=== PATIENT | female | born 1940 | race Caucasian/White ===

== ENCOUNTER → 2016-08-24 | Outpatient (CLI) | payer MEDICARE ==
[~2016-08-24] MED LIST: /ALEN70TA; /AMLO25TA PO; /CARB4TA; /CARBXR20T OR; /CARBXR20T PO; /HYDR10TAB PO; /ROPI25TA; /WARF25TA PO; /WARF5TA PO; ACET50TAOT PO; AMLO25TA PO; ASPI81TA21 PO; ASPI81TA63; ASPI81TA83 OR; ATOR1TAB21 PO; AUGM875T27 PO; BACIDCA PO; BAYE81TA7 PO; BENI20TA11; BENI20TA11 PO; BENI40TA3 PO; BENICAR PO; CARB10TAXR; CARB200C5 PO; CARB400T4 PO; CARV12.5 PO; CIPR500T19; CORE25TA PO; D 101TAB PO; DOXY75CA3 PO; FURO20TA2 PO; GABA100C PO; HUMULIN 70/30; HUMULIN 70/30 SC; IBUPOTC PO; LASI20TA OR; LEVA500T OR; LEVA500T PO; LIDO1DIS2 TD; LIDO5DIS EXT; LIPI20TA; LIPI20TA OR; MILKSUS OR; NAME5TAB13 PO; NEUR100C OR; NORT25CA2; NORT25CA2 PO; NOVO70VL SC; NOVOINJ3 SC; PAME50CA PO; PERC5TAB8 OR; PERCOCET PO; PRED10TA PO; PRED1TAB32 PO; PRED20TAB PO; PREG50CA PO; PRIL20CA PO; PROAIR INH; SYMB80INH INH; TRIC145T19; TRIC145T19 OR; TYLE325T5 PO; VENTAER INH; VITA100066 PO; VITA1CAP7 PO; VITACAP31 PO; VITAMIN D50000 UNT; WARF05TA GT; [UNRECOGNIZED DRUG - CODE]; [UNRECOGNIZED DRUG - OTHER] PO; [UNRECOGNIZED DRUG - REMARK]; insulin SQ
--- NOTE | 2016-09-08 01:29 | ECWPNPC ---
PATIENT NAME: JAVY RUIZ : 1940 GENDER: FEMALE VISIT DATE: 08/24/2016 DISCHARGE DATE: 08/24/16 1153 VISIT LOCKED DATE TIME: PHYSICIAN: UZMA WINSTON RESOURCE: UZMA WINSTON REASON FOR APPOINTMENT 1. T EPIDURAL F/U BACK HISTORY OF PRESENT ILLNESS HISTORY OF PRESENT ILLNESS: HERE FOR POST PROCEDURE F/U.HAD LESI ON 06-23-16.REPORTS SIGNIFICANT REDUCTION IN LBP AND RIGHT LEG PAIN.RATING PAIN VAS 7/10.CHIEF AREA OF PAIN IS ACROSS LOW BACK.DISCUSSED TREATMENT OPTIONS. FALL RISK SCREENING: SCREENING :NO FALLS IN THE PAST YEAR CURRENT MEDICATIONS TAKING FUROSEMIDE 20 MG TABLET 1 TABLET ORALLY ONCE A DAY TAKING CARVEDILOL 12.5MG TABLET 1 TAB(S) P.O. BID TAKING CALCIUM + D 600-200 MG-UNIT TABLET 1 TABLET WITH FOOD ORALLY ONCE A DAY TAKING LIPITOR 20 MG TABLET 1 TABLET ORALLY ONCE A DAY TAKING BENICAR 40 MG TABLET 1 TABLET ORALLY ONCE A DAY TAKING TEGRETOL-XR 200 MG TABLET EXTENDED RELEASE 12 HOUR 1 TABLET ORALLY TWICE A DAY TAKING NORTRIPTYLINE HCL 25 MG CAPSULE 1 CAPSULE ORALLY TWICE A DAY TAKING ASPIRIN 81 MG TABLET 1 TABLET ORALLY ONCE A DAY TAKING LYRICA 100 MG CAPSULE 1 CAP(S) ORALLY BID TAKING SYMBICORT 80-4.5 MCG/ACT AEROSOL 2 PUFFS INHALATION TWICE A DAY TAKING VITAMIN D3 5000 UNIT CAPSULE ORALLY DAILY TAKING OMEPRAZOLE 20 MG CAPSULE DELAYED RELEASE 1 CAPSULE ORALLY ONCE A DAY TAKING LEVEMIR FLEXPEN 100 UNIT/ML SOLUTION 60 UNITS SUBCUTANEOUS NIGHTLY TAKING NAMENDA XR 28 MG CAPSULE EXTENDED RELEASE 24 HOUR 1 CAPSULE ORALLY ONCE A DAY TAKING HUMALOG 100 UNIT/ML SOLUTION SUBCUTANEOUS SLIDING SCALE DIRECTED NOT-TAKING NOVOLOG MIX 70/30 (70-30) 100 UNIT/ML SUSPENSION 30 UNITS SUBCUTANEOUS MEDICATION LIST REVIEWED AND RECONCILED WITH THE PATIENT PAST MEDICAL HISTORY DM, TYPE II HYPERCHOLESTEROLEMIA HTN VIT D DEFICIENCY CHRONIC RENAL INSUFFICIENCY EDEMA CHRONIC ARTHRITIS SEIZURE DISORDER OSTEOPOROSIS RLS GERD TIA 05/21/2012 DEMENTIA COPD SOCIAL HISTORY GENERAL: TOBACCO USE ARE YOU A:NONSMOKER LEARNING BARRIERS / SPECIAL NEEDS ORIENTED TO PLAN OF CARE: PATIENT, PAIN MANAGEMENT PATIENT, ORIENTED TO PLAN OF CARE: PATIENT, PAIN MANAGEMENT PATIENT. NEW PATIENT PAIN DIARY TODAY'S VISITNOTES FROM 0-10, WHAT LEVEL IS YOUR PAIN TODAY?0 PAIN CLINIC PFS, CLERGY, PUBLIC HEALTH REFERRALS PFS REFERRAL NEEDED?NO CLERGY REFERRAL NEEDED?NO PUBLIC HEALTH REFERRAL NEEDED?NO WAS THE PROVIDER NOTIFIED OF ANY PERTINENT INFO?NO PFS REFERRAL NEEDED?NO CLERGY REFERRAL NEEDED?NO PUBLIC HEALTH REFERRAL NEEDED?NO WAS THE PROVIDER NOTIFIED OF ANY PERTINENT INFO?NO REVIEW OF SYSTEMS CONSTITUTIONAL: ANY CHANGE IN YOUR MEDICAL CONDITION? NO . RECENT ILLNESS DENIES . CHILLS NO . FEVER NO . WEIGHT LOSS DENIES . INFECTION: DO YOU HAVE NEW INFECTIONS? NO . DO YOU HAVE HISTORY OF MRSA? NO . MUSCULOSKELETAL: ANY NEW PATTERNS OF PAIN OR NUMBNESS? NO . GASTROENTEROLOGY: ANY NEW CHANGE IN BOWEL CONTROL? NO . GENITOURINARY: ANY NEW CHANGE IN BLADDER CONTROL? NO . IS THERE A CHANCE YOU COULD BE ? NO . HEMATOLOGY/LYMPH: DO YOU TAKE ANY BLOOD THINNERS? (FOR EXAMPLE- COUMADIN, PLAVIX, AGGRENOX, PLATEL, PRADAXA, OR XARELTO) NO . WHEN WAS YOUR LAST DOSE? DATE: TIME: . NEUROLOGY: HAVE YOU FALLEN IN THE PAST 6 MONTHS? NO . ANY NEW EXTREMITY NUMBNESS OR WEAKNESS? NO . CARDIOLOGY: DO YOU HAVE A PACEMAKER OR DEFIBRILLATOR? NO . CHEST PAIN DENIES . SHORTNESS OF BREATH DENIES . RESPIRATORY: HAVE YOU BEEN SICK IN THE PAST WEEK? NO . FEVER NO . FLU LIKE SYMPTOMS? NO . COUGH NO, DENIES . SHORTNESS OF BREATH DENIES . INTEGUMENTARY: DO YOU HAVE ANY RASHES OR OPEN SORES? NO . ALLERGIC/IMMUNO: ARE YOU ALLERGIC TO SHELLFISH OR IV DYE? NO . ANY NEW ALLERGIES? NO . PSYCHIATRIC: DO YOU HAVE THOUGHTS OF HURTING YOURSELF OR SOMEONE ELSE? NO . ARE YOU ABUSED, NEGLECTED, OR IN AN UNSAFE ENVIRONMENT? NO . ENDOCRINOLOGY: ARE YOU DIABETIC? NO . OTHER: DO YOU NEED ANY PRESCRIPTIONS? NO . IF YES, PLEASE LIST: ____ . ANY NEW PROBLEMS WITH YOUR MEDICATIONS? NO . WHEN DID YOU LAST EAT? ____ . WHEN DID YOU LAST DRINK? ____ . WHAT DID YOU LAST DRINK? ____ . NAME OF PERSON DRIVING YOU HOME? ____ . DO YOU HAVE ANY OTHER QUESTIONS OR CONCERNS NO . REVIEWED BY: PROVIDER: UZMA NELSON . VITAL SIGNS WT 183.8 LBS, HT 62", BMI 33.61 INDEX, BP 165/67 MM HG, HR 106 /MIN, RR 18 /MIN, TEMP 97.8 F, OXYGEN SAT % 95, SAFE IN ENV? (Y/N) YES, NA INITIALS TL 1109, REVIEWED BY: KG. EXAMINATION GENERAL EXAMINATION: LUNGS:LUNG SOUNDS ARE CLEAR. HEART:HEART RATE REGULAR. MUSCULOSKELETAL:*, MUSCLE STRENGTH TESTING 5/5 BILATERAL LOWER EXTREMITIES. PALPATION: POSITIVE FOR PAIN OVER L/S SPINE. POSITIVE FOR PAIN OVER L/S PARASPINALS. DIAGNOSTIC: . ASSESSMENTS LUMBOSACRAL SPONDYLOLYSIS - M43.07 (PRIMARY) TREATMENT LUMBOSACRAL SPONDYLOLYSIS LUMBAR FACET UZMA BOYKIN 08/24/2016 11:35:21 AM > BILAT L4/5-L5/S1 THERAPEUTIC FACET BLOCK PREVENTIVE MEDICINE PAIN CLINIC TEACHING: PROCEDURE TEACHING WENT OVER PRETEACHIUNG AND ALSO HCP WITH PT / GAVE HAND OUTS WELL. PROCEDURE CODES FA211 ESTABILISHED PATIENT [facility] FACILITY CHARGE G8730 PAIN ASSESS POS TOOL F/U PLAN DOC G8427 DOC MEDS VERIFIED W/PT OR RE FOLLOW UP 2WK POST (REASON: BILAT L4/5-L5/S1 THERAPEUTIC FACET BLOCK) ELECTRONICALLY SIGNED BY OMAR DALEY ON 09/07/2016 AT 05:28 PM EST DISCLAIMER : THIS IS A VISIT SUMMARY EXTRACTED FROM THE [employer] CHART. IT IS NOT A COPY OF THE [employer] PROGRESS NOTE. DENIS
== END ==
LOC: M PAIN 11:00
PROVIDERS: ATTEND Nurse Practitioner Family
DX: Z09 Encounter for follow-up examination after completed treatment for conditions other than malignant neoplasm (principal); G89.29 Other chronic pain; M43.07 Spondylolysis, lumbosacral region; M19.90 Unspecified osteoarthritis, unspecified site; G40.919 Epilepsy, unspecified, intractable, without status epilepticus; E11.9 Type 2 diabetes mellitus without complications; E78.00 Pure hypercholesterolemia, unspecified; E55.9 Vitamin D deficiency, unspecified; I12.9 Hypertensive chronic kidney disease with stage 1 through stage 4 chronic kidney disease, or unspecified chronic kidney disease; N18.9 Chronic kidney disease, unspecified; G25.81 Restless legs syndrome; K21.9 Gastro-esophageal reflux disease without esophagitis; J44.9 Chronic obstructive pulmonary disease, unspecified; F03.90 Unspecified dementia, unspecified severity, without behavioral disturbance, psychotic disturbance, mood disturbance, and anxiety; Z79.82 Long term (current) use of aspirin; Z79.4 Long term (current) use of insulin; Z79.899 Other long term (current) drug therapy; Z86.73 Personal history of transient ischemic attack (TIA), and cerebral infarction without residual deficits

== ENCOUNTER → 2016-09-21 | Outpatient (REF) | payer MEDICARE ==
[2016-09-21 16:14] LABS: BASO % 0.8 % (0.0-1.0); EOS # 0.1 K/mm3 (0.0-0.50); EOS % 2.4 % (0.0-3.0); LARGE UNSTAINED CELL # 0.1 K/mm3 (0.0-0.4); LYMPH # 1.6 K/mm3 (1.5-4.5); LYMPH % 35.9 % (24.0-44.0); MEAN CORPUSCULAR HEMOGLOBIN 31.8 pg (27.0-33.0); MEAN CORPUSCULAR HGB CONC 33.6 g/dl (32.0-36.5); MEAN CORPUSCULAR VOLUME 94.5 fl (80.0-96.0); MONO # 0.3 K/mm3 (0.0-0.8); MONO % 6.6 % (0.0-5.0); NEUTROPHILS # 2.2 K/mm3 (1.8-7.7); NEUTROPHILS % 52.3 % (36.0-66.0); PLATELET COUNT, AUTOMATED 226 k/mm3 (150-450); RED CELL DISTRIBUTION WIDTH 12.6 % (11.5-14.5); WHITE BLOOD COUNT 4.2 K/mm3 (4.0-10.0)
[2016-09-21 16:15] LABS: CARBAMAZEPINE (TEGRETOL) LEVEL 7.6 UG/ML (4.0-10.0)
== END ==
LOC: M LABDRAW1 15:31
PROVIDERS: ATTEND Physician Assistant Medical
DX: G40.919 Epilepsy, unspecified, intractable, without status epilepticus (principal); Z51.81 Encounter for therapeutic drug level monitoring; Z79.899 Other long term (current) drug therapy; E78.4 Other hyperlipidemia

== ENCOUNTER → 2016-09-21 | Outpatient (REF) | payer MEDICARE | LOC: M LABDRAW1 15:30 | PROVIDERS: ATTEND Nurse Practitioner Family | DX: E78.4 Other hyperlipidemia (principal) ==

== ENCOUNTER → 2016-09-30 | Outpatient (CLI) | payer MEDICARE ==
[~2016-09-30] MED LIST changes: +BUPIVACAINE HCL 0.25% 30 ML VIAL As Ordered ONE; +ISOVUE-M 300 61% 15ML VIAL (Q9967) As Ordered ONE; +LIDOCAINE 1% SDV INJ 30 ML VIAL As Ordered ONE; +TRIAMCINOLONE ACETONIDE SUSP 40 MG/ML VIAL (J3301) As Ordered ONE; +diazePAM 5 MG TAB As Ordered ONE
--- NOTE | 2016-10-01 09:45 | REP ---
Partial lumbar spine series: Two views. History: Bilateral lumbar facet injection for pain. 50 seconds of fluoroscopy time is reported. Findings: A sequence of two fluoroscopically obtained last image hold spot radiographs of the lumbar spine are presented documenting needle position and contrast injection for facet injection procedure. Signed by Doyle Richter MD 10/01/2016 01:13 P
--- NOTE | 2016-10-07 01:36 | ECWPNPC ---
PATIENT NAME: JAVY RUIZ : 1940 GENDER: FEMALE VISIT DATE: 09/30/2016 DISCHARGE DATE: 09/30/16 1428 VISIT LOCKED DATE TIME: PHYSICIAN: AARON ZURITA RESOURCE: AARON ZURITA REASON FOR APPOINTMENT 1. THERAPEUTIC FACET BLOCK HISTORY OF PRESENT ILLNESS HISTORY OF PRESENT ILLNESS: PAIN THE PATIENT DESCRIBES THE PAIN... FALL RISK SCREENING: SCREENING :NO FALLS IN THE PAST YEAR CURRENT MEDICATIONS TAKING FUROSEMIDE 20 MG TABLET 1 TABLET ORALLY ONCE A DAY, NOTES: 09/29 7AM TAKING CARVEDILOL 12.5MG TABLET 1 TAB(S) P.O. BID, NOTES: 09/29 7AM TAKING CALCIUM + D 600-200 MG-UNIT TABLET 1 TABLET WITH FOOD ORALLY ONCE A DAY, NOTES: 09/29 7AM TAKING LIPITOR 20 MG TABLET 1 TABLET ORALLY ONCE A DAY, NOTES: 09/29 7AM TAKING BENICAR 40 MG TABLET 1 TABLET ORALLY ONCE A DAY, NOTES: 09/29 7AM TAKING TEGRETOL-XR 200 MG TABLET EXTENDED RELEASE 12 HOUR 1 TABLET ORALLY TWICE A DAY, NOTES: 09/29 7AM TAKING NORTRIPTYLINE HCL 25 MG CAPSULE 1 CAPSULE ORALLY TWICE A DAY, NOTES: 09/29 7AM TAKING ASPIRIN 81 MG TABLET 1 TABLET ORALLY ONCE A DAY, NOTES: 09/29 7AM TAKING LYRICA 100 MG CAPSULE 1 CAP(S) ORALLY BID, NOTES: 09/29 7AM TAKING SYMBICORT 80-4.5 MCG/ACT AEROSOL 2 PUFFS INHALATION TWICE A DAY, NOTES: 09/29 7AM TAKING VITAMIN D3 5000 UNIT CAPSULE ORALLY DAILY, NOTES: 09/29 7AM TAKING OMEPRAZOLE 20 MG CAPSULE DELAYED RELEASE 1 CAPSULE ORALLY ONCE A DAY, NOTES: 09/29 7AM TAKING LEVEMIR FLEXPEN 100 UNIT/ML SOLUTION 60 UNITS SUBCUTANEOUS NIGHTLY, NOTES: 09/29 6PM TAKING NAMENDA XR 28 MG CAPSULE EXTENDED RELEASE 24 HOUR 1 CAPSULE ORALLY ONCE A DAY, NOTES: 09/29 7AM TAKING HUMALOG 100 UNIT/ML SOLUTION SUBCUTANEOUS SLIDING SCALE DIRECTED, NOTES: 09/29 10PM NOT-TAKING NOVOLOG MIX 70/30 (70-30) 100 UNIT/ML SUSPENSION 30 UNITS SUBCUTANEOUS MEDICATION LIST REVIEWED AND RECONCILED WITH THE PATIENT PAST MEDICAL HISTORY DM, TYPE II HYPERCHOLESTEROLEMIA HTN VIT D DEFICIENCY CHRONIC RENAL INSUFFICIENCY EDEMA CHRONIC ARTHRITIS SEIZURE DISORDER OSTEOPOROSIS RLS GERD TIA 05/21/2012 DEMENTIA COPD ALLERGIES N.K.D.A. SOCIAL HISTORY GENERAL: TOBACCO USE ARE YOU A:CURRENT SMOKER LEARNING BARRIERS / SPECIAL NEEDS ORIENTED TO PLAN OF CARE: PATIENT, PAIN MANAGEMENT PATIENT, ORIENTED TO PLAN OF CARE: PATIENT, PAIN MANAGEMENT PATIENT. NEW PATIENT PAIN DIARY TODAY'S VISITNOTES FROM 0-10, WHAT LEVEL IS YOUR PAIN TODAY?0 PAIN CLINIC PFS, CLERGY, PUBLIC HEALTH REFERRALS PFS REFERRAL NEEDED?NO CLERGY REFERRAL NEEDED?NO PUBLIC HEALTH REFERRAL NEEDED?NO WAS THE PROVIDER NOTIFIED OF ANY PERTINENT INFO?NO PFS REFERRAL NEEDED?NO CLERGY REFERRAL NEEDED?NO PUBLIC HEALTH REFERRAL NEEDED?NO WAS THE PROVIDER NOTIFIED OF ANY PERTINENT INFO?NO REVIEW OF SYSTEMS CONSTITUTIONAL: ANY CHANGE IN YOUR MEDICAL CONDITION? NO . CHILLS NO . FEVER NO . INFECTION: DO YOU HAVE NEW INFECTIONS? NO . DO YOU HAVE HISTORY OF MRSA? NO . MUSCULOSKELETAL: ANY NEW PATTERNS OF PAIN OR NUMBNESS? NO . GASTROENTEROLOGY: ANY NEW CHANGE IN BOWEL CONTROL? NO . GENITOURINARY: ANY NEW CHANGE IN BLADDER CONTROL? NO . IS THERE A CHANCE YOU COULD BE ? NO . HEMATOLOGY/LYMPH: DO YOU TAKE ANY BLOOD THINNERS? (FOR EXAMPLE- COUMADIN, PLAVIX, AGGRENOX, PLATEL, PRADAXA, OR XARELTO) NO . WHEN WAS YOUR LAST DOSE? DATE: TIME: . NEUROLOGY: HAVE YOU FALLEN IN THE PAST 6 MONTHS? NO . ANY NEW EXTREMITY NUMBNESS OR WEAKNESS? NO . CARDIOLOGY: DO YOU HAVE A PACEMAKER OR DEFIBRILLATOR? NO . RESPIRATORY: HAVE YOU BEEN SICK IN THE PAST WEEK? NO . FEVER NO . FLU LIKE SYMPTOMS? NO . COUGH NO . INTEGUMENTARY: DO YOU HAVE ANY RASHES OR OPEN SORES? NO . ALLERGIC/IMMUNO: ARE YOU ALLERGIC TO SHELLFISH OR IV DYE? NO . ANY NEW ALLERGIES? NO . PSYCHIATRIC: DO YOU HAVE THOUGHTS OF HURTING YOURSELF OR SOMEONE ELSE? NO . ARE YOU ABUSED, NEGLECTED, OR IN AN UNSAFE ENVIRONMENT? NO . ENDOCRINOLOGY: ARE YOU DIABETIC? YES . OTHER: DO YOU NEED ANY PRESCRIPTIONS? NO . IF YES, PLEASE LIST: ____ . ANY NEW PROBLEMS WITH YOUR MEDICATIONS? NO . WHEN DID YOU LAST EAT? 09/29/16 1900 . WHEN DID YOU LAST DRINK? 0700 09/30/16 . WHAT DID YOU LAST DRINK? COFFEE . NAME OF PERSON DRIVING YOU HOME? AMA . DO YOU HAVE ANY OTHER QUESTIONS OR CONCERNS PT STATES THAT SHE IS A CURRENT SMOKER, REFUSES ANY SMOKING CESSATION COUSELING AT THIS TIME, PT STATES THAT SHE IS WEANING HERSELF OFF SMOKING AND SHE ONLY SMOKES 3 PER DAY. QUITTING AFTER SHE FINISHES THIS PACK. DS . REVIEWED BY: PROVIDER: . VITAL SIGNS WT 182.0 LBS, HT 62", BMI 33.28 INDEX, BP 144/64 MM HG, HR 98 /MIN, RR 16 /MIN, TEMP 96.0 F, OXYGEN SAT % 96, SAFE IN ENV? (Y/N) Y, NA INITIALS TL 1306, REVIEWED BY: DS. ASSESSMENTS SPONDYLOSIS WITHOUT MYELOPATHY OR RADICULOPATHY, LUMBAR REGION - M47.816 (PRIMARY) SPONDYLOSIS WITHOUT MYELOPATHY OR RADICULOPATHY, LUMBOSACRAL REGION - M47.817 PROCEDURES PN LUMBAR FACET BLOCK THERAPEUTIC PRE PROCEDURE DIAGNOSIS LUMBAR SPONDYLOSIS, LUMBOSACRAL SPONDYLOSIS POST PROCEDURE DIAGNOSIS LUMBAR SPONDYLOSIS, LUMBOSACRAL SPONDYLOSIS PROCEDURE BILATERAL L4-L5 AND BILATERAL L5-S1 LUMBAR FACET THERAPEUTIC BLOCK SURGEON DR. AARON ZURITA DOOR TO DOOR SELLING DISTRIBUTOR NONE ANESTHESIA LOCAL PRE PROCEDURE NOTE THE PATIENT HAS A HISTORY OF CHRONIC LOW BACK PAIN. I EVALUATE THE PATIENT AND REVIEWED THE CHART. I WENT OVER THE RISKS, ALTERNATIVES, AND BENEFITS ASSOCIATED WITH THIS PROCEDURE. THE PATIENT WOULD LIKE TO PROCEED AND GIVE CONSENT TO PERFORMED THE PROCEDURE. THE PATIENT DENIES UNEXPLAINABLE WEIGHT LOSS, FEVER, CHILLS, OR NEW CHANGES IN URINARY OR BOWEL CONTROL DESCRIPTION OF PROCEDURE THE PATIENT WAS BROUGHT TO THE PROCEDURE ROOM AND PLACED IN THE PRONE POSITION. THE LUMBOSACRAL AREA WAS CLEANED WITH CHLORAPREP SOLUTION AND DRAPED ASEPTICALLY. THE PROCEDURE WAS DONE UNDER STERILE CONDITIONS. I CHECKED LATERALITY AND THE LEVEL WHERE THE PROCEDURE WAS GOING TO BE PERFORMED WITH THE PATIENT AND THE SUPPORTING STAFF AT THE MOMENT OF THE TIME OUT IN THE PROCEDURE ROOM. UNDER FLUOROSCOPIC GUIDANCE, THE TARGET POINT WAS SELECTED AT THE RIGHT AND LEFT L4-L5 AND RIGHT AND LEFT L5-S1 FACET JOINT. TARGET POINT WAS SELECTED AFTER LATERAL ROTATION AND TILT OF THE MAGNIFIER OF THE C-ARM. LIDOCAINE 0.5% WAS USED TO NUMB THE SKIN AND THE SUBCUTANEOUS TISSUE BELOW IT. SPINAL NEEDLES, 22-GAUGE, WERE ADVANCED UNDER FLUOROSCOPIC GUIDANCE AND FOLLOWING PATIENT FEEDBACK UNTIL THE TARGETS WERE TOUCHED. THE POSITION OF THE NEEDLES WAS VERIFIED WITH AP AND LATERAL VIEWS. AFTER PROPER POSITION OF THE NEEDLES WAS ACHIEVED, ISOVUE-M DYE 30% 0.1 ML WAS INJECTED SHOWING ADEQUATE SPREAD OF THE DYE. THEN A SOLUTION OF 1.9 ML OF BUPIVACAINE 0.125% OF KENALOG 10 MG WAS INJECTED AT EACH SITE. THERE WAS NO EVIDENCE OF BLOOD, PARESTHESIA OR CEREBROSPINAL FLUID DURING THE PROCEDURE. THE PATIENT WAS SENT TO THE RECOVERY ROOM. THE PATIENT WAS MOVING THE EXTREMITIES AND DOING WELL. THERE WAS NO COMPLICATION DURING THE PROCEDURE. FLUOROSCOPY TIME WAS 50 SECONDS POST PROCEDURE NOTE THE PATIENT WILL BE SEEN IN A FOLLOW UP IN THE NEXT FEW WEEKS. INSTRUCTIONS WERE GIVEN, QUESTIONS WERE ANSWERED, AND THE PATIENT EXPRESSED UNDERSTANDING AND AGREES WITH THE PLAN. I, JHONATAN BEYER, DOCUMENTED THE ABOVE INFORMATION ACTING A SCRIBE FOR DR. ZURITA. I, DR. ZURITA, HAVE REVIEWED THE ABOVE DOCUMENT, SCRIBED BY JHONATAN BEYER, AND I VERIFY THAT IT IS ACCURATE. DIAGNOSTIC IMAGING [facility] FACET BLOCK (PAIN)[id number] PROCEDURE CODES 33816 INJ PARAVERT F JNT L/S 1 LEV 46535 INJ PARAVERT F JNT L/S 2 LEV 6045F RADXPS IN END [id number] PXD DISPOSITION & COMMUNICATION FOLLOW UP 3 WEEKS ELECTRONICALLY SIGNED BY AARON ZURITA MD ON 10/04/2016 AT 11:09 AM EDT DISCLAIMER : THIS IS A VISIT SUMMARY EXTRACTED FROM THE [employer] CHART. IT IS NOT A COPY OF THE [employer] PROGRESS NOTE. MTDD
== END ==
LOC: M PAIN 13:00
PROVIDERS: ATTEND Anesthesiology
DX: G89.29 Other chronic pain (principal); M47.816 Spondylosis without myelopathy or radiculopathy, lumbar region; M47.817 Spondylosis without myelopathy or radiculopathy, lumbosacral region; E11.9 Type 2 diabetes mellitus without complications; E78.00 Pure hypercholesterolemia, unspecified; I12.9 Hypertensive chronic kidney disease with stage 1 through stage 4 chronic kidney disease, or unspecified chronic kidney disease; N18.9 Chronic kidney disease, unspecified; E55.9 Vitamin D deficiency, unspecified; M19.90 Unspecified osteoarthritis, unspecified site; G40.909 Epilepsy, unspecified, not intractable, without status epilepticus; G25.81 Restless legs syndrome; J44.9 Chronic obstructive pulmonary disease, unspecified; F03.90 Unspecified dementia, unspecified severity, without behavioral disturbance, psychotic disturbance, mood disturbance, and anxiety; F17.200 Nicotine dependence, unspecified, uncomplicated; Z79.82 Long term (current) use of aspirin; Z79.4 Long term (current) use of insulin; Z79.899 Other long term (current) drug therapy; Z86.73 Personal history of transient ischemic attack (TIA), and cerebral infarction without residual deficits
CPT/HCPCS: 64493; 64494; J3301; Q9967

== ENCOUNTER → 2016-12-30 | Outpatient (CLI) | payer MEDICARE ==
[~2016-12-30] MED LIST changes: -BUPIVACAINE HCL 0.25% 30 ML VIAL As Ordered ONE; -ISOVUE-M 300 61% 15ML VIAL (Q9967) As Ordered ONE; -LIDOCAINE 1% SDV INJ 30 ML VIAL As Ordered ONE; -TRIAMCINOLONE ACETONIDE SUSP 40 MG/ML VIAL (J3301) As Ordered ONE; -diazePAM 5 MG TAB As Ordered ONE
--- NOTE | 2016-12-31 23:32 | ECWPNPC ---
PATIENT NAME: JAVY RUIZ : 1940 GENDER: FEMALE VISIT DATE: 12/30/2016 DISCHARGE DATE: 12/30/16 1111 VISIT LOCKED DATE TIME: PHYSICIAN: UZMA WINSTON RESOURCE: UZMA WINSTON REASON FOR APPOINTMENT 1. BACK/LEG HISTORY OF PRESENT ILLNESS HISTORY OF PRESENT ILLNESS: HERE FOR POST PROCEDURE F/U.HAD BILAT.LUMBAR FACET BLOCK ON 09-30-16.REPORTS ONLY 2-3 DAYS OF IMPROVEMENT POST PROCEDURE. RATING PAIN VAS 5/10.CHIEF AREA OF PAIN IS ACROSS LOW BACK WITH RADIATION INTO LEGS L>R.PAIN AGGREVATED WITH PROLONGED STANDING OR BENDING. REVIEWED MRI OF L/S SPINE WITH PATIENT AND FAMILY.DISCUSSED TREATMENT OPTIONS. PAIN THE PATIENT DESCRIBES THE PAIN... THE PATIENT DESCRIBES THE PAIN... FALL RISK SCREENING: SCREENING :NO FALLS IN THE PAST YEAR CURRENT MEDICATIONS TAKING FUROSEMIDE 20 MG TABLET 1 TABLET ORALLY ONCE A DAY TAKING CARVEDILOL 12.5MG TABLET 1 TAB(S) P.O. BID TAKING CALCIUM + D 600-200 MG-UNIT TABLET 1 TABLET WITH FOOD ORALLY ONCE A DAY TAKING LIPITOR 20 MG TABLET 1 TABLET ORALLY ONCE A DAY TAKING BENICAR 40 MG TABLET 1 TABLET ORALLY ONCE A DAY TAKING TEGRETOL-XR 200 MG TABLET EXTENDED RELEASE 12 HOUR 1 TABLET ORALLY TWICE A DAY TAKING NORTRIPTYLINE HCL 25 MG CAPSULE 1 CAPSULE ORALLY TWICE A DAY TAKING ASPIRIN 81 MG TABLET 1 TABLET ORALLY ONCE A DAY TAKING LYRICA 100 MG CAPSULE 1 CAP(S) ORALLY BID TAKING SYMBICORT 80-4.5 MCG/ACT AEROSOL 2 PUFFS INHALATION TWICE A DAY TAKING VITAMIN D3 5000 UNIT CAPSULE ORALLY DAILY TAKING OMEPRAZOLE 20 MG CAPSULE DELAYED RELEASE 1 CAPSULE ORALLY ONCE A DAY TAKING LEVEMIR FLEXPEN 100 UNIT/ML SOLUTION 60 UNITS SUBCUTANEOUS NIGHTLY TAKING NAMENDA XR 28 MG CAPSULE EXTENDED RELEASE 24 HOUR 1 CAPSULE ORALLY ONCE A DAY TAKING HUMALOG 100 UNIT/ML SOLUTION SUBCUTANEOUS SLIDING SCALE DIRECTED NOT-TAKING NOVOLOG MIX 70/30 (70-30) 100 UNIT/ML SUSPENSION 30 UNITS SUBCUTANEOUS MEDICATION LIST REVIEWED AND RECONCILED WITH THE PATIENT PAST MEDICAL HISTORY DM, TYPE II HYPERCHOLESTEROLEMIA HTN VIT D DEFICIENCY CHRONIC RENAL INSUFFICIENCY EDEMA CHRONIC ARTHRITIS SEIZURE DISORDER OSTEOPOROSIS RLS GERD TIA 05/21/2012 DEMENTIA COPD ALLERGIES N.K.D.A. SURGICAL HISTORY CARPAL TUNNEL RELEASE RIGHT HIP REPLACEMENT 2ND TO FX LEFT HIP FX OINS PLACED 06/26/12 RIGHT BREAST BIOPSY 03/2010 HYSTERECTOMY AROUND 12 YEARS AGO CATARACT, LEFT 06/03/15 CATARACT, RIGHT 06/09 HOSPITALIZATION/MAJOR DIAGNOSTIC PROCEDURE KIDNEY INFECTION TIA 05/21/12 VASOVAGEL SYNCOPE 08/19/13 REVIEW OF SYSTEMS CONSTITUTIONAL: ANY CHANGE IN YOUR MEDICAL CONDITION? NO . CHILLS NO . FEVER NO . INFECTION: DO YOU HAVE NEW INFECTIONS? NO . DO YOU HAVE HISTORY OF MRSA? NO . MUSCULOSKELETAL: ANY NEW PATTERNS OF PAIN OR NUMBNESS? NO . GASTROENTEROLOGY: ANY NEW CHANGE IN BOWEL CONTROL? NO . GENITOURINARY: ANY NEW CHANGE IN BLADDER CONTROL? NO . IS THERE A CHANCE YOU COULD BE ? NO . HEMATOLOGY/LYMPH: DO YOU TAKE ANY BLOOD THINNERS? (FOR EXAMPLE- COUMADIN, PLAVIX, AGGRENOX, PLATEL, PRADAXA, OR XARELTO) NO . WHEN WAS YOUR LAST DOSE? DATE: TIME: . NEUROLOGY: HAVE YOU FALLEN IN THE PAST 6 MONTHS? NO . ANY NEW EXTREMITY NUMBNESS OR WEAKNESS? NO . CARDIOLOGY: DO YOU HAVE A PACEMAKER OR DEFIBRILLATOR? NO . RESPIRATORY: HAVE YOU BEEN SICK IN THE PAST WEEK? NO . FEVER NO . FLU LIKE SYMPTOMS? NO . COUGH NO . INTEGUMENTARY: DO YOU HAVE ANY RASHES OR OPEN SORES? NO . ALLERGIC/IMMUNO: ARE YOU ALLERGIC TO SHELLFISH OR IV DYE? NO . ANY NEW ALLERGIES? NO . PSYCHIATRIC: DO YOU HAVE THOUGHTS OF HURTING YOURSELF OR SOMEONE ELSE? NO . ARE YOU ABUSED, NEGLECTED, OR IN AN UNSAFE ENVIRONMENT? NO . ENDOCRINOLOGY: ARE YOU DIABETIC? YES . OTHER: DO YOU NEED ANY PRESCRIPTIONS? NO . IF YES, PLEASE LIST: ____ . ANY NEW PROBLEMS WITH YOUR MEDICATIONS? NO . WHEN DID YOU LAST EAT? ____ . WHEN DID YOU LAST DRINK? ____ . WHAT DID YOU LAST DRINK? ____ . NAME OF PERSON DRIVING YOU HOME? ____ . DO YOU HAVE ANY OTHER QUESTIONS OR CONCERNS NO . REVIEWED BY: PROVIDER: UZMA NELSON . VITAL SIGNS WT 188.4 LBS, HT 62", BMI 34.46 INDEX, BP 138/63 MM HG, HR 100 /MIN, RR 16 /MIN, TEMP 98.6 F, OXYGEN SAT % 94%, SAFE IN ENV? (Y/N) Y, NA INITIALS SC 10:10, REVIEWED BY: SHIVA. EXAMINATION GENERAL EXAMINATION: LUNGS:LUNG SOUNDS ARE CLEAR. HEART:HEART RATE REGULAR. MUSCULOSKELETAL:*, MUSCLE STRENGTH TESTING 5/5 BILATERAL LOWER EXTREMITIES. PALPATION: POSITIVE FOR PAIN OVER L/S SPINE. POSITIVE FOR PAIN OVER L/S PARASPINALS. DIAGNOSTIC:MRI L/S [id number]-[id number]. 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 PROCEDURE CODES FA211 ESTABILISHED PATIENT [facility] FACILITY CHARGE G8730 PAIN ASSESS POS TOOL F/U PLAN DOC G8427 DOC MEDS VERIFIED W/PT OR RE DISPOSITION & COMMUNICATION FOLLOW UP 2WK POST (REASON: I AM GOING TO REQUEST A LUMBAR INTERLAMINAR EPIDURAL STEROID INJECTION L4/5) ELECTRONICALLY SIGNED BY OMAR DALEY ON 12/31/2016 AT 04:52 PM EDT DISCLAIMER : THIS IS A VISIT SUMMARY EXTRACTED FROM THE [employer] CHART. IT IS NOT A COPY OF THE [employer] PROGRESS NOTE. DENIS
== END ==
LOC: M PAIN 10:00
PROVIDERS: ATTEND Nurse Practitioner Family
DX: G89.29 Other chronic pain (principal); M43.07 Spondylolysis, lumbosacral region; M51.26 Other intervertebral disc displacement, lumbar region; M54.16 Radiculopathy, lumbar region; E11.9 Type 2 diabetes mellitus without complications; E78.00 Pure hypercholesterolemia, unspecified; I10 Essential (primary) hypertension; E55.9 Vitamin D deficiency, unspecified; R56.9 Unspecified convulsions; M85.80 Other specified disorders of bone density and structure, unspecified site; G25.81 Restless legs syndrome; K21.9 Gastro-esophageal reflux disease without esophagitis; I25.2 Old myocardial infarction; F03.90 Unspecified dementia, unspecified severity, without behavioral disturbance, psychotic disturbance, mood disturbance, and anxiety; J44.9 Chronic obstructive pulmonary disease, unspecified; Z79.82 Long term (current) use of aspirin; Z79.4 Long term (current) use of insulin; Z79.899 Other long term (current) drug therapy

== ENCOUNTER → 2017-01-08 | Outpatient (CLI) | payer MEDICARE ==
[~2017-01-08] MED LIST changes: +ISOVUE-M 300 61% 15ML VIAL (Q9967) As Ordered ONE; +LIDOCAINE 1% SDV INJ 30 ML VIAL As Ordered ONE; +diazePAM 5 MG TAB As Ordered ONE; +methylPREDNISolone SUSP 40 MG/ML (DEPO-medrol) VIAL (J1030) As Ordered ONE; +oxyCODONE 5MG TAB As Ordered ONE
--- NOTE | 2017-01-08 15:19 | REP ---
FLUOROSCOPIC GUIDANCE FOR LUMBAR SPINE EPIDURAL INJECTION: 01/08/2017. Clinical history: Low back pain. Findings: Two images from C-arm fluoroscopy provided to Dr. Dennison of the pain clinic for lumbar epidural steroid injection. Initial image shows a needle adjacent to the left side of the L5 spinous process with some epidural contrast adjacent to it. The second image shows the needle removed. Fluoroscopy time: 11 seconds. Signed by Johnson Ng MD 01/08/2017 05:10 P
--- NOTE | 2017-01-15 00:05 | ECWPNPC ---
PATIENT NAME: JAVY RUIZ : 1940 GENDER: FEMALE VISIT DATE: 01/08/2017 DISCHARGE DATE: 01/08/17 1048 VISIT LOCKED DATE TIME: PHYSICIAN: AARON ZURITA RESOURCE: AARON ZURITA REASON FOR APPOINTMENT 1. LUMBAR INTERLAMINAR EPIDURAL STEROID INJECTION L4/5 HISTORY OF PRESENT ILLNESS HISTORY OF PRESENT ILLNESS: PAIN THE PATIENT DESCRIBES THE PAIN... FALL RISK SCREENING: SCREENING :NO FALLS IN THE PAST YEAR CURRENT MEDICATIONS TAKING FUROSEMIDE 20 MG TABLET 1 TABLET ORALLY ONCE A DAY, NOTES: TAKING CARVEDILOL 12.5MG TABLET 1 TAB(S) P.O. BID, NOTES: 01-07-17899 TAKING CALCIUM + D 600-200 MG-UNIT TABLET 1 TABLET WITH FOOD ORALLY ONCE A DAY, NOTES: 01-07-17899 TAKING LIPITOR 20 MG TABLET 1 TABLET ORALLY ONCE A DAY, NOTES: 01-07-172099 TAKING BENICAR 40 MG TABLET 1 TABLET ORALLY ONCE A DAY, NOTES: 01-07-172099 TAKING TEGRETOL-XR 200 MG TABLET EXTENDED RELEASE 12 HOUR 1 TABLET ORALLY TWICE A DAY, NOTES: 01-07-17899 TAKING NORTRIPTYLINE HCL 25 MG CAPSULE 1 CAPSULE ORALLY TWICE A DAY, NOTES: 01-07-17 TAKING ASPIRIN 81 MG TABLET 1 TABLET ORALLY ONCE A DAY, NOTES: 01-07-17899 TAKING LYRICA 100 MG CAPSULE 1 CAP(S) ORALLY BID, NOTES: 01-07-17899 TAKING SYMBICORT 80-4.5 MCG/ACT AEROSOL 2 PUFFS INHALATION TWICE A DAY, NOTES: 01-07-17899 TAKING VITAMIN D3 5000 UNIT CAPSULE ORALLY DAILY, NOTES: 01-07-17899 TAKING OMEPRAZOLE 20 MG CAPSULE DELAYED RELEASE 1 CAPSULE ORALLY ONCE A DAY, NOTES: 01-07-17899 TAKING LEVEMIR FLEXPEN 100 UNIT/ML SOLUTION 60 UNITS SUBCUTANEOUS NIGHTLY, NOTES: 01-07-17899 TAKING NAMENDA XR 28 MG CAPSULE EXTENDED RELEASE 24 HOUR 1 CAPSULE ORALLY ONCE A DAY, NOTES: 01-07-17899 TAKING HUMALOG 100 UNIT/ML SOLUTION SUBCUTANEOUS SLIDING SCALE DIRECTED, NOTES: 01-07-17899 NOT-TAKING NOVOLOG MIX 70/30 (70-30) 100 UNIT/ML SUSPENSION 30 UNITS SUBCUTANEOUS MEDICATION LIST REVIEWED AND RECONCILED WITH THE PATIENT PAST MEDICAL HISTORY DM, TYPE II HYPERCHOLESTEROLEMIA HTN VIT D DEFICIENCY CHRONIC RENAL INSUFFICIENCY EDEMA CHRONIC ARTHRITIS SEIZURE DISORDER OSTEOPOROSIS RLS GERD TIA 05/21/2012 DEMENTIA COPD ALLERGIES N.K.D.A. SURGICAL HISTORY CARPAL TUNNEL RELEASE RIGHT HIP REPLACEMENT 2ND TO FX LEFT HIP FX OINS PLACED 06/26/12 RIGHT BREAST BIOPSY 03/2010 HYSTERECTOMY AROUND 12 YEARS AGO CATARACT, LEFT 06/03/15 CATARACT, RIGHT 06/09 HOSPITALIZATION/MAJOR DIAGNOSTIC PROCEDURE KIDNEY INFECTION TIA 05/21/12 VASOVAGEL SYNCOPE 08/19/13 REVIEW OF SYSTEMS REVIEWED BY: PROVIDER: . CONSTITUTIONAL: ANY CHANGE IN YOUR MEDICAL CONDITION? NO . CHILLS NO . FEVER NO . INFECTION: DO YOU HAVE NEW INFECTIONS? NO . DO YOU HAVE HISTORY OF MRSA? NO . MUSCULOSKELETAL: ANY NEW PATTERNS OF PAIN OR NUMBNESS? NO . GASTROENTEROLOGY: ANY NEW CHANGE IN BOWEL CONTROL? NO . GENITOURINARY: ANY NEW CHANGE IN BLADDER CONTROL? NO . IS THERE A CHANCE YOU COULD BE ? NO . HEMATOLOGY/LYMPH: DO YOU TAKE ANY BLOOD THINNERS? (FOR EXAMPLE- COUMADIN, PLAVIX, AGGRENOX, PLATEL, PRADAXA, OR XARELTO) NO . WHEN WAS YOUR LAST DOSE? DATE: TIME: . NEUROLOGY: HAVE YOU FALLEN IN THE PAST 6 MONTHS? NO . ANY NEW EXTREMITY NUMBNESS OR WEAKNESS? NO . CARDIOLOGY: DO YOU HAVE A PACEMAKER OR DEFIBRILLATOR? NO . RESPIRATORY: HAVE YOU BEEN SICK IN THE PAST WEEK? NO . FEVER NO . FLU LIKE SYMPTOMS? NO . COUGH NO . INTEGUMENTARY: DO YOU HAVE ANY RASHES OR OPEN SORES? NO . ALLERGIC/IMMUNO: ARE YOU ALLERGIC TO SHELLFISH OR IV DYE? NO . ANY NEW ALLERGIES? NO . PSYCHIATRIC: DO YOU HAVE THOUGHTS OF HURTING YOURSELF OR SOMEONE ELSE? NO . ARE YOU ABUSED, NEGLECTED, OR IN AN UNSAFE ENVIRONMENT? NO . ENDOCRINOLOGY: ARE YOU DIABETIC? NO . OTHER: DO YOU NEED ANY PRESCRIPTIONS? NO . IF YES, PLEASE LIST: ____ . ANY NEW PROBLEMS WITH YOUR MEDICATIONS? NO . WHEN DID YOU LAST EAT? ____7 PM LAST NIGHT . WHEN DID YOU LAST DRINK? ____LAST NIGHT 7 PM . WHAT DID YOU LAST DRINK? ____COFFEE . NAME OF PERSON DRIVING YOU HOME? ____TINA BLACK . DO YOU HAVE ANY OTHER QUESTIONS OR CONCERNS NO . VITAL SIGNS WT 172 LBS, HT 62", BMI 31.46 INDEX, BP 174/73 MM HG, HR 96 /MIN, RR 16 /MIN, TEMP 97.7 F, OXYGEN SAT % 98%, NA INITIALS AW 0944, REVIEWED BY: KG. ASSESSMENTS INTERVERTEBRAL DISC DISORDERS WITH RADICULOPATHY, LUMBAR REGION - M51.16 (PRIMARY) PROCEDURES PRE PROCEDURE DIAGNOSIS LUMBAR DISC DISORDER WITH RADICULOPATHY POST PROCEDURE DIAGNOSIS LUMBAR DISC DISORDER WITH RADICULOPATHY PROCEDURE LUMBAR EPIDURAL STEROID INJECTION UNDER FLUOROSCOPIC GUIDANCE SURGEON DR. AARON ZURITA CARDIOVASCULAR DISEASE SPECIALIST NONE ANESTHESIA LOCAL PRE PROCEDURE NOTE THE PATIENT HAS A HISTORY OF CHRONIC LOW BACK PAIN. I EVALUATE THE PATIENT AND REVIEWED THE CHART. I WENT OVER THE RISKS, ALTERNATIVES, AND BENEFITS ASSOCIATED WITH THIS PROCEDURE. THE PATIENT WOULD LIKE TO PROCEED AND GIVE CONSENT TO PERFORMED THE PROCEDURE. THE PATIENT DENIES UNEXPLAINABLE WEIGHT LOSS, FEVER, CHILLS, OR NEW CHANGES IN URINARY OR BOWEL CONTROL DESCRIPTION OF PROCEDURE THE PATIENT WAS BROUGHT TO THE PROCEDURE ROOM AND PLACED IN THE PRONE POSITION. THE LUMBOSACRAL AREA WAS CLEANED WITH BETADINE SOLUTION AND DRAPED ASEPTICALLY. THE PROCEDURE WAS DONE UNDER STERILE CONDITIONS. I CHECKED LATERALITY AND THE LEVEL WHERE THE PROCEDURE WAS GOING TO BE PERFORMED WITH THE PATIENT AND THE SUPPORTING STAFF AT THE MOMENT OF THE TIME OUT IN THE PROCEDURE ROOM. UNDER FLUOROSCOPIC GUIDANCE, THE TARGET POINT WAS SELECTED AT THE INTERLAMINAR LEVEL OF L4-L5. LIDOCAINE WAS USED TO NUMB THE SKIN AND THE SUBCUTANEOUS TISSUE BELOW IT. EPIDURAL TUOHY NEEDLE, 17-GAUGE, WAS ADVANCED UNDER FLUOROSCOPIC GUIDANCE AND FOLLOWING PATIENT FEEDBACK UNTIL THE EPIDURAL SPACE WAS REACHED, 7 CM DEEP INTO THE SKIN BY THE LOSS OF RESISTANCE TECHNIQUE. ISOVUE M DYE 30%, 0.25 ML, WAS INJECTED SHOWING ADEQUATE SPREAD OF THE DYE. THEN, A SOLUTION OF 3 ML OF NORMAL SALINE WITH DEPO-MEDROL 60 MG WAS INJECTED SLOWLY FOLLOWING PATIENT FEEDBACK. THERE WAS NO EVIDENCE OF BLOOD, PARESTHESIA OR CEREBROSPINAL FLUID DURING THE PROCEDURE. THE PATIENT WAS SENT TO THE RECOVERY ROOM. THE PATIENT WAS MOVING THE EXTREMITIES AND DOING WELL. THERE WAS NO COMPLICATION DURING THE PROCEDURE. FLUOROSCOPY TIME WAS 11 SECONDS POST PROCEDURE NOTE THE PATIENT WILL BE SEEN IN A FOLLOW UP IN THE NEXT FEW WEEKS. INSTRUCTIONS WERE GIVEN, QUESTIONS WERE ANSWERED, AND THE PATIENT EXPRESSED UNDERSTANDING AND AGREES WITH THE PLAN. I, JHONATAN BEYER, DOCUMENTED THE ABOVE INFORMATION ACTING A SCRIBE FOR DR. ZURITA. I HAVE REVIEWED THE ABOVE DOCUMENT, WRITTEN BY JHONATAN MALDONADOIBFreddie AND I VERIFY THAT IT IS ACCURATE DIAGNOSTIC IMAGING [facility] FLUORO GUIDE SPINE INJECTION (PAIN)[id number] PROCEDURE CODES 73386 LUMBAR/SACRAL W/ IMAGING 6045F RADXPS IN END [id number] PXD DISPOSITION & COMMUNICATION FOLLOW UP 3 WEEKS ELECTRONICALLY SIGNED BY AARON ZURITA MD ON 01/14/2017 AT 11:56 AM EDT DISCLAIMER : THIS IS A VISIT SUMMARY EXTRACTED FROM THE [employer] CHART. IT IS NOT A COPY OF THE [employer] PROGRESS NOTE. MTDD
== END ==
LOC: M PAIN 09:00
PROVIDERS: ATTEND Anesthesiology
DX: G89.29 Other chronic pain (principal); M51.16 Intervertebral disc disorders with radiculopathy, lumbar region; E11.9 Type 2 diabetes mellitus without complications; E78.00 Pure hypercholesterolemia, unspecified; I12.9 Hypertensive chronic kidney disease with stage 1 through stage 4 chronic kidney disease, or unspecified chronic kidney disease; N18.9 Chronic kidney disease, unspecified; E55.9 Vitamin D deficiency, unspecified; M19.90 Unspecified osteoarthritis, unspecified site; R56.9 Unspecified convulsions; G25.81 Restless legs syndrome; K21.9 Gastro-esophageal reflux disease without esophagitis; I25.2 Old myocardial infarction; J44.9 Chronic obstructive pulmonary disease, unspecified; F03.90 Unspecified dementia, unspecified severity, without behavioral disturbance, psychotic disturbance, mood disturbance, and anxiety; Z79.82 Long term (current) use of aspirin; Z79.4 Long term (current) use of insulin; Z79.899 Other long term (current) drug therapy
CPT/HCPCS: 62323; J1030; Q9967

== ENCOUNTER → 2017-01-22 | Outpatient (CLI) | payer MEDICARE ==
[~2017-01-22] MED LIST changes: +BENI40TA26 PO; -BENI40TA3 PO; -ISOVUE-M 300 61% 15ML VIAL (Q9967) As Ordered ONE; +LEVA1TAB2 PO; -LEVA500T PO; -LIDOCAINE 1% SDV INJ 30 ML VIAL As Ordered ONE; +TOUJ1.2I SC; -diazePAM 5 MG TAB As Ordered ONE; -methylPREDNISolone SUSP 40 MG/ML (DEPO-medrol) VIAL (J1030) As Ordered ONE; -oxyCODONE 5MG TAB As Ordered ONE
--- NOTE | 2017-02-06 01:04 | ECWPNPC ---
PATIENT NAME: JAVY RUIZ : 1940 GENDER: FEMALE VISIT DATE: 01/22/2017 DISCHARGE DATE: 01/22/17 1035 VISIT LOCKED DATE TIME: PHYSICIAN: UZMA WINSTON RESOURCE: UZMA WINSTON REASON FOR APPOINTMENT 1. POST LUMBAR INTERLAMINAR EPIDURAL STEROID INJECTION L4/5 HISTORY OF PRESENT ILLNESS HISTORY OF PRESENT ILLNESS: HERE FOR POST PROCEDURE F/U.HAD LESI L4/L5 ON 01-08-17. REPORTS NO IMPROVEMENT POST PROCEDURE.RATING PAIN VAS 0/10 AT REST.PAIN AGGREVATED WITH WALKING.DESCRIBES PAIN ACHING.PAIN IS IN LOW BACKR>L. PAIN THE PATIENT DESCRIBES THE PAIN... FALL RISK SCREENING: SCREENING :NO FALLS IN THE PAST YEAR CURRENT MEDICATIONS TAKING FUROSEMIDE 20 MG TABLET 1 TABLET ORALLY ONCE A DAY TAKING CARVEDILOL 12.5MG TABLET 1 TAB(S) P.O. BID TAKING CALCIUM + D 600-200 MG-UNIT TABLET 1 TABLET WITH FOOD ORALLY ONCE A DAY TAKING LIPITOR 20 MG TABLET 1 TABLET ORALLY ONCE A DAY TAKING BENICAR 40 MG TABLET 1 TABLET ORALLY ONCE A DAY TAKING TEGRETOL-XR 200 MG TABLET EXTENDED RELEASE 12 HOUR 1 TABLET ORALLY TWICE A DAY TAKING NORTRIPTYLINE HCL 25 MG CAPSULE 1 CAPSULE ORALLY TWICE A DAY TAKING ASPIRIN 81 MG TABLET 1 TABLET ORALLY ONCE A DAY TAKING LYRICA 100 MG CAPSULE 1 CAP(S) ORALLY BID TAKING SYMBICORT 80-4.5 MCG/ACT AEROSOL 2 PUFFS INHALATION TWICE A DAY TAKING VITAMIN D3 5000 UNIT CAPSULE ORALLY DAILY TAKING OMEPRAZOLE 20 MG CAPSULE DELAYED RELEASE 1 CAPSULE ORALLY ONCE A DAY TAKING LEVEMIR FLEXPEN 100 UNIT/ML SOLUTION 60 UNITS SUBCUTANEOUS NIGHTLY TAKING NAMENDA XR 28 MG CAPSULE EXTENDED RELEASE 24 HOUR 1 CAPSULE ORALLY ONCE A DAY TAKING HUMALOG 100 UNIT/ML SOLUTION SUBCUTANEOUS SLIDING SCALE DIRECTED NOT-TAKING NOVOLOG MIX 70/30 (70-30) 100 UNIT/ML SUSPENSION 30 UNITS SUBCUTANEOUS MEDICATION LIST REVIEWED AND RECONCILED WITH THE PATIENT PAST MEDICAL HISTORY DM, TYPE II HYPERCHOLESTEROLEMIA HTN VIT D DEFICIENCY CHRONIC RENAL INSUFFICIENCY EDEMA CHRONIC ARTHRITIS SEIZURE DISORDER OSTEOPOROSIS RLS GERD TIA 05/21/2012 DEMENTIA COPD ALLERGIES N.K.D.A. SURGICAL HISTORY CARPAL TUNNEL RELEASE RIGHT HIP REPLACEMENT 2ND TO FX LEFT HIP FX OINS PLACED 06/26/12 RIGHT BREAST BIOPSY 03/2010 HYSTERECTOMY AROUND 12 YEARS AGO CATARACT, LEFT 06/03/15 CATARACT, RIGHT 06/09 HOSPITALIZATION/MAJOR DIAGNOSTIC PROCEDURE KIDNEY INFECTION TIA 05/21/12 VASOVAGEL SYNCOPE 08/19/13 REVIEW OF SYSTEMS REVIEWED BY: PROVIDER: UZMA NELSON . CONSTITUTIONAL: ANY CHANGE IN YOUR MEDICAL CONDITION? NO . CHILLS NO . FEVER NO . INFECTION: DO YOU HAVE NEW INFECTIONS? YES, COUGH/COLD. PT REPORTS PRODUCTIVE COUGH OF YELLOW MUCOUS X 1-2 WEEKS . DO YOU HAVE HISTORY OF MRSA? NO . MUSCULOSKELETAL: ANY NEW PATTERNS OF PAIN OR NUMBNESS? NO . GASTROENTEROLOGY: ANY NEW CHANGE IN BOWEL CONTROL? NO . GENITOURINARY: ANY NEW CHANGE IN BLADDER CONTROL? NO . IS THERE A CHANCE YOU COULD BE ? NO . HEMATOLOGY/LYMPH: DO YOU TAKE ANY BLOOD THINNERS? (FOR EXAMPLE- COUMADIN, PLAVIX, AGGRENOX, PLATEL, PRADAXA, OR XARELTO) NO . WHEN WAS YOUR LAST DOSE? DATE: TIME: . NEUROLOGY: HAVE YOU FALLEN IN THE PAST 6 MONTHS? NO . ANY NEW EXTREMITY NUMBNESS OR WEAKNESS? NO . CARDIOLOGY: DO YOU HAVE A PACEMAKER OR DEFIBRILLATOR? NO . RESPIRATORY: HAVE YOU BEEN SICK IN THE PAST WEEK? NO . FEVER NO . FLU LIKE SYMPTOMS? NO . COUGH NO . INTEGUMENTARY: DO YOU HAVE ANY RASHES OR OPEN SORES? NO . ALLERGIC/IMMUNO: ARE YOU ALLERGIC TO SHELLFISH OR IV DYE? NO . ANY NEW ALLERGIES? NO . PSYCHIATRIC: DO YOU HAVE THOUGHTS OF HURTING YOURSELF OR SOMEONE ELSE? NO . ARE YOU ABUSED, NEGLECTED, OR IN AN UNSAFE ENVIRONMENT? NO . ENDOCRINOLOGY: ARE YOU DIABETIC? YES . OTHER: DO YOU NEED ANY PRESCRIPTIONS? NO . IF YES, PLEASE LIST: ____ . ANY NEW PROBLEMS WITH YOUR MEDICATIONS? NO . WHEN DID YOU LAST EAT? ____ . WHEN DID YOU LAST DRINK? ____ . WHAT DID YOU LAST DRINK? ____ . NAME OF PERSON DRIVING YOU HOME? ____ . DO YOU HAVE ANY OTHER QUESTIONS OR CONCERNS NO . VITAL SIGNS WT 185.4 LBS, HT 62", BMI 33.91 INDEX, BP 145/67 MM HG, HR 100 /MIN, RR 16 /MIN, TEMP 97.0 F, OXYGEN SAT % 93%, SAFE IN ENV? (Y/N) Y, NA INITIALS [id number], REVIEWED BY: EM. EXAMINATION GENERAL EXAMINATION: LUNGS:LUNG SOUNDS ARE CLEAR. HEART:HEART RATE REGULAR. MUSCULOSKELETAL:*, MUSCLE STRENGTH TESTING 5/5 BILATERAL LOWER EXTREMITIES. PALPATION: POSITIVE FOR PAIN OVER L/S SPINE. POSITIVE FOR PAIN OVER L/S PARASPINALS, TRIGGER POINTS:, ELICITED WITH PALPATION OVER RIGHT LUMBAR PARAVERTEBRAL MUSCLES.. DIAGNOSTIC:MRI L/S [id number]-[id number]. ASSESSMENTS MYALGIA - M79.1 (PRIMARY) LUMBOSACRAL SPONDYLOLYSIS - M43.07 (PRIMARY) PROTRUSION OF LUMBAR INTERVERTEBRAL DISC - M51.26 LUMBAR RADICULOPATHY - M54.16 TREATMENT MYALGIA NOTES: TPI RIGHT LOW BACK,TRIGGER POINT INJECTION: YOUR EXPERIENCE MATERIAL WAS PRINTED, REVIEWED AND GIVEN TO PT,TRIGGER POINT INJECTION MATERIAL WAS PRINTED, REVIEWED AND GIVEN TO PT. PROCEDURE CODES FA211 ESTABILISHED PATIENT [facility] FACILITY CHARGE G8730 PAIN ASSESS POS TOOL F/U PLAN DOC G8427 DOC MEDS VERIFIED W/PT OR RE DISPOSITION & COMMUNICATION FOLLOW UP 2WK POST (REASON: TPI RIGHT LOW BACK) ELECTRONICALLY SIGNED BY OMAR DALEY ON 02/05/2017 AT 01:33 PM EDT DISCLAIMER : THIS IS A VISIT SUMMARY EXTRACTED FROM THE [employer] CHART. IT IS NOT A COPY OF THE [employer] PROGRESS NOTE. DENIS
== END ==
LOC: M PAIN 09:20
PROVIDERS: ATTEND Nurse Practitioner Family
DX: G89.29 Other chronic pain (principal); M79.1 Myalgia; M43.07 Spondylolysis, lumbosacral region; M51.26 Other intervertebral disc displacement, lumbar region; M54.16 Radiculopathy, lumbar region; E11.9 Type 2 diabetes mellitus without complications; E78.00 Pure hypercholesterolemia, unspecified; I12.9 Hypertensive chronic kidney disease with stage 1 through stage 4 chronic kidney disease, or unspecified chronic kidney disease; N18.9 Chronic kidney disease, unspecified; E55.9 Vitamin D deficiency, unspecified; G40.909 Epilepsy, unspecified, not intractable, without status epilepticus; M85.80 Other specified disorders of bone density and structure, unspecified site; G25.81 Restless legs syndrome; K21.9 Gastro-esophageal reflux disease without esophagitis; F03.90 Unspecified dementia, unspecified severity, without behavioral disturbance, psychotic disturbance, mood disturbance, and anxiety; J44.9 Chronic obstructive pulmonary disease, unspecified; Z79.82 Long term (current) use of aspirin; Z79.4 Long term (current) use of insulin; Z79.899 Other long term (current) drug therapy

== ENCOUNTER → 2017-02-01 | Outpatient (CLI) | payer MEDICARE ==
--- NOTE | 2017-02-01 14:37 | REP ---
CHEST, TWO VIEWS: HISTORY: Hypertension. COMPARISON: 04/24/2016. The lungs are clear. The heart is normal in size. The pulmonary vasculature is normal in appearance. There are old right rib fractures. Degenerative changes present in the thoracic spine. IMPRESSION: No acute disease. Signed by Jarred Navarro MD 02/01/2017 02:39 P
== END ==
LOC: M WUC 13:51
PROVIDERS: ATTEND Nurse Practitioner Family
DX: I10 Essential (primary) hypertension (principal)

== ENCOUNTER → 2017-02-17 | Outpatient (REF) | payer MEDICARE | LOC: M LABNEURO 12:23 | PROVIDERS: ATTEND Physician Assistant Medical | DX: R56.9 Unspecified convulsions (principal) ==

== ENCOUNTER → 2017-02-18 | Outpatient (CLI) | payer MEDICARE ==
[~2017-02-18] MED LIST changes: +BUPIVACAINE HCL 0.25% 10 ML VIAL As Ordered ONE; +BUPIVACAINE HCL 0.25% 30 ML VIAL As Ordered ONE; +TRIAMCINOLONE ACETONIDE SUSP 40 MG/ML VIAL (J3301) As Ordered ONE; +diazePAM 5 MG TAB As Ordered ONE; +oxyCODONE 5MG TAB As Ordered ONE
--- NOTE | 2017-03-07 23:46 | ECWPNPC ---
PATIENT NAME: JAVY RUIZ : 1940 GENDER: FEMALE VISIT DATE: 02/18/2017 DISCHARGE DATE: 02/18/17 1300 VISIT LOCKED DATE TIME: PHYSICIAN: AARON ZURITA RESOURCE: AARON ZURITA REASON FOR APPOINTMENT 1. TPI BILATERAL LOWER BACK HISTORY OF PRESENT ILLNESS HISTORY OF PRESENT ILLNESS: PAIN THE PATIENT DESCRIBES THE PAIN... FALL RISK SCREENING: SCREENING :NO FALLS IN THE PAST YEAR CURRENT MEDICATIONS TAKING FUROSEMIDE 20 MG TABLET 1 TABLET ORALLY ONCE A DAY, NOTES: 02-17-171399 TAKING CARVEDILOL 12.5MG TABLET 1 TAB(S) P.O. BID, NOTES: 02-17-17 AM TAKING CALCIUM + D 600-200 MG-UNIT TABLET 1 TABLET WITH FOOD ORALLY ONCE A DAY, NOTES: 02-17-17 AM TAKING LIPITOR 20 MG TABLET 1 TABLET ORALLY ONCE A DAY, NOTES: 02-17-17 AM TAKING BENICAR 40 MG TABLET 1 TABLET ORALLY ONCE A DAY, NOTES: 02-17-17 AM TAKING TEGRETOL-XR 200 MG TABLET EXTENDED RELEASE 12 HOUR 1 TABLET ORALLY TWICE A DAY, NOTES: 02-17-17 AM TAKING NORTRIPTYLINE HCL 25 MG CAPSULE 1 CAPSULE ORALLY TWICE A DAY, NOTES: 02-17-17 AM TAKING ASPIRIN 81 MG TABLET 1 TABLET ORALLY ONCE A DAY, NOTES: 02-17-17 AM TAKING LYRICA 75 MG CAPSULE 1 CAP(S) ORALLY BID, NOTES: 02-17-17 AM TAKING SYMBICORT 80-4.5 MCG/ACT AEROSOL 2 PUFFS INHALATION TWICE A DAY, NOTES: 02-17-17 AM TAKING VITAMIN D3 5000 UNIT CAPSULE ORALLY DAILY, NOTES: 02-17-17 AM TAKING OMEPRAZOLE 20 MG CAPSULE DELAYED RELEASE 1 CAPSULE ORALLY ONCE A DAY, NOTES: 02-17-17 AM TAKING LEVEMIR FLEXPEN 100 UNIT/ML SOLUTION 60 UNITS SUBCUTANEOUS NIGHTLY, NOTES: 02-17-17 AM TAKING NAMENDA XR 28 MG CAPSULE EXTENDED RELEASE 24 HOUR 1 CAPSULE ORALLY ONCE A DAY, NOTES: 02-17-171399 TAKING HUMALOG 100 UNIT/ML SOLUTION SUBCUTANEOUS SLIDING SCALE DIRECTED, NOTES: 02-17-17 NOT-TAKING NOVOLOG MIX 70/30 (70-30) 100 UNIT/ML SUSPENSION 30 UNITS SUBCUTANEOUS MEDICATION LIST REVIEWED AND RECONCILED WITH THE PATIENT PAST MEDICAL HISTORY DM, TYPE II HYPERCHOLESTEROLEMIA HTN VIT D DEFICIENCY CHRONIC RENAL INSUFFICIENCY EDEMA CHRONIC ARTHRITIS SEIZURE DISORDER OSTEOPOROSIS RLS GERD TIA 05/21/2012 DEMENTIA COPD ALLERGIES N.K.D.A. REVIEW OF SYSTEMS REVIEWED BY: PROVIDER: . CONSTITUTIONAL: ANY CHANGE IN YOUR MEDICAL CONDITION? NO . CHILLS NO . FEVER NO . INFECTION: DO YOU HAVE NEW INFECTIONS? YES, HAD AN UTI LAST WEEK STILL TAKING ANTIBIOTICS. BUT HASNT TAKEN FOR 2 DAYS. . DO YOU HAVE HISTORY OF MRSA? NO . MUSCULOSKELETAL: ANY NEW PATTERNS OF PAIN OR NUMBNESS? NO . GASTROENTEROLOGY: ANY NEW CHANGE IN BOWEL CONTROL? NO . GENITOURINARY: ANY NEW CHANGE IN BLADDER CONTROL? NO . IS THERE A CHANCE YOU COULD BE ? NO . HEMATOLOGY/LYMPH: DO YOU TAKE ANY BLOOD THINNERS? (FOR EXAMPLE- COUMADIN, PLAVIX, AGGRENOX, PLATEL, PRADAXA, OR XARELTO) NO . WHEN WAS YOUR LAST DOSE? DATE: TIME: . NEUROLOGY: HAVE YOU FALLEN IN THE PAST 6 MONTHS? NO . ANY NEW EXTREMITY NUMBNESS OR WEAKNESS? NO . CARDIOLOGY: DO YOU HAVE A PACEMAKER OR DEFIBRILLATOR? NO . RESPIRATORY: HAVE YOU BEEN SICK IN THE PAST WEEK? NO . FEVER NO . FLU LIKE SYMPTOMS? NO . COUGH NO . INTEGUMENTARY: DO YOU HAVE ANY RASHES OR OPEN SORES? NO . ALLERGIC/IMMUNO: ARE YOU ALLERGIC TO SHELLFISH OR IV DYE? NO . ANY NEW ALLERGIES? NO . PSYCHIATRIC: DO YOU HAVE THOUGHTS OF HURTING YOURSELF OR SOMEONE ELSE? NO . ARE YOU ABUSED, NEGLECTED, OR IN AN UNSAFE ENVIRONMENT? NO . ENDOCRINOLOGY: ARE YOU DIABETIC? YES . OTHER: DO YOU NEED ANY PRESCRIPTIONS? NO . IF YES, PLEASE LIST: ____ . ANY NEW PROBLEMS WITH YOUR MEDICATIONS? NO . WHEN DID YOU LAST EAT? 02-17-17 PM . WHEN DID YOU LAST DRINK? 02-17-17 PM . WHAT DID YOU LAST DRINK? SODA . NAME OF PERSON DRIVING YOU HOME? VICKY LUDWIG . DO YOU HAVE ANY OTHER QUESTIONS OR CONCERNS NO . VITAL SIGNS WT 172.0 LBS, HT 62", BMI 31.46 INDEX, BP 158/60 MANUAL, HR 105 /MIN, RR 18 /MIN, TEMP 97.3 F, OXYGEN SAT % 96%, NA INITIALS TL 1041, REVIEWED BY: CM. ASSESSMENTS MYALGIA - M79.1 (PRIMARY) PROCEDURES PN TRIGGER POINT INJECTION WITH STEROIDS PRE PROCEDURE DIAGNOSIS 1. MYALGIA 2. PAIN AT BILATERAL LOWER BACK AREA POST PROCEDURE DIAGNOSIS 1. MYALGIA 2. PAIN AT BILATERAL LOWER BACK AREA PROCEDURE TRIGGER POINT INJECTION AT BILATERAL LOWER BACK AREA SURGEON DR. AARON ZURITA PILLOWCASE TURNER NONE ANESTHESIA LOCAL PRE PROCEDURE NOTE THE PATIENT HAS A HISTORY OF CHRONIC PAIN AT THE RIGHT AND LEFT LOWER BACK AREA. I EVALUATE THE PATIENT AND REVIEWED THE CHART. THERE IS EVIDENCE OF BANDS OF TISSUE WITH RESTRICTION OF MOVEMENT AND PRESENCE OF TRIGGER POINT AT THE AFFECTED AREA. I WENT OVER THE RISKS, ALTERNATIVES, AND BENEFITS ASSOCIATED WITH THIS PROCEDURE. THE PATIENT WOULD LIKE TO PROCEED AND GIVE CONSENT TO PERFORMED THE PROCEDURE. THE PATIENT DENIES UNEXPLAINABLE WEIGHT LOSS, FEVER, CHILLS, OR NEW CHANGES IN URINARY OR BOWEL CONTROL DESCRIPTION OF PROCEDURE THE PATIENT WAS BROUGHT TO THE PROCEDURE ROOM AND PLACED IN THE SITTING POSITION. THE AREA WAS CLEANED WITH ALCOHOL. THE PROCEDURE WAS DONE USING ASEPTIC STERILE TECHNIQUE. I CHECKED LATERALITY AND THE LEVEL WHERE THE PROCEDURE WAS GOING TO BE PERFORMED WITH THE PATIENT AND THE SUPPORTING STAFF AT THE MOMENT OF THE TIME OUT IN THE PROCEDURE ROOM. USING A 25-GAUGE NEEDLE, TRIGGER POINTS WERE INJECTED AT THE RIGHT AND LEFT LOWER BACK AREA WITH A TOTAL OF 40 ML OF BUPIVACAINE 0.25% AND KENALOG 40 MG. THERE WAS NO EVIDENCE OF BLOOD, PARESTHESIA OR CEREBROSPINAL FLUID DURING THE PROCEDURE. THE PATIENT WAS SENT TO THE RECOVERY ROOM. THE PATIENT WAS MOVING THE EXTREMITIES AND DOING WELL. THERE WAS NO COMPLICATION DURING THE PROCEDURE POST PROCEDURE NOTE THE PATIENT WILL BE SEEN IN A FOLLOW UP IN THE NEXT FEW WEEKS. INSTRUCTIONS WERE GIVEN, QUESTIONS WERE ANSWERED, AND THE PATIENT EXPRESSED UNDERSTANDING AND AGREES WITH THE PLAN. I, JHONATAN BEYER, DOCUMENTED THE ABOVE INFORMATION ACTING A SCRIBE FOR DR. ZURITA. I, DR. ZURITA, HAVE REVIEWED THE ABOVE DOCUMENT, SCRIBED BY JHONATAN BEYER, AND I VERIFY THAT IT IS ACCURATE PROCEDURE CODES 15708 INJ TRIGGER POINT 07/27 [facility] [place] DISPOSITION & COMMUNICATION FOLLOW UP 3 WEEKS ELECTRONICALLY SIGNED BY AARON ZURITA MD ON 03/07/2017 AT 07:57 AM EDT DISCLAIMER : THIS IS A VISIT SUMMARY EXTRACTED FROM THE [employer] CHART. IT IS NOT A COPY OF THE [employer] PROGRESS NOTE. [facility]
== END ==
LOC: M PAIN 10:20
PROVIDERS: ATTEND Anesthesiology
DX: G89.29 Other chronic pain (principal); M54.5 Low back pain; M79.1 Myalgia; E11.9 Type 2 diabetes mellitus without complications; E78.00 Pure hypercholesterolemia, unspecified; E55.9 Vitamin D deficiency, unspecified; I12.9 Hypertensive chronic kidney disease with stage 1 through stage 4 chronic kidney disease, or unspecified chronic kidney disease; N18.9 Chronic kidney disease, unspecified; M19.90 Unspecified osteoarthritis, unspecified site; G40.909 Epilepsy, unspecified, not intractable, without status epilepticus; G25.81 Restless legs syndrome; K21.9 Gastro-esophageal reflux disease without esophagitis; J44.9 Chronic obstructive pulmonary disease, unspecified; I25.2 Old myocardial infarction; Z79.82 Long term (current) use of aspirin; Z79.4 Long term (current) use of insulin; Z79.899 Other long term (current) drug therapy
CPT/HCPCS: 20552; J3301

== ENCOUNTER 2017-04-10 13:19 | Emergency (ER) | payer MEDICARE ==
[~2017-04-10] VITALS: Ht 162.6 cm; Wt 77.3 kg
[2017-04-10 13:19] VITALS: BP 146/69
[~2017-04-10 13:19] MED LIST changes: -BUPIVACAINE HCL 0.25% 10 ML VIAL As Ordered ONE; -BUPIVACAINE HCL 0.25% 30 ML VIAL As Ordered ONE; -TOUJ1.2I SC; -TRIAMCINOLONE ACETONIDE SUSP 40 MG/ML VIAL (J3301) As Ordered ONE; -diazePAM 5 MG TAB As Ordered ONE; -oxyCODONE 5MG TAB As Ordered ONE
[2017-04-10] MEDS ORDERED: TOUJ1.2I SC (13:39)
--- NOTE | 2017-04-10 15:07 | REP ---
Clinical: Pain without trauma. Technique: Neutral and frog lateral views of the right hip. Comparison: X-ray pelvis 04/24/2016. Findings: The patient is again noted to be status post right hip replacement. Stable degenerative changes are appreciated. No acute fracture dislocation. Orthopedic hardware appears stable and without jareth-metallic lucency to suggest loosening or abnormality. Impression: Stable degenerative changes. Signed by Flo Ramon MD 04/10/2017 02:57 P
[2017-04-10] MEDS ORDERED: OXYCODONE/APAP 5MG/325MG(BULK FOR ED) 1 TABLET PO ONE (15:30)
[2017-06-07] MEDS ORDERED: PREG100CA PO (13:52)
[2017-06-07] MEDS ORDERED: VITA1CAP7 PO (13:52)
[2017-06-07] MEDS ORDERED: LASI20TA PO (13:52)
[2017-06-07] MEDS ORDERED: OMEP20CA3 PO (13:52)
[2017-06-07] MEDS ORDERED: INSUH10VL SC (13:52)
[2017-06-07] MEDS ORDERED: BENI40TA26 PO (13:52)
== END 2017-04-10 15:38 | disposition home or self-care (01) ==
LOC: M ED 13:19
DX: M25.551 Pain in right hip (principal); E11.9 Type 2 diabetes mellitus without complications; J44.9 Chronic obstructive pulmonary disease, unspecified; N18.9 Chronic kidney disease, unspecified; G40.919 Epilepsy, unspecified, intractable, without status epilepticus; M51.9 Unspecified thoracic, thoracolumbar and lumbosacral intervertebral disc disorder; F17.210 Nicotine dependence, cigarettes, uncomplicated

== ENCOUNTER 2017-06-10 16:15 | Emergency (ER) | payer MEDICARE ==
[~2017-06-10] VITALS: Ht 157.5 cm; Wt 78.2 kg
[~2017-06-10 16:15] MED LIST changes: -KEFL500C17 PO; -MUCI600T31 PO
[2017-06-10] MEDS ORDERED: MUCI600T31 PO (16:37)
[2017-06-10] MEDS ORDERED: NS 500 ML IV ONE ×3 (18:00→23:15)
[2017-06-10 21:47] LABS: BASO % 0.2 % (0.0-1.0); EOS # 0.1 10^3/uL (0.0-0.50); EOS % 0.8 % (0.0-3.0); IMMATURE GRANULOCYTE % 0.2 % (0-0); LYMPH # 1.9 10^3/uL (1.5-4.5); LYMPH % 19.7 % (24.0-44.0); MEAN CORPUSCULAR HEMOGLOBIN 29.3 pg (27.0-33.0); MEAN CORPUSCULAR HGB CONC 32.8 g/dl (32.0-36.5); MEAN CORPUSCULAR VOLUME 89.2 fl (80.0-96.0); MONO # 0.6 10^3/uL (0.0-0.8); MONO % 6.6 % (0.0-5.0); NEUTROPHILS # 6.9 10^3/uL (1.8-7.7); NEUTROPHILS % 72.5 % (36.0-66.0); PLATELET COUNT, AUTOMATED 210 10^3/uL (150-450); WHITE BLOOD COUNT 9.5 10^3/uL (4.0-10.0)
[2017-06-10 22:12] LABS: ALBUMIN 3.4 GM/DL (3.2-5.2); ALBUMIN/GLOBULIN RATIO 0.97 (1.00-1.93); BILIRUBIN,TOTAL 0.3 MG/DL (0.2-1.0); CALCIUM LEVEL 8.8 MG/DL (8.8-10.2); CREATININE FOR GFR 1.92 MG/DL (0.55-1.02); POTASSIUM SERUM 4.2 MEQ/L (3.5-5.1); TOTAL PROTEIN 6.9 GM/DL (6.4-8.2)
[2017-06-11] MEDS ORDERED: cefTRIAXone SOD 500 MG VIAL (J0696) IM ONE
[2017-06-11 02:26] LABS: ALBUMIN 3.1 GM/DL (3.2-5.2); ALBUMIN/GLOBULIN RATIO 1.07 (1.00-1.93); BILIRUBIN,TOTAL 0.3 MG/DL (0.2-1.0); CREATININE FOR GFR 1.61 MG/DL (0.55-1.02); POTASSIUM SERUM 3.9 MEQ/L (3.5-5.1)
[2017-06-11] MEDS ORDERED: KEFL500C17 PO (02:34)
[2017-06-11 02:46] VITALS: BP 143/61
== END 2017-06-11 02:59 | disposition home or self-care (01) ==
LOC: M ED 16:15
DX: R06.02 Shortness of breath (principal); R10.84 Generalized abdominal pain; E11.29 Type 2 diabetes mellitus with other diabetic kidney complication; N18.3 Chronic kidney disease, stage 3 (moderate); E86.0 Dehydration; N39.0 Urinary tract infection, site not specified; I10 Essential (primary) hypertension; Z87.891 Personal history of nicotine dependence; Z79.82 Long term (current) use of aspirin; Z79.899 Other long term (current) drug therapy; Z88.8 Allergy status to other drugs, medicaments and biological substances
CPT/HCPCS: 36415; 71020; 80053; 81001; 83605; 85025; 87086; 87186; 87804; 96372; 99284; J0696

== ENCOUNTER → 2017-06-10 | Outpatient (CLI) | payer MEDICARE ==
[~2017-06-10] MED LIST changes: +INSUH10VL SC; +KEFL500C17 PO; +LASI20TA PO; +MUCI600T31 PO; +OMEP20CA3 PO; +PREG100CA PO; +TOUJ1.2I SC
--- NOTE | 2017-06-10 16:21 | REP ---
Clinical: Shortness of breath . Comparison: 02/01/2017 . Technique: PA and lateral. Findings: The mediastinum and cardiac silhouette are normal. The lung mata are clear and without acute consolidation, effusion, or pneumothorax. The skeletal structures are intact and normal. Impression: No acute cardiopulmonary process. If the patient remains symptomatic consider chest CT for further investigation. Signed by Flo Ramon MD 06/10/2017 04:13 P
== END ==
LOC: M WUC 15:28
PROVIDERS: ATTEND Physician Assistant
DX: R06.02 Shortness of breath (principal); R10.84 Generalized abdominal pain

== ENCOUNTER → 2017-09-10 | Outpatient (REF) | payer MEDICARE ==
[2017-09-10 12:41] LABS: BASO % 0.6 % (0.0-1.0); EOS # 0.1 10^3/uL (0.0-0.50); EOS % 2.5 % (0.0-3.0); HEMATOCRIT 29.5 % (36.0-47.0); HEMOGLOBIN 8.9 g/dl (12.0-16.0); IMMATURE GRANULOCYTE % 0.4 % (0-3.0); LYMPH # 1.3 10^3/uL (1.5-4.5); LYMPH % 26.9 % (24.0-44.0); MEAN CORPUSCULAR HGB CONC 30.2 g/dl (32.0-36.5); MEAN CORPUSCULAR VOLUME 86.3 fl (80.0-96.0); MONO # 0.5 10^3/uL (0.0-0.8); MONO % 9.4 % (0.0-5.0); NEUTROPHILS # 2.9 10^3/uL (1.8-7.7); NEUTROPHILS % 60.2 % (36.0-66.0); PLATELET COUNT, AUTOMATED 243 10^3/uL (150-450); RED BLOOD COUNT 3.42 10^6/uL (4.00-5.40); RED CELL DISTRIBUTION WIDTH 14.1 % (11.5-14.5); WHITE BLOOD COUNT 4.9 10^3/uL (4.0-10.0)
[2017-09-10 13:06] LABS: FOLATE 11.8 NG/ML; VITAMIN B12 LEVEL 257 PG/ML
[2017-09-10 13:12] LABS: FERRITIN 10 NG/ML (8-252); FREE T4 0.81 NG/DL (0.76-1.46); IRON (FE) 29 UG/DL (50-170); PERCENT SATURATION 5.6 % (13.2-45.0); THYROID STIMULATING HORMONE 0.843 uIU/ML (0.358-3.740); TOTAL IRON BINDING CAPACITY 515 UG/DL (250-450)
[2017-09-12 00:06] LABS: TISSUE TRANSGLUTAMINASE IgA <2 U/mL (0-3)
== END ==
LOC: M SFHCADAM 10:47
DX: K52.9 Noninfective gastroenteritis and colitis, unspecified (principal); D64.9 Anemia, unspecified
CPT/HCPCS: 82746

== ENCOUNTER 2017-09-27 11:26 | Inpatient (IN) | payer MEDICARE ==
[2017-09-27] MEDS: ASPIRIN 81 MG CHEW TABLET PO (11:55)
[2017-09-27 12:27] LABS: BASO % 0.2 % (0.0-1.0); EOS % 0.1 % (0.0-3.0); HEMATOCRIT 26.3 % (36.0-47.0); HEMOGLOBIN 8.1 g/dl (12.0-16.0); IMMATURE GRANULOCYTE % 0.5 % (0-3.0); LYMPH # 1.4 10^3/uL (1.5-4.5); LYMPH % 13.4 % (24.0-44.0); MEAN CORPUSCULAR HEMOGLOBIN 25.4 pg (27.0-33.0); MEAN CORPUSCULAR HGB CONC 30.8 g/dl (32.0-36.5); MEAN CORPUSCULAR VOLUME 82.4 fl (80.0-96.0); MONO # 0.5 10^3/uL (0.0-0.8); MONO % 5.1 % (0.0-5.0); NEUTROPHILS # 8.6 10^3/uL (1.8-7.7); NEUTROPHILS % 80.7 % (36.0-66.0); PLATELET COUNT, AUTOMATED 205 10^3/uL (150-450); RED BLOOD COUNT 3.19 10^6/uL (4.00-5.40); RED CELL DISTRIBUTION WIDTH 14.7 % (11.5-14.5); WHITE BLOOD COUNT 10.7 10^3/uL (4.0-10.0)
[2017-09-27 12:50] LABS: NT-PRO BNP 606 PG/ML (<450)
[2017-09-27 12:50] LABS: ALBUMIN 3.2 GM/DL (3.2-5.2); ALBUMIN/GLOBULIN RATIO 0.82 (1.00-1.93); ALKALINE PHOSPHATASE 84 U/L (45-117); ALT/SGPT 12 U/L (12-78); ANION GAP 10 MEQ/L (8-16); AST/SGOT 12 U/L (7-37); BILIRUBIN,DIRECT < 0.1 MG/DL (0.0-0.2); BILIRUBIN,TOTAL 0.3 MG/DL (0.2-1.0); BLOOD UREA NITROGEN 35 MG/DL (7-18); CALCIUM LEVEL 8.5 MG/DL (8.8-10.2); CARBON DIOXIDE LEVEL 25 MEQ/L (21-32); CHLORIDE LEVEL 99 MEQ/L (98-107); CPK CREATINE PHOSPHOKINASE 232 U/L (26-192); CREATININE FOR GFR 1.81 MG/DL (0.55-1.30); GLOMERULAR FILTRATION RATE 28.9 (>39); LIPASE 489 U/L (73-393); SODIUM LEVEL 134 MEQ/L (136-145); TOTAL PROTEIN 7.1 GM/DL (6.4-8.2); TROPONIN I < 0.02 NG/ML (< 0.10)
[2017-09-27 12:51] LABS: CK-MB VALUE MASS 3.2 NG/ML (0.0-3.6); MB/CK RELATIVE INDEX 1.37 (< OR =4)
[2017-09-27 13:09] LABS: GLUCOSE, FASTING 587 MG/DL (70-100); POTASSIUM SERUM 5.3 MEQ/L (3.5-5.1)
[2017-09-27] MEDS: NS 500 ML IV (14:00)
[2017-09-27] MEDS: IPRATROPIUM 0.5MG/ALBUTEROL 2.5MG INH SOL UD 3ML (DUONEB)(J7620) NEB ×2 (14:12→20:30)
[2017-09-27] MEDS ORDERED: GLUCOSE 4 GM CHEW TABLET PO (15:00)
[2017-09-27] MEDS ORDERED: GLUCAGON FOR INJ 1 MG VIAL (J1610) SC (15:00)
[2017-09-27] MEDS ORDERED: DEXTROSE 50% 50 ML SYRINGE IV (15:00)
[2017-09-27] MEDS ORDERED: IPRATROPIUM 0.5MG/ALBUTEROL 2.5MG INH SOL UD 3ML (DUONEB)(J7620) NEB (15:30)
[2017-09-27 15:37] LABS: CARBAMAZEPINE (TEGRETOL) LEVEL 7.4 UG/ML (4.0-10.0); FERRITIN 14 NG/ML (8-252); IRON (FE) 23 UG/DL (50-170); TOTAL IRON BINDING CAPACITY 463 UG/DL (250-450)
[2017-09-27 15:52] LABS: FOLATE 13.2 NG/ML (>5.4)
[2017-09-27 15:56] LABS: VITAMIN B12 LEVEL 1589 PG/ML (247-911)
[2017-09-27] MEDS: NS 1,000 ML IV (15:57)
[2017-09-27 16:16] LABS: IMMEDIATE SPIN CROSSMATCH 1 2
[2017-09-27] MEDS ORDERED: guaiFENesin ER 600 MG TAB PO (16:45)
[2017-09-27] MEDS ORDERED: HumaLOG INSULIN (NovoLOG) PER UNIT SC (17:30)
[2017-09-27 18:11] LABS: BEDSIDE GLUCOSE 460 MG/DL (83-110)
[2017-09-27] MEDS: HumaLOG INSULIN (NovoLOG) PER UNIT SC (18:15)
[2017-09-27] MEDS ORDERED: INFLUENZA VIRUS VACCINE HIGH DOSE 0.5 ML SYRINGE (90662) IM (19:00)
[2017-09-27 20:07] LABS: HEMATOCRIT 29.6 % (36.0-47.0); HEMOGLOBIN 9.2 g/dl (12.0-16.0); MEAN CORPUSCULAR HEMOGLOBIN 25.6 pg (27.0-33.0); MEAN CORPUSCULAR HGB CONC 31.1 g/dl (32.0-36.5); MEAN CORPUSCULAR VOLUME 82.2 fl (80.0-96.0); PLATELET COUNT, AUTOMATED 207 10^3/uL (150-450); RED CELL DISTRIBUTION WIDTH 14.5 % (11.5-14.5)
[2017-09-27 20:35] LABS: ANION GAP 6 MEQ/L (8-16); BLOOD UREA NITROGEN 36 MG/DL (7-18); CARBON DIOXIDE LEVEL 28 MEQ/L (21-32); CHLORIDE LEVEL 107 MEQ/L (98-107); CPK CREATINE PHOSPHOKINASE 232 U/L (26-192); CREATININE FOR GFR 1.71 MG/DL (0.55-1.30); GLOMERULAR FILTRATION RATE 30.8 (>39); GLUCOSE, FASTING 238 MG/DL (70-100); POTASSIUM SERUM 4.4 MEQ/L (3.5-5.1); SODIUM LEVEL 141 MEQ/L (136-145); TROPONIN I < 0.02 NG/ML (< 0.10)
[2017-09-27 20:36] LABS: MB/CK RELATIVE INDEX 0.86 (< OR =4)
[2017-09-27] MEDS: SYMBICORT 80/4.5MCG INHALER 6GM INH (21:00)
[2017-09-27] MEDS: PANTOPRAZOLE 40MG INJ (PROTONIX) (C9113) IV (21:21)
[2017-09-27] MEDS: NORTRIPTYLINE 25 MG CAP PO (21:21)
[2017-09-27] MEDS: CARVedilol 12.5 MG TAB PO (21:23)
[2017-09-27] MEDS: carBAMazepine XR 200 MG TAB PO (21:23)
[2017-09-27] MEDS: PREGABALIN 100 MG CAP (LYRICA) PO (21:23)
[2017-09-27 22:44] LABS: AMORPHOUS SEDIMENT RFX SMALL (NEGATIVE); KETONE, URINE AUTO RFX NEGATIVE (NEGATIVE); LEUKOCYTE ESTERASE UR AUTO RFX 3+ (NEGATIVE); NITRITE, URINE AUTO RFX NEGATIVE (NEGATIVE); RBC, URINE AUTO RFX 33 /HPF (0-3); SPECIFIC GRAVITY UR AUTO RFX 1.014 (1.002-1.035); SQUAM EPITHELIAL CELL UR AURFX 3 /HPF (0-6); WBC, URINE AUTO RFX TNTC /HPF (0-3)
[2017-09-28] MEDS: HumaLOG INSULIN (NovoLOG) PER UNIT SC ×4 (00:23→17:30)
[2017-09-28 00:28] LABS: BEDSIDE GLUCOSE 283 MG/DL (83-110)
[2017-09-28] MEDS: IPRATROPIUM 0.5MG/ALBUTEROL 2.5MG INH SOL UD 3ML (DUONEB)(J7620) NEB ×4 (01:38→20:00)
[2017-09-28 01:50] LABS: HEMATOCRIT 26.1 % (36.0-47.0); MEAN CORPUSCULAR HEMOGLOBIN 25.2 pg (27.0-33.0); MEAN CORPUSCULAR HGB CONC 30.7 g/dl (32.0-36.5); MEAN CORPUSCULAR VOLUME 82.3 fl (80.0-96.0); PLATELET COUNT, AUTOMATED 181 10^3/uL (150-450); RED BLOOD COUNT 3.17 10^6/uL (4.00-5.40); RED CELL DISTRIBUTION WIDTH 14.6 % (11.5-14.5); WHITE BLOOD COUNT 9.2 10^3/uL (4.0-10.0)
[2017-09-28] MEDS: CEFAZOLIN SOD 1 GM in APPROPRIATE DILUENT 1 EA IV ×2 (02:00→14:24)
[2017-09-28 02:16] LABS: CPK CREATINE PHOSPHOKINASE 183 U/L (26-192); TROPONIN I < 0.02 NG/ML (< 0.10)
[2017-09-28 02:18] LABS: CK-MB VALUE MASS 1.3 NG/ML (0.0-3.6); MB/CK RELATIVE INDEX 0.71 (< OR =4)
[2017-09-28 04:20] LABS: ALBUMIN 2.8 GM/DL (3.2-5.2); ALBUMIN/GLOBULIN RATIO 0.82 (1.00-1.93); ALKALINE PHOSPHATASE 70 U/L (45-117); ALT/SGPT 11 U/L (12-78); ANION GAP 8 MEQ/L (8-16); AST/SGOT 9 U/L (7-37); BILIRUBIN,TOTAL 0.3 MG/DL (0.2-1.0); BLOOD UREA NITROGEN 35 MG/DL (7-18); CALCIUM LEVEL 8.3 MG/DL (8.8-10.2); CARBON DIOXIDE LEVEL 25 MEQ/L (21-32); CHLORIDE LEVEL 110 MEQ/L (98-107); CREATININE FOR GFR 1.55 MG/DL (0.55-1.30); GLOMERULAR FILTRATION RATE 34.5 (>39); GLUCOSE, FASTING 229 MG/DL (70-100); LIPASE 329 U/L (73-393); MAGNESIUM LEVEL 2.2 MG/DL (1.8-2.4); POTASSIUM SERUM 4.2 MEQ/L (3.5-5.1); SODIUM LEVEL 143 MEQ/L (136-145); TOTAL PROTEIN 6.2 GM/DL (6.4-8.2)
[2017-09-28 06:05] LABS: BEDSIDE GLUCOSE 230 MG/DL (83-110)
[2017-09-28 08:42] LABS: HEMOGLOBIN 8.9 g/dl (12.0-16.0); MEAN CORPUSCULAR HEMOGLOBIN 25.4 pg (27.0-33.0); MEAN CORPUSCULAR HGB CONC 30.7 g/dl (32.0-36.5); MEAN CORPUSCULAR VOLUME 82.9 fl (80.0-96.0); PLATELET COUNT, AUTOMATED 196 10^3/uL (150-450); RED CELL DISTRIBUTION WIDTH 14.6 % (11.5-14.5); WHITE BLOOD COUNT 8.9 10^3/uL (4.0-10.0)
[2017-09-28] MEDS: SYMBICORT 80/4.5MCG INHALER 6GM INH ×2 (09:25→21:01)
[2017-09-28] MEDS: MEMANTINE 5MG TABLET (NAMENDA) PO ×2 (09:35→20:16)
[2017-09-28] MEDS: carBAMazepine XR 200 MG TAB PO ×2 (09:35→20:16)
[2017-09-28] MEDS: CARVedilol 12.5 MG TAB PO ×2 (09:35→20:17)
[2017-09-28] MEDS: PANTOPRAZOLE 40MG INJ (PROTONIX) (C9113) IV ×2 (09:35→20:16)
[2017-09-28] MEDS: ATORVASTATIN 20 MG TAB PO (09:35)
[2017-09-28] MEDS: VITAMIN D 1,000 INTERNATIONAL UNITS TABLET PO (09:36)
[2017-09-28] MEDS: NORTRIPTYLINE 25 MG CAP PO ×2 (09:36→20:16)
[2017-09-28] MEDS: CYANOCOBALAMIN 250 MCG TABLET PO (09:36)
[2017-09-28] MEDS: OMEPRAZOLE 20 MG CAP PO (09:36)
[2017-09-28] MEDS: PREGABALIN 100 MG CAP (LYRICA) PO ×2 (09:36→20:16)
[2017-09-28 11:16] LABS: CK-MB VALUE MASS 1.3 NG/ML (0.0-3.6); CPK CREATINE PHOSPHOKINASE 176 U/L (26-192); MB/CK RELATIVE INDEX 0.73 (< OR =4); TROPONIN I < 0.02 NG/ML (< 0.10)
[2017-09-28 12:06] LABS: BEDSIDE GLUCOSE 513 MG/DL (83-110)
[2017-09-28 12:45] LABS: BEDSIDE GLUCOSE CONFIRMATION 482 MG/DL (LESS THAN 200)
[2017-09-28] MEDS: GOLYTELY SOLN 4000 ML BTL PO (12:49)
[2017-09-28 14:06] LABS: HEMATOCRIT 29.3 % (36.0-47.0); HEMOGLOBIN 8.8 g/dl (12.0-16.0); MEAN CORPUSCULAR HEMOGLOBIN 25.2 pg (27.0-33.0); PLATELET COUNT, AUTOMATED 201 10^3/uL (150-450); RED BLOOD COUNT 3.49 10^6/uL (4.00-5.40); RED CELL DISTRIBUTION WIDTH 14.8 % (11.5-14.5); WHITE BLOOD COUNT 10.3 10^3/uL (4.0-10.0)
[2017-09-28 15:45] LABS: ANION GAP 6 MEQ/L (8-16); BLOOD UREA NITROGEN 28 MG/DL (7-18); CALCIUM LEVEL 8.9 MG/DL (8.8-10.2); CARBON DIOXIDE LEVEL 27 MEQ/L (21-32); CHLORIDE LEVEL 105 MEQ/L (98-107); CREATININE FOR GFR 1.62 MG/DL (0.55-1.30); GLOMERULAR FILTRATION RATE 32.8 (>39); GLUCOSE, FASTING 263 MG/DL (70-100); POTASSIUM SERUM 4.7 MEQ/L (3.5-5.1); SODIUM LEVEL 138 MEQ/L (136-145)
[2017-09-28 16:46] LABS: BEDSIDE GLUCOSE 233 MG/DL (83-110)
[2017-09-28 21:04] LABS: HEMATOCRIT 29.3 % (36.0-47.0); HEMOGLOBIN 8.9 g/dl (12.0-16.0); MEAN CORPUSCULAR HEMOGLOBIN 25.2 pg (27.0-33.0); MEAN CORPUSCULAR HGB CONC 30.4 g/dl (32.0-36.5); PLATELET COUNT, AUTOMATED 221 10^3/uL (150-450); RED BLOOD COUNT 3.53 10^6/uL (4.00-5.40); RED CELL DISTRIBUTION WIDTH 14.8 % (11.5-14.5); WHITE BLOOD COUNT 9.5 10^3/uL (4.0-10.0)
[2017-09-29] MEDS: HumaLOG INSULIN (NovoLOG) PER UNIT SC ×5 (00:01→22:21)
[2017-09-29 00:09] LABS: BEDSIDE GLUCOSE 299 MG/DL (83-110)
[2017-09-29] MEDS: CEFAZOLIN SOD 1 GM in APPROPRIATE DILUENT 1 EA IV (01:00)
[2017-09-29] MEDS: IPRATROPIUM 0.5MG/ALBUTEROL 2.5MG INH SOL UD 3ML (DUONEB)(J7620) NEB ×4 (02:00→20:00)
[2017-09-29 02:01] LABS: HEMATOCRIT 25.4 % (36.0-47.0); HEMOGLOBIN 7.9 g/dl (12.0-16.0); MEAN CORPUSCULAR HEMOGLOBIN 25.6 pg (27.0-33.0); MEAN CORPUSCULAR HGB CONC 31.1 g/dl (32.0-36.5); MEAN CORPUSCULAR VOLUME 82.5 fl (80.0-96.0); PLATELET COUNT, AUTOMATED 166 10^3/uL (150-450); RED BLOOD COUNT 3.08 10^6/uL (4.00-5.40); RED CELL DISTRIBUTION WIDTH 14.7 % (11.5-14.5); WHITE BLOOD COUNT 7.3 10^3/uL (4.0-10.0)
[2017-09-29 05:49] LABS: BEDSIDE GLUCOSE 206 MG/DL (83-110)
[2017-09-29 07:08] LABS: HEMATOCRIT 29.8 % (36.0-47.0); HEMOGLOBIN 9.4 g/dl (12.0-16.0); MEAN CORPUSCULAR HEMOGLOBIN 25.8 pg (27.0-33.0); MEAN CORPUSCULAR HGB CONC 31.5 g/dl (32.0-36.5); MEAN CORPUSCULAR VOLUME 81.9 fl (80.0-96.0); PLATELET COUNT, AUTOMATED 191 10^3/uL (150-450); RED BLOOD COUNT 3.64 10^6/uL (4.00-5.40); RED CELL DISTRIBUTION WIDTH 14.6 % (11.5-14.5); WHITE BLOOD COUNT 6.6 10^3/uL (4.0-10.0)
[2017-09-29 07:38] LABS: ALBUMIN 2.7 GM/DL (3.2-5.2); ALBUMIN/GLOBULIN RATIO 0.79 (1.00-1.93); ALKALINE PHOSPHATASE 67 U/L (45-117); ALT/SGPT 12 U/L (12-78); ANION GAP 7 MEQ/L (8-16); AST/SGOT 12 U/L (7-37); BILIRUBIN,TOTAL 0.5 MG/DL (0.2-1.0); BLOOD UREA NITROGEN 23 MG/DL (7-18); CALCIUM LEVEL 8.2 MG/DL (8.8-10.2); CARBON DIOXIDE LEVEL 27 MEQ/L (21-32); CHLORIDE LEVEL 108 MEQ/L (98-107); CREATININE FOR GFR 1.29 MG/DL (0.55-1.30); GLOMERULAR FILTRATION RATE 42.7 (>39); GLUCOSE, FASTING 158 MG/DL (70-100); MAGNESIUM LEVEL 1.9 MG/DL (1.8-2.4); POTASSIUM SERUM 3.7 MEQ/L (3.5-5.1); SODIUM LEVEL 142 MEQ/L (136-145); TOTAL PROTEIN 6.1 GM/DL (6.4-8.2)
[2017-09-29] MEDS: SYMBICORT 80/4.5MCG INHALER 6GM INH ×2 (07:42→21:07)
[2017-09-29] MEDS: ATORVASTATIN 20 MG TAB PO (08:23)
[2017-09-29] MEDS: OMEPRAZOLE 20 MG CAP PO (08:23)
[2017-09-29] MEDS: VITAMIN D 1,000 INTERNATIONAL UNITS TABLET PO (08:23)
[2017-09-29] MEDS: CARVedilol 12.5 MG TAB PO ×2 (08:24→22:23)
[2017-09-29] MEDS: MEMANTINE 5MG TABLET (NAMENDA) PO ×2 (08:24→22:23)
[2017-09-29] MEDS: CYANOCOBALAMIN 250 MCG TABLET PO (08:24)
[2017-09-29] MEDS: PREGABALIN 100 MG CAP (LYRICA) PO ×2 (08:24→22:23)
[2017-09-29] MEDS: carBAMazepine XR 200 MG TAB PO ×2 (08:25→22:23)
[2017-09-29] MEDS: PANTOPRAZOLE 40MG INJ (PROTONIX) (C9113) IV ×2 (08:25→22:22)
[2017-09-29] MEDS: NORTRIPTYLINE 25 MG CAP PO ×2 (08:27→22:23)
[2017-09-29] MEDS ORDERED: PROPOFOL 200 MG/20 ML VIAL As Ordered (13:33)
[2017-09-29 13:51] LABS: BEDSIDE GLUCOSE 258 MG/DL (83-110)
[2017-09-29] MEDS ORDERED: fentaNYL 100 MCG/2 ML INJECTION (J3010) As Ordered (14:03)
[2017-09-29] MEDS ORDERED: LIDOCAINE 2% INJ 100 MG/5 ML SDV (FOR ANES.) As Ordered (14:09)
[2017-09-29 15:33] LABS: BEDSIDE GLUCOSE 305 MG/DL (83-110)
[2017-09-29 16:14] LABS: HEMATOCRIT 32.3 % (36.0-47.0); HEMOGLOBIN 9.8 g/dl (12.0-16.0); MEAN CORPUSCULAR HEMOGLOBIN 25.5 pg (27.0-33.0); MEAN CORPUSCULAR HGB CONC 30.3 g/dl (32.0-36.5); MEAN CORPUSCULAR VOLUME 84.1 fl (80.0-96.0); PLATELET COUNT, AUTOMATED 188 10^3/uL (150-450); RED BLOOD COUNT 3.84 10^6/uL (4.00-5.40); RED CELL DISTRIBUTION WIDTH 14.6 % (11.5-14.5); WHITE BLOOD COUNT 6.6 10^3/uL (4.0-10.0)
[2017-09-29 16:39] LABS: BEDSIDE GLUCOSE 149 MG/DL (83-110)
[2017-09-29 20:10] LABS: HEMATOCRIT 31.2 % (36.0-47.0); HEMOGLOBIN 9.6 g/dl (12.0-16.0); MEAN CORPUSCULAR HEMOGLOBIN 25.8 pg (27.0-33.0); MEAN CORPUSCULAR HGB CONC 30.8 g/dl (32.0-36.5); MEAN CORPUSCULAR VOLUME 83.9 fl (80.0-96.0); PLATELET COUNT, AUTOMATED 173 10^3/uL (150-450); RED BLOOD COUNT 3.72 10^6/uL (4.00-5.40); RED CELL DISTRIBUTION WIDTH 14.8 % (11.5-14.5); WHITE BLOOD COUNT 6.4 10^3/uL (4.0-10.0)
[2017-09-29 21:12] LABS: BEDSIDE GLUCOSE 274 MG/DL (83-110)
[2017-09-29] MEDS: LEVEMIR (INSULIN DETEMIR) 1 UNITS/0.01ML SC (22:22)
[2017-09-30] MEDS: IPRATROPIUM 0.5MG/ALBUTEROL 2.5MG INH SOL UD 3ML (DUONEB)(J7620) NEB ×2 (01:52→08:00)
[2017-09-30 06:30] LABS: ALBUMIN 2.7 GM/DL (3.2-5.2); ALBUMIN/GLOBULIN RATIO 0.63 (1.00-1.93); ALKALINE PHOSPHATASE 75 U/L (45-117); ALT/SGPT 10 U/L (12-78); ANION GAP 7 MEQ/L (8-16); AST/SGOT 16 U/L (7-37); BILIRUBIN,TOTAL 0.3 MG/DL (0.2-1.0); BLOOD UREA NITROGEN 20 MG/DL (7-18); CALCIUM LEVEL 8.8 MG/DL (8.8-10.2); CARBON DIOXIDE LEVEL 27 MEQ/L (21-32); CHLORIDE LEVEL 105 MEQ/L (98-107); CREATININE FOR GFR 1.23 MG/DL (0.55-1.30); GLOMERULAR FILTRATION RATE 45.1 (>39); GLUCOSE, FASTING 286 MG/DL (70-100); POTASSIUM SERUM 4.3 MEQ/L (3.5-5.1); SODIUM LEVEL 139 MEQ/L (136-145)
[2017-09-30] MEDS: SYMBICORT 80/4.5MCG INHALER 6GM INH (07:43)
[2017-09-30] MEDS: PREGABALIN 100 MG CAP (LYRICA) PO (07:47)
[2017-09-30] MEDS: VITAMIN D 1,000 INTERNATIONAL UNITS TABLET PO (07:47)
[2017-09-30] MEDS: CYANOCOBALAMIN 250 MCG TABLET PO (07:47)
[2017-09-30] MEDS: MEMANTINE 5MG TABLET (NAMENDA) PO (07:47)
[2017-09-30] MEDS: PANTOPRAZOLE 40MG INJ (PROTONIX) (C9113) IV (07:48)
[2017-09-30] MEDS: ATORVASTATIN 20 MG TAB PO (07:48)
[2017-09-30] MEDS: carBAMazepine XR 200 MG TAB PO (07:48)
[2017-09-30] MEDS: OMEPRAZOLE 20 MG CAP PO (07:48)
[2017-09-30] MEDS: NORTRIPTYLINE 25 MG CAP PO (07:48)
[2017-09-30] MEDS: CARVedilol 12.5 MG TAB PO (07:48)
[2017-09-30] MEDS: HumaLOG INSULIN (NovoLOG) PER UNIT SC ×2 (07:49→12:06)
[2017-09-30 12:04] LABS: BEDSIDE GLUCOSE 257 MG/DL (83-110)
== END 2017-09-30 13:44 | disposition home or self-care (01) | DRG 202 ==
LOC: M MSPAV 09-29 18:32 → M ED 11:26 → M ED INP 14:22 → M ICU 18:25
PROC: 30233N1 Transfusion of Nonautologous Red Blood Cells into Peripheral Vein, Percutaneous Approach (ICD-10-PCS; principal; 2017-09-29 14:00)
PROC: 0DJ08ZZ Inspection of Upper Intestinal Tract, Via Natural or Artificial Opening Endoscopic (ICD-10-PCS; 2017-09-29 14:00)
PROC: 0DBK8ZX Excision of Ascending Colon, Via Natural or Artificial Opening Endoscopic, Diagnostic (ICD-10-PCS; 2017-09-29 14:00)
DX: J20.8 Acute bronchitis due to other specified organisms (principal); D62 Acute posthemorrhagic anemia; N17.9 Acute kidney failure, unspecified; B97.29 Other coronavirus as the cause of diseases classified elsewhere; E86.0 Dehydration; N18.9 Chronic kidney disease, unspecified; G40.909 Epilepsy, unspecified, not intractable, without status epilepticus; J44.9 Chronic obstructive pulmonary disease, unspecified; F17.200 Nicotine dependence, unspecified, uncomplicated; R55 Syncope and collapse; E11.65 Type 2 diabetes mellitus with hyperglycemia; E87.5 Hyperkalemia; I50.9 Heart failure, unspecified; K64.0 First degree hemorrhoids; D12.2 Benign neoplasm of ascending colon; K57.30 Diverticulosis of large intestine without perforation or abscess without bleeding; K44.9 Diaphragmatic hernia without obstruction or gangrene; Z86.73 Personal history of transient ischemic attack (TIA), and cerebral infarction without residual deficits

== ENCOUNTER → 2017-10-08 | Outpatient (REF) | payer MEDICARE ==
[2017-10-08 20:33] LABS: HEMATOCRIT 33.4 % (36.0-47.0); HEMOGLOBIN 10.2 g/dl (12.0-16.0); MEAN CORPUSCULAR HGB CONC 30.5 g/dl (32.0-36.5); PLATELET COUNT, AUTOMATED 299 10^3/uL (150-450); RED BLOOD COUNT 3.93 10^6/uL (4.00-5.40); WHITE BLOOD COUNT 8.1 10^3/uL (4.0-10.0)
[2017-10-08 21:37] LABS: ALBUMIN 3.3 GM/DL (3.2-5.2); ALKALINE PHOSPHATASE 92 U/L (45-117); ALT/SGPT 21 U/L (12-78); ANION GAP 7 MEQ/L (8-16); AST/SGOT 15 U/L (7-37); BILIRUBIN,TOTAL 0.2 MG/DL (0.2-1.0); BLOOD UREA NITROGEN 37 MG/DL (7-18); CALCIUM LEVEL 9.2 MG/DL (8.8-10.2); CARBON DIOXIDE LEVEL 30 MEQ/L (21-32); CHLORIDE LEVEL 104 MEQ/L (98-107); CREATININE FOR GFR 1.61 MG/DL (0.55-1.30); GLUCOSE, FASTING 127 MG/DL (70-100); POTASSIUM SERUM 5.1 MEQ/L (3.5-5.1); SODIUM LEVEL 141 MEQ/L (136-145); TOTAL PROTEIN 7.4 GM/DL (6.4-8.2)
== END ==
LOC: M SFHCADAM 15:50
DX: I10 Essential (primary) hypertension (principal); D50.8 Other iron deficiency anemias
CPT/HCPCS: 80053

== ENCOUNTER → 2017-10-13 | Outpatient (REF) | payer MEDICARE ==
[2017-10-13 19:44] LABS: APPEARANCE, URINE TURBID (CLEAR); BACTERIA, URINE AUTO 2+ (NEGATIVE); BILIRUBIN, URINE AUTO NEGATIVE (NEGATIVE); BLOOD, URINE BLOOD 1+ (NEGATIVE); COLOR, URINE YELLOW (YELLOW); GLUCOSE, URINE (UA) AUTO 3+ mg/dL (NEGATIVE); KETONE, URINE AUTO NEGATIVE (NEGATIVE); LEUKOCYTE ESTERASE, URINE AUTO 3+ (NEGATIVE); NITRITE, URINE AUTO POSITIVE (NEGATIVE); PROTEIN, URINE AUTO 1+ mg/dL (NEGATIVE); RBC, URINE AUTO 33 /HPF (0-3); SPECIFIC GRAVITY URINE AUTO 1.016 (1.002-1.035); SQUAMOUS EPITHELIAL CELL UR AU 5 /HPF (0-6); TRANSITIONAL EPITHELIAL AUTO 3 /HPF; UROBILINOGEN, URINE AUTO 0.2 mg/dL (0.0-2.0); WBC, URINE AUTO TNTC /HPF (0-3)
== END ==
LOC: M SFHCADAM 19:21
DX: N30.00 Acute cystitis without hematuria (principal)
CPT/HCPCS: 81001

== ENCOUNTER → 2017-11-25 | Outpatient (CLI) | payer MEDICARE | LOC: M RAD 16:47 | DX: K57.30 Diverticulosis of large intestine without perforation or abscess without bleeding (principal); K44.9 Diaphragmatic hernia without obstruction or gangrene; M43.06 Spondylolysis, lumbar region; R19.7 Diarrhea, unspecified; Z96.641 Presence of right artificial hip joint | CPT/HCPCS: 74176 ==

== ENCOUNTER → 2017-11-25 | Outpatient (REF) | payer MEDICARE ==
[2017-11-25 20:07] LABS: BASO % 0.8 % (0.0-1.0); EOS # 0.1 10^3/uL (0.0-0.50); EOS % 1.1 % (0.0-3.0); HEMATOCRIT 34.3 % (36.0-47.0); HEMOGLOBIN 10.6 g/dl (12.0-15.5); IMMATURE GRANULOCYTE % 0.4 % (0-3.0); LYMPH # 1.8 10^3/uL (1.5-4.5); LYMPH % 33.1 % (24.0-44.0); MEAN CORPUSCULAR HEMOGLOBIN 26.4 pg (27.0-33.0); MEAN CORPUSCULAR HGB CONC 30.9 g/dl (32.0-36.5); MEAN CORPUSCULAR VOLUME 85.3 fl (80.0-96.0); MONO # 0.6 10^3/uL (0.0-0.8); MONO % 11.7 % (0.0-5.0); NEUTROPHILS # 2.8 10^3/uL (1.8-7.7); NEUTROPHILS % 52.9 % (36.0-66.0); PLATELET COUNT, AUTOMATED 239 10^3/uL (150-450); RED BLOOD COUNT 4.02 10^6/uL (4.00-5.40); RED CELL DISTRIBUTION WIDTH 16.7 % (11.5-14.5); WHITE BLOOD COUNT 5.3 10^3/uL (4.0-10.0)
[2017-11-25 20:12] LABS: ALBUMIN 4.2 GM/DL (3.2-5.2); ALBUMIN/GLOBULIN RATIO 1.05 (1.00-1.93); ALKALINE PHOSPHATASE 83 U/L (45-117); ALT/SGPT 12 U/L (12-78); ANION GAP 10 MEQ/L (8-16); AST/SGOT 12 U/L (7-37); BILIRUBIN,TOTAL 0.3 MG/DL (0.2-1.0); BLOOD UREA NITROGEN 31 MG/DL (7-18); CALCIUM LEVEL 9.7 MG/DL (8.8-10.2); CARBON DIOXIDE LEVEL 25 MEQ/L (21-32); CHLORIDE LEVEL 101 MEQ/L (98-107); CREATININE FOR GFR 1.64 MG/DL (0.55-1.30); GLOMERULAR FILTRATION RATE 32.3 (>39); GLUCOSE, FASTING 366 MG/DL (70-100); POTASSIUM SERUM 4.6 MEQ/L (3.5-5.1); SODIUM LEVEL 136 MEQ/L (136-145); TOTAL PROTEIN 8.2 GM/DL (6.4-8.2)
== END ==
LOC: M SFHCADAM 15:39
DX: R19.7 Diarrhea, unspecified (principal); D50.8 Other iron deficiency anemias; N18.3 Chronic kidney disease, stage 3 (moderate)
CPT/HCPCS: 80053

== ENCOUNTER 2017-11-26 13:28 | Inpatient (IN) | payer MEDICARE ==
[2017-11-26 14:11] LABS: BASO % 0.4 % (0.0-1.0); EOS % 0.5 % (0.0-3.0); HEMATOCRIT 30.1 % (36.0-47.0); HEMOGLOBIN 9.6 g/dl (12.0-15.5); IMMATURE GRANULOCYTE % 0.5 % (0-3.0); LYMPH # 1.3 10^3/uL (1.5-4.5); MEAN CORPUSCULAR HEMOGLOBIN 26.6 pg (27.0-33.0); MEAN CORPUSCULAR HGB CONC 31.9 g/dl (32.0-36.5); MEAN CORPUSCULAR VOLUME 83.4 fl (80.0-96.0); MONO # 0.7 10^3/uL (0.0-0.8); MONO % 8.1 % (0.0-5.0); NEUTROPHILS % 74.5 % (36.0-66.0); PLATELET COUNT, AUTOMATED 196 10^3/uL (150-450); RED BLOOD COUNT 3.61 10^6/uL (4.00-5.40); RED CELL DISTRIBUTION WIDTH 16.5 % (11.5-14.5); WHITE BLOOD COUNT 8.1 10^3/uL (4.0-10.0)
[2017-11-26 14:21] LABS: INR 1.14; PROTHROMBIN TIME 14.8 SECONDS (12.4-14.5)
[2017-11-26] MEDS: ADACEL/BOOSTRIX VACCINE (DIPHTH/PERTUSS/ACELL/TETANUS)0.5ML SYR (90715) IM (14:31)
[2017-11-26] MEDS: LIDOCAINE 1% MDV 20ML VIAL SC (14:31)
[2017-11-26] MEDS: NS 1,000 ML IV ×3 (14:32→22:48)
[2017-11-26 14:42] LABS: ANION GAP 3 MEQ/L (8-16); BLOOD UREA NITROGEN 31 MG/DL (7-18); CARBON DIOXIDE LEVEL 29 MEQ/L (21-32); CHLORIDE LEVEL 108 MEQ/L (98-107); CPK CREATINE PHOSPHOKINASE 106 U/L (26-192); CREATININE FOR GFR 1.58 MG/DL (0.55-1.30); FREE T4 1.01 NG/DL (0.76-1.46); GLOMERULAR FILTRATION RATE 33.8 (>39); GLUCOSE, FASTING 109 MG/DL (70-100); MAGNESIUM LEVEL 2.2 MG/DL (1.8-2.4); POTASSIUM SERUM 4.3 MEQ/L (3.5-5.1); SODIUM LEVEL 140 MEQ/L (136-145); TROPONIN I < 0.02 NG/ML (< 0.10)
[2017-11-26 14:48] LABS: CK-MB VALUE MASS 2.5 NG/ML (<3.6); MB/CK RELATIVE INDEX 2.35 (< OR =4); THYROID STIMULATING HORMONE 0.371 uIU/ML (0.358-3.740)
[2017-11-26] MEDS ORDERED: GLUCOSE 4 GM CHEW TABLET PO (16:45)
[2017-11-26] MEDS ORDERED: GLUCAGON FOR INJ 1 MG VIAL (J1610) SC (16:45)
[2017-11-26] MEDS ORDERED: DEXTROSE 50% 50 ML SYRINGE IV (16:45)
[2017-11-26] MEDS ORDERED: NORCO, ANEXSIA 5/325MG TABLET (HYDROcodone/ACETAMINOPHEN) PO (16:45)
[2017-11-26] MEDS ORDERED: ONDANSETRON 4MG/2ML VIAL (J2405) IV (17:00)
[2017-11-26] MEDS: HumaLOG INSULIN (NovoLOG) PER UNIT SC ×2 (17:30→22:42)
[2017-11-26 17:40] LABS: BEDSIDE GLUCOSE 173 MG/DL (83-110)
[2017-11-26 17:40] LABS: BEDSIDE GLUCOSE 138 MG/DL (83-110)
[2017-11-26] MEDS: LORazepam 2 MG/ML VIAL (J2060) IV (19:31)
[2017-11-26 20:12] LABS: CARBAMAZEPINE (TEGRETOL) LEVEL 2.2 UG/ML (4.0-10.0); CK-MB VALUE MASS 2.2 NG/ML (<3.6); CPK CREATINE PHOSPHOKINASE 118 U/L (26-192); MB/CK RELATIVE INDEX 1.86 (< OR =4); TROPONIN I < 0.02 NG/ML (< 0.10)
[2017-11-26] MEDS: SYMBICORT 80/4.5MCG INHALER 6GM INH (21:10)
[2017-11-26] MEDS: IPRATROPIUM 0.5MG/ALBUTEROL 2.5MG INH SOL UD 3ML (DUONEB)(J7620) NEB (21:11)
[2017-11-26 22:20] LABS: CPK CREATINE PHOSPHOKINASE 113 U/L (26-192); TROPONIN I < 0.02 NG/ML (< 0.10)
[2017-11-26 22:21] LABS: CK-MB VALUE MASS 2.2 NG/ML (<3.6); MB/CK RELATIVE INDEX 1.94 (< OR =4)
[2017-11-26 22:33] LABS: BEDSIDE GLUCOSE 313 MG/DL (83-110)
[2017-11-26] MEDS: CARVedilol 12.5 MG TAB PO (22:39)
[2017-11-26] MEDS: carBAMazepine XR 200 MG TAB PO (22:40)
[2017-11-26] MEDS: PREGABALIN 100 MG CAP (LYRICA) PO (22:40)
[2017-11-26] MEDS: HEPARIN SOD (PORCINE) 5000 UNITS/ML VIAL SC (22:41)
[2017-11-26] MEDS: NORTRIPTYLINE 25 MG CAP PO (22:41)
[2017-11-26] MEDS: LEVEMIR (INSULIN DETEMIR) 1 UNITS/0.01ML SC (22:43)
[2017-11-27] MEDS: IPRATROPIUM 0.5MG/ALBUTEROL 2.5MG INH SOL UD 3ML (DUONEB)(J7620) NEB ×5 (04:30→20:00)
[2017-11-27 04:43] LABS: HEMATOCRIT 27.7 % (36.0-47.0); HEMOGLOBIN 8.7 g/dl (12.0-15.5); MEAN CORPUSCULAR HEMOGLOBIN 26.4 pg (27.0-33.0); MEAN CORPUSCULAR HGB CONC 31.4 g/dl (32.0-36.5); MEAN CORPUSCULAR VOLUME 83.9 fl (80.0-96.0); PLATELET COUNT, AUTOMATED 169 10^3/uL (150-450); RED CELL DISTRIBUTION WIDTH 16.7 % (11.5-14.5); WHITE BLOOD COUNT 4.4 10^3/uL (4.0-10.0)
[2017-11-27 05:01] LABS: ANION GAP 8 MEQ/L (8-16); BLOOD UREA NITROGEN 28 MG/DL (7-18); CALCIUM LEVEL 8.4 MG/DL (8.8-10.2); CARBON DIOXIDE LEVEL 23 MEQ/L (21-32); CHLORIDE LEVEL 112 MEQ/L (98-107); CREATININE FOR GFR 1.46 MG/DL (0.55-1.30); GLUCOSE, FASTING 269 MG/DL (70-100); MAGNESIUM LEVEL 2.1 MG/DL (1.8-2.4); POTASSIUM SERUM 4.2 MEQ/L (3.5-5.1); SODIUM LEVEL 143 MEQ/L (136-145)
[2017-11-27] MEDS: SYMBICORT 80/4.5MCG INHALER 6GM INH ×2 (07:36→20:22)
[2017-11-27] MEDS: CARVedilol 12.5 MG TAB PO ×2 (09:07→20:55)
[2017-11-27] MEDS: NORTRIPTYLINE 25 MG CAP PO ×2 (09:07→20:55)
[2017-11-27] MEDS: CYANOCOBALAMIN 250 MCG TABLET PO (09:08)
[2017-11-27] MEDS: VITAMIN D 1,000 INTERNATIONAL UNITS TABLET PO (09:08)
[2017-11-27] MEDS: PREGABALIN 100 MG CAP (LYRICA) PO ×2 (09:08→20:55)
[2017-11-27] MEDS: carBAMazepine XR 200 MG TAB PO ×2 (09:08→20:56)
[2017-11-27] MEDS: ATORVASTATIN 20 MG TAB PO (09:08)
[2017-11-27] MEDS: OMEPRAZOLE 20 MG CAP PO (09:08)
[2017-11-27] MEDS: HumaLOG INSULIN (NovoLOG) PER UNIT SC ×4 (09:09→20:40)
[2017-11-27] MEDS: HEPARIN SOD (PORCINE) 5000 UNITS/ML VIAL SC ×2 (09:09→20:56)
[2017-11-27] MEDS: NS 1,000 ML IV (11:03)
[2017-11-27 12:20] LABS: BEDSIDE GLUCOSE 353 MG/DL (83-110)
[2017-11-27] MEDS: MEMANTINE 5MG TABLET (NAMENDA) PO ×2 (14:22→23:12)
[2017-11-27 17:33] LABS: BEDSIDE GLUCOSE 366 MG/DL (83-110)
[2017-11-27 20:43] LABS: BEDSIDE GLUCOSE 232 MG/DL (83-110)
[2017-11-27] MEDS: LEVEMIR (INSULIN DETEMIR) 1 UNITS/0.01ML SC (20:57)
[2017-11-28 04:05] LABS: HEMATOCRIT 25.6 % (36.0-47.0); HEMOGLOBIN 8.1 g/dl (12.0-15.5); MEAN CORPUSCULAR HEMOGLOBIN 26.6 pg (27.0-33.0); MEAN CORPUSCULAR HGB CONC 31.6 g/dl (32.0-36.5); MEAN CORPUSCULAR VOLUME 84.2 fl (80.0-96.0); PLATELET COUNT, AUTOMATED 168 10^3/uL (150-450); RED BLOOD COUNT 3.04 10^6/uL (4.00-5.40); RED CELL DISTRIBUTION WIDTH 16.6 % (11.5-14.5); WHITE BLOOD COUNT 4.1 10^3/uL (4.0-10.0)
[2017-11-28 04:22] LABS: ANION GAP 9 MEQ/L (8-16); BLOOD UREA NITROGEN 25 MG/DL (7-18); CALCIUM LEVEL 8.2 MG/DL (8.8-10.2); CARBAMAZEPINE (TEGRETOL) LEVEL 5.8 UG/ML (4.0-10.0); CARBON DIOXIDE LEVEL 23 MEQ/L (21-32); CHLORIDE LEVEL 110 MEQ/L (98-107); CREATININE FOR GFR 1.31 MG/DL (0.55-1.30); GLOMERULAR FILTRATION RATE 41.9 (>39); GLUCOSE, FASTING 231 MG/DL (70-100); POTASSIUM SERUM 4.1 MEQ/L (3.5-5.1); SODIUM LEVEL 142 MEQ/L (136-145)
[2017-11-28] MEDS: IPRATROPIUM 0.5MG/ALBUTEROL 2.5MG INH SOL UD 3ML (DUONEB)(J7620) NEB ×3 (05:03→13:36)
[2017-11-28] MEDS: CYANOCOBALAMIN 250 MCG TABLET PO (08:01)
[2017-11-28] MEDS: HumaLOG INSULIN (NovoLOG) PER UNIT SC ×2 (08:01→13:01)
[2017-11-28] MEDS: PREGABALIN 100 MG CAP (LYRICA) PO (08:01)
[2017-11-28] MEDS: OMEPRAZOLE 20 MG CAP PO (08:01)
[2017-11-28] MEDS: NORTRIPTYLINE 25 MG CAP PO (08:01)
[2017-11-28] MEDS: MEMANTINE 5MG TABLET (NAMENDA) PO (08:01)
[2017-11-28] MEDS: ATORVASTATIN 20 MG TAB PO (08:01)
[2017-11-28] MEDS: HEPARIN SOD (PORCINE) 5000 UNITS/ML VIAL SC (08:02)
[2017-11-28] MEDS: VITAMIN D 1,000 INTERNATIONAL UNITS TABLET PO (08:02)
[2017-11-28] MEDS: CARVedilol 12.5 MG TAB PO (08:02)
[2017-11-28] MEDS: carBAMazepine XR 200 MG TAB PO (08:03)
[2017-11-28] MEDS: SYMBICORT 80/4.5MCG INHALER 6GM INH (08:19)
[2017-11-28 10:35] LABS: BEDSIDE GLUCOSE 285 MG/DL (83-110)
[2017-11-28 12:17] LABS: BEDSIDE GLUCOSE 283 MG/DL (83-110)
== END 2017-11-28 15:37 | disposition home or self-care (01) | DRG 641 ==
LOC: M ED 13:28 → M ED INP 16:47 → M PCU 20:29
DX: E86.0 Dehydration (principal); M43.06 Spondylolysis, lumbar region; N18.9 Chronic kidney disease, unspecified; R55 Syncope and collapse; E11.9 Type 2 diabetes mellitus without complications; R19.7 Diarrhea, unspecified; G40.909 Epilepsy, unspecified, not intractable, without status epilepticus; F03.90 Unspecified dementia, unspecified severity, without behavioral disturbance, psychotic disturbance, mood disturbance, and anxiety; I27.20 Pulmonary hypertension, unspecified; E55.9 Vitamin D deficiency, unspecified; M19.90 Unspecified osteoarthritis, unspecified site; K21.9 Gastro-esophageal reflux disease without esophagitis; G25.81 Restless legs syndrome; J44.9 Chronic obstructive pulmonary disease, unspecified; Z86.73 Personal history of transient ischemic attack (TIA), and cerebral infarction without residual deficits; Z88.8 Allergy status to other drugs, medicaments and biological substances; Z96.641 Presence of right artificial hip joint; F17.210 Nicotine dependence, cigarettes, uncomplicated; Z79.899 Other long term (current) drug therapy; M50.30 Other cervical disc degeneration, unspecified cervical region; S01.90XA Unspecified open wound of unspecified part of head, initial encounter; W18.30XA Fall on same level, unspecified, initial encounter; Y92.009 Unspecified place in unspecified non-institutional (private) residence as the place of occurrence of the external cause; I12.9 Hypertensive chronic kidney disease with stage 1 through stage 4 chronic kidney disease, or unspecified chronic kidney disease

== ENCOUNTER → 2018-01-07 | Outpatient (REF) | payer MEDICARE ==
[2018-01-07 19:34] LABS: HEMATOCRIT 26.8 % (36.0-47.0); HEMOGLOBIN 7.7 g/dl (12.0-15.5); MEAN CORPUSCULAR HEMOGLOBIN 24.1 pg (27.0-33.0); MEAN CORPUSCULAR HGB CONC 28.7 g/dl (32.0-36.5); PLATELET COUNT, AUTOMATED 245 10^3/uL (150-450); RED BLOOD COUNT 3.19 10^6/uL (4.00-5.40); RED CELL DISTRIBUTION WIDTH 15.9 % (11.5-14.5); WHITE BLOOD COUNT 3.9 10^3/uL (4.0-10.0)
== END ==
LOC: M SFHCADAM 16:47
DX: D50.8 Other iron deficiency anemias (principal)
CPT/HCPCS: 85027

== ENCOUNTER 2018-01-12 13:35 | Outpatient (CLI) | payer MEDICARE ==
[2018-01-12] MEDS ORDERED: FUROSEMIDE 40 MG/4 ML VIAL (J1940) IV (14:30)
[2018-01-12 15:06] LABS: BEDSIDE GLUCOSE 196 MG/DL (83-110)
[2018-01-12] MEDS ORDERED: DEXTROSE 50% 50 ML SYRINGE IV (15:45)
[2018-01-12] MEDS ORDERED: GLUCOSE 4 GM CHEW TABLET PO (15:45)
[2018-01-12] MEDS ORDERED: GLUCAGON FOR INJ 1 MG VIAL (J1610) SC (15:45)
[2018-01-12] MEDS: ACETAMINOPHEN TAB 650MG DOSE (2X325MG) PO (15:57)
[2018-01-12] MEDS: diphenhydrAMINE 25 MG CAP PO (15:57)
[2018-01-12 17:01] LABS: BEDSIDE GLUCOSE 174 MG/DL (83-110)
[2018-01-12] MEDS: HumaLOG INSULIN (NovoLOG) PER UNIT SC (17:30)
[2018-01-12] MEDS: FUROSEMIDE 20 MG/2 ML VIAL (J1940) IV (18:41)
[2018-01-12 18:55] LABS: IMMEDIATE SPIN CROSSMATCH 1 2
[2018-01-12 19:32] LABS: BEDSIDE GLUCOSE 85 MG/DL (83-110)
[2018-01-12] MEDS ORDERED: HumaLOG INSULIN (NovoLOG) PER UNIT SC (21:00)
== END 2018-01-12 22:10 | disposition home or self-care (01) ==
LOC: M OPCLIPED 13:35 → M PED 13:50 → M OPCLIPED 22:10
DX: D58.2 Other hemoglobinopathies (principal); D50.9 Iron deficiency anemia, unspecified
CPT/HCPCS: 36430

== ENCOUNTER → 2018-01-19 | Outpatient (REF) | payer MEDICARE ==
[2018-01-19 19:33] LABS: HEMATOCRIT 33.8 % (36.0-47.0); HEMOGLOBIN 10.1 g/dl (12.0-15.5); MEAN CORPUSCULAR HEMOGLOBIN 25.6 pg (27.0-33.0); MEAN CORPUSCULAR HGB CONC 29.9 g/dl (32.0-36.5); MEAN CORPUSCULAR VOLUME 85.6 fl (80.0-96.0); PLATELET COUNT, AUTOMATED 194 10^3/uL (150-450); RED BLOOD COUNT 3.95 10^6/uL (4.00-5.40); RED CELL DISTRIBUTION WIDTH 15.7 % (11.5-14.5); WHITE BLOOD COUNT 4.6 10^3/uL (4.0-10.0)
[2018-01-19 19:38] LABS: ANION GAP 10 MEQ/L (8-16); BLOOD UREA NITROGEN 28 MG/DL (7-18); CALCIUM LEVEL 8.6 MG/DL (8.8-10.2); CARBON DIOXIDE LEVEL 27 MEQ/L (21-32); CHLORIDE LEVEL 103 MEQ/L (98-107); CREATININE FOR GFR 1.33 MG/DL (0.55-1.30); GLOMERULAR FILTRATION RATE 41.2 (>39); GLUCOSE, FASTING 234 MG/DL (70-100); POTASSIUM SERUM 5.1 MEQ/L (3.5-5.1); SODIUM LEVEL 140 MEQ/L (136-145)
[2018-01-19 19:50] LABS: ESTIMATED AVERAGE GLUCOSE 212 MG/DL (60-110)
[2018-01-20 09:20] LABS: VITAMIN B12 LEVEL 1539 PG/ML
[2018-01-20 09:29] LABS: FOLATE 10.8 NG/ML
== END ==
LOC: M SFHCADAM 11:46
DX: D50.8 Other iron deficiency anemias (principal); E11.22 Type 2 diabetes mellitus with diabetic chronic kidney disease; N18.3 Chronic kidney disease, stage 3 (moderate)
CPT/HCPCS: 82746

== ENCOUNTER 2018-02-01 07:56 | Day surgery (SDC) | payer MEDICARE ==
[2018-02-01] MEDS: NS 1,000 ML IV (08:15)
[2018-02-01 08:23] LABS: BEDSIDE GLUCOSE 199 MG/DL (83-110)
[2018-02-01] MEDS: ALBUTEROL SULFATE 2.5 MG/0.5 ML INH NEB SOLN INH (08:30)
[2018-02-01] MEDS: CARVedilol 12.5 MG TAB PO (08:40)
[2018-02-01] MEDS ORDERED: ALBUTEROL SULFATE 2.5 MG/0.5 ML INH NEB SOLN INH (08:45)
[2018-02-01] MEDS ORDERED: PROPOFOL 200 MG/20 ML VIAL As Ordered ×2 (10:49→11:18)
[2018-02-01] MEDS ORDERED: LIDOCAINE W/EPINEPHRINE 1% 20ML VIAL As Ordered (11:29)
== END 2018-02-01 11:43 | disposition home or self-care (01) ==
LOC: M OPP 07:56
DX: D50.9 Iron deficiency anemia, unspecified (principal); K44.9 Diaphragmatic hernia without obstruction or gangrene; K64.8 Other hemorrhoids; K57.30 Diverticulosis of large intestine without perforation or abscess without bleeding; I12.9 Hypertensive chronic kidney disease with stage 1 through stage 4 chronic kidney disease, or unspecified chronic kidney disease; E11.9 Type 2 diabetes mellitus without complications; E78.00 Pure hypercholesterolemia, unspecified; J44.9 Chronic obstructive pulmonary disease, unspecified; N18.9 Chronic kidney disease, unspecified; F17.210 Nicotine dependence, cigarettes, uncomplicated; R51 Headache; R56.9 Unspecified convulsions; Z79.4 Long term (current) use of insulin; Z79.82 Long term (current) use of aspirin; Z79.899 Other long term (current) drug therapy; Z88.8 Allergy status to other drugs, medicaments and biological substances; Z86.73 Personal history of transient ischemic attack (TIA), and cerebral infarction without residual deficits; Z96.641 Presence of right artificial hip joint
CPT/HCPCS: 45385

== ENCOUNTER 2018-03-11 12:46 | Emergency (ER) | payer MEDICARE ==
[2018-03-11] MEDS: MORPHINE 2 MG/ML 1ML SYRINGE (J2270) IV ×2 (13:51→15:14)
[2018-03-11] MEDS ORDERED: MORPHINE 4 MG/ML 1ML VIAL/SYRINGE (J2270) IV (15:00)
== END 2018-03-11 17:48 | disposition home or self-care (01) ==
LOC: M ED 12:46
DX: S42.212A Unspecified displaced fracture of surgical neck of left humerus, initial encounter for closed fracture (principal); M85.812 Other specified disorders of bone density and structure, left shoulder; M19.012 Primary osteoarthritis, left shoulder; W01.0XXA Fall on same level from slipping, tripping and stumbling without subsequent striking against object, initial encounter; Y92.89 Other specified places as the place of occurrence of the external cause; J44.9 Chronic obstructive pulmonary disease, unspecified; Z86.69 Personal history of other diseases of the nervous system and sense organs; Z79.82 Long term (current) use of aspirin
CPT/HCPCS: J2270

== ENCOUNTER → 2018-04-01 | Outpatient (REF) | payer MEDICARE ==
[2018-04-01 20:42] LABS: ANION GAP 9 MEQ/L (8-16); BLOOD UREA NITROGEN 23 MG/DL (7-18); CALCIUM LEVEL 9.2 MG/DL (8.8-10.2); CARBON DIOXIDE LEVEL 32 MEQ/L (21-32); CHLORIDE LEVEL 100 MEQ/L (98-107); CREATININE FOR GFR 1.18 MG/DL (0.55-1.30); GLOMERULAR FILTRATION RATE 47.2 (>39); GLUCOSE, FASTING 125 MG/DL (70-100); POTASSIUM SERUM 4.1 MEQ/L (3.5-5.1); SODIUM LEVEL 141 MEQ/L (136-145)
== END ==
LOC: M SFHCADAM 14:10
DX: R60.9 Edema, unspecified (principal)
CPT/HCPCS: 80048

== ENCOUNTER → 2018-05-04 | Outpatient (CLI) | payer MEDICARE ==
[~2018-05-04] MED LIST changes: -/ALEN70TA; -/AMLO25TA PO; -/CARB4TA; -/CARBXR20T OR; -/CARBXR20T PO; -/HYDR10TAB PO; -/ROPI25TA; -/WARF25TA PO; -/WARF5TA PO; -ACET50TAOT PO; -AMLO25TA PO; -ASPI81TA21 PO; -ASPI81TA63; -ASPI81TA83 OR; -ATOR1TAB21 PO; -AUGM875T27 PO; -BACIDCA PO; -BAYE81TA7 PO; -BENI20TA11; -BENI20TA11 PO; -BENI40TA26 PO; -BENICAR PO; -CARB10TAXR; -CARB200C5 PO; -CARB400T4 PO; -CARV12.5 PO; -CIPR500T19; -CORE25TA PO; -D 101TAB PO; -DOXY75CA3 PO; -FURO20TA2 PO; -GABA100C PO; -HUMULIN 70/30; -HUMULIN 70/30 SC; -IBUPOTC PO; -INSUH10VL SC; +ISOVUE-370 76% 100ML VIAL (Q9967) As Ordered; -LASI20TA OR; -LASI20TA PO; -LEVA1TAB2 PO; -LEVA500T OR; -LIDO1DIS2 TD; -LIDO5DIS EXT; -LIPI20TA; -LIPI20TA OR; -MILKSUS OR; -NAME5TAB13 PO; -NEUR100C OR; -NORT25CA2; -NORT25CA2 PO; -NOVO70VL SC; -NOVOINJ3 SC; -OMEP20CA3 PO; -PAME50CA PO; -PERC5TAB8 OR; -PERCOCET PO; -PRED10TA PO; -PRED1TAB32 PO; -PRED20TAB PO; -PREG100CA PO; -PREG50CA PO; -PRIL20CA PO; -PROAIR INH; -SYMB80INH INH; -TOUJ1.2I SC; -TRIC145T19; -TRIC145T19 OR; -TYLE325T5 PO; -VENTAER INH; -VITA100066 PO; -VITA1CAP7 PO; -VITACAP31 PO; -VITAMIN D50000 UNT; -WARF05TA GT; -[UNRECOGNIZED DRUG - CODE]; -[UNRECOGNIZED DRUG - OTHER] PO; -[UNRECOGNIZED DRUG - REMARK]; -insulin SQ
== END ==
LOC: M RAD 13:00
DX: R31.9 Hematuria, unspecified (principal); K57.30 Diverticulosis of large intestine without perforation or abscess without bleeding
CPT/HCPCS: Q9967

== ENCOUNTER → 2018-07-15 | Outpatient (CLI) | payer MEDICARE ==
[~2018-07-15] MED LIST changes: +/ALEN70TA; +/AMLO25TA PO; +/CARB4TA; +/CARBXR20T OR; +/CARBXR20T PO; +/HYDR10TAB PO; +/ROPI25TA; +/WARF25TA PO; +/WARF5TA PO; +ACET500T15 PO; +AMLO25TA PO; +ASPI1TAB PO; +ASPI81TA21 PO; +ASPI81TA63; +ASPI81TA83 OR; +ATOR1TAB21 PO; +AUGM875T27 PO; +BACIDCA PO; +BAYE81TA7 PO; +BENI20TA11; +BENI20TA11 PO; +BENI40TA26 PO; +BENICAR PO; +CARB10TAXR; +CARB1CAP2 PO; +CARB400T4 PO; +CARV12.5 PO; +CARV25TA PO; +CIPR500T19; +COLA100C5 PO; +CORE25TA PO; +D 101TAB PO; +D3-5CAP PO; +DOXY75CA3 PO; +FERR1TAB8 PO; +FURO20TA2 PO; +GABA100C PO; +HUMULIN 70/30; +HUMULIN 70/30 SC; +IBUPOTC PO; +INSUH10VL SC; +IPRA0.00 INH; +IPRA0.00 NEB; -ISOVUE-370 76% 100ML VIAL (Q9967) As Ordered; +KEFL500C17 PO; +LASI20TA OR; +LASI20TA3 PO; +LEVA1TAB2 PO; +LEVA500T OR; +LIDO1DIS2 TD; +LIDO5DIS EXT; +LIPI20TA; +LIPI20TA OR; +MEMA28CA PO; +MILKSUS OR; +MUCI600T31 PO; +NAME5TAB13 PO; +NEUR100C OR; +NITR100C2; +NORC1TAB4 PO; +NORT25CA2; +NORT25CA2 PO; +NOVO70VL SC; +NOVOINJ3 SC; +OLME40TA PO; +OMEP20CA3 PO; +PAME50CA PO; +PERC5TAB8 OR; +PERCOCET PO; +PRED10TA PO; +PRED1TAB32 PO; +PRED20TAB PO; +PREG100CA PO; +PREG50CA PO; +PRIL20CA PO; +PROAIR INH; +SYMB80INH INH; +TOUJ1.2I SC; +TRIC145T19; +TRIC145T19 OR; +TYLE325T5 PO; +VENTAER INH; +VITA100066 PO; +VITA1CAP7 PO; +VITA250L PO; +VITACAP31 PO; +VITAMIN D50000 UNT; +WARF05TA GT; +[UNRECOGNIZED DRUG - CODE]; +[UNRECOGNIZED DRUG - CODE] PO; +[UNRECOGNIZED DRUG - OTHER] PO; +[UNRECOGNIZED DRUG - REMARK]; +insulin SQ
--- NOTE | 2018-07-15 13:06 | REP ---
MR BRAIN WITHOUT CONTRAST: HISTORY: TIA. COMPARISON: 11/26/2017 Areas of increased signal intensity are present in the cerebellum and left thalamus. These represent old lacunar infarctions. Scattered punctate areas of increased signal intensity on T2-weighted images are present in the periventricular and subcortical white matter. This represents small vessel ischemic disease. There is no intraparenchymal hemorrhage, acute infarct, mass or midline shift. The ventricular system and cortical sulci are dilated consistent with mild volume loss. There is no extracerebral collection. The sinuses are clear. IMPRESSION: 1. 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 2. Small vessel ischemic disease. 3. Mild volume loss. Electronically Signed by Jarred Navarro MD 07/15/2018 01:10 P
== END ==
LOC: M PLARAD 11:00
PROVIDERS: ATTEND Physician Assistant Medical
DX: Z86.73 Personal history of transient ischemic attack (TIA), and cerebral infarction without residual deficits (principal)

== ENCOUNTER → 2018-09-26 | Outpatient (CLI) | payer MEDICARE ==
[~2018-09-26] MED LIST changes: +CIPR-249 PO
[2018-09-26 16:59] LABS: BASO % 0.9 % (0.0-1.0); EOS # 0.1 10^3/uL (0.0-0.50); EOS % 2.5 % (0.0-3.0); HEMATOCRIT 40.6 % (36.0-47.0); HEMOGLOBIN 13.6 g/dl (12.0-15.5); LYMPH # 1.6 10^3/uL (1.5-4.5); MEAN CORPUSCULAR HEMOGLOBIN 31.7 pg (27.0-33.0); MEAN CORPUSCULAR HGB CONC 33.5 g/dl (32.0-36.5); MEAN CORPUSCULAR VOLUME 94.6 fl (80.0-96.0); MONO # 0.6 10^3/uL (0.0-0.8); MONO % 12.7 % (0.0-5.0); NEUTROPHILS # 2.1 10^3/uL (1.8-7.7); NEUTROPHILS % 47.7 % (36.0-66.0); PLATELET COUNT, AUTOMATED 166 10^3/uL (150-450); RED BLOOD COUNT 4.29 10^6/uL (4.00-5.40); WHITE BLOOD COUNT 4.3 10^3/uL (4.0-10.0)
[2018-09-26 17:25] LABS: CARBAMAZEPINE (TEGRETOL) LEVEL 7.9 UG/ML (4.0-10.0)
== END ==
LOC: M LAB 16:09
PROVIDERS: ATTEND Physician Assistant Medical
DX: Z51.81 Encounter for therapeutic drug level monitoring (principal); Z79.899 Other long term (current) drug therapy; R56.9 Unspecified convulsions

== ENCOUNTER 2018-10-03 13:30 | Emergency (ER) | payer MEDICARE ==
[~2018-10-03] VITALS: Ht 162.6 cm; Wt 80.0 kg
[~2018-10-03 13:30] MED LIST changes: -CIPR-249 PO
[2018-10-03 15:25] LABS: BASO % 0.5 % (0.0-1.0); EOS % 0.2 % (0.0-3.0); HEMATOCRIT 45.6 % (36.0-47.0); HEMOGLOBIN 15.4 g/dl (12.0-15.5); LYMPH # 1.8 10^3/uL (1.5-4.5); LYMPH % 27.7 % (24.0-44.0); MEAN CORPUSCULAR HEMOGLOBIN 31.2 pg (27.0-33.0); MEAN CORPUSCULAR HGB CONC 33.8 g/dl (32.0-36.5); MEAN CORPUSCULAR VOLUME 92.3 fl (80.0-96.0); MONO # 0.7 10^3/uL (0.0-0.8); MONO % 10.7 % (0.0-5.0); NEUTROPHILS # 3.9 10^3/uL (1.8-7.7); NEUTROPHILS % 60.6 % (36.0-66.0); PLATELET COUNT, AUTOMATED 198 10^3/uL (150-450); RED BLOOD COUNT 4.94 10^6/uL (4.00-5.40); WHITE BLOOD COUNT 6.4 10^3/uL (4.0-10.0)
[2018-10-03] MEDS ORDERED: ONDANSETRON 4MG/2ML VIAL (J2405) IV ONE (15:30)
[2018-10-03] MEDS ORDERED: NS 1,000 ML IV SCH (15:30)
[2018-10-03] MEDS ORDERED: MORPHINE 2 MG/ML 1ML SYRINGE (J2270) IV PRN (15:30)
[2018-10-03 15:55] LABS: CALCIUM LEVEL 9.3 MG/DL (8.8-10.2); CREATININE FOR GFR 1.17 MG/DL (0.55-1.30); GLOMERULAR FILTRATION RATE 47.6 (>39); POTASSIUM SERUM 4.2 MEQ/L (3.5-5.1)
[2018-10-03 16:32] LABS: INFLUENZA A AMPLIFICATION NEGATIVE (NEGATIVE); INFLUENZA B AMPLIFICATION NEGATIVE (NEGATIVE)
[2018-10-03] MEDS: GASTROGRAFIN SOLUTION 30ML PO SCH ×2 (17:02→17:43)
[2018-10-03] MEDS ORDERED: ISOVUE-370 76% 100ML VIAL (Q9967) As Ordered ONE (18:06)
[2018-10-03] MEDS ORDERED: NS 1,000 ML IV ONE (18:30)
--- NOTE | 2018-10-03 19:21 | REPVR ---
EXAM: CT Abdomen and Pelvis With Contrast EXAM DATE/TIME: 10/03/2018 6:18 PM CLINICAL HISTORY: 78 years old, female; Pain and signs and symptoms; Other: Diverticulitis/peritonitis; Abdominal pain; Generalized; Prior surgery; Surgery date: 6+ months TECHNIQUE: Axial computed tomography images of the abdomen and pelvis with intravenous contrast. All CT scans at this facility use at least one of these dose optimization techniques: automated exposure control; mA and/orOval density in the right pelvis with a calcification, probably within the ovary is stable compared with prior scan. kV adjustment per patient size (includes targeted exams where dose is matched to clinical indication); or iterative reconstruction. Coronal and sagittal reformatted images were created and reviewed. CONTRAST: Contrast Material: 100 ml of ISOVUE 370; Contrast Route: IV COMPARISON: CT ABD PELVIS WITH CONTRAST 05/04/2018 1:19 PM FINDINGS: Lower thorax: There are linear fibrotic or atelectatic densities at the lung bases. There is a small hiatal hernia. ABDOMEN: Liver: There is a calcified granuloma in the liver. There is diffuse fatty infiltration of the liver. There is no focal lesion. Gallbladder and bile ducts: The gallbladder is normal. The bile ducts are normal. Pancreas: The pancreas is normal. Spleen: The spleen is normal. Adrenals: The adrenals are normal. Kidneys and ureters: There is asymmetric right renal atrophy unchanged from prior scan. There is a left lateral renal cortical atrophy. There is no focal lesion. There is no hydronephrosis. Stomach and bowel: There is extensive sigmoid diverticula. There is no associated inflammation. Appendix: No evidence of appendicitis. Appendix not definitely visualized. PELVIS: Bladder: The bladder is normal with no evidence of calculi. Reproductive: There is a calcification within an oval soft tissue density in the right pelvis, probably the ovary. It is unchanged from the prior scan. ABDOMEN and PELVIS: Intraperitoneal space: Normal. No free air. No significant fluid collection. Bones/joints: There is a right hip replacement and left femoral neck fixation screws resulting in metal artifact partially obscuring the pelvis. There are degenerative changes of the spine. There is chronic L5 spondylolysis. No acute fracture. Soft tissues: Unremarkable. Vasculature: There are aortic calcifications. No aneurysm. Lymph nodes: Normal. No enlarged lymph nodes. IMPRESSION: 1. Extensive diverticulosis. No acute inflammatory findings. 2. Oval density in the right side of the pelvis stable in comparison with prior scan, probably the ovary. Electronically signed by: Ryan Chu On 10/03/2018 19:21:18 PM
[2018-10-03] MEDS ORDERED: CIPR-249 PO (20:38)
[2018-10-03 20:41] VITALS: BP 176/82
[2018-10-03] MEDS ORDERED: CIPROFLOXACIN 500 MG TAB PO ONE (20:45)
== END 2018-10-03 20:50 | disposition home or self-care (01) ==
LOC: M ED 13:30
DX: R10.9 Unspecified abdominal pain (principal); N39.0 Urinary tract infection, site not specified; E11.9 Type 2 diabetes mellitus without complications; I12.9 Hypertensive chronic kidney disease with stage 1 through stage 4 chronic kidney disease, or unspecified chronic kidney disease; J44.9 Chronic obstructive pulmonary disease, unspecified; M54.5 Low back pain; G89.29 Other chronic pain; G25.81 Restless legs syndrome; G40.909 Epilepsy, unspecified, not intractable, without status epilepticus; Z79.899 Other long term (current) drug therapy; Z79.82 Long term (current) use of aspirin; Z79.4 Long term (current) use of insulin; Z88.8 Allergy status to other drugs, medicaments and biological substances; Z98.890 Other specified postprocedural states; Z87.440 Personal history of urinary (tract) infections
CPT/HCPCS: 36415; 74177; 80048; 81001; 83605; 85025; 87086; 87502; 93041; 94760; 96374; 96375; 99285; G0463; J2270; J2405; Q9963; Q9967

== ENCOUNTER → 2018-10-05 | Outpatient (REF) | payer MEDICARE ==
[~2018-10-05] MED LIST changes: -/AMLO25TA PO; -/CARB4TA; -/CARBXR20T OR; -/CARBXR20T PO; -/HYDR10TAB PO; -/ROPI25TA; -/WARF25TA PO; -/WARF5TA PO; -ASPI1TAB PO; +ASPI81TA26 PO; -CARB10TAXR; -CARB1CAP2 PO; +CARB200C4 PO; +CIPR-249 PO; +COUM1TAB17 PO; +COUM1TAB18 PO; -D 101TAB PO; +D-3-50003 PO; +HYDR-3677 PO; -NORC1TAB4 PO; +NORC1TAB7 PO; +NORV2TAB PO; +OXYC1TAB23 PO; -PERCOCET PO; +PRED-351 PO; -PRED10TA PO; +REQU1TAB14; +TEGR100T3; +TEGR1TAB OR; +TEGR1TAB PO; +TEGR1TAB2; +VITA-144 PO; -VITA1CAP7 PO; -[UNRECOGNIZED DRUG - OTHER] PO
[2018-10-05 20:39] LABS: HEMOGLOBIN A1c 7.7 %
== END ==
LOC: M SFHCADAM 12:05
PROVIDERS: ATTEND Physician Assistant
DX: E11.22 Type 2 diabetes mellitus with diabetic chronic kidney disease (principal); N18.3 Chronic kidney disease, stage 3 (moderate); N39.0 Urinary tract infection, site not specified
CPT/HCPCS: 83036; G0463

== ENCOUNTER 2018-11-25 18:55 | Emergency (ER) | payer MEDICARE ==
[~2018-11-25] VITALS: Ht 157.5 cm; Wt 81.8 kg
[2018-11-25] MEDS ORDERED: NORCO, ANEXSIA 5/325MG TABLET (HYDROcodone/ACETAMINOPHEN) PO ONE (19:30)
[2018-11-25 20:51] VITALS: BP 143/82
--- NOTE | 2018-11-25 21:00 | REPVR ---
EXAM: US Duplex Left Lower Extremity Veins, Limited EXAM DATE/TIME: 11/25/2018 8:22 PM CLINICAL HISTORY: 78 years old, female; Pain; Leg, upper; Left; Additional info: Pain/swelling TECHNIQUE: Imaging protocol: Real-time Duplex ultrasound of the Left Lower Extremity with 2-D weinberg scale, color Doppler flow and spectral waveform analysis. Limited exam focused on the left lower extremity veins. COMPARISON: No relevant prior studies available. FINDINGS: Left deep veins: Unremarkable. The common femoral, femoral and popliteal veins are patent without thrombus. Normal compressibility, augmentation response and Doppler waveforms. Left superficial veins: Unremarkable. Saphenofemoral junction is patent without thrombus. Soft tissues: 2.4 x 0.5 x 0.9 cm popliteal cyst. IMPRESSION: 1. No sonographic evidence of deep venous thrombosis. 2. 2.4 x 0.5 x 0.9 cm popliteal cyst. Electronically signed by: Domingo Wong On 11/25/2018 21:00:14 PM
--- NOTE | 2018-11-26 12:28 | REP ---
PELVIS AND LEFT HIP: AP view of the pelvis and AP and frogleg views of the left hip are performed. There is no evidence of acute fracture or dislocation. Metallic hip prosthesis on the right is again noted unchanged. Metallic screws are seen in the proximal left femur from an old femoral neck fracture, unchanged. There are degenerative changes of the visualized lower lumbar spine. IMPRESSION: No acute fracture or dislocation. Electronically Signed by Francisco Christiansen MD 11/26/2018 03:49 P
--- NOTE | 2018-11-26 13:07 | REP ---
LEFT KNEE SERIES, FIVE VIEWS: Five views of the left knee are performed. There is no acute fracture or dislocation. There is mild diffuse joint space narrowing. There is mild spurring of the tibial spines as well as the superior pole of the patella. Vascular calcifications are seen posteriorly. IMPRESSION: Mild degenerative changes. No fracture or dislocation. Electronically Signed by Francisco Christiansen MD 11/26/2018 03:52 P
== END 2018-11-25 21:00 | disposition home or self-care (01) ==
LOC: M ED 18:55
DX: M25.562 Pain in left knee (principal); M71.22 Synovial cyst of popliteal space [Baker], left knee; R60.0 Localized edema; E11.22 Type 2 diabetes mellitus with diabetic chronic kidney disease; I12.9 Hypertensive chronic kidney disease with stage 1 through stage 4 chronic kidney disease, or unspecified chronic kidney disease; R56.9 Unspecified convulsions; R51 Headache; J44.9 Chronic obstructive pulmonary disease, unspecified; K21.9 Gastro-esophageal reflux disease without esophagitis; N18.3 Chronic kidney disease, stage 3 (moderate); M54.30 Sciatica, unspecified side; Z86.73 Personal history of transient ischemic attack (TIA), and cerebral infarction without residual deficits; K57.92 Diverticulitis of intestine, part unspecified, without perforation or abscess without bleeding; Z79.899 Other long term (current) drug therapy; Z79.82 Long term (current) use of aspirin; Z79.4 Long term (current) use of insulin; F17.210 Nicotine dependence, cigarettes, uncomplicated; Z88.8 Allergy status to other drugs, medicaments and biological substances; Z96.641 Presence of right artificial hip joint

== ENCOUNTER 2019-05-08 11:15 | Emergency (ER) | payer MEDICARE ==
[~2019-05-08] VITALS: Ht 154.9 cm; Wt 82.1 kg
[~2019-05-08 11:15] MED LIST changes: -OMEP20CA3 PO; +OMEP20CA4 PO
[2019-05-08 11:52] LABS: BASO % 0.9 % (0.0-1.0); EOS # 0.1 10^3/uL (0.0-0.5); EOS % 2.1 % (0.0-3.0); HEMATOCRIT 39.7 % (36.0-47.0); HEMOGLOBIN 13.5 g/dl (12.0-15.5); LYMPH # 1.4 10^3/uL (1.5-5.0); MEAN CORPUSCULAR HEMOGLOBIN 33.5 pg (27.0-33.0); MEAN CORPUSCULAR VOLUME 98.5 fl (80.0-96.0); MONO # 0.3 10^3/uL (0.0-0.8); MONO % 7.9 % (0.0-5.0); NEUTROPHILS # 2.4 10^3/uL (1.5-8.5); NEUTROPHILS % 55.9 % (36.0-66.0); PLATELET COUNT, AUTOMATED 176 10^3/uL (150-450); RED BLOOD COUNT 4.03 10^6/uL (4.00-5.40); WHITE BLOOD COUNT 4.3 10^3/uL (4.0-10.0)
--- NOTE | 2019-05-08 12:24 | REP ---
SITTING AP CHEST X-RAY: Single view. HISTORY: Altered mental status. COMPARISON STUDY: March 11, 2018. FINDINGS: Monitoring electrodes are seen. There is old post-traumatic deformity left proximal humerus. There is diffuse osteopenia. Old healed rib fractures are noted on the right. No other significant bony abnormality is seen. The lungs are well inflated and clear. Thoracic aorta somewhat tortuous and calcific. Heart size is normal. Pulmonary vasculature is not increased. No infiltrate is noted. IMPRESSION: No acute disease. Old healed rib fractures on the right. Electronically Signed by Doyle Richter MD 05/08/2019 01:53 P
[2019-05-08 12:32] LABS: ALBUMIN 3.4 GM/DL (3.2-5.2); ALT/SGPT 21 U/L (12-78); BILIRUBIN,DIRECT 0.1 MG/DL (0.0-0.2); BILIRUBIN,TOTAL 0.3 MG/DL (0.2-1.0); BLOOD UREA NITROGEN 27 MG/DL (7-18); CALCIUM LEVEL 8.8 MG/DL (8.8-10.2); CARBON DIOXIDE LEVEL 29 MEQ/L (21-32); CHLORIDE LEVEL 103 MEQ/L (98-107); CK-MB VALUE MASS 2.4 NG/ML (<3.6); CPK CREATINE PHOSPHOKINASE 94 U/L (26-192); CREATININE FOR GFR 1.22 MG/DL (0.55-1.30); GLOMERULAR FILTRATION RATE 45.3 (>39); GLUCOSE, FASTING 233 MG/DL (70-100); MB/CK RELATIVE INDEX 2.55 (< OR =4); POTASSIUM SERUM 4.2 MEQ/L (3.5-5.1); SODIUM LEVEL 138 MEQ/L (136-145); TROPONIN I < 0.02 NG/ML (< 0.10)
[2019-05-08] MEDS ORDERED: METOCLOPRAMIDE INJ 10MG/2ML VIAL (J2765) IV ONE (13:00)
[2019-05-08] MEDS ORDERED: CARVedilol 12.5 MG TAB PO ONE (13:00)
[2019-05-08] MEDS ORDERED: NS 1,000 ML IV SCH (13:00)
[2019-05-08 13:08] VITALS: BP 184/85
--- NOTE | 2019-05-08 13:23 | REP ---
INDICATION: Altered mental status. Stroke. PROCEDURE: Unenhanced axial images of the brain were obtained from skull base to vertex. COMPARISON STUDIES: November 26, 2018. FINDINGS: There is no acute intracranial hemorrhage, acute cortical infarction, mass effect, hydrocephalus or shift to the midline structures. There is no evidence of calvarial fracture. Age-related volume loss is present. There are a few scattered foci of hypo-attenuation throughout the subcortical and periventricular white matter. CONCLUSION: There is no evidence of acute intracranial process. Volume loss and subtalar chronic microangiopathic ischemic disease. Electronically Signed by Soren Richmond DO 05/08/2019 01:14 P
[2019-05-08 14:15] VITALS: BP 160/62
--- NOTE | 2019-05-09 07:36 | ECGEPIP ---
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
== END 2019-05-08 14:44 | disposition home or self-care (01) ==
LOC: M ED 11:15
DX: R51 Headache (principal); E11.9 Type 2 diabetes mellitus without complications; I10 Essential (primary) hypertension; Z86.73 Personal history of transient ischemic attack (TIA), and cerebral infarction without residual deficits; F03.90 Unspecified dementia, unspecified severity, without behavioral disturbance, psychotic disturbance, mood disturbance, and anxiety; E55.9 Vitamin D deficiency, unspecified; M19.90 Unspecified osteoarthritis, unspecified site; R56.9 Unspecified convulsions; K21.9 Gastro-esophageal reflux disease without esophagitis; M85.80 Other specified disorders of bone density and structure, unspecified site; I65.29 Occlusion and stenosis of unspecified carotid artery; J44.9 Chronic obstructive pulmonary disease, unspecified; M54.16 Radiculopathy, lumbar region; F17.200 Nicotine dependence, unspecified, uncomplicated; Z87.81 Personal history of (healed) traumatic fracture; Z79.82 Long term (current) use of aspirin; Z79.4 Long term (current) use of insulin; Z79.899 Other long term (current) drug therapy; Z88.8 Allergy status to other drugs, medicaments and biological substances
CPT/HCPCS: 70450; 71045; 80048; 80076; 82550; 82553; 84443; 84484; 85025; 93005; 93041; 94760; 96361; 96374; 99284; J2765

== ENCOUNTER → 2019-05-11 | Outpatient (REF) | payer MEDICARE ==
[2019-05-11 16:29] LABS: FREE T4 0.91 NG/DL (0.76-1.46); THYROID STIMULATING HORMONE 0.27 uIU/ML (0.358-3.740)
[2019-05-11 16:40] LABS: HEMOGLOBIN A1c 8.2 %
== END ==
LOC: M SFHCADAM 13:43
PROVIDERS: ATTEND Physician Assistant
DX: E11.22 Type 2 diabetes mellitus with diabetic chronic kidney disease (principal); Z23 Encounter for immunization
CPT/HCPCS: 83036; 84439; 84443; 90670; 90682; G0008; G0009

== ENCOUNTER → 2019-09-05 | Outpatient (REF) | payer MEDICARE ==
[~2019-09-05] MED LIST changes: +OMEP1CAP73 PO; -OMEP20CA4 PO
[2019-09-05 18:31] LABS: BASO % 0.6 % (0.0-1.0); EOS # 0.1 10^3/uL (0.0-0.5); EOS % 1.7 % (0.0-3.0); HEMATOCRIT 41.7 % (36.0-47.0); HEMOGLOBIN 13.6 g/dl (12.0-15.5); LYMPH # 1.6 10^3/uL (1.5-5.0); LYMPH % 34.2 % (24.0-44.0); MEAN CORPUSCULAR HEMOGLOBIN 31.9 pg (27.0-33.0); MEAN CORPUSCULAR HGB CONC 32.6 g/dl (32.0-36.5); MEAN CORPUSCULAR VOLUME 97.7 fl (80.0-96.0); MONO # 0.4 10^3/uL (0.0-0.8); MONO % 8.9 % (0.0-5.0); NEUTROPHILS # 2.5 10^3/uL (1.5-8.5); NEUTROPHILS % 54.2 % (36.0-66.0); PLATELET COUNT, AUTOMATED 178 10^3/uL (150-450); RED BLOOD COUNT 4.27 10^6/uL (4.00-5.40); WHITE BLOOD COUNT 4.6 10^3/uL (4.0-10.0)
[2019-09-05 19:29] LABS: CARBAMAZEPINE (TEGRETOL) LEVEL 10.8 UG/ML (4.0-10.0)
== END ==
LOC: M LABNEURO 17:09
PROVIDERS: ATTEND Physician Assistant Medical
DX: G40.909 Epilepsy, unspecified, not intractable, without status epilepticus (principal); Z79.899 Other long term (current) drug therapy

== ENCOUNTER 2020-01-20 13:14 | Inpatient (IN) | payer MEDICARE ==
[~2020-01-20] VITALS: Ht 157.5 cm; Wt 82.5 kg
[~2020-01-20 13:14] MED LIST changes: -NITR100C2; +NITR100C2 PO
[2020-01-20 14:10] LABS: BASO % 0.4 % (0.0-1.0); EOS % 0.1 % (0.0-3.0); HEMATOCRIT 46.4 % (36.0-47.0); HEMOGLOBIN 15.6 g/dl (12.0-15.5); LYMPH # 1.4 10^3/uL (1.5-5.0); LYMPH % 14.2 % (24.0-44.0); MEAN CORPUSCULAR HEMOGLOBIN 33.1 pg (27.0-33.0); MEAN CORPUSCULAR HGB CONC 33.6 g/dl (32.0-36.5); MEAN CORPUSCULAR VOLUME 98.3 fl (80.0-96.0); MONO # 0.7 10^3/uL (0.0-0.8); MONO % 7.3 % (0.0-5.0); NEUTROPHILS # 7.6 10^3/uL (1.5-8.5); NEUTROPHILS % 77.6 % (36.0-66.0); PLATELET COUNT, AUTOMATED 217 10^3/uL (150-450); RED BLOOD COUNT 4.72 10^6/uL (4.00-5.40); WHITE BLOOD COUNT 9.8 10^3/uL (4.0-10.0)
[2020-01-20 14:29] LABS: INR 1.06; PROTHROMBIN TIME 13.5 SECONDS (11.8-14.0)
[2020-01-20 14:32] LABS: D-DIMER QUANT 678.97 ng/ml (<500)
[2020-01-20 14:43] LABS: ALBUMIN 3.8 GM/DL (3.2-5.2); BILIRUBIN,DIRECT 0.2 MG/DL (0.0-0.2); BILIRUBIN,TOTAL 0.4 MG/DL (0.2-1.0); CALCIUM LEVEL 9.7 MG/DL (8.8-10.2); CK-MB VALUE MASS 3.6 NG/ML (<3.6); CREATININE FOR GFR 1.53 MG/DL (0.55-1.30); GLOMERULAR FILTRATION RATE 34.9 (>39); MB/CK RELATIVE INDEX 1.94 (< OR =4); THYROID STIMULATING HORMONE 0.385 uIU/ML (0.358-3.740); THYROXINE (T4) 9.4 UG/DL (4.5-12.0); TOTAL PROTEIN 8.1 GM/DL (6.4-8.2); TROPONIN I 0.02 NG/ML (< 0.10)
[2020-01-20] MEDS ORDERED: NS 2,330 ML in IV 1 EA IV ONE (15:00)
--- NOTE | 2020-01-20 15:07 | REP ---
Clinical: Cough and dyspnea . Comparison: 05/08/2019 . Findings: The mediastinum and cardiac silhouette are stable and within normal limits for portable technique. The lung mata are clear without acute consolidation, effusion, or pneumothorax. Skeletal structures are intact. Impression: No acute cardiopulmonary process appreciated. Electronically Signed by Flo Ramon MD 01/20/2020 02:59 P
[2020-01-20] MEDS ORDERED: ISOVUE-370 76% 100ML VIAL As Ordered ONE (15:08)
--- NOTE | 2020-01-20 15:11 | ECGEPIP ---
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
--- NOTE | 2020-01-20 15:39 | REP ---
Clinical: Acute chest pain with dyspnea. Technique: Axial contrast enhanced images from the thoracic inlet to the upper abdomen using 75 ml Isovue 370 intravenous contrast material with multiplanar re-formations. Findings: Satisfactory enhancement of the pulmonary vasculature is achieved and no filling defects are identified to suggest pulmonary embolus. Significant atherosclerotic changes to the thoracic aorta noted without aneurysm or dissection. Atherosclerotic changes of the coronary arteries are also noted without cardiomegaly. No pericardial effusion. No adenopathy. The lung mata demonstrate chronic interstitial changes and minimal bibasilar scarring. No consolidation, effusion, or pneumothorax. Musculoskeletal structures demonstrate age-related degenerative changes. Impression: No evidence for pulmonary embolus. Atherosclerotic changes to the thoracic aorta and coronary arteries. Bibasilar scarring. No acute consolidation or effusion. Electronically Signed by Flo Ramon MD 01/20/2020 03:30 P
[2020-01-20] MEDS ORDERED: IPRATROPIUM 0.5MG/ALBUTEROL 2.5MG INH SOL UD 3ML (DUONEB) NEB PRN (17:00)
[2020-01-20] MEDS ORDERED: GLUCOSE 4GM CHEW TABLET PO PRN (17:00)
[2020-01-20] MEDS ORDERED: DEXTROSE 50% 50 ML SYRINGE IV PRN (17:00)
[2020-01-20] MEDS ORDERED: GLUCAGON INJ 1MG VIAL SC PRN (17:00)
[2020-01-20] MEDS ORDERED: ACETAMINOPHEN TAB 650MG DOSE (2X325MG) PO PRN (17:00)
--- NOTE | 2020-01-20 17:24 | HPEPDOC ---
General Date of Admission Jan 20, 2020 at 16:53 Date of Service: Jan 20, 2020 Chief Complaint The patient is a 79-year-old female Who presented to the hospital at the direction of her family for weakness and cough History of Present Illness Patient is a 79-year-old female with a PMHx of HTN, DLP, IDDM2, CKD3, COPD, Bilateral carotid stenosis (scheduled for surgery), Hx of TIA (2012 x2), Seizure disorder, Vitamin D deficiency, Osteoarthritis, Lumbar disc radiculopathy, RLS, Mood disorder, GERD who presents to the ER with complaints of weakness and cough with sputum. Patient reports that shes been experiencing weakness and a persistent cough for 2 months, mild amount of expectoration. Patient reports that the sputum barely comes up when he does is described as clear/white without blood. Patient denies any chest pain, shortness of breath or palpitations. Patient denies nausea, vomiting, abdominal pain, constipation, diarrhea or urinary discomfort. Patient does report dark colored urine, reported as yellow/orange. Patient is unaware of any recent fevers or chills. She reports that her appetite is poor, has experienced a 10 pound weight loss over the duration of one month. Home Medications Scheduled Aspirin (Aspirin EC) 81 Mg Tab, 81 MG PO DAILY for pain, (Reported) Atorvastatin Calcium (Atorvastatin Calcium) 20 Mg Tab, 20 MG PO DAILY, (Reported) Carbamazepine (Carbamazepine ER) 200 Mg Cap, 200 MG PO BID, (Reported) Carvedilol (Carvedilol) 25 Mg Tab, 25 MG PO BID, (Reported) Cholecalciferol (Vitamin D3) (Vitamin D3) 5,000 Unit Cap, 5,000 UNIT PO DAILY, (Reported) Ferrous Sulfate (Ferrous Sulfate) 325 Mg Tab, 1 TAB PO DAILY, (Reported) Insulin Glargine,Hum.rec.anlog (Toujeo Solostar) 300 Unit/Ml Inj, 70 UNIT SC QHS, (Reported) Insulin Human Lispro (Novolog) 100 U/Ml Inj, 1 DOSE SC ACHS, (Reported) PER SLIDING SCALE, MDD=70 UNITS Memantine HCl (Memantine HCl ER) 28 Mg Cap, 28 MG PO DAILY, (Reported) Nitrofurantoin Monohyd/M-Cryst (Nitrofurantoin [place]-Mcr 100 mg) 100 Mg Cap, 100 MG PO QHS, (Reported) Nortriptyline HCl (Nortriptyline HCl) 25 Mg Cap, 25 MG PO BID, (Reported) Omeprazole (Omeprazole) 20 Mg Cap, 20 MG PO DAILY, (Reported) Pregabalin (Lyrica) 100 Mg Cap, 100 MG PO BID, (Reported) Scheduled PRN Budesonide/Formoterol (Symbicort 80-4.5 Mcg Inhaler) 60 Puff/Inhaler Aers, 2 PUFFS INH BID PRN for SHORTNESS OF BREATH, (Reported) Ipratropium/Albuterol Sulfate (Iprat-Albut 0.5-3(2.5) mg/3 ml) 1 Joel Joel, 1 JOEL INH Q6H PRN for SHORTNESS OF BREATH, (Reported) Allergies Coded Allergies: metformin (Verified Allergy, Unknown, 11/25/18) Past Medical History Medical History HTN, DLP, IDDM2, CKD3, COPD, Bilateral carotid stenosis (scheduled for surgery), Hx of TIA (2011 x2), Seizure disorder, Vitamin D deficiency, Osteoarthritis, Lumbar disc radiculopathy, RLS, Mood disorder, GERD Surgical History Carpal tunnel release, right hip replacement, left hip fracture, right breast biopsy, hysterectomy, bladder surgery, bilateral cataract removal Family History - No history of malignancies Social History - Denies the use of alcohol or illicit drugs; patient reports that shes a smoker of several years and failed quitting - Denies recent travel or sick contacts - Lives with daughter - 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; 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 Review of Systems Other systems 10 point review of systems complete, all negative otherwise stated in HPI Vital Signs - Vitals: BP 138/62, HR 99, RR 20, Sat 95%RA, Temp 96.8F - General: Lying in bed, No acute distress, Speaking in full sentences, AAOx3 - HEENT: NC, AT, PERRLA, EOMI - CVS: RRR, +S1S2 - Lungs: Fair air entry bilaterally, No appreciable wheezing / rales / rhonchi - Abdomen: Soft, Non-distended, Non-tender - Extremities: No lower extremity edema, No calf tenderness - Neuro: No focal motor or sensory deficit - Skin: No visible rashes Laboratory Data Labs 24H Laboratory Tests 2 01/20/20 13:53: Immature Granulocyte % (Auto) 0.4, Neutrophils (%) (Auto) 77.6H, Lymphocytes (%) (Auto) 14.2L, Monocytes (%) (Auto) 7.3H, Eosinophils (%) (Auto) 0.1, Basophils (%) (Auto) 0.4, Neutrophils # (Auto) 7.6, Lymphocytes # (Auto) 1.4L, Monocytes # (Auto) 0.7, Eosinophils # (Auto) 0.0, Basophils # (Auto) 0.0, Nucleated Red Blood Cells % (auto) 0.0, Prothrombin Time 13.5, Prothromb Time International Ratio 1.06, D-Dimer, Quantitative 678.97H, Anion Gap 7L, Glomerular Filtration R ate 34.9L, Calcium Level 9.7, Total Bilirubin 0.4, Direct Bilirubin 0.2, Aspartate Amino Transf (AST/SGOT) 20, Alanine Aminotransferase (ALT/SGPT) 19, Alkaline Phosphatase 75, Total Creatine Kinase 186, Creatine Kinase MB 3.6, Creatine Kinase MB Relative Index 1.94, Troponin I 0.02, KA-Ldo-Y-Type Na triuretic Peptide 2085H, Total Protein 8.1, Albumin 3.8, Albumin/Globulin Ratio 0.9L, Thyroid Stimulating Hormone (TSH) 0.385, Thyroxine (T4) 9.4 01/20/20 13:57: Lactic Acid Level 2.6*H 01/20/20 16:40: Urine Color YELLOW, Urine Appearance HAZY, Urine pH 7.0, Urine Specific [place] >1.060H, Urine Protein 1+H, Urine Glucose (UA) 3+H, Urine Ketones TRACEH, Urine Blood NEGATIVE, Urine Nitrite NEGATIVE, Urine Bilirubin NEGATIVE, Urine Urobilinogen 0.2, Urine Leukocyte Esterase 2+H, Urine WBC (Auto) 6H, Urine RBC (Auto) 4H, Urine Hyaline Casts (Auto) 0, Urine Bacteria (Auto) 1+H, Urine Squamous Epithelial Cells 16, Urine Mucus (Auto) SMALL, Urine Sperm (Auto) CBC/BMP Laboratory Tests 01/20/20 13:53 Microbiology Microbiology 01/20/20 Blood Culture, Received Pending 01/20/20 Blood Culture, Received Pending 01/20/20 Urine Culture, Received Pending 01/20/20 Respiratory Virus Panel (PCR) (DAYAN) - Final, Complete Plan / VTE VTE Prophylaxis Ordered?: Yes Plan Plan Weakness - likely 2/2 orthostatic hypotension - possibly 2/2 infectious etiology, possibly 2/2 medications (Psychiatric medications), possibly 2/2 hypovolemia - Patient presented to the hospital with complaints of weakness since been ongoing for 2 months - Patient does have positive orthostatic hypotension in the emergency room - Patient remains afebrile - Physical without any signs of fluid overload - No leukocytosis / lab work reveals hemo-concentration - Patient has a prior history of multiple urinary tract infections - CXR 01/19: No acute cardiopulmonary process appreciated. - CTA chest 01/19: No evidence for pulmonary embolus. Atherosclerotic changes to the thoracic aorta and coronary arteries. Bibasilar scarring. No acute consolidation or effusion. - Will check urine cultures, blood cultures, procalcitonin - Will hold Amitriptyline - Will provide gentle hydration Lactic acidosis - possibly 2/2 hypovolemia - Review of systems negative for any source of infection; patient has reported a productive cough. However, imaging negative - Patient remains afebrile - No leukocytosis - Will check urine cultures, blood cultures, procalcitonin - Imaging noted above - Will c/w IV fluid hydration - Will hold off on starting antibiotics at this time Elevated Cr on CKD3 - Baseline Cr of 1.1 1.2; Cr on admission of 1.53 - Avoid nephrotoxic medications - Will check UA - Will hold diuretic therapy - Will provide gentle IV fluid hydration HTN - BP moderately controlled - c/w Carvedilol DLP - c/w ASA and Atorvastatin IDDM2 - c/w ISS COPD - No evidence of exacerbation - c/w inhaled therapy as ordered Bilateral carotid stenosis - Hx of TIA (2011 x2) - Patient reports that she is scheduled for surgery in late January Seizure disorder - Last seizure noted to be > 1 year ago - c/w Carbamazepine Vitamin D deficiency - c/w Supplementation Osteoarthritis, Lumbar disc radiculopathy - c/w Pregabalin and Tylenol PRN RLS / Mood disorder - Will hold nortriptyline GERD - c/w Omeprazole DVT prophylaxis - Will start Heparin TERRANCE URBINA MD Jan 20, 2020 17:24
[2020-01-20] MEDS ORDERED: SLF 3 ML SYR IV PRN (17:45)
[2020-01-20] MEDS ORDERED: VITA500038 PO (17:49)
[2020-01-20 17:50] VITALS: BP_SYST 148; BP_SYST 152; BP_SYST 160; BP_DIAS 58; BP_DIAS 62; BP_DIAS 64
[2020-01-20] MEDS: HumaLOG INSULIN (NovoLOG) PER UNIT SC SCH ×2 (18:23→20:35)
[2020-01-20] MEDS: cefTRIAXone SOD 2 GM in D5W MINI-BAG PLUS 50 ML IV SCH (18:23)
[2020-01-20] MEDS: IPRATROPIUM 0.5MG/ALBUTEROL 2.5MG INH SOL UD 3ML (DUONEB) NEB SCH (19:39)
[2020-01-20 20:00] VITALS: BP 148/77
[2020-01-20] MEDS: SYMBICORT 80/4.5MCG INHALER 6GM INH SCH (20:00)
[2020-01-20] MEDS: LEVEMIR (INSULIN DETEMIR) 1 UNITS/0.01ML SC SCH (21:05)
[2020-01-20] MEDS: HEPARIN SOD (PORCINE) 5000UNITS/ML 1ML VIAL/SYRINGE SC SCH (21:05)
[2020-01-20] MEDS: CARVedilol 12.5 MG TAB PO SCH (21:05)
[2020-01-20] MEDS: PREGABALIN 100 MG CAP (LYRICA) PO SCH (21:05)
[2020-01-20] MEDS: SLF 3 ML SYR IV SCH (21:06)
[2020-01-20] MEDS: carBAMazepine XR 200 MG TAB PO SCH (21:22)
[2020-01-21] VITALS: BP 108/53
[2020-01-21 04:00] VITALS: BP_SYST 106; BP_SYST 109; BP_SYST 110; BP_DIAS 55; BP_DIAS 57; BP_DIAS 58
[2020-01-21 05:42] LABS: BASO % 0.6 % (0.0-1.0); EOS # 0.1 10^3/uL (0.0-0.5); EOS % 1.9 % (0.0-3.0); HEMATOCRIT 40.1 % (36.0-47.0); LYMPH # 1.8 10^3/uL (1.5-5.0); LYMPH % 32.8 % (24.0-44.0); MEAN CORPUSCULAR HEMOGLOBIN 32.8 pg (27.0-33.0); MEAN CORPUSCULAR HGB CONC 32.9 g/dl (32.0-36.5); MEAN CORPUSCULAR VOLUME 99.8 fl (80.0-96.0); MONO # 0.5 10^3/uL (0.0-0.8); MONO % 9.9 % (0.0-5.0); NEUTROPHILS # 2.9 10^3/uL (1.5-8.5); NEUTROPHILS % 54.4 % (36.0-66.0); PLATELET COUNT, AUTOMATED 170 10^3/uL (150-450); RED BLOOD COUNT 4.02 10^6/uL (4.00-5.40); WHITE BLOOD COUNT 5.4 10^3/uL (4.0-10.0)
[2020-01-21 05:48] LABS: HEMOGLOBIN 13.2 g/dl (12.0-15.5)
[2020-01-21 05:57] LABS: CALCIUM LEVEL 8.9 MG/DL (8.8-10.2); CREATININE FOR GFR 1.36 MG/DL (0.55-1.30); GLOMERULAR FILTRATION RATE 39.9 (>39); POTASSIUM SERUM 3.6 MEQ/L (3.5-5.1)
[2020-01-21] MEDS: HEPARIN SOD (PORCINE) 5000UNITS/ML 1ML VIAL/SYRINGE SC SCH ×3 (06:25→22:25)
[2020-01-21] MEDS: SLF 3 ML SYR IV SCH ×3 (06:26→20:40)
[2020-01-21] MEDS: SYMBICORT 80/4.5MCG INHALER 6GM INH SCH ×2 (07:33→18:11)
[2020-01-21] MEDS: IPRATROPIUM 0.5MG/ALBUTEROL 2.5MG INH SOL UD 3ML (DUONEB) NEB SCH ×4 (07:33→18:11)
[2020-01-21 08:00] VITALS: BP 128/62
[2020-01-21] MEDS: VITAMIN D (CHOLECALCIFEROL) 400 INTERNATIONAL UNITS TAB PO SCH (08:38)
[2020-01-21] MEDS: HumaLOG INSULIN (NovoLOG) PER UNIT SC SCH ×4 (08:38→20:39)
[2020-01-21] MEDS: ASPIRIN 81 MG ENTERIC TAB PO SCH (08:38)
[2020-01-21] MEDS: carBAMazepine XR 200 MG TAB PO SCH ×2 (08:38→20:40)
[2020-01-21] MEDS: ATORVASTATIN 20 MG TAB PO SCH (08:39)
[2020-01-21] MEDS: OMEPRAZOLE 20 MG CAP PO SCH (08:39)
[2020-01-21] MEDS: MEMANTINE 5MG TABLET (NAMENDA) PO SCH ×2 (08:39→20:40)
[2020-01-21] MEDS: CARVedilol 12.5 MG TAB PO SCH ×2 (08:39→20:40)
[2020-01-21] MEDS: PREGABALIN 100 MG CAP (LYRICA) PO SCH ×2 (08:39→20:40)
[2020-01-21] MEDS: FERROUS SULFATE 325MG TAB PO SCH (08:39)
[2020-01-21 12:00] VITALS: BP_SYST 114; BP_SYST 133; BP_SYST 136; BP_DIAS 57; BP_DIAS 63; BP_DIAS 67
[2020-01-21 16:00] VITALS: BP 139/65
[2020-01-21] MEDS: cefTRIAXone SOD 2 GM in D5W MINI-BAG PLUS 50 ML IV SCH (17:07)
[2020-01-21 20:00] VITALS: BP 149/71
[2020-01-21] MEDS ORDERED: NS 1,000 ML IV SCH (20:00)
[2020-01-21] MEDS: LEVEMIR (INSULIN DETEMIR) 1 UNITS/0.01ML SC SCH (20:39)
[2020-01-22] VITALS: BP 144/61
[2020-01-22 04:00] VITALS: BP 132/60
[2020-01-22 05:08] LABS: BASO % 0.4 % (0.0-1.0); EOS # 0.1 10^3/uL (0.0-0.5); EOS % 3.1 % (0.0-3.0); HEMATOCRIT 37.6 % (36.0-47.0); HEMOGLOBIN 12.3 g/dl (12.0-15.5); LYMPH # 1.7 10^3/uL (1.5-5.0); LYMPH % 36.3 % (24.0-44.0); MEAN CORPUSCULAR HEMOGLOBIN 32.8 pg (27.0-33.0); MEAN CORPUSCULAR HGB CONC 32.7 g/dl (32.0-36.5); MEAN CORPUSCULAR VOLUME 100.3 fl (80.0-96.0); MONO # 0.5 10^3/uL (0.0-0.8); MONO % 11.5 % (0.0-5.0); NEUTROPHILS # 2.2 10^3/uL (1.5-8.5); NEUTROPHILS % 48.5 % (36.0-66.0); PLATELET COUNT, AUTOMATED 140 10^3/uL (150-450); RED BLOOD COUNT 3.75 10^6/uL (4.00-5.40); WHITE BLOOD COUNT 4.5 10^3/uL (4.0-10.0)
[2020-01-22] MEDS: SLF 3 ML SYR IV SCH (06:14)
[2020-01-22] MEDS: HEPARIN SOD (PORCINE) 5000UNITS/ML 1ML VIAL/SYRINGE SC SCH (06:14)
[2020-01-22 06:42] LABS: CALCIUM LEVEL 8.7 MG/DL (8.8-10.2); CREATININE FOR GFR 1.44 MG/DL (0.55-1.30); GLOMERULAR FILTRATION RATE 37.4 (>39); POTASSIUM SERUM 4.1 MEQ/L (3.5-5.1)
[2020-01-22 08:00] VITALS: BP 142/72
[2020-01-22] MEDS: IPRATROPIUM 0.5MG/ALBUTEROL 2.5MG INH SOL UD 3ML (DUONEB) NEB SCH ×2 (08:00→11:29)
[2020-01-22] MEDS: SYMBICORT 80/4.5MCG INHALER 6GM INH SCH (08:10)
[2020-01-22] MEDS: ATORVASTATIN 20 MG TAB PO SCH (08:36)
[2020-01-22] MEDS: VITAMIN D (CHOLECALCIFEROL) 400 INTERNATIONAL UNITS TAB PO SCH (08:36)
[2020-01-22] MEDS: OMEPRAZOLE 20 MG CAP PO SCH (08:36)
[2020-01-22] MEDS: HumaLOG INSULIN (NovoLOG) PER UNIT SC SCH ×2 (08:37→12:07)
[2020-01-22] MEDS: PREGABALIN 100 MG CAP (LYRICA) PO SCH (08:37)
[2020-01-22] MEDS: MEMANTINE 5MG TABLET (NAMENDA) PO SCH (08:37)
[2020-01-22 08:38] VITALS: BP 142/72
[2020-01-22] MEDS: ASPIRIN 81 MG ENTERIC TAB PO SCH (08:38)
[2020-01-22] MEDS: carBAMazepine XR 200 MG TAB PO SCH (08:38)
[2020-01-22] MEDS: CARVedilol 12.5 MG TAB PO SCH (08:38)
[2020-01-22] MEDS: FERROUS SULFATE 325MG TAB PO SCH (08:38)
--- NOTE | 2020-01-22 10:56 | IPN ---
DATE OF SERVICE: 01/21/2020 This is a 79-year-old female who came to the hospital with complaints of weakness and cough. Assessment was done, and she was admitted for weakness, possibly secondary to infectious etiology, medications, psychiatric, possibly hypovolemia. She did have orthostatic hypertension in the emergency room. She remains afebrile. LABORATORY STUDIES: White count is 5.4, hemoglobin 13.2, and hematocrit 40.1. Platelets are 170. Lactic acid is 1.7. Sodium is 140 today. Potassium 3.6. Chloride 108. CO2 is 27. BUN is elevated at 25. It was 21 yesterday. Creatinine slightly improved at 1.36. Magnesium is 2.0. Procalcitonin was 0.06. She remains afebrile. Complains of a dry cough. Continues on respiratory treatments. Sputum culture has been ordered. She had just a scant amount of munoz sputum. Urine culture specimen appeared contaminated. New culture ordered. She is still complaining of a cough. She was not orthostatic today. OBJECTIVE: Supine blood pressure 114/57 with a pulse of 76. Sitting 133/63 with a pulse of 86. Standing 136/67 with a pulse of 90. Oxygen (O2) saturation was 92% on room air. Temperature is 97. The patient is alert and oriented times three. Pupils are equal and react to light. Extraocular movements (EOMs) intact. Cornea and sclerae clear. Conjunctivae normal. No facial asymmetry. Pharynx, tongue, gums pink and moist. Tongue is midline. NECK: Is supple without lymphadenopathy. No thyromegaly. No goiter. CHEST: Has decreased breath sounds. No wheeze or retraction. HEART: Is regular. ABDOMEN: Benign. Bowel sounds positive. GENITOURINARY ()/RECTAL: Not done. EXTREMITIES: No cyanosis, clubbing, or edema. Peripheral pulse equal and palpable bilaterally. IMPRESSION AND PLAN: 1. Generalized weakness. Blood urea nitrogen (BUN) elevated. Will give 1 liter of gentle intravenous (IV) hydration. Followup on urine and blood cultures. 2. Lactic acidosis, improved. Scant amount of productive cough. Followup on sputum culture. 3. Elevated creatinine. Slightly improved. Gentle IV hydration ordered. 4. Hypertension. Blood pressure (BP) controlled. 5. DLP. Continue with aspirin and atorvastatin. 6. Insulin-dependent diabetes mellitus type 2. Continue with ISS. 7. Chronic obstructive pulmonary disease (COPD). Continue respiratory treatments. No wheezing noted. 8. Bilateral carotid stenosis. 9. History of transient ischemic attack (TIA). Per the record, the patient reports she is scheduled for surgery in late January. 10. Seizure disorder. Last seizure noted to be greater than a year ago. Continue with carbamazepine. 11. Vitamin D deficiency. Continue supplementation. 12. Osteoarthritis. 13. Lumbar disc radiculopathy. Continue with pregabalin and Tylenol as needed. 14. RLS, mood disorder. Amitriptyline on hold. 15. Gastroesophageal reflux disease (GERD). Continue with omeprazole. 16. Deep venous thrombosis (DVT) prophylaxis. Continue with subcutaneous heparin.
[2020-01-22] MEDS ORDERED: CIPR-249 PO (11:26)
--- NOTE | 2020-01-22 11:33 | DS.PDOC ---
Discharge Summary General Date of Admission Jan 20, 2020 at 16:53 Date of Discharge 01/22/20 Discharge Summary Chief complaints: Fatigue Final diagnosis UTI Lactic acidosis History of Present Illness Patient is a 79-year-old female with a PMHx of HTN, DLP, IDDM2, CKD3, COPD, Bilateral carotid stenosis (scheduled for surgery), Hx of TIA (2011 x2), Seizure disorder, Vitamin D deficiency, Osteoarthritis, Lumbar disc radiculopathy, RLS, Mood disorder, GERD who presents to the ER with complaints of weakness and cough with sputum. Patient reports that shes been experiencing weakness and a persistent cough for 2 months, mild amount of expectoration. Patient reports that the sputum barely comes up when he does is described as clear/white without blood. Patient denies any chest pain, shortness of breath or palpitations. Patient denies nausea, vomiting, abdominal pain, constipation, diarrhea or urinary discomfort. Patient does report dark colored urine, reported as yellow/orange. The patient was admitted and a workup was started. As she was having lactic acidosis and weakness, urine culture. Blood cultures, chest x-ray was done. UA came out to be positive for nitrates and +1 bacteria, but x-ray was normal along with all the other blood cultures were negative. Her urine culture also came out to be negative, but she continued to be on Rocephin. After Rocephin. She states that she has been feeling slightly better. She is not tachycardic. Her lactic acidosis has resolved and she has been eating okay now. No expectoration or any cough overnight. No shortness of breath. CXR 01/19: No acute cardiopulmonary process appreciated. CTA chest 01/19: No evidence for pulmonary embolus. Atherosclerotic changes to the thoracic aorta and coronary arteries. Bibasilar scarring. No acute consolidation or effusion.. She was given IV fluids and her lactic acidosis came out to be normal and her creatinine also is at baseline. She is not on any nephrotoxic drugs. She continues to be on Coreg and her blood pressure is in 140s right now. She was in Lyrica, which I have discontinued as that could be a reason of her fatigue and loss of energy. Her TSH also was normal. She said that she feels fine now and is waiting to go home. She has been doing her activity herself going to the washroom without any problems and she is medically optimized for discharge. She also carries a history of seizure disorder and continues to be on carbamazepine, which she has been advised to continue. She'll be given 4 more days of ciprofloxacin and asked to follow-up with PCP in 1 week. Physical exam - General: Lying in bed, No acute distress, Speaking in full sentences, AAOx3 - HEENT: NC, AT, PERRLA, EOMI - CVS: RRR, +S1S2 - Lungs: Fair air entry bilaterally, No appreciable wheezing / rales / rhonchi - Abdomen: Soft, Non-distended, Non-tender - Extremities: No lower extremity edema, No calf tenderness - Neuro: No focal motor or sensory deficit - Skin: No visible rashes Medications. As per discharge reconciliation medication list Activity as tolerated Diet. 2 g sodium diet Follow-up appointments. PCP in 1 week, Condition on discharge. Patient is medically optimized for discharge Discharge disposition: Home Total time spent on this discharge including coordination of care, review of chart documentation and actual contact is around 35 minutes Vital Signs/I&Os Vital Signs Date Time Temp Pulse Resp B/P (MAP) Pulse Ox O2 Delivery O2 Flow Rate FiO2 01/22/20 08:38 89 142/72 01/22/20 08:00 97.6 20 95 Room Air I&O- Last 24 Hours up to 6 AM 01/22/20 06:00 Intake Total 1370 ml Output Total 1250 ml Balance 120 ml Laboratory Data Labs 24H Laboratory Tests 2 01/21/20 11:28: Bedside Glucose (Misc Panel) 328H 01/21/20 16:17: Bedside Glucose (Misc Panel) 221H 01/21/20 20:29: Bedside Glucose (Misc Panel) 316H 01/22/20 04:53: Immature Granulocyte % (Auto) 0.2, Neutrophils (%) (Auto) 48.5, Lymphocytes (%) (Auto) 36.3, Monocytes (%) (Auto) 11.5H, Eosinophils (%) (Auto) 3.1H, Basophils (%) (Auto) 0.4, Neutrophils # (Auto) 2.2, Lymphocytes # (Auto) 1.7, Monocytes # (Auto) 0.5, Eosinophils # (Auto) 0.1, Basophils # (Auto) 0.0, Nucleated Red Blood Cells % (auto) 0.0, Anion Gap 8, Glomerular Filtration Rate 37.4L, Calcium Level 8.7L, Magnesium Level 2.0 CBC/BMP Laboratory Tests 01/22/20 04:53 FSBS Laboratory Tests Test 01/21/20 11:28 01/21/20 16:17 01/21/20 20:29 Range/Units Bedside Glucose (Misc Panel) 328 221 316 83-110 MG/DL Microbiology Microbiology 01/22/20 Gram Stain - Final, Resulted 01/22/20 Sputum Culture, Resulted Pending 01/20/20 Blood Culture - Preliminary, Resulted No growth after 24 hours . All specim... 01/20/20 Blood Culture - Preliminary, Resulted No growth after 24 hours . All specim... 01/20/20 Urine Culture - Final, Complete 01/20/20 Respiratory Virus Panel (PCR) (DAYAN) - Final, Complete Discharge Medications Scheduled Aspirin (Aspirin EC) 81 Mg Tab, 81 MG PO DAILY, (Reported) Atorvastatin Calcium (Atorvastatin Calcium) 20 Mg Tab, 20 MG PO DAILY, (Reported) Budesonide/Formoterol (Symbicort 80-4.5 Mcg Inhaler) 60 Puff/Inhaler Aers, 2 PUFFS INH BID, (Reported) Carbamazepine (Carbamazepine ER) 200 Mg Cap, 200 MG PO BID, (Reported) Carvedilol (Carvedilol) 25 Mg Tab, 25 MG PO BID, (Reported) Cholecalciferol (Vitamin D3) (Vitamin D3) 125 Mcg Tablet, 125 MCG PO DAILY, (Reported) Ciprofloxacin HCl (Cipro) 500 Mg Tablet, 500 MG PO BID Ferrous Sulfate (Ferrous Sulfate) 325 Mg Tab, 325 MG PO DAILY, (Reported) Insulin Glargine,Hum.rec.anlog (Toujeo Solostar) 300 Unit/Ml Inj, 70 UNIT SC QHS, (Reported) Insulin Human Lispro (Novolog) 100 U/Ml Inj, 1 DOSE SC ACHS, (Reported) PER SLIDING SCALE, MDD=70 UNITS Memantine HCl (Memantine HCl ER) 28 Mg Cap, 28 MG PO DAILY, (Reported) Nortriptyline HCl (Nortriptyline HCl) 25 Mg Cap, 25 MG PO BID, (Reported) Omeprazole (Omeprazole) 20 Mg Cap, 20 MG PO DAILY, (Reported) Scheduled PRN Ipratropium/Albuterol Sulfate (Iprat-Albut 0.5-3(2.5) mg/3 ml) 1 Joel Joel, 1 JOEL INH Q6H PRN for SHORTNESS OF BREATH, (Reported) Allergies Coded Allergies: metformin (Verified Allergy, Unknown, 11/25/18) BARRINGTON LORA MD Jan 22, 2020 11:33
--- NOTE | 2020-01-23 10:34 | ECHO ---
DATE OF PROCEDURE: 01/22/2020 DATE OF : 1940 AGE: 79 GENDER: Female HEIGHT: 62 inches WEIGHT: 171 pounds BODY SURFACE AREA: 1.79 meters squared INPATIENT: U - Room 3229 REFERRING PHYSICIAN: Dr. Emily Stinson INDICATION: Dyspnea. MEASUREMENTS 2-D Measurements: RV: 3.6 cm LV: 4.0 cm Septum: 1.3 cm Posterior wall: 1.3 Aortic root: 3.3 cm LV: 3.7 cm LVEF: 80% Doppler Measurements: AV: 1.17 meters per second LVOT: 0.92 meters per second LVOT diameter: 1.8 cm MV - E 122 A 165 EA ratio 0.7 Early mitral deceleration time: 350 milliseconds Mean MV diastolic gradient: 7 mmHg MVA: 2.2 cm squared PV: 0.9 meters per second Pulmonary artery acceleration time: 106 milliseconds Estimated PASP: 35 mmHg IVC: 1.0 cm COMMENT: Normal sinus rhythm without intraventricular conduction disturbance. M-mode and two-dimensional echocardiography was performed with pulsed, continuous wave, color flow and tissue Doppler studies. Mild concentric left ventricle hypertrophy with hyperkinetic wall motion. Left atrial size upper limits of normal. Unable to estimate LV diastolic function with mitral valve disorder. Normal right heart chamber sizes and motion with Doppler evidence of mild pulmonary hypertension. Somewhat small IVC with normal respiratory collapse in keeping with central venous pressure of 0-5 mmHg. Normal aortic diameters. Mild aortic valvular sclerosis without stenosis and only trace insufficiency. Severe mitral annular calcification with mild inflow tract obstruction and very mild insufficiency. Normal appearing tricuspid valve with very mild insufficiency. No apparent intracardiac mass or pericardial effusion.
== END 2020-01-22 13:30 | disposition home or self-care (01) | DRG 690 ==
LOC: M ED 13:14 → M ED INP 16:53 → ENRESERV 17:04 → M PCU 17:53
PROVIDERS: ADMIT Internal Medicine; ATTEND Internal Medicine
DX: N39.0 Urinary tract infection, site not specified (principal); E87.2 Acidosis; I95.1 Orthostatic hypotension; J44.9 Chronic obstructive pulmonary disease, unspecified; E11.9 Type 2 diabetes mellitus without complications; N18.3 Chronic kidney disease, stage 3 (moderate); I65.23 Occlusion and stenosis of bilateral carotid arteries; Z86.73 Personal history of transient ischemic attack (TIA), and cerebral infarction without residual deficits; G40.909 Epilepsy, unspecified, not intractable, without status epilepticus; E55.9 Vitamin D deficiency, unspecified; I12.9 Hypertensive chronic kidney disease with stage 1 through stage 4 chronic kidney disease, or unspecified chronic kidney disease; K21.9 Gastro-esophageal reflux disease without esophagitis; M19.90 Unspecified osteoarthritis, unspecified site; G25.81 Restless legs syndrome; Z79.899 Other long term (current) drug therapy; Z79.82 Long term (current) use of aspirin; Z88.8 Allergy status to other drugs, medicaments and biological substances; Z79.4 Long term (current) use of insulin

== ENCOUNTER → 2020-01-30 | Outpatient (REF) | payer MEDICARE ==
[~2020-01-30] MED LIST changes: +CLOP75TA2 PO; +NITR100C2; +PRED20TA PO; +VITA500038 PO
[2020-01-30 17:30] LABS: APPEARANCE, URINE CLEAR (CLEAR); BACTERIA, URINE AUTO NEGATIVE (NEGATIVE); BILIRUBIN, URINE AUTO NEGATIVE (NEGATIVE); BLOOD, URINE BLOOD NEGATIVE (NEGATIVE); COLOR, URINE YELLOW (YELLOW); GLUCOSE, URINE (UA) AUTO 3+ mg/dL (NEGATIVE); KETONE, URINE AUTO NEGATIVE (NEGATIVE); LEUKOCYTE ESTERASE, URINE AUTO NEGATIVE (NEGATIVE); NITRITE, URINE AUTO NEGATIVE (NEGATIVE); PROTEIN, URINE AUTO 1+ mg/dL (NEGATIVE); RBC, URINE AUTO 2 /HPF (0-3); SPECIFIC GRAVITY URINE AUTO 1.025 (1.002-1.035); SQUAMOUS EPITHELIAL CELL UR AU 1 /HPF (0-6); UROBILINOGEN, URINE AUTO 0.2 mg/dL (0.0-2.0); WBC, URINE AUTO 0 /HPF (0-3)
[2020-01-30 17:57] LABS: ALBUMIN 3.7 GM/DL (3.2-5.2); CALCIUM LEVEL 9.5 MG/DL (8.8-10.2); CREATININE FOR GFR 1.3 MG/DL (0.55-1.30); GLOMERULAR FILTRATION RATE 42.1 (>39); PHOSPHORUS LEVEL 3.8 MG/DL (2.5-4.9); POTASSIUM SERUM 4.9 MEQ/L (3.5-5.1)
[2020-01-30 18:25] LABS: HEMOGLOBIN A1c 8.1 %
== END ==
LOC: M SFHCADAM 15:05
PROVIDERS: ATTEND Physician Assistant Medical
DX: N39.0 Urinary tract infection, site not specified (principal); E11.22 Type 2 diabetes mellitus with diabetic chronic kidney disease
CPT/HCPCS: 80069; 81001; 83036; 87086; G0463

== ENCOUNTER → 2020-02-20 | Outpatient (REF) | payer MEDICARE ==
[2020-03-15 10:56] LABS: APPEARANCE, URINE HAZY (CLEAR); BACTERIA, URINE AUTO NEGATIVE (NEGATIVE); BILIRUBIN, URINE AUTO NEGATIVE (NEGATIVE); BLOOD, URINE BLOOD NEGATIVE (NEGATIVE); COLOR, URINE YELLOW (YELLOW); GLUCOSE, URINE (UA) AUTO 3+ mg/dL (NEGATIVE); KETONE, URINE AUTO NEGATIVE (NEGATIVE); LEUKOCYTE ESTERASE, URINE AUTO NEGATIVE (NEGATIVE); NITRITE, URINE AUTO NEGATIVE (NEGATIVE); PROTEIN, URINE AUTO NEGATIVE (NEGATIVE); RBC, URINE AUTO 0 /HPF (0-3); SPECIFIC GRAVITY URINE AUTO 1.018 (1.002-1.035); SQUAMOUS EPITHELIAL CELL UR AU 7 /HPF (0-6); UROBILINOGEN, URINE AUTO 0.2 mg/dL (0.0-2.0); WBC, URINE AUTO 0 /HPF (0-3)
[2020-03-15 10:59] LABS: INR 0.99; PARTIAL THROMBOPLASTIN TIME 25.8 SECONDS (25.0-38.4); PROTHROMBIN TIME 13.3 SECONDS (11.8-14.0)
[2020-03-15 12:54] LABS: HEMATOCRIT 43.5 % (36.0-47.0); HEMOGLOBIN 14.8 g/dl (12.0-15.5); MEAN CORPUSCULAR HEMOGLOBIN 33.3 pg (27.0-33.0); MEAN CORPUSCULAR VOLUME 97.8 fl (80.0-96.0); PLATELET COUNT, AUTOMATED 180 10^3/uL (150-450); RED BLOOD COUNT 4.45 10^6/uL (4.00-5.40); WHITE BLOOD COUNT 4.6 10^3/uL (4.0-10.0)
[2020-03-26 14:13] LABS: ALBUMIN 3.6 GM/DL (3.2-5.2); BILIRUBIN,TOTAL 0.5 MG/DL (0.2-1.0); CALCIUM LEVEL 9.4 MG/DL (8.8-10.2); CREATININE FOR GFR 1.52 MG/DL (0.55-1.30); HEMOGLOBIN A1c 9.2 %; TOTAL PROTEIN 7.3 GM/DL (6.4-8.2)
== END ==
LOC: M SFHCADAM 16:58
PROVIDERS: ATTEND Physician Assistant
DX: E11.22 Type 2 diabetes mellitus with diabetic chronic kidney disease (principal); N18.3 Chronic kidney disease, stage 3 (moderate); D50.8 Other iron deficiency anemias; I10 Essential (primary) hypertension; Z86.73 Personal history of transient ischemic attack (TIA), and cerebral infarction without residual deficits
CPT/HCPCS: 36415; 80053; 81001; 83036; 85027; 85610; 85730; 87086; G0463

== ENCOUNTER → 2020-04-03 | Outpatient (CLI) | payer MEDICARE ==
[2020-04-03 13:03] LABS: BASO % 0.7 % (0.0-1.0); EOS # 0.1 10^3/uL (0.0-0.5); EOS % 1.5 % (0.0-3.0); HEMATOCRIT 42.4 % (36.0-47.0); HEMOGLOBIN 14.2 g/dl (12.0-15.5); LYMPH # 1.2 10^3/uL (1.5-5.0); LYMPH % 22.1 % (24.0-44.0); MEAN CORPUSCULAR HEMOGLOBIN 33.1 pg (27.0-33.0); MEAN CORPUSCULAR HGB CONC 33.5 g/dl (32.0-36.5); MEAN CORPUSCULAR VOLUME 98.8 fl (80.0-96.0); MONO # 0.5 10^3/uL (0.0-0.8); MONO % 8.7 % (0.0-5.0); NEUTROPHILS # 3.6 10^3/uL (1.5-8.5); NEUTROPHILS % 66.6 % (36.0-66.0); PLATELET COUNT, AUTOMATED 174 10^3/uL (150-450); RED BLOOD COUNT 4.29 10^6/uL (4.00-5.40); WHITE BLOOD COUNT 5.4 10^3/uL (4.0-10.0)
[2020-04-03 13:28] LABS: CARBAMAZEPINE (TEGRETOL) LEVEL 6.6 UG/ML (4.0-10.0)
== END ==
LOC: M LAB 11:56
PROVIDERS: ATTEND Physician Assistant Medical
DX: G40.909 Epilepsy, unspecified, not intractable, without status epilepticus (principal)

== ENCOUNTER 2020-04-14 15:28 | Emergency (ER) | payer MEDICARE ==
[~2020-04-14] VITALS: Ht 154.9 cm; Wt 77.3 kg
[~2020-04-14 15:28] MED LIST changes: -CLOP75TA2 PO; -NITR100C2; -PRED20TA PO
[2020-04-14] MEDS ORDERED: NITR100C2 (15:38)
[2020-04-14] MEDS ORDERED: CLOP75TA2 PO (15:38)
[2020-04-14] MEDS ORDERED: COMBIVENT RESPIMAT 100-20MCG INHALER 4GM INH ONE (16:00)
[2020-04-14] MEDS ORDERED: methylPREDNISolone 125MG 2ML VIAL IV ONE (16:00)
--- NOTE | 2020-04-14 16:12 | ECGEPIP ---
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
[2020-04-14 16:38] LABS: VENOUS BASE EXCESS -1.5 (-2.0-2.0); VENOUS HCO3 23.6 MEQ/L (23.0-27.0); VENOUS PARTIAL PRESSURE CO2 41.3 mmHg (38.0-50.0); VENOUS PARTIAL PRESSURE O2 38.3 mmHg (30.0-50.0); VENOUS PH 7.375 UNITS (7.330-7.430); VENOUS STANDARD HCO3 22.5 MEQ/L; VENOUS TOTAL CO2 24.9 MEQ/L (24.0-28.0)
[2020-04-14 16:49] LABS: BASO % 0.3 % (0.0-1.0); EOS % 0.6 % (0.0-3.0); HEMATOCRIT 38.4 % (36.0-47.0); HEMOGLOBIN 13.2 g/dl (12.0-15.5); LYMPH # 1.4 10^3/uL (1.5-5.0); LYMPH % 21.6 % (24.0-44.0); MEAN CORPUSCULAR HEMOGLOBIN 33.6 pg (27.0-33.0); MEAN CORPUSCULAR HGB CONC 34.4 g/dl (32.0-36.5); MEAN CORPUSCULAR VOLUME 97.7 fl (80.0-96.0); MONO # 0.6 10^3/uL (0.0-0.8); MONO % 9.1 % (0.0-5.0); NEUTROPHILS # 4.3 10^3/uL (1.5-8.5); NEUTROPHILS % 67.9 % (36.0-66.0); PLATELET COUNT, AUTOMATED 217 10^3/uL (150-450); RED BLOOD COUNT 3.93 10^6/uL (4.00-5.40); WHITE BLOOD COUNT 6.4 10^3/uL (4.0-10.0)
[2020-04-14 17:14] LABS: ALBUMIN 3.4 GM/DL (3.2-5.2); ALT/SGPT 12 U/L (12-78); BILIRUBIN,DIRECT 0.2 MG/DL (0.0-0.2); BILIRUBIN,TOTAL 0.3 MG/DL (0.2-1.0); BLOOD UREA NITROGEN 26 MG/DL (7-18); CALCIUM LEVEL 9.5 MG/DL (8.8-10.2); CARBON DIOXIDE LEVEL 26 MEQ/L (21-32); CHLORIDE LEVEL 103 MEQ/L (98-107); CK-MB VALUE MASS 2.1 NG/ML (<3.6); CPK CREATINE PHOSPHOKINASE 76 U/L (26-192); CREATININE FOR GFR 1.33 MG/DL (0.55-1.30); GLOMERULAR FILTRATION RATE 40.9 (>32); GLUCOSE, FASTING 235 MG/DL (70-100); MB/CK RELATIVE INDEX 2.76 (< OR =4); NT-PRO BNP 1123 PG/ML (<450); POTASSIUM SERUM 4.1 MEQ/L (3.5-5.1); SODIUM LEVEL 136 MEQ/L (136-145); THYROID STIMULATING HORMONE 0.527 uIU/ML (0.358-3.740); TOTAL PROTEIN 7.8 GM/DL (6.4-8.2); TROPONIN I < 0.02 NG/ML (< 0.10)
--- NOTE | 2020-04-14 18:25 | REPVR ---
PROCEDURE INFORMATION: Exam: XR Chest, 2 Views Exam date and time: 04/14/2020 6:18 PM Age: 80 years old Clinical indication: Cough and dyspnea; Additional info: Dyspnea/cough TECHNIQUE: Imaging protocol: XR of the chest Views: 2 views. COMPARISON: DC PORTABLE CHEST X-RAY 01/20/2020 2:15 PM FINDINGS: Lungs: Well inflated lungs with flattened diaphragmatic contours and increased retrosternal airspace consistent with COPD. Pleural space: Unremarkable. No pleural effusion. No pneumothorax. Heart/Mediastinum: Unremarkable. No cardiomegaly. Bones/joints: Osteoporosis. IMPRESSION: 1. COPD. 2. No acute findings. Electronically signed by: Angel Meeks On 04/14/2020 18:25:01 PM
[2020-04-14 19:02] VITALS: O2SAT 96
[2020-04-14] MEDS ORDERED: PRED20TA PO (19:05)
[2020-04-14 19:21] VITALS: BP 171/82
== END 2020-04-14 19:22 | disposition home or self-care (01) ==
LOC: M ED 15:28
DX: J44.9 Chronic obstructive pulmonary disease, unspecified (principal); B34.8 Other viral infections of unspecified site; E11.9 Type 2 diabetes mellitus without complications; I10 Essential (primary) hypertension; E78.5 Hyperlipidemia, unspecified; M54.5 Low back pain; E55.9 Vitamin D deficiency, unspecified; G40.909 Epilepsy, unspecified, not intractable, without status epilepticus; F17.200 Nicotine dependence, unspecified, uncomplicated; Z88.8 Allergy status to other drugs, medicaments and biological substances; Z79.51 Long term (current) use of inhaled steroids; Z79.82 Long term (current) use of aspirin; Z79.899 Other long term (current) drug therapy; Z79.4 Long term (current) use of insulin
CPT/HCPCS: 36415; 71046; 80048; 80076; 82550; 82553; 82803; 83880; 84443; 84484; 85025; 87486; 87581; 87633; 87798; 93005; 93041; 94640; 94760; 96374; 99285; J2930

== ENCOUNTER → 2020-05-07 | Outpatient (REF) | payer MEDICARE ==
[~2020-05-07] MED LIST changes: +CLOP75TA2 PO; +NITR100C2; +PRED20TA PO
[2020-05-07 17:12] LABS: ALBUMIN 3.2 GM/DL (3.2-5.2); BILIRUBIN,TOTAL 0.2 MG/DL (0.2-1.0); CREATININE FOR GFR 1.39 MG/DL (0.55-1.30); GLOMERULAR FILTRATION RATE 38.8 (>32); HEMATOCRIT 31.7 % (36.0-47.0); HEMOGLOBIN 10.1 g/dl (12.0-15.5); MEAN CORPUSCULAR HEMOGLOBIN 32.2 pg (27.0-33.0); MEAN CORPUSCULAR HGB CONC 31.9 g/dl (32.0-36.5); PLATELET COUNT, AUTOMATED 235 10^3/uL (150-450); POTASSIUM SERUM 4.9 MEQ/L (3.5-5.1); RED BLOOD COUNT 3.14 10^6/uL (4.00-5.40); TOTAL PROTEIN 6.6 GM/DL (6.4-8.2); WHITE BLOOD COUNT 5.2 10^3/uL (4.0-10.0)
[2020-05-07 17:26] LABS: HEMOGLOBIN A1c 8.9 %
[2020-05-09 08:37] LABS: PERCENT SATURATION 5.7 % (13.2-45.0); THYROID STIMULATING HORMONE 0.56 uIU/ML (0.358-3.740)
[2020-05-09 15:37] LABS: FOLATE 8.1 NG/ML
== END ==
LOC: M SFHCADAM 14:33
PROVIDERS: ATTEND Physician Assistant
DX: E11.65 Type 2 diabetes mellitus with hyperglycemia (principal); N18.30 Chronic kidney disease, stage 3 unspecified; Z23 Encounter for immunization
CPT/HCPCS: 80053; 82607; 82728; 82746; 83036; 83550; 84443; 85027; 90682; G0008; G0463

== ENCOUNTER 2020-05-23 13:47 | Observation (INO) | payer MEDICARE ==
[~2020-05-23] VITALS: Ht 162.6 cm; Wt 78.4 kg
[2020-05-23 14:29] LABS: BASO % 0.5 % (0.0-1.0); EOS # 0.1 10^3/uL (0.0-0.5); EOS % 1.4 % (0.0-3.0); HEMATOCRIT 29.1 % (36.0-47.0); HEMOGLOBIN 8.8 g/dl (12.0-15.5); LYMPH # 0.8 10^3/uL (1.5-5.0); LYMPH % 12.9 % (24.0-44.0); MEAN CORPUSCULAR HEMOGLOBIN 29.8 pg (27.0-33.0); MEAN CORPUSCULAR HGB CONC 30.2 g/dl (32.0-36.5); MEAN CORPUSCULAR VOLUME 98.6 fl (80.0-96.0); MONO # 0.3 10^3/uL (0.0-0.8); MONO % 5.4 % (0.0-5.0); NEUTROPHILS # 4.7 10^3/uL (1.5-8.5); NEUTROPHILS % 79.3 % (36.0-66.0); PLATELET COUNT, AUTOMATED 221 10^3/uL (150-450); RED BLOOD COUNT 2.95 10^6/uL (4.00-5.40); WHITE BLOOD COUNT 5.9 10^3/uL (4.0-10.0)
[2020-05-23 15:06] LABS: ALBUMIN 3.3 GM/DL (3.2-5.2); BILIRUBIN,DIRECT 0.1 MG/DL (0.0-0.2); BILIRUBIN,TOTAL 0.2 MG/DL (0.2-1.0); TOTAL PROTEIN 7.1 GM/DL (6.4-8.2)
--- NOTE | 2020-05-23 15:35 | REP ---
INDICATION: trauma. COMPARISON: CT abdomen pelvis 10/03/2018.. TECHNIQUE: Five views obtained. FINDINGS: There is no compression fracture. There is mild anterior listhesis of L5 on S1. There is spondylolysis of L5. there is very mild disc space narrowing at L2-3 and L3-4. There is a more moderate degree of disc space narrowing with subchondral sclerosis and vacuum phenomenon at L4-5 and L5-S1. There is sclerosis and spurring at the posterior facet joints diffusely, especially at L5-S1. There is mild curvature toward the right. Moderate diffuse spurring is noted. There is metallic hardware in the proximal femurs. IMPRESSION: No compression fracture. Chronic spondylolysis L5 with very mild anterolisthesis of L5 on S1. Degenerative changes most significantly at L4-5 and L5-S1. <Electronically signed by Francisco Christiansen > 05/23/20 1761
[2020-05-23] MEDS ORDERED: HumuLIN R (REGULAR) INSULIN (NovoLIN R) **100U/ML** PER UNIT IV ONE ×2 (16:15→17:15)
--- NOTE | 2020-05-23 18:02 | REPVR ---
PROCEDURE INFORMATION: Exam: CT Head Without Contrast Exam date and time: 05/23/2020 5:49 PM Age: 80 years old Clinical indication: Dizziness; Additional info: Dizzy speech difficulty TECHNIQUE: Imaging protocol: Computed tomography of the head without contrast. Axial and coronal reformatted images were created and reviewed. Radiation optimization: All CT scans at this facility use at least one of these dose optimization techniques: automated exposure control; mA and/or kV adjustment per patient size (includes targeted exams where dose is matched to clinical indication); or iterative reconstruction. COMPARISON: CT Head without contrast 05/08/2019 11:43 AM FINDINGS: Brain: Patchy areas of hypoattenuation in the periventricular and subcortical white matter, consistent with chronic small vessel ischemic disease. No CT evidence of acute intracranial hemorrhage or acute territorial infarction. No significant mass effect or midline shift. Basal cisterns patent. Cerebral ventricles: Prominence of the cortical sulci, cisterns and ventricular system, consistent with cerebral and cerebellar volume loss. Bones/joints: No acute osseous abnormality. Paranasal sinuses: Unremarkable. No fluid levels. Mastoid air cells: Grossly unremarkable. Vasculature: Calcific atherosclerotic disease in the cavernous internal carotid arteries, as well as the vertebro-basilar system. Soft tissues: Grossly unremarkable. IMPRESSION: 1. No CT evidence of acute intracranial pathology. 2. Additional findings, as above. Electronically signed by: Domingo Wong On 05/23/2020 18:01:49 PM
[2020-05-23] MEDS ORDERED: PREG100CA PO (18:28)
--- NOTE | 2020-05-23 19:24 | HPEPDOC ---
[facility] Medical History & Physical Date of Admission May 23, 2020 Date of Service: May 23, 2020 History and Physical CHIEF COMPLAINT: lightheadedness HISTORY OF PRESENT ILLNESS: 80 y/o female w h/o carotid stenosis, TIA x 2, orthostasis, DM2, and HTN presented to ER with acute onset of lightheadedness at home this morning. She woke up ate her breakfast of bagel and coffee, took all her medications, and then felt lightheaded while sitting down having to hold her head with her hands which lasted for about 20 minutes. She has had aprior episode before but usually goes away after 5 minutes. Her daughter thought she "didn't look good," but she denied diaphoresis, palpitations, fall, ue/LE paresthesias/numbness/weakness, changes in vision, facial asymmetry, expressive or receptive aphasia, BRBPR, melena, hematemesis, black tarry stools, syncope, tonic/clonic movements, or postictal confusion, and is compliant with her asa and plavix. She felt like "my head was in a fog." She was scheduled to have her carotid stenosis surgery in [place] in May. In the ER, she was found to have sbp 189/90 mmHg, EKG Aflutter 95, glucose 294, and hgb 8.8 from baseline of 10.[address] head negative for CVA. PAST MEDICAL HISTORY: HTN, DLP, IDDM2, CKD3, COPD, Bilateral carotid stenosis (scheduled for surgery), Hx of TIA (2011 x2), Seizure disorder, Vitamin D deficiency, Osteoarthritis, Lumbar disc radiculopathy, RLS, Mood disorder, GERD PAST SURGICAL HISTORY: Carpal tunnel release, right hip replacement, left hip fracture, right breast biopsy, hysterectomy, bladder surgery, bilateral cataract removal HOME MEDICATIONS: SEE BELOW ALLERGY: SEE BELOW FAMILY HISTORY: noncontributory due to age. SOCIAL HISTORY smoker, denies etoh drugs retired, lives with daughter REVIEW OF SYSTEMS: 10 point review of systems negative aside from + findings on HPI PHYSICAL EXAMINATION Vitals:see below General: No acute distress, Speaking in full sentences, AAOx3 HEENT: PERRL EOMI , bl carotid bruit, no jvd face symmetric, tongue and uvula midline. CVS: irregularly irregular, nondisplaced pmi +S1S2 Lungs: Fair air entry bilaterally, No appreciable wheezing / rales / rhonchi Abdomen: Soft, Non-distended, Non-tender obese +bs x 4 quadrants no abd bruit Extremities: No lower extremity edema, No calf tenderness Neuro: face symmetric, tongue and uvula midline. PERRL EOMI motor 5/5 motor x 4ext no sensory abn. no pronator drifts. DTRs 2+ b/l elbow, wrist, knee, ankle reflexes. neg babinski gait not tested, Laboratory Data/Imaging studies/microbiology: see below ASSESSMENT: 80 y/o female w h/o carotid stenosis, TIA x 2, orthostasis, DM2, and HTN presented to ER with acute onset of lightheadedness at home this morning. She woke up ate her breakfast of bagel and coffee, took all her medications, and then felt lightheaded while sitting down having to hold her head with her hands which lasted for about 20 minutes. She has had aprior episode before but usually goes away after 5 minutes. Her daughter thought she "didn't look good," but she denied diaphoresis, palpitations, fall, ue LE paresthesias/numbness/weakness, changes in vision, syncope, tonic/clonic movements, or postictal confusion, facial asymmetry, expressive or receptive aphasia, and is compliant with her asa and plavix. She felt like "my head was in a fog." She was scheduled to have her carotid stenosis surgery in [place] in May. In the ER, she was found to have sbp 189/90 mmHg, EKG Aflutter 95, and ct head negative for CVA. PROBLEMS: Hypertensive Urgency Atrial Flutter, new onset, rate-controlled B/L carotid Artery stenosis DLP, IDDM2, CKD3, COPD, Hx of TIA (2011 x2), Seizure disorder, Vitamin D deficiency, Osteoarthritis, Lumbar disc radiculopathy, RLS, Mood disorder, GERD Dementia on memantine PLAN: pt will be admitted as an inpt for 2 midnights. Tele for new onset Aflutter which is currently rate-controlled. dc plavix, and continue ASA and eliquis renally dosed for new onset Aflutter, and prilosec to decrease risk of gi bleed. check mri brain to rule out CVA. Resume home meds for bp and given norvasc. Pt's symptoms inconsistent with her prior symptoms for seizures in the past when she had loss of consciousness. consistent /2 gram sodium diet with sliding scale and levemir insulin. neurocheck q4hrs if + for CVA on MRI brain. check stool for blood to rule out gi bleed in light of anemia. Vital Signs Vital Signs Date Time Temp Pulse Resp B/P (MAP) Pulse Ox O2 Delivery O2 Flow Rate FiO2 05/23/20 18:44 88 177/82 (113) 91 171/74 (106) 93 168/71 (103) 05/23/20 18:39 97.6 18 97 Room Air Laboratory Data Labs 24H Laboratory Tests 2 05/23/20 14:17: Immature Granulocyte % (Auto) 0.5, Neutrophils (%) (Auto) 79.3H, Lymphocytes (%) (Auto) 12.9L, Monocytes (%) (Auto) 5.4H, Eosinophils (%) (Auto) 1.4, Basophils (%) (Auto) 0.5, Neutrophils # (Auto) 4.7, Lymphocytes # (Auto) 0.8L, Monocytes # (Auto) 0.3, Eosinophils # (Auto) 0.1, Basophils # (Auto) 0.0, Nucleated Red Blood Cells % (auto) 0.0 05/23/20 14:21: POC Glucose (Misc Panel) 294H, POC Sodium (Misc Panel) 138, POC Potassium (Misc Panel) 5.0, POC Chloride (Misc Panel) 104, POC Total CO2 (Misc Panel) 23.0, POC Blood Urea Nitrogen (Misc Panel 25, POC Ionized Calcium (Misc Panel) 4.7, POC Creatinine (Misc Panel) 1.2, POC Hematocrit (Misc Panel) 28.0L 05/23/20 14:22: Total Bilirubin 0.2, Direct Bilirubin 0.1, Aspartate Amino Transf (AST/SGOT) 11, Alanine Aminotransferase (ALT/SGPT) 10L, Alkaline Phosphatase 100, Total Protein 7.1, Albumin 3.3, Albumin/Globulin Ratio 0.9L 05/23/20 14:23: POC Troponin I (Misc) 0.00 05/23/20 18:31: Bedside Glucose (Misc Panel) 99 CBC/BMP Laboratory Tests 05/23/20 14:17 Home Medications Scheduled Aspirin (Aspirin EC) 81 Mg Tab, 81 MG PO DAILY Atorvastatin Calcium (Atorvastatin Calcium) 20 Mg Tab, 20 MG PO DAILY Carbamazepine (Carbamazepine ER) 200 Mg Cap, 200 MG PO BID Carvedilol (Carvedilol) 25 Mg Tab, 25 MG PO BID Cholecalciferol (Vitamin D3) (Vitamin D3) 125 Mcg Tablet, 125 MCG PO DAILY Clopidogrel Bisulfate (Clopidogrel) 75 Mg Tablet, 75 MG PO DAILY Ferrous Sulfate (Ferrous Sulfate) 325 Mg Tab, 325 MG PO DAILY Insulin Glargine,Hum.rec.anlog (Toujeo Solostar) 300 Unit/Ml Inj, 80 UNIT SC QHS Insulin Human Lispro (Novolog) 100 U/Ml Inj, 1 DOSE SC ACHS PER SLIDING SCALE, MDD=70 UNITS Memantine HCl (Memantine HCl ER) 28 Mg Cap, 28 MG PO DAILY Nortriptyline HCl (Nortriptyline HCl) 25 Mg Cap, 25 MG PO BID Omeprazole (Omeprazole) 20 Mg Cap, 20 MG PO DAILY Pregabalin (Lyrica) 100 Mg Capsule, 100 MG PO TID Scheduled PRN Ipratropium/Albuterol Sulfate (Iprat-Albut 0.5-3(2.5) mg/3 ml) 1 Joel Joel, 1 JOEL INH Q6H PRN for SHORTNESS OF BREATH Allergies Coded Allergies: metformin (Verified Adverse Reaction, Mild, N/V, 05/23/20) A-FIB/CHADSVASC A-FIB History Current/History of A-Fib/PAF?: Yes Current PO Anticoag Therapy: Yes Age/Risk Factor Scoring CHADSVASC: CHADSVASC Response (Comments) Value Age Risk Factor Age >/= 75 years old 2 Gender Risk Factor Female 1 Hx of CHF No 0 Hx of HTN Yes 1 Hx of Stroke/TIA/or VTE Yes 2 Hx of Diabetes Yes 1 Hx of Vascular Disease Yes 1 Total 8 Treatment Treatment ordered: Apixaban ALLISON LLAMAS MD May 23, 2020 19:24
[2020-05-23] MEDS ORDERED: amLODIPine 10 MG TAB PO ONE (20:00)
[2020-05-23 20:15] VITALS: BP 169/75
--- NOTE | 2020-05-23 20:20 | REPVR ---
PROCEDURE INFORMATION: Exam: MR Head Without Contrast Exam date and time: 05/23/2020 6:47 PM Age: 80 years old Clinical indication: Dizziness; Additional info: Dizziness R/O cerebellar CVA aflutter TECHNIQUE: Imaging protocol: MR of the head without contrast. COMPARISON: MRI-Brain without Contrast 07/15/2018 12:14 PM FINDINGS: Brain: Patchy areas of increased T2/FLAIR signal intensity in the periventricular and subcortical white matter, consistent with chronic small vessel ischemic disease. No acute infarct. No hemorrhage. No edema. Cerebral ventricles: Prominence of the cortical sulci, cisterns and ventricular system, consistent with cerebral and cerebellar volume loss. Bones/joints: Unremarkable. Paranasal sinuses: Normal as visualized. No acute sinusitis. Mastoid air cells: Normal as visualized. No mastoid effusion. Orbits: Unremarkable. Soft tissues: Unremarkable. IMPRESSION: No acute intracranial pathology. Electronically signed by: Domingo Wong On 05/23/2020 20:20:04 PM
[2020-05-23] MEDS: carBAMazepine XR 200 MG TAB PO SCH (20:54)
[2020-05-23] MEDS: PREGABALIN 100 MG CAP (LYRICA) PO SCH (20:55)
[2020-05-23] MEDS: NORTRIPTYLINE 25 MG CAP PO SCH (21:00)
[2020-05-23] MEDS ORDERED: MEMANTINE 5MG TABLET (NAMENDA) PO SCH (21:00)
[2020-05-23] MEDS ORDERED: APIXABAN 5 MG TAB (ELIQUIS) PO SCH (21:00)
[2020-05-23] MEDS ORDERED: LEVEMIR (INSULIN DETEMIR) 1 UNITS/0.01ML SC SCH (21:00)
[2020-05-23] MEDS ORDERED: ENTER DRUG NAME HERE (PATIENT'S OWN MED) PO SCH (21:00)
[2020-05-23] MEDS: CARVedilol 12.5 MG TAB PO SCH (22:12)
[2020-05-23 22:15] VITALS: BP 166/72
[2020-05-23] MEDS ORDERED: DEXTROSE 50% 50 ML SYRINGE IV PRN (22:45)
[2020-05-23] MEDS ORDERED: GLUCAGON INJ 1MG VIAL SC PRN (22:45)
[2020-05-23] MEDS ORDERED: GLUCOSE 4GM CHEW TABLET PO PRN (22:45)
[2020-05-24] MEDS ORDERED: UNRESOLVED PATIENT OWN MED ORDER XX SCH (00:01)
[2020-05-24 06:00] VITALS: BP 113/55
[2020-05-24 06:51] LABS: PERCENT SATURATION 5.1 % (13.2-45.0)
--- NOTE | 2020-05-24 07:15 | ECGEPIP ---
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
[2020-05-24] MEDS ORDERED: HumaLOG INSULIN (NovoLOG) PER UNIT SC SCH ×2 (07:30→21:00)
[2020-05-24] MEDS ORDERED: OMEPRAZOLE 20 MG CAP PO SCH (09:00)
[2020-05-24] MEDS ORDERED: ASPIRIN 81 MG ENTERIC TAB PO SCH (09:00)
[2020-05-24] MEDS ORDERED: FERROUS SULFATE 325MG TAB PO SCH (09:00)
[2020-05-24] MEDS ORDERED: CLOPIDOGREL 75 MG TAB PO SCH (09:00)
[2020-05-24] MEDS ORDERED: ATORVASTATIN 20 MG TAB PO SCH (09:00)
[2020-05-24] MEDS: carBAMazepine XR 200 MG TAB PO SCH (09:15)
[2020-05-24] MEDS: NORTRIPTYLINE 25 MG CAP PO SCH (09:15)
[2020-05-24 09:16] VITALS: BP 123/54
[2020-05-24] MEDS: PREGABALIN 100 MG CAP (LYRICA) PO SCH (09:16)
[2020-05-24] MEDS: CARVedilol 12.5 MG TAB PO SCH (09:16)
--- NOTE | 2020-05-24 11:16 | IPNPDOC ---
Date Seen The patient was seen on 05/24/20. Progress Note DISCHARGE DIAGNOSES Hypertensive Urgency Dizziness -MRI Brain NEGATIVE for cerebellar CVA Anemia B/L carotid Artery stenosis DLP, IDDM2, CKD3, COPD, Hx of TIA (2011 x2), Seizure disorder, Vitamin D deficiency, Osteoarthritis, Lumbar disc radiculopathy, RLS, Mood disorder, GERD Dementia on memantine DISCHARGE MEDICATIONS: SEE BELOW DISCHARGE INSTRUCTIONS: PCP fu 1wk for blood pressure management. vascular surgery for b/l carotid stenoses as previously scheduled. call your PCP if sbp>160mmhg. Call your doctor and stop the plavix and aspirin if you see blood in your stool. HOSPITAL COURSE: 80 y/o female w h/o carotid stenosis, TIA x 2, orthostasis, DM2, and HTN presented to ER with acute onset of lightheadedness at home this morning. She woke up ate her breakfast of bagel and coffee, took all her medications, and then felt lightheaded while sitting down having to hold her head with her hands which lasted for about 20 minutes. She has had aprior episode before but usually goes away after 5 minutes. Her daughter thought she "didn't look good," but she denied diaphoresis, palpitations, fall, ue LE paresthesias/numbness/weakness, changes in vision, syncope, tonic/clonic movements, or postictal confusion, facial asymmetry, expressive or receptive aphasia, and is compliant with her asa and plavix. She felt like "my head was in a fog." She was scheduled to have her carotid stenosis surgery in [place] in May. In the ER, she was found to have sbp 189/90 mmHg,given norvasc 10 mg with improvement, EKG SINUS 95, and ct head negative for CVA. MRI Brain was negative. Pt was not orthostatic, and tele overnight was sinus rhythm. pt was resumed on her home dose of medications. Pt denied any acute GI bleed, and had no brbpr, melena or black tarry stools. no rbc transfusion given, but pt instructed to see her pcp to repeat hgb as outpt to monitor for possible bleed. DISCHARGE PHYSICAL EXAMINATION: Vitals:see below General: No acute distress, Speaking in full sentences, AAOx3 HEENT: PERRL EOMI , bl carotid bruit, no jvd face symmetric, tongue and uvula midline. CVS: irregularly irregular, nondisplaced pmi +S1S2 Lungs: Fair air entry bilaterally, No appreciable wheezing / rales / rhonchi Abdomen: Soft, Non-distended, Non-tender obese +bs x 4 quadrants no abd bruit Extremities: No lower extremity edema, No calf tenderness Neuro: face symmetric, tongue and uvula midline. PERRL EOMI motor 5/5 motor x 4ext no sensory abn. no pronator drifts. DTRs 2+ b/l elbow, wrist, knee, ankle reflexes. neg babinski gait not tested, DISCHARGE LABORATORY DATA/IMAGING STUDIES: SEE BELOW 05/23/20MRI BRAIN Brain: Patchy areas of increased T2/FLAIR signal intensity in the periventricular and subcortical white matter, consistent with chronic small vessel ischemic disease. No acute infarct. No hemorrhage. No edema. Cerebral ventricles: Prominence of the cortical sulci, cisterns and ventricular system, consistent with cerebral and cerebellar volume loss. Bones/joints: Unremarkable. Paranasal sinuses: Normal as visualized. No acute sinusitis. Mastoid air cells: Normal as visualized. No mastoid effusion. Orbits: Unremarkable. Soft tissues: Unremarkable. IMPRESSION: No acute intracranial pathology. Electronically signed by: Domingo Wong On 05/23/2020 20:20:[address] LUMBOSACRAL SPINE 05/23/20 There is no compression fracture. There is mild anterior listhesis of L5 on S1. There is spondylolysis of L5. there is very mild disc space narrowing at L2-3 and L3-4. There is a more moderate degree of disc space narrowing with subchondral sclerosis and vacuum phenomenon at L4-5 and L5-S1. There is sclerosis and spurring at the posterior facet joints diffusely, especially at L5-S1. There is mild curvature toward the right. Moderate diffuse spurring is noted. There is metallic hardware in the proximal femurs. IMPRESSION: No compression fracture. Chronic spondylolysis L5 with very mild anterolisthesis of L5 on S1. Degenerative changes most significantly at L4-5 and L5-S1. <Electronically signed by Francisco Christiansen > 05/23/20 1532 TIME SPENT ON DISCHARGE: 30MIN VS, I&O, 24H, Fishbone Vital Signs/I&O Vital Signs Date Time Temp Pulse Resp B/P (MAP) Pulse Ox O2 Delivery O2 Flow Rate FiO2 05/24/20 09:16 87 123/54 10/30/20 06:00 97.6 18 93 Room Air I&O- Last 24 Hours up to 6 AM 05/24/20 06:00 Intake Total 440 ml Output Total 800 ml Balance -360 ml Laboratory Data 24H LABS Laboratory Tests 2 05/23/20 14:17: Immature Granulocyte % (Auto) 0.5, Neutrophils (%) (Auto) 79.3H, Lymphocytes (%) (Auto) 12.9L, Monocytes (%) (Auto) 5.4H, Eosinophils (%) (Auto) 1.4, Basophils (%) (Auto) 0.5, Neutrophils # (Auto) 4.7, Lymphocytes # (Auto) 0.8L, Monocytes # (Auto) 0.3, Eosinophils # (Auto) 0.1, Basophils # (Auto) 0.0, Nucleated Red Blood Cells % (auto) 0.0 05/23/20 14:21: POC Glucose (Misc Panel) 294H, POC Sodium (Misc Panel) 138, POC Potassium (Misc Panel) 5.0, POC Chloride (Misc Panel) 104, POC Total CO2 (Misc Panel) 23.0, POC Blood Urea Nitrogen (Misc Panel 25, POC Ionized Calcium (Misc Panel) 4.7, POC Creatinine (Misc Panel) 1.2, POC Hematocrit (Misc Panel) 28.0L 05/23/20 14:22: Total Bilirubin 0.2, Direct Bilirubin 0.1, Aspartate Amino Transf (AST/SGOT) 11, Alanine Aminotransferase (ALT/SGPT) 10L, Alkaline Phosphatase 100, Total Protein 7.1, Albumin 3.3, Albumin/Globulin Ratio 0.9L 05/23/20 14:23: POC Troponin I (Misc) 0.00 05/23/20 18:31: Bedside Glucose (Misc Panel) 99 05/23/20 20:57: Bedside Glucose (Misc Panel) 247H 05/24/20 06:07: Bedside Glucose (Misc Panel) 58L 05/24/20 06:09: Reticulocyte # (auto) 96.9H, Percent Reticulocyte Count 3.8H, Reticulocyte Hemoglobin Equivalent 24.9, Iron Level 21L, Total Iron Binding Capacity 412, Transferrin % Saturation 5.1L, Ferritin 21 05/24/20 07:14: Bedside Glucose (Misc Panel) 156H CBC/BMP Laboratory Tests 05/23/20 14:17 ALLISON LLAMAS MD May 24, 2020 11:11
== END 2020-05-24 11:36 | disposition home or self-care (01) ==
LOC: M ED 13:47 → M ED INP 19:01 → ENRESERV 19:14 → M MSPAV 20:09
PROVIDERS: ADMIT General Practice; ATTEND General Practice
DX: I16.0 Hypertensive urgency (principal); R42 Dizziness and giddiness; D64.9 Anemia, unspecified; E78.49 Other hyperlipidemia; E11.9 Type 2 diabetes mellitus without complications; N18.30 Chronic kidney disease, stage 3 unspecified; Z86.73 Personal history of transient ischemic attack (TIA), and cerebral infarction without residual deficits; G40.909 Epilepsy, unspecified, not intractable, without status epilepticus; E55.9 Vitamin D deficiency, unspecified; K21.9 Gastro-esophageal reflux disease without esophagitis; J44.9 Chronic obstructive pulmonary disease, unspecified; G25.81 Restless legs syndrome; M54.16 Radiculopathy, lumbar region; M19.90 Unspecified osteoarthritis, unspecified site; F03.90 Unspecified dementia, unspecified severity, without behavioral disturbance, psychotic disturbance, mood disturbance, and anxiety; I48.92 Unspecified atrial flutter; Z79.82 Long term (current) use of aspirin; Z79.4 Long term (current) use of insulin; Z79.899 Other long term (current) drug therapy; Z88.8 Allergy status to other drugs, medicaments and biological substances
CPT/HCPCS: 36415; 70450; 70551; 72110; 80047; 80076; 82728; 83550; 84484; 85025; 85046; 93005; 93041; 96374; 97161; 99285; G0378

== ENCOUNTER 2020-05-31 19:16 | Inpatient (IN) | payer MEDICARE ==
[~2020-05-31] VITALS: Ht 162.6 cm; Wt 79.2 kg
[2020-05-31] MEDS ORDERED: PANTOPRAZOLE 40MG VIAL (C9113 PER 1) IV ONE (20:30)
[2020-05-31] MEDS ORDERED: NITR100C2 PO (20:48)
[2020-05-31 21:22] VITALS: BP 145/63
[2020-05-31 21:43] VITALS: BP 134/64
[2020-05-31 22:38] VITALS: BP 135/68
[2020-05-31 22:59] VITALS: BP 135/63
--- NOTE | 2020-05-31 23:32 | HPEPDOC ---
[facility] Medical History & Physical Date of Admission May 31, 2020 Date of Service: May 31, 2020 History and Physical CHIEF COMPLAINT: Sent by PCP for anemia HISTORY OF PRESENT ILLNESS: 80-year-old female past medical history of hypertension, insulin-dependent diabetes, COPD stage III, COPD, TIA, seizure disorder, osteoarthritis, GERD, mood disorder, carotid stenosis scheduled for surgery this . Patient was at her PCP office getting preop clearance for her carotid endarterectomy surgery on when she was found to have hemoglobin of 6.8 and positive Hemoccult testing. Patient was sent over to the emergency department. In the ED patient says that her stools have been black for a long time but she also takes iron pills. Denies any bleeding in urine or hematemesis. Says over the past month or so she has been feeling a little tired and more weak but denies any chest pain or shortness of breath. In the ED patient was consented and given 2 units of PRBC. PAST MEDICAL HISTORY: Hypertension Insulin dependent diabetes mellitus CTD stage III COPD Bilateral carotid stenosis TIA Seizure disorder Vitamin D deficiency Osteoarthritis Lumbar disc neuropathy Mood disorder GERD Hyperlipidemia PAST SURGICAL HISTORY: Carpal tunnel release Right hip replacement Left hip fracture Right rest biopsy Hysterectomy Bladder surgery Bilateral cataract removal SOCIAL HISTORY: Denies alcohol use Smokes one to 2 cigarettes per day has smoked for many years Denies illicit drug use Lives at home with her daughter FAMILY HISTORY: Reviewed and noncontributory ALLERGIES: Please see below. REVIEW OF SYSTEMS: 10 point review of systems complete all negative otherwise stated in HPI HOME MEDICATIONS: Please see below. PHYSICAL EXAMINATION: Constitutional: Awake and alert, in no apparent distress ENT: Sclera are clear. Mucosa is moist. Respiratory: Lungs CTA bilaterally. No respiratory distress. No use of accessory muscles. Cardiovascular: RRR S1 and S2 are normal, no murmur Gastrointestinal: Abdomen is soft, non distended, non tender, BS present. Musculoskeletal: No edema. No joint deformities. RUE 5/5, LUE 5/5, BLE 5/5 Neurologic: No focal neurological deficit. Mental Status: A&O x3, normal affect Skin: Warm, dry LABORATORY DATA: See below. IMAGING: See chart MICROBIOLOGY: Please see below. ASSESSMENT/PLAN 80-year-old female past medical history of hypertension, insulin-dependent anna betes, COPD stage III, COPD, TIA, seizure disorder, osteoarthritis, GERD, mood disorder, carotid stenosis scheduled for surgery this . Patient was at her PCP office getting preop clearance for her carotid endarterectomy surgery on when she was found to have hemoglobin of 6.8 and positive Hemoccult testing. Patient was sent over to the emergency department. Patient admitted for evaluation by surgery for colonoscopy and to receive blood. Admit to PCU with telemetry monitoring. # GI bleed: Hgb 6.8 on admit. [id number] prbc. Admit to PCU with tele. trend HH. Heme occult positive. protonix IV. transfuse hgb<7. Consult surgery in the AM for colonoscopy. Type and screen. Coags. Hold asa/plavix. CLD. # Anemia: 2/2 GI bleed see above. getting 2u PRBs. # Hypertension: Continue home meds. Monitor and titrate # IDDM: Levemir 60 units. ISS. Frequent Accu-Cheks. Hypoglycemic precautions. # CTD stage III: Around baseline. Avoid nephrotoxins. Follows with Dr. Silva outpatient # hyperk: ekg. kayexelate. monitor. # COPD: Not in exacerbation. Continue home inhalers. # Bilateral carotid stenosis: Follow-up with vascular surgeon in [place] and was scheduled for endarterectomy this . Patient is on dual antiplatelet therapy with aspirin and statin. We'll hold both for now given GI bleed # TIA: hold asa. Continue statin. # Seizure disorder: Last seizure more than 1 year ago. Continue home meds. # Osteoarthritis: Tylenol as needed for pain # Mood disorder: Continue home meds # GERD: Protonix # Hyperlipidemia: Continue statin # DVT prophylaxis: SCDs only for GI bleed. A [facility] Hospitalist Vital Signs Vital Signs Date Time Temp Pulse Resp B/P (MAP) Pulse Ox O2 Delivery O2 Flow Rate FiO2 05/31/20 19:17 98.0 104 16 162/70 (100) 98 Room Air Laboratory Tests Test 05/31/20 11:40 Blood Urea Nitrogen 27 MG/DL (7-18) H Creatinine 1.31 MG/DL (0.55-1.30) H Glomerular Filtration Rate 41.6 (>32) Fasting Glucose 237 MG/DL (70-100) H Calcium Level 9.2 MG/DL (8.8-10.2) Sodium Level 136 MEQ/L (136-145) Potassium Level 5.4 MEQ/L (3.5-5.1) H Chloride Level 103 MEQ/L (98-107) Carbon Dioxide Level 25 MEQ/L (21-32) Anion Gap 8 MEQ/L (8-16) Laboratory Tests 05/31/20 11:40 Home Medications Scheduled Aspirin (Aspirin EC) 81 Mg Tab, 81 MG PO DAILY Atorvastatin Calcium (Atorvastatin Calcium) 20 Mg Tab, 20 MG PO DAILY Carbamazepine (Carbamazepine ER) 200 Mg Cap, 200 MG PO BID Carvedilol (Carvedilol) 25 Mg Tab, 25 MG PO BID Cholecalciferol (Vitamin D3) (Vitamin D3) 125 Mcg Tablet, 125 MCG PO DAILY Clopidogrel Bisulfate (Clopidogrel) 75 Mg Tablet, 75 MG PO DAILY Ferrous Sulfate (Ferrous Sulfate) 325 Mg Tab, 325 MG PO QHS Insulin Glargine,Hum.rec.anlog (Toujeo Solostar) 300 Unit/Ml Inj, 80 UNIT SC QHS Insulin Human Lispro (Novolog) 100 U/Ml Inj, 1 DOSE SC ACHS PER SLIDING SCALE, MDD=70 UNITS Memantine HCl (Memantine HCl ER) 28 Mg Cap, 28 MG PO DAILY Nitrofurantoin Monohyd/M-Cryst (Nitrofurantoin [place]-Mcr 100 mg) 100 Mg Capsule, 100 MG PO QHS 8 pm Nortriptyline HCl (Nortriptyline HCl) 25 Mg Cap, 25 MG PO BID Omeprazole (Omeprazole) 20 Mg Cap, 20 MG PO DAILY Pregabalin (Lyrica) 100 Mg Capsule, 100 MG PO TID Scheduled PRN Ipratropium/Albuterol Sulfate (Iprat-Albut 0.5-3(2.5) mg/3 ml) 1 Joel Joel, 1 JOEL INH Q6H PRN for SHORTNESS OF BREATH Allergies Coded Allergies: metformin (Verified Adverse Reaction, Mild, N/V, 05/23/20) DESIRE WALSH MD May 31, 2020 23:31
[2020-06-01] VITALS (9 sets, daily range): BP systolic 127–167; BP diastolic 56–74
[2020-06-01] MEDS ORDERED: NS 1,000 ML IV SCH (00:05)
[2020-06-01] MEDS ORDERED: IPRATROPIUM 0.5MG/ALBUTEROL 2.5MG INH SOL UD 3ML (DUONEB) INH PRN (00:15)
[2020-06-01] MEDS ORDERED: GLUCOSE 4GM CHEW TABLET PO PRN (00:15)
[2020-06-01] MEDS ORDERED: MOM 30ML SUSPENSION UDC PO PRN (00:15)
[2020-06-01] MEDS ORDERED: ACETAMINOPHEN TAB 650MG DOSE (2X325MG) PO PRN (00:15)
[2020-06-01] MEDS ORDERED: DEXTROSE 50% 50 ML SYRINGE IV PRN (00:15)
[2020-06-01] MEDS ORDERED: SOD POLYSTYRENE SULFONATE SUSP 15 GM/60 ML UD PO ONE (00:15)
[2020-06-01] MEDS ORDERED: GLUCAGON INJ 1MG VIAL SC PRN (00:15)
[2020-06-01] MEDS ORDERED: IPRATROPIUM 0.5MG/ALBUTEROL 2.5MG INH SOL UD 3ML (DUONEB) NEB PRN (00:30)
[2020-06-01] MEDS: LEVEMIR (INSULIN DETEMIR) 1 UNITS/0.01ML SC SCH ×3 (01:19→21:00)
[2020-06-01] MEDS: NORTRIPTYLINE 25 MG CAP PO SCH ×3 (01:20→21:10)
[2020-06-01] MEDS: carBAMazepine XR 200 MG TAB PO SCH ×3 (01:20→21:11)
[2020-06-01] MEDS: HumaLOG INSULIN (NovoLOG) PER UNIT SC SCH ×5 (01:20→21:00)
[2020-06-01] MEDS: CARVedilol 12.5 MG TAB PO SCH ×3 (01:21→21:10)
[2020-06-01] MEDS: PREGABALIN 100 MG CAP (LYRICA) PO SCH ×4 (01:23→21:11)
[2020-06-01 01:25] LABS: HEMATOCRIT 26.8 % (36.0-47.0); HEMOGLOBIN 7.9 g/dl (12.0-15.5)
[2020-06-01 01:36] LABS: INR 0.99; PROTHROMBIN TIME 13.3 SECONDS (12.5-14.3)
[2020-06-01 07:52] LABS: HEMATOCRIT 28.2 % (36.0-47.0); HEMOGLOBIN 8.7 g/dl (12.0-15.5); MEAN CORPUSCULAR HEMOGLOBIN 28.6 pg (27.0-33.0); MEAN CORPUSCULAR HGB CONC 30.9 g/dl (32.0-36.5); MEAN CORPUSCULAR VOLUME 92.8 fl (80.0-96.0); PLATELET COUNT, AUTOMATED 185 10^3/uL (150-450); RED BLOOD COUNT 3.04 10^6/uL (4.00-5.40); WHITE BLOOD COUNT 4.7 10^3/uL (4.0-10.0)
[2020-06-01] MEDS: ATORVASTATIN 20 MG TAB PO SCH (08:11)
[2020-06-01 08:40] LABS: ALBUMIN 2.9 GM/DL (3.2-5.2); BILIRUBIN,TOTAL 0.7 MG/DL (0.2-1.0); CALCIUM LEVEL 8.5 MG/DL (8.8-10.2); GLOMERULAR FILTRATION RATE 56.8 (>32); MAGNESIUM LEVEL 1.9 MG/DL (1.8-2.4); PERCENT SATURATION 90.6 % (13.2-45.0); TOTAL PROTEIN 6.2 GM/DL (6.4-8.2)
[2020-06-01] MEDS ORDERED: PANTOPRAZOLE 40MG VIAL (C9113 PER 1) IV SCH (09:00)
[2020-06-01] MEDS: SUCRALFATE SUSP 1GM/10ML UD PO SCH ×3 (12:45→21:10)
--- NOTE | 2020-06-01 13:30 | IPNPDOC ---
Text Note Date of Service The patient was seen on 06/01/20. NOTE SUBJECTIVE: Does not have any complaints today. Deneis any abdominal pain , n auea or vomiting, She does have black stools but they are solid black. PHYSICAL EXAMINATION: Vitals: As below Constitutional: Awake and alert, in no apparent distress ENT: Sclera are clear. Mucosa is moist. Respiratory: Lungs CTA bilaterally. No respiratory distress. No use of accessory muscles. Cardiovascular: RRR S1 and S2 are normal, no murmur Gastrointestinal: Abdomen is soft, non distended, non tender, BS present. Musculoskeletal: No edema. No joint deformities. RUE 5/5, LUE 5/5, BLE 5/5 Neurologic: No focal neurological deficit. Mental Status: A&O x3, normal affect Skin: Warm, dry Labs and radiology: Assessment and Plan: 80-year-old female past medical history of hypertension, insulin-dependent diabetes, COPD stage III, COPD, TIA, seizure disorder, osteoarthritis, GERD, mood disorder, carotid stenosis scheduled for surgery this . Patient was at her PCP office getting preop clearance for her carotid endarterectomy surgery on when she was found to have hemoglobin of 6.8 and positive Hemoccult testing. Patient was sent over to the emergency department. In the ED patient says that her stools have been black for a long time but she also takes iron pills. Denies any bleeding in urine or hematemesis. Says over the past month or so she has been feeling a little tired and more weak but denies any chest pain or shortness of breath. Acute blood loss anemia on chronic anemia s/p 2 units PRBC transfusion. monitor HH. Check iron studies, vit B12, folate Has h/o iron def ASA and Plavix held. will [place] have to start one soon. pantoprazole and sucralfate. Dr Jeronimo consulted. PAD with bilateral carotid artery stenosis Follow-up with vascular surgeon in [place] and was scheduled for endarterectomy this . Patient is on dual antiplatelet therapy with aspirin and statin. Hypertension Coreg Insulin dependent diabetes mellitus with neuropathy continue Levemir and lispro Lyrica CKD stage III creatinine stable Demntia memantine at home COPD ordered duonebs. TIA statin, plavix Vitamin D deficiency Osteoarthritis Lumbar disc neuropathy Mood disorder pamelor Hyperlipidemia statin Seizure disorder: Last seizure more than 1 year ago. tegretal Osteoarthritis: Tylenol as needed for pain Mood disorder: Continue home meds GERD: Protonix Hyperlipidemia: Continue statin DVT prophylaxis: SCDs only for GI bleed. VS,Fishbone, I+O VS, Fishbone, I+O Laboratory Tests 06/01/20 01:08 06/01/20 07:36 Vital Signs Date Time Temp Pulse Resp B/P (MAP) Pulse Ox O2 Delivery O2 Flow Rate FiO2 06/01/20 08:13 95 152/61 06/01/20 06:15 96.9 21 95 Room Air I&O- Last 24 Hours up to 6 AM 06/01/20 06:00 Intake Total 950 ml Output Total 400 ml Balance 550 ml DANYEL FUENTES MD Jun 01, 2020 13:29
[2020-06-01 17:16] LABS: HEMATOCRIT 30.8 % (36.0-47.0); HEMOGLOBIN 9.5 g/dl (12.0-15.5)
[2020-06-01] MEDS: PANTOPRAZOLE 40MG VIAL (C9113 PER 1) IV SCH (21:09)
[2020-06-02 00:09] LABS: HEMATOCRIT 29.4 % (36.0-47.0); HEMOGLOBIN 9.3 g/dl (12.0-15.5)
[2020-06-02 06:00] VITALS: BP 145/67
[2020-06-02] MEDS: HumaLOG INSULIN (NovoLOG) PER UNIT SC SCH ×4 (07:30→20:43)
[2020-06-02] MEDS: SUCRALFATE SUSP 1GM/10ML UD PO SCH (07:30)
[2020-06-02 07:41] LABS: BASO % 0.6 % (0.0-1.0); EOS # 0.1 10^3/uL (0.0-0.5); EOS % 2.3 % (0.0-3.0); HEMATOCRIT 29.8 % (36.0-47.0); HEMOGLOBIN 9.1 g/dl (12.0-15.5); HEMOGLOBIN 9.4 g/dl (12.0-15.5); LYMPH # 1.2 10^3/uL (1.5-5.0); LYMPH % 26.3 % (24.0-44.0); MEAN CORPUSCULAR HGB CONC 31.3 g/dl (32.0-36.5); MEAN CORPUSCULAR VOLUME 92.6 fl (80.0-96.0); MONO # 0.6 10^3/uL (0.0-0.8); MONO % 12.5 % (0.0-5.0); NEUTROPHILS # 2.7 10^3/uL (1.5-8.5); NEUTROPHILS % 58.1 % (36.0-66.0); PLATELET COUNT, AUTOMATED 187 10^3/uL (150-450); RED BLOOD COUNT 3.24 10^6/uL (4.00-5.40); WHITE BLOOD COUNT 4.7 10^3/uL (4.0-10.0)
--- NOTE | 2020-06-02 08:06 | IPNPDOC ---
Text Note Date of Service The patient was seen on 06/02/20. NOTE SUBJECTIVE: Does not have any complaints today. Denies any abdominal pain , n ausea or vomiting. HH stable. Planned for EGD today. PHYSICAL EXAMINATION: Vitals: As below Constitutional: Awake and alert, in no apparent distress ENT: Sclera are clear. Mucosa is moist. Neck: bilateral carotid bruit present, no JVD Respiratory: Lungs bilateral vesicular sounds, few bilateral basal crackles. No respiratory distress. No use of accessory muscles. Cardiovascular: RRR S1 and S2 are normal, no murmur Gastrointestinal: Abdomen is soft, non distended, non tender, BS present. Musculoskeletal: No edema. No joint deformities. RUE 5/5, LUE 5/5, BLE 5/5 Neurologic: No focal neurological deficit. Mental Status: A&O x3, normal affect Skin: Warm, dry Labs and radiology: Assessment and Plan: 80-year-old female past medical history of hypertension, insulin-dependent diabetes, COPD stage III, COPD, TIA, seizure disorder, osteoarthritis, GERD, mood disorder, carotid stenosis scheduled for surgery this . Patient was at her PCP office getting preop clearance for her carotid endarterectomy surgery on when she was found to have hemoglobin of 6.8 and positive Hemoccult testing. Patient was sent over to the emergency department. In the ED patient says that her stools have been black for a long time but she also takes iron pills. Denies any bleeding in urine or hematemesis. Says over the past month or so she has been feeling a little tired and more weak but denies any chest pain or shortness of breath. Acute blood loss anemia on chronic anemia s/p 2 units PRBC transfusion. monitor HH. Check iron studies, vit B12, folate Has h/o iron def ASA and Plavix held. will at least have to start one soon. Dr Jeronimo consulted. Possible GIB pantoprazole and sucralfate. planned for EGD today PAD with bilateral carotid artery stenosis Follow-up with vascular surgeon in [place] and was scheduled for endarterectomy this . Patient is on dual antiplatelet therapy with aspirin and statin. Hypertension Coreg Insulin dependent diabetes mellitus with neuropathy continue Levemir and lispro Lyrica CKD stage III creatinine stable Dementia mild memantine at home COPD ordered duonebs. TIA statin, plavix Vitamin D deficiency Osteoarthritis Lumbar disc neuropathy Mood disorder pamelor Hyperlipidemia statin Seizure disorder: Last seizure more than 1 year ago. tegretal Osteoarthritis: Tylenol as needed for pain Mood disorder: Continue home meds GERD: Protonix Hyperlipidemia: Continue statin DVT prophylaxis: SCDs only for GI bleed. VS,Fishbone, I+O VS, Fishbone, I+O Laboratory Tests 06/01/20 07:36 06/01/20 16:01 06/01/20 23:46 Vital Signs Date Time Temp Pulse Resp B/P (MAP) Pulse Ox O2 Delivery O2 Flow Rate FiO2 06/01/20 22:00 97.2 98 18 148/60 (89) 96 Room Air I&O- Last 24 Hours up to 6 AM 06/02/20 07:00 Intake Total 1660 ml Output Total 1000 ml Balance 660 ml DANYEL FUENTES MD Jun 02, 2020 06:31
[2020-06-02] MEDS: PANTOPRAZOLE 40MG VIAL (C9113 PER 1) IV SCH (08:13)
[2020-06-02] MEDS: LEVEMIR (INSULIN DETEMIR) 1 UNITS/0.01ML SC SCH ×2 (08:13→21:06)
[2020-06-02 08:19] LABS: BLOOD UREA NITROGEN 15 MG/DL (7-18); CALCIUM LEVEL 8.5 MG/DL (8.8-10.2); CARBON DIOXIDE LEVEL 29 MEQ/L (21-32); CHLORIDE LEVEL 110 MEQ/L (98-107); CREATININE FOR GFR 0.93 MG/DL (0.55-1.30); GLOMERULAR FILTRATION RATE > 60.0 (>32); GLUCOSE, FASTING 98 MG/DL (70-100); SODIUM LEVEL 144 MEQ/L (136-145)
[2020-06-02] MEDS ORDERED: ETOMIDATE INJ 20MG/10ML VIAL As Ordered ONE (09:50)
[2020-06-02] MEDS ORDERED: propofoL 200 MG/20 ML VIAL As Ordered ONE (09:50)
[2020-06-02] MEDS: CARVedilol 12.5 MG TAB PO SCH ×2 (10:52→21:06)
[2020-06-02] MEDS: NORTRIPTYLINE 25 MG CAP PO SCH ×2 (10:52→21:05)
[2020-06-02] MEDS: ATORVASTATIN 20 MG TAB PO SCH (10:52)
[2020-06-02] MEDS: PREGABALIN 100 MG CAP (LYRICA) PO SCH ×3 (10:52→21:05)
[2020-06-02] MEDS: carBAMazepine XR 200 MG TAB PO SCH ×2 (10:53→21:05)
[2020-06-02 14:00] VITALS: BP 124/51
[2020-06-02 16:43] LABS: HEMATOCRIT 30.9 % (36.0-47.0); HEMOGLOBIN 9.1 g/dl (12.0-15.5)
[2020-06-02 22:00] VITALS: BP 150/58
[2020-06-03 06:00] VITALS: BP 132/63
[2020-06-03 06:26] LABS: BASO % 0.8 % (0.0-1.0); EOS # 0.1 10^3/uL (0.0-0.5); EOS % 2.8 % (0.0-3.0); HEMATOCRIT 30.1 % (36.0-47.0); LYMPH # 1.4 10^3/uL (1.5-5.0); MEAN CORPUSCULAR HGB CONC 29.9 g/dl (32.0-36.5); MEAN CORPUSCULAR VOLUME 93.8 fl (80.0-96.0); MONO # 0.6 10^3/uL (0.0-0.8); MONO % 15.2 % (0.0-5.0); NEUTROPHILS # 1.8 10^3/uL (1.5-8.5); NEUTROPHILS % 45.9 % (36.0-66.0); PLATELET COUNT, AUTOMATED 184 10^3/uL (150-450); RED BLOOD COUNT 3.21 10^6/uL (4.00-5.40); WHITE BLOOD COUNT 3.9 10^3/uL (4.0-10.0)
[2020-06-03 06:52] LABS: CALCIUM LEVEL 8.7 MG/DL (8.8-10.2); CREATININE FOR GFR 1.19 MG/DL (0.55-1.30); GLOMERULAR FILTRATION RATE 46.5 (>32); POTASSIUM SERUM 4.1 MEQ/L (3.5-5.1)
[2020-06-03] MEDS: carBAMazepine XR 200 MG TAB PO SCH (08:10)
[2020-06-03] MEDS: PREGABALIN 100 MG CAP (LYRICA) PO SCH (08:10)
[2020-06-03] MEDS: NORTRIPTYLINE 25 MG CAP PO SCH (08:10)
[2020-06-03] MEDS: HumaLOG INSULIN (NovoLOG) PER UNIT SC SCH (08:10)
[2020-06-03] MEDS: ATORVASTATIN 20 MG TAB PO SCH (08:10)
[2020-06-03 08:12] VITALS: BP 179/85
[2020-06-03] MEDS: CARVedilol 12.5 MG TAB PO SCH (08:12)
[2020-06-03] MEDS: LEVEMIR (INSULIN DETEMIR) 1 UNITS/0.01ML SC SCH (08:13)
[2020-06-03] MEDS ORDERED: OMEPRAZOLE 20 MG CAP PO SCH (09:00)
[2020-06-03 10:11] LABS: FOLATE 9.6 NG/ML (>5.4)
[2020-06-03] MEDS ORDERED: OMEP1CAP73 PO (10:52)
--- NOTE | 2020-06-04 03:26 | DS.PDOC ---
Discharge Summary General Date of Admission May 31, 2020 at 22:31 Date of Discharge 06/03/20 Discharge Summary PROCEDURES PERFORMED DURING STAY: EGD DISCHARGE DIAGNOSES: Acute on chronic Anemia ?GIB and acute blood loss anemia vs bone marrow disorder. Hiatal hernia SECONDARY DIAGNOSIS: HTN, DLP, IDDM2, CKD3, COPD, Bilateral carotid stenosis (scheduled for surgery), Hx of TIA (2011 x2), Seizure disorder, Vitamin D deficiency, Osteoarthritis, Lumbar disc radiculopathy, RLS, Mood disorder, GERD, Dementia, GERD COMPLICATIONS/CHIEF COMPLAINT: Gi bleed. HOSPITAL COURSE: 80-year-old female past medical history of hypertension, insulin-dependent diabetes, COPD stage III, COPD, TIA, seizure disorder, o steoarthritis, GERD, mood disorder, carotid stenosis scheduled for surgery this . Patient was at her PCP office getting preop clearance for her carotid endarterectomy surgery on when she was found to have hemoglobin of 6.8 and positive Hemoccult testing. Patient was sent over to the emergency department. In the ED patient says that her stools have been black for a long time but she also takes iron pills. Denies any bleeding in urine or hematemesis. Says over the past month or so she has been feeling a little tired and more weak but denies any chest pain or shortness of breath. Acute blood loss anemia s/p 2 units PRBC transfusion. Had EGD which showed only hiatal hernia otherwise negative restart ASA and Plavix held. Follow up with PMD and Dr Flanagan. Possible GIB Guaiac was positive in the PMD's Office Had EGD which was negative pantoprazole and sucralfate. Chronic Anemia since 2018 received 6 units of PRBC over the last 2 years Has h/o iron deficiency anemia Ferritin was 24 vit B12, folate, normal SPEP was neg before Should be referred to hematology. PAD with bilateral carotid artery stenosis Follow-up with vascular surgeon in [place] and was scheduled for endarterectomy this . Patient is on dual antiplatelet therapy with aspirin and statin. Hypertension Coreg Insulin dependent diabetes mellitus with neuropathy continue Levemir and lispro Lyrica CKD stage III creatinine stable Dementia mild memantine at home COPD ordered duonebs. TIA statin, plavix Vitamin D deficiency Osteoarthritis Lumbar disc neuropathy Mood disorder pamelor Hyperlipidemia statin Seizure disorder: Last seizure more than 1 year ago. tegretal Osteoarthritis: Tylenol as needed for pain Mood disorder: Continue home meds GERD: Protonix Hyperlipidemia: Continue statin DISCHARGE MEDICATIONS: Please see below. ALLERGIES: Please see below. PHYSICAL EXAMINATION ON DISCHARGE: VITAL SIGNS: Please see below. Constitutional: Awake and alert, in no apparent distress ENT: Sclera are clear. Mucosa is moist. Neck: bilateral carotid bruit present, no JVD Respiratory: Lungs bilateral vesicular sounds, few bilateral basal crackles. No respiratory distress. No use of accessory muscles. Cardiovascular: RRR S1 and S2 are normal, no murmur Gastrointestinal: Abdomen is soft, non distended, non tender, BS present. Musculoskeletal: No edema. No joint deformities. RUE 5/5, LUE 5/5, BLE 5/5 Neurologic: No focal neurological deficit. Mental Status: A&O x3, normal affect Skin: Warm, dry LABORATORY DATA: Please see below. ACTIVITY: [As tolerated]. DIET: Carb consistent DISPOSITION: 01 Home, Self-Care. DISCHARGE INSTRUCTIONS: Follow up with PMD in 1 week Needs referral to Hematology. DISCHARGE CONDITION: [Stable]. TIME SPENT ON DISCHARGE: 35 minutes. Vital Signs/I&Os Vital Signs Date Time Temp Pulse Resp B/P (MAP) Pulse Ox O2 Delivery O2 Flow Rate FiO2 06/03/20 08:12 89 179/85 06/03/20 06:00 96.5 18 94 Room Air I&O- Last 24 Hours up to 6 AM 06/04/20 07:00 Intake Total 360 ml Balance 360 ml Laboratory Data Labs 24H Laboratory Tests 2 06/03/20 05:42: Immature Granulocyte % (Auto) 0.3, Neutrophils (%) (Auto) 45.9, Lymphocytes (%) (Auto) 35.0, Monocytes (%) (Auto) 15.2H, Eosinophils (%) (Auto) 2.8, Basophils (%) (Auto) 0.8, Neutrophils # (Auto) 1.8, Lymphocytes # (Auto) 1.4L, Monocytes # (Auto) 0.6, Eosinophils # (Auto) 0.1, Basophils # (Auto) 0.0, Nucleated Red Blood Cells % (auto) 0.0, Anion Gap 6L, Glomerular Filtration Rate 46.5, Calcium Level 8.7L CBC/BMP Laboratory Tests 06/03/20 05:42 Discharge Medications Scheduled Aspirin (Aspirin EC) 81 Mg Tab, 81 MG PO DAILY, (Reported) Atorvastatin Calcium (Atorvastatin Calcium) 20 Mg Tab, 20 MG PO DAILY, (Reported) Carbamazepine (Carbamazepine ER) 200 Mg Cap, 200 MG PO BID, (Reported) Carvedilol (Carvedilol) 25 Mg Tab, 25 MG PO BID, (Reported) Cholecalciferol (Vitamin D3) (Vitamin D3) 125 Mcg Tablet, 125 MCG PO DAILY, (Re ported) Clopidogrel Bisulfate (Clopidogrel) 75 Mg Tablet, 75 MG PO DAILY, (Reported) Ferrous Sulfate (Ferrous Sulfate) 325 Mg Tab, 325 MG PO QHS, (Reported) Insulin Glargine,Hum.rec.anlog (Toujeo Solostar) 300 Unit/Ml Inj, 80 UNIT SC QHS, (Reported) Insulin Human Lispro (Novolog) 100 U/Ml Inj, 1 DOSE SC ACHS, (Reported) PER SLIDING SCALE, MDD=70 UNITS Memantine HCl (Memantine HCl ER) 28 Mg Cap, 28 MG PO DAILY, (Reported) Nitrofurantoin Monohyd/M-Cryst (Nitrofurantoin [place]-Mcr 100 mg) 100 Mg Capsule, 100 MG PO QHS, (Reported) 8 pm Nortriptyline HCl (Nortriptyline HCl) 25 Mg Cap, 25 MG PO BID, (Reported) Omeprazole (Omeprazole) 20 Mg Cap, 40 MG PO DAILY Pregabalin (Lyrica) 100 Mg Capsule, 100 MG PO TID, (Reported) Scheduled PRN Ipratropium/Albuterol Sulfate (Iprat-Albut 0.5-3(2.5) mg/3 ml) 1 Joel Joel, 1 JOEL INH Q6H PRN for SHORTNESS OF BREATH, (Reported) Allergies Coded Allergies: metformin (Verified Adverse Reaction, Mild, N/V, 05/23/20) DANYEL FUENTES MD Jun 04, 2020 03:26
== END 2020-06-03 11:56 | disposition home or self-care (01) | DRG 378 ==
LOC: M ED 19:16 → M ED INP 22:31 → ENRESERV 23:32 → M MSPAV 06-01 00:41
PROVIDERS: ADMIT Family Medicine; ATTEND Internal Medicine Nephrology
PROC: 30233N1 Transfusion of Nonautologous Red Blood Cells into Peripheral Vein, Percutaneous Approach (ICD-10-PCS; 2020-05-31)
PROC: 0DJ08ZZ Inspection of Upper Intestinal Tract, Via Natural or Artificial Opening Endoscopic (ICD-10-PCS; principal; 2020-06-02 08:00)
DX: K92.2 Gastrointestinal hemorrhage, unspecified (principal); D62 Acute posthemorrhagic anemia; J44.9 Chronic obstructive pulmonary disease, unspecified; E11.22 Type 2 diabetes mellitus with diabetic chronic kidney disease; E11.51 Type 2 diabetes mellitus with diabetic peripheral angiopathy without gangrene; E87.5 Hyperkalemia; I12.9 Hypertensive chronic kidney disease with stage 1 through stage 4 chronic kidney disease, or unspecified chronic kidney disease; Z86.73 Personal history of transient ischemic attack (TIA), and cerebral infarction without residual deficits; K21.9 Gastro-esophageal reflux disease without esophagitis; F03.90 Unspecified dementia, unspecified severity, without behavioral disturbance, psychotic disturbance, mood disturbance, and anxiety; E55.9 Vitamin D deficiency, unspecified; M19.90 Unspecified osteoarthritis, unspecified site; N18.30 Chronic kidney disease, stage 3 unspecified; G40.909 Epilepsy, unspecified, not intractable, without status epilepticus; I65.23 Occlusion and stenosis of bilateral carotid arteries; E78.5 Hyperlipidemia, unspecified; F39 Unspecified mood [affective] disorder; Z79.899 Other long term (current) drug therapy; Z79.82 Long term (current) use of aspirin; Z88.8 Allergy status to other drugs, medicaments and biological substances; Z79.4 Long term (current) use of insulin; F17.210 Nicotine dependence, cigarettes, uncomplicated

== ENCOUNTER → 2020-05-31 | Outpatient (REF) | payer MEDICARE ==
[2020-05-31 17:17] LABS: HEMATOCRIT 22.7 % (36.0-47.0); MEAN CORPUSCULAR HEMOGLOBIN 29.6 pg (27.0-33.0); MEAN CORPUSCULAR VOLUME 98.7 fl (80.0-96.0); PLATELET COUNT, AUTOMATED 224 10^3/uL (150-450); WHITE BLOOD COUNT 7.1 10^3/uL (4.0-10.0)
[2020-05-31 17:37] LABS: CALCIUM LEVEL 9.2 MG/DL (8.8-10.2); CREATININE FOR GFR 1.31 MG/DL (0.55-1.30); GLOMERULAR FILTRATION RATE 41.6 (>32); POTASSIUM SERUM 5.4 MEQ/L (3.5-5.1)
[2020-05-31 18:27] LABS: HEMOGLOBIN 6.8 g/dl (12.0-15.5)
== END ==
LOC: M SFHCADAM 11:13
PROVIDERS: ATTEND Physician Assistant
DX: D50.9 Iron deficiency anemia, unspecified (principal)

== ENCOUNTER → 2020-05-31 | Outpatient (CLI) | payer MEDICARE | LOC: M LABSMTC 14:16 | PROVIDERS: ATTEND Surgery | DX: Z20.828 Contact with and (suspected) exposure to other viral communicable diseases (principal) | CPT/HCPCS: C9803; U0003 ==

== ENCOUNTER 2020-06-22 23:29 | Emergency (ER) | payer MEDICARE ==
[~2020-06-22] VITALS: Ht 157.5 cm; Wt 79.5 kg
[2020-06-22] MEDS ORDERED: PROAAER10 INH (23:42)
[2020-06-23] MEDS ORDERED: methylPREDNISolone 125MG 2ML VIAL IV ONE (00:30)
[2020-06-23 00:46] LABS: VENOUS BASE EXCESS -0.5 (-2.0-2.0); VENOUS HCO3 24.8 MEQ/L (23.0-27.0); VENOUS O2 SATURATION 82.4 % (60.0-80.0); VENOUS PH 7.369 UNITS (7.330-7.430); VENOUS TOTAL CO2 26.2 MEQ/L (24.0-28.0)
[2020-06-23] MEDS: COMBIVENT RESPIMAT 100-20MCG INHALER 4GM INH SCH ×3 (00:50→04:26)
[2020-06-23] MEDS ORDERED: OMEP-218 PO (00:50)
[2020-06-23 00:52] LABS: BASO % 0.6 % (0.0-1.0); EOS # 0.1 10^3/uL (0.0-0.5); HEMATOCRIT 28.7 % (36.0-47.0); HEMOGLOBIN 8.4 g/dl (12.0-15.5); LYMPH % 20.7 % (24.0-44.0); MEAN CORPUSCULAR HEMOGLOBIN 26.3 pg (27.0-33.0); MEAN CORPUSCULAR HGB CONC 29.3 g/dl (32.0-36.5); MONO # 0.4 10^3/uL (0.0-0.8); MONO % 8.1 % (0.0-5.0); NEUTROPHILS # 3.4 10^3/uL (1.5-8.5); NEUTROPHILS % 68.2 % (36.0-66.0); PLATELET COUNT, AUTOMATED 221 10^3/uL (150-450); RED BLOOD COUNT 3.19 10^6/uL (4.00-5.40); WHITE BLOOD COUNT 4.9 10^3/uL (4.0-10.0)
[2020-06-23] MEDS ORDERED: NAME28CA PO (00:54)
[2020-06-23] MEDS ORDERED: B-12100010 PO (00:54)
[2020-06-23] MEDS ORDERED: SYMB80INH INH (00:54)
[2020-06-23] MEDS ORDERED: D31000TA2 PO (00:54)
[2020-06-23 01:18] LABS: ALT/SGPT 12 U/L (12-78); BILIRUBIN,DIRECT < 0.1 MG/DL (0.0-0.2); BILIRUBIN,TOTAL 0.2 MG/DL (0.2-1.0); BLOOD UREA NITROGEN 32 MG/DL (7-18); CALCIUM LEVEL 8.8 MG/DL (8.8-10.2); CARBON DIOXIDE LEVEL 27 MEQ/L (21-32); CHLORIDE LEVEL 107 MEQ/L (98-107); CPK CREATINE PHOSPHOKINASE 91 U/L (26-192); GLOMERULAR FILTRATION RATE 38.5 (>32); GLUCOSE, FASTING 190 MG/DL (70-100); NT-PRO BNP 1437 PG/ML (<450); SODIUM LEVEL 139 MEQ/L (136-145); TOTAL PROTEIN 6.5 GM/DL (6.4-8.2)
--- NOTE | 2020-06-23 01:45 | REPVR ---
PROCEDURE INFORMATION: Exam: XR Chest, 1 View Exam date and time: 06/23/2020 1:33 AM Age: 80 years old Clinical indication: Cough; Additional info: Dyspnea/cough TECHNIQUE: Imaging protocol: XR of the chest Views: 1 view. COMPARISON: CR Chest, 2 view PA, Lat 04/14/2020 6:09 PM FINDINGS: Lungs: Degree of lung inflation is normal. No evidence of pulmonary edema. No focal consolidation or parenchymal lung mass. Pleural space: Blunted costophrenic angles suggest small pleural effusions. Heart/Mediastinum: Cardiac silhouette appears normal. No adenopathy or hilar mass. Bones/joints: Osseous structures show no concerning abnormality. Probable old traumatic or postsurgical defect of the left clavicle.Osseous changes of chronic left rotator cuff tear are present. IMPRESSION: Blunted right costophrenic angle suggesting small right pleural effusion, unknown source. No underlying pneumonia or pulmonary edema Electronically signed by: Michael Nogueira On 06/23/2020 01:45:16 AM
[2020-06-23] MEDS ORDERED: ISOVUE-370 76% 100ML VIAL As Ordered ONE (02:03)
--- NOTE | 2020-06-23 02:41 | REPVR ---
PROCEDURE INFORMATION: Exam: CT Angiography Chest With Contrast Exam date and time: 06/23/2020 2:18 AM Age: 80 years old Clinical indication: Shortness of breath; Additional info: SOB, pleural effusion TECHNIQUE: Imaging protocol: Computed tomographic angiography of the chest with intravenous contrast. 3D rendering (Not supervised by radiologist): MIP and/or 3D reconstructed images were created by the technologist. Radiation optimization: All CT scans at this facility use at least one of these dose optimization techniques: automated exposure control; mA and/or kV adjustment per patient size (includes targeted exams where dose is matched to clinical indication); or iterative reconstruction. Contrast material: ISOVUE 370; Contrast volume: 75 ml; Contrast route: INTRAVENOUS (IV); COMPARISON: CT ANGIO CHEST 01/20/2020 3:08 PM FINDINGS: Pulmonary arteries: No focal pulmonary artery filling defect to suggest acute pulmonary embolus. Aorta: Thoracic aorta is tortuous without focal aneurysm or dissection. Thyroid: Thyroid gland is enlarged and multi-nodular. Lungs: Mild basilar interlobular septal thickening. No concerning lung mass, airspace process or central endobronchial lesion. Pleural space: Small layering bilateral pleural effusions. No pneumothorax. Heart: Calcification of the mitral valve annulus noted. No overt cardiac enlargement or abnormal volume of pericardial fluid. Lymph nodes: Small, nonspecific mediastinal nodes are present. Bones/joints: Bony structures are unremarkable except for thoracic degenerative disc disease and an old posttraumatic deformity of the left humeral head/neck. Soft tissues: No asymmetric abnormality of the extrathoracic soft tissues. IMPRESSION: 1. No focal pulmonary artery filling defect to suggest acute pulmonary embolus. 2. Small bilateral pleural effusions and interlobular septal thickening at the lung bases suggesting residual changes of pulmonary edema that has resolved. 3. Enlarged multinodular thyroid gland similar to January 20, 2020. Outpatient sonographic follow-up can be performed as clinically warranted Electronically signed by: Michael Nogueira On 06/23/2020 02:41:19 AM
[2020-06-23 03:08] LABS: CK-MB VALUE MASS 3.3 NG/ML (<3.6); MB/CK RELATIVE INDEX 4.18 (< OR =4); TROPONIN I 1.05 NG/ML (< 0.10)
[2020-06-23 07:13] LABS: CK-MB VALUE MASS 3.1 NG/ML (<3.6); MB/CK RELATIVE INDEX 3.83 (< OR =4); TROPONIN I 0.73 NG/ML (< 0.10)
[2020-06-23] MEDS ORDERED: HEPARIN DRIP 25,000 UNITS in IV 1 EA IV SCH (09:01)
[2020-06-23] MEDS ORDERED: ASPIRIN 81 MG CHEW TABLET PO ONE (09:15)
[2020-06-23] MEDS ORDERED: CLOPIDOGREL 300 MG TAB (PLAVIX) PO ONE (09:15)
[2020-06-23] MEDS ORDERED: NITROGLYCERIN 2% OINT 1 GM *U/D* PKT TOP ONE (09:15)
[2020-06-23] MEDS ORDERED: HEPARIN SOD (PORCINE) 5000UNITS/ML 1ML VIAL/SYRINGE IV ONE (09:15)
[2020-06-23] MEDS: METOPROLOL 5 MG/5 ML VIAL IV SCH ×2 (09:22→09:30)
[2020-06-23 09:45] LABS: INR 0.96; PARTIAL THROMBOPLASTIN TIME 20.7 SECONDS (24.2-38.5)
[2020-06-23 09:55] VITALS: BP 167/75
[2020-06-23] MEDS ORDERED: METOPROLOL TART 25 MG TABLET PO ONE (10:00)
[2020-06-23 11:00] VITALS: BP 154/75
--- NOTE | 2020-06-23 20:36 | ECGEPIP ---
[facility] - ED Test Date: 2020-06-23 Pat Name: JAVY RUIZ Department: Room: - Gender: Female Repair Order Clerk: rachelle : 1940 Requested By: NJ Lujan Order Number: [id number] Reading MD: Arielle Ivey Measurements Intervals [place] Rate: 103 P: 46 NC: 168 QRS: 52 QRSD: 91 T: 106 QT: 340 QTc: 446 Interpretive Statements SINUS TACHYCARDIA NONSPECIFIC ST & T-WAVE ABNORMALITY ABNORMAL RHYTHM ECG SIMILAR 06/23/20 Electronically Signed on 06-23-2020 20:36:05 EST by Arielle Ivey
--- NOTE | 2020-06-23 20:36 | ECGEPIP ---
[facility] - ED Test Date: 2020-06-23 Pat Name: JAVY RUIZ Department: Room: - Gender: Female Molder: Daxa : 1940 Requested By: NJ Lujan Order Number: [id number] Reading MD: Arielle Ivey Measurements Intervals [place] Rate: 108 P: WI: 0 QRS: 50 QRSD: 94 T: 99 QT: 335 QTc: 450 Interpretive Statements SINUS TACHYCARDIA MODERATE ST DEPRESSION SIMILAR 06/23/20 Electronically Signed on 06-23-2020 20:36:28 EST by Arielle Ivey
--- NOTE | 2020-06-23 20:36 | ECGEPIP ---
[facility] - ED Test Date: 2020-06-23 Pat Name: JAVY RUIZ Department: Room: - Gender: Female Chest Pain Coordinator: RAMIRO : 1940 Requested By: NJ Lujan Order Number: [id number] Reading MD: Arielle Ivey Measurements Intervals [place] Rate: 107 P: IN: 0 QRS: 51 QRSD: 93 T: 106 QT: 326 QTc: 436 Interpretive Statements SINUS TACHYCARDIA NONSPECIFIC ST & T-WAVE ABNORMALITY INCREASED RATE 05/23/20 ABNORMAL RHYTHM ECG Electronically Signed on 06-23-2020 20:35:43 EST by Arielle Ivey
== END 2020-06-23 11:11 | disposition short-term general hospital (02) ==
LOC: M ED 23:29
DX: I21.4 Non-ST elevation (NSTEMI) myocardial infarction (principal); J90 Pleural effusion, not elsewhere classified; R00.0 Tachycardia, unspecified; Z20.828 Contact with and (suspected) exposure to other viral communicable diseases; E04.2 Nontoxic multinodular goiter; E11.9 Type 2 diabetes mellitus without complications; I10 Essential (primary) hypertension; J44.9 Chronic obstructive pulmonary disease, unspecified; Z86.73 Personal history of transient ischemic attack (TIA), and cerebral infarction without residual deficits; F03.90 Unspecified dementia, unspecified severity, without behavioral disturbance, psychotic disturbance, mood disturbance, and anxiety; Z88.8 Allergy status to other drugs, medicaments and biological substances; Z79.51 Long term (current) use of inhaled steroids; Z79.82 Long term (current) use of aspirin; Z79.899 Other long term (current) drug therapy; Z79.4 Long term (current) use of insulin
CPT/HCPCS: 36415; 71045; 71275; 80048; 80076; 82550; 82553; 82803; 83605; 83880; 84484; 85025; 85610; 85730; 86850; 86900; 86901; 93005; 93041; 94640; 94760; 96365; 96366; 96375; 99285; J1644; J2930; Q9967; U0002

== ENCOUNTER → 2020-08-08 | Outpatient (CLI) | payer MEDICARE ==
[~2020-08-08] MED LIST changes: +B-12100010 PO; +D31000TA2 PO; +NAME28CA PO; +OMEP-218 PO; +PROAAER10 INH
--- NOTE | 2020-08-08 14:05 | REP ---
INDICATION: DIEGO CAROTID STENOSIS OF ARTERIES COMPARISON: 12/27/2018. TECHNIQUE: Real-time ultrasound evaluation and duplex Doppler interrogation of the extracranial carotid vasculature is performed. FINDINGS: There is a stent in the distal right common carotid artery extending into the internal carotid artery. The stent is patent. In the mid right internal carotid artery there is high-grade stenosis in the range of 50-79% with elevated peak systolic velocity. On the left there is severe plaquing in the bulb and internal carotid artery. There is elevated peak systolic velocity and increased ICA to CCA ratio most compatible with stenosis 50-79%. There is normal direction of flow in both vertebral arteries. Right vertebral artery is small in size. RIGHT LEFT Peak systolic velocity ICA 196 cm/s 404 cm/s End diastolic velocity ICA 19.8 cm/s 83 cm/s Peak systolic velocity CCA 75.2 cm/s 94.9cm/s Peak systolic velocity ECA 184 cm/s 100 cm/s ICA/CCA ratio 2.6 4.3 IMPRESSION: Patent stent of the right distal common carotid artery extending into the right internal carotid artery. Distal to the stent in the mid right internal carotid artery there are findings compatible with stenosis 50-79%. There are findings compatible with stenosis of the left internal carotid artery 50-79%. <Electronically signed by Francisco Christiansen > 08/08/20 [id number]
== END ==
LOC: M RAD 12:37
PROVIDERS: ATTEND Surgery
DX: I65.23 Occlusion and stenosis of bilateral carotid arteries (principal)

== ENCOUNTER → 2020-08-14 | Outpatient (REF) | payer MEDICARE ==
[2020-08-15 13:02] LABS: HEMATOCRIT 35.5 % (36.0-47.0); MEAN CORPUSCULAR HEMOGLOBIN 30.6 pg (27.0-33.0); MEAN CORPUSCULAR VOLUME 98.9 fl (80.0-96.0); PLATELET COUNT, AUTOMATED 237 10^3/uL (150-450); RED BLOOD COUNT 3.59 10^6/uL (4.00-5.40); WHITE BLOOD COUNT 5.1 10^3/uL (4.0-10.0)
[2020-08-15 13:34] LABS: ALBUMIN 3.6 GM/DL (3.2-5.2); BILIRUBIN,TOTAL 0.1 MG/DL (0.2-1.0); CALCIUM LEVEL 9.4 MG/DL (8.8-10.2); CREATININE FOR GFR 1.22 MG/DL (0.55-1.30); GLOMERULAR FILTRATION RATE 45.1 (>32); PERCENT SATURATION 11.2 % (13.2-45.0); POTASSIUM SERUM 4.8 MEQ/L (3.5-5.1); TOTAL PROTEIN 7.1 GM/DL (6.4-8.2)
[2020-08-15 14:22] LABS: HEMOGLOBIN A1c 5.9 %
== END ==
LOC: M SFHCADAM 15:21
PROVIDERS: ATTEND Physician Assistant
DX: D50.0 Iron deficiency anemia secondary to blood loss (chronic) (principal); E11.22 Type 2 diabetes mellitus with diabetic chronic kidney disease; N18.31 Chronic kidney disease, stage 3a
CPT/HCPCS: 80053; 82728; 83036; 83550; 85027; 86255; G0463

== ENCOUNTER → 2020-08-20 | Outpatient (CLI) | payer MEDICARE ==
[2020-08-20 12:24] LABS: HEMATOCRIT 31.4 % (36.0-47.0); HEMOGLOBIN 9.9 g/dl (12.0-15.5); MEAN CORPUSCULAR HGB CONC 31.5 g/dl (32.0-36.5); MEAN CORPUSCULAR VOLUME 98.4 fl (80.0-96.0); PLATELET COUNT, AUTOMATED 207 10^3/uL (150-450); RED BLOOD COUNT 3.19 10^6/uL (4.00-5.40); WHITE BLOOD COUNT 4.6 10^3/uL (4.0-10.0)
[2020-08-20 12:56] LABS: ALBUMIN 3.3 GM/DL (3.2-5.2); BILIRUBIN,TOTAL 0.1 MG/DL (0.2-1.0); CALCIUM LEVEL 8.8 MG/DL (8.8-10.2); CHOLESTEROL RISK RATIO 3.306 (<5); CREATININE FOR GFR 1.4 MG/DL (0.55-1.30); GLOMERULAR FILTRATION RATE 38.5 (>32); POTASSIUM SERUM 4.5 MEQ/L (3.5-5.1); TOTAL PROTEIN 6.8 GM/DL (6.4-8.2)
== END ==
LOC: M LAB 11:40
PROVIDERS: ATTEND Physician Assistant
DX: I25.10 Atherosclerotic heart disease of native coronary artery without angina pectoris (principal); R06.02 Shortness of breath

== ENCOUNTER → 2020-09-04 | Outpatient (REF) | payer MEDICARE ==
[2020-09-04 19:11] LABS: PERCENT SATURATION 11.3 % (13.2-45.0)
== END ==
LOC: M LAB REF 17:01
PROVIDERS: ATTEND Nurse Practitioner Family
DX: D50.9 Iron deficiency anemia, unspecified (principal); R06.00 Dyspnea, unspecified

== ENCOUNTER → 2020-09-04 | Outpatient (CLI) | payer MEDICARE ==
--- NOTE | 2020-09-04 17:03 | REP ---
INDICATION: DYSPNEA COMPARISON: 06/23/2020 TECHNIQUE: PA and lateral. FINDINGS: The mediastinum and cardiac silhouette are normal. The lung mata are demonstrate chronic interstitial changes without acute focal consolidation, effusion, or pneumothorax. The skeletal structures demonstrate age-related changes and old healed rib fractures. IMPRESSION: Chronic changes. No focal consolidation. <Electronically signed by Flo Ramon > 09/04/20 [id number]
== END ==
LOC: M WUC 15:08
PROVIDERS: ATTEND Nurse Practitioner Family
DX: R06.00 Dyspnea, unspecified (principal)

== ENCOUNTER → 2020-09-18 | Outpatient (REF) | payer MEDICARE | LOC: M LAB REF 17:41 | PROVIDERS: ATTEND Nurse Practitioner Family | DX: D64.9 Anemia, unspecified (principal) ==

== ENCOUNTER 2020-10-22 16:24 | Inpatient (IN) | payer MEDICARE ==
[~2020-10-22] VITALS: Ht 157.5 cm; Wt 79.7 kg
[2020-10-22 17:21] LABS: BASO # 0.1 10^3/uL (0.0-0.2); EOS # 0.1 10^3/uL (0.0-0.5); EOS % 2.2 % (0.0-3.0); HEMATOCRIT 24.9 % (36.0-47.0); HEMOGLOBIN 7.1 g/dl (12.0-15.5); LYMPH # 0.9 10^3/uL (1.5-5.0); LYMPH % 18.4 % (24.0-44.0); MEAN CORPUSCULAR HGB CONC 28.5 g/dl (32.0-36.5); MEAN CORPUSCULAR VOLUME 87.7 fl (80.0-96.0); MONO # 0.4 10^3/uL (0.0-0.8); NEUTROPHILS # 3.4 10^3/uL (1.5-8.5); PLATELET COUNT, AUTOMATED 207 10^3/uL (150-450); RED BLOOD COUNT 2.84 10^6/uL (4.00-5.40); WHITE BLOOD COUNT 4.9 10^3/uL (4.0-10.0)
--- NOTE | 2020-10-22 17:39 | REP ---
INDICATION: DYSPNEA/COUGH. COMPARISON: 09/04/2020, CT 06/23/2020 TECHNIQUE: AP portable seated chest FINDINGS: Of the lung mata are well inflated. Some flattening of the diaphragm suggested on this AP view developed some vascular redistribution and coarsening of interstitial markings. Vessel margins are subtly indistinct this may reflect some early interstitial edema. Some patchy infiltrates or no biliary edema in the bases bilaterally. Small effusions are noted. Heart size show some left ventricular configuration without any definite left atrial enlargement calcified aortic arch and some tortuosity without aneurysm. Airway midline bones with some degenerative change. IMPRESSION: 1. Some left ventricular configuration of the heart and vascular redistribution with interstitial edema suggested as well as basilar alveolar edema or patchy infiltrates with small bilateral effusions. <Electronically signed by Johnson Ng > 10/22/20 [id number]
[2020-10-22 17:46] LABS: ALBUMIN 3.4 GM/DL (3.2-5.2); ALT/SGPT 15 U/L (12-78); BILIRUBIN,DIRECT < 0.1 MG/DL (0.0-0.2); BILIRUBIN,TOTAL 0.1 MG/DL (0.2-1.0); BLOOD UREA NITROGEN 27 MG/DL (7-18); CALCIUM LEVEL 8.6 MG/DL (8.8-10.2); CARBON DIOXIDE LEVEL 27 MEQ/L (21-32); CHLORIDE LEVEL 108 MEQ/L (98-107); CREATININE FOR GFR 1.43 MG/DL (0.55-1.30); GLOMERULAR FILTRATION RATE 37.6 (>32); GLUCOSE, FASTING 115 MG/DL (70-100); NT-PRO BNP 660 PG/ML (<450); POTASSIUM SERUM 4.3 MEQ/L (3.5-5.1); SODIUM LEVEL 140 MEQ/L (136-145); TOTAL PROTEIN 7.2 GM/DL (6.4-8.2)
[2020-10-22] MEDS ORDERED: FUROSEMIDE 40MG/4ML VIAL (J1940) IV ONE (17:55)
--- NOTE | 2020-10-22 17:57 | REP ---
INDICATION: swelling. TECHNIQUE: Multiple ultrasonographic images of the deep venous structures of the left thigh were obtained from the level of the common femoral vein to the popliteal vein in the longitudinal and transverse scan planes along with Doppler interrogation and color flow Doppler imaging. FINDINGS: There is no abnormal echogenic material seen within any of the visualized deep venous structures that would suggest acute thrombosis. Coaptation is unremarkable throughout. Doppler interrogation shows an expected response to respiratory variability and augmentation. The color flow Doppler images show what appears to be a normal vascular pattern throughout. IMPRESSION: There is no ultrasonographic evidence of deep venous thrombosis involving any of the visualized deep venous structures of the left thigh as described above. Accredited by the [employer] in Vascular Peripheral Ultrasound. <Electronically signed by Johnson Ng > 10/22/20 [id number]
--- NOTE | 2020-10-22 18:03 | ECGEPIP ---
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
[2020-10-22] MEDS ORDERED: MAALOX 30 ML SUSP *UDC PO PRN (18:35)
[2020-10-22] MEDS ORDERED: ACETAMINOPHEN TAB 650MG DOSE (2X325MG) PO PRN (18:35)
[2020-10-22] MEDS ORDERED: CARB20TAXR PO (18:52)
[2020-10-22 18:53] LABS: RSV AMPLIFICATION NEGATIVE (NEGATIVE)
[2020-10-22] MEDS ORDERED: PT COMMENT (18:54)
[2020-10-22 18:57] LABS: INR 1.01; PROTHROMBIN TIME 13.5 SECONDS (12.5-14.3)
[2020-10-22 18:58] LABS: PARTIAL THROMBOPLASTIN TIME 25.4 SECONDS (24.2-38.5)
[2020-10-22] MEDS ORDERED: DEXTROSE 50% 50 ML SYRINGE IV PRN (19:05)
[2020-10-22] MEDS ORDERED: ALBUTEROL 90 MCG/ACT 8GM HFA INHALER INH PRN (19:05)
[2020-10-22] MEDS ORDERED: GLUCOSE 4GM CHEW TABLET PO PRN (19:05)
[2020-10-22] MEDS ORDERED: IPRATROPIUM 0.5MG/ALBUTEROL 2.5MG INH SOL UD 3ML (DUONEB) INH PRN (19:05)
[2020-10-22] MEDS ORDERED: GLUCAGON INJ 1MG VIAL SC PRN (19:05)
--- NOTE | 2020-10-22 19:19 | HPEPDOC ---
[facility] Medical History & Physical Date of Admission Oct 22, 2020 Date of Service: Oct 22, 2020 Attending Physician: ROB CROUCH MD History and Physical CHIEF COMPLAINT: shortness of breath HISTORY OF PRESENT ILLNESS: Patient is a 80 year old female with PMH of COPD, seizures, HTN, DM, and prior a dmissions for anemia who presents to the ED with shortness of breath worsening over the past four months. She states it is worse on exertion. She notes this morning she went to get dressed and was having a difficult time. She also noted significant shortness of breath when walking out to get in the car and when closed in the car. She states that typically she has only been walking short distances such as around the house and out to the car. Reports that her daughter brought her to the ED due to increased shortness of breath. She states she uses a nebulizer and inhaler at home which helps a little. She reports that she has had similar episodes in the past but "it was never this bad". Pt denies any fever, chills, N/V/D, abd pain, constipation, worsening edema, cough, congestion, chest pain, or headaches. She denies any recent sick contacts. Recently she has been seeing Dr. Garcia for cardiology because she had "a heart attack they said". In regards to her anemia, pt states that she has had this chronically low hgb and has had multiple tests done that has not shown a cause of low hgb. Pt states that she has a colonoscopy, EGD, and pill endoscopy in the past. She does not remember when her last colonoscopy was but states that the cause of her anemia was not found. PAST MEDICAL HISTORY: Hypertension Insulin dependent diabetes mellitus CKD stage III COPD Bilateral carotid stenosis TIA Seizure disorder Vitamin D deficiency Osteoarthritis Lumbar disc neuropathy Mood disorder GERD Hyperlipidemia PAST SURGICAL HISTORY: Carpal tunnel release Right hip replacement Left hip fracture Right rest biopsy Hysterectomy Bladder surgery Bilateral cataract removal SOCIAL HISTORY: Former smoker quit July 2020, half a pack a day intermittently since the age of 16. No alcohol in the past 20 years. Denies illicit substance use. Lives with son and daughter in law. 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 FAMILY HISTORY: Reviewed and noncontributory ALLERGIES: Please see below. REVIEW OF SYSTEMS: CONSTITUTIONAL: Denies fevers, chills, night sweats, fatigue, unexpected change in weight. HEENT: Denies change in vision, change in hearing. CARDIOVASCULAR: Denies chest pain, palpitations, lightheadedness. RESPIRATORY: Denies cough, wheezing. GASTROINTESTINAL: Denies nausea, vomiting, abdominal pain, diarrhea, constipation, blood in stool. GENITOURINARY: Denies dysuria, urinary frequency, urinary urgency. SKIN: Denies rash, lesions. MUSCULOSKELETAL: Denies joint pain or muscle aches. NEUROLOGICAL: Denies headache, dizziness, weakness. PSYCHIATRIC: Denies change in mood. HOME MEDICATIONS: Please see below. PHYSICAL EXAMINATION: VITAL SIGNS: see below GENERAL: Alert, comfortable, in no acute distress HEENT: Normocephalic, atraumatic, sclera anicteric, moist mucous membranes NECK: Supple, trachea midline CARDIOVASCULAR: Tachycardic. Regular rhythm, normal S1 and S2. No murmurs, rubs, or gallops RESPIRATORY: Bibasilar crackles notes. Otherwise upper lung mata are clear to auscultation. No wheezing. ABDOMEN: Soft, nontender, nondistended, bowel sounds present. EXTREMITIES: 1+ pitting edema up to the knees bilaterally. Pulses 2+/4 in bilateral upper and lower extremities SKIN: bruising on the abdomen from insulin injections NEUROLOGIC: Alert and oriented x3 to person, place and time. No focal deficits appreciated PSYCHIATRIC: Mood and affect appropriate LABORATORY DATA: See below. IMAGING: CXR 10/22/20: Some left ventricular configuration of the heart and vascular redistribution with interstitial edema suggested as well as basilar alveolar edema or patchy infiltrates with small bilateral effusions. Vascular US 10/22/20: There is no abnormal echogenic material seen within any of the visualized deep venous structures that would suggest acute thrombosis. Coaptation is unremarkable throughout. Doppler interrogation shows an expected response to respiratory variability and augmentation. The color flow Doppler images show what appears to be a normal vascular pattern throughout. IMPRESSION: There is no ultrasonographic evidence of deep venous thrombosis involving any of the visualized deep venous structures of the L thigh as described above. MICROBIOLOGY: Please see below. ASSESSMENT: Patient is a 80 year old female with PMH of COPD, seizures, HTN, DM, and prior admissions for anemia who presents to the ED with shortness of breath worsening over the past four months. Pt reports that she has had chronically low hgb and has been worked up in the past but a source of bleeding was not found. In the ED, pt hgb is 7.1. Pt is being admitted for further workup of SOB and symptomatic anemia. PLAN: # SOB 2/2 symptomatic anemia vs CHF exacerbation - Plans discussed below for possible causes. # Anemia 2/2 GI bleed, acute on chronic with hx iron deficiency - Stool occult pending. Hx GI bleeding the past with acute anemia - 2 units PRBCs ordered to transfuse - IV protonix BID - trend H/H q6h. tranfuse for Hg less than 8. - check coag studies - continue home iron deficiency # Edema 2/2 possible CHF - Last echo December 2019, could not comment on EF - interstitial edema on CXR and signs of fluid overload on exam - BNP elevated compared to priors. - 40 IV Lasix ordered in the ED x1. continue IV lasix 20 mg BID - may need diuretic on discharge, none currently prescribed # Hypertension - Continue home meds. # Diabetes mellitus - Hold home levemir until diet is progressed. ISS ACHS. Hypoglycemic precautions. - Currently on clear liquid diet for possible GI bleed, when advanced will transition to consistent carb # CKD stage III - Cr at baseline. Avoid nephrotoxins. # COPD - Not in exacerbation. Continue home inhalers. # Hx TIA and NSTEMI - hold asa for possible GI bleed. Continue statin. # Seizure disorder - Continue home meds. # Chronic UTI - continue home prophylactic Macrobid daily # Osteoarthritis - Tylenol as needed for pain # Mood disorder - Continue home meds DVT prophylaxis: Teds/SCDs, no medical prophylaxis due to possible GI bleed DISPOSITION: admitted to PCU pending clinical improvement Attending Attestation: Patient independently seen and examined. I have discussed in detail with the resident / student the findings and plan of treatment as documented by the resident / student. I agree with their findings and treatment plan and have edited their documentation. I will continue to follow the patient during this hospital stay. Vital Signs Vital Signs Date Time Temp Pulse Resp B/P (MAP) Pulse Ox O2 Delivery O2 Flow Rate FiO2 10/22/20 17:50 171/81 (111) Room Air 10/22/20 17:40 93 97 10/22/20 16:24 97.4 30 Laboratory Data Labs 24H Laboratory Tests 2 10/22/20 17:01: Immature Granulocyte % (Auto) 0.4, Neutrophils (%) (Auto) 69.0H, Lymphocytes (%) (Auto) 18.4L, Monocytes (%) (Auto) 9.0H, Eosinophils (%) (Auto) 2.2, Basophils (%) (Auto) 1.0, Neutrophils # (Auto) 3.4, Lymphocytes # (Auto) 0.9L, Monocytes # (Auto) 0.4, Eosinophils # (Auto) 0.1, Basophils # (Auto) 0.1, Nucleated Red Blood Cells % (auto) 0.0, Anion Gap 5L, Glomerular Filtration Rate 37.6, Calcium Level 8.6L, Total Bilirubin 0.1L, Direct Bilirubin < 0.1, Aspartate Amino Transf (AST/SGOT) 8, Alanine Aminotransferase (ALT/SGPT) 15, Alkaline Phosphatase 93, GA-Qvn-F-Type Natriuretic Peptide 660H, Total Protein 7.2, Albumin 3.4, Albumin/Globulin Ratio 0.9L 10/22/20 17:08: POC Troponin I (Misc) 0.01 CBC/BMP Laboratory Tests 10/22/20 17:01 Home Medications Scheduled Aspirin (Aspirin EC) 81 Mg Tab, 81 MG PO DAILY Atorvastatin Calcium (Atorvastatin Calcium) 20 Mg Tab, 20 MG PO DAILY Budesonide/Formoterol (Symbicort 80-4.5 Mcg Inhaler) 6.9 Gm Hfa.aer.ad, 2 PUFF INH BID Carbamazepine (Carbamazepine ER) 200 Mg Tab.er.12h, 200 MG PO BID Carvedilol (Carvedilol) 25 Mg Tab, 25 MG PO BID Cholecalciferol (Vitamin D3) (Vitamin D3) 1,000 Unit Tablet, 5,000 UNITS PO DAILY Cyanocobalamin (Vitamin B-12) (Vitamin B-12) 1,000 Mcg Capsule, 1,000 MCG PO DAILY Ferrous Sulfate (Ferrous Sulfate) 325 Mg Tab, 325 MG PO QHS Insulin Glargine,Hum.rec.anlog (Toujeo Solostar) 300 Unit/Ml Inj, 80 UNIT SC QHS Insulin Human Lispro (Novolog) 100 U/Ml Inj, 1 DOSE SC ACHS PER SLIDING SCALE, MDD=70 UNITS Memantine HCl (Namenda Xr) 28 Mg Cap.spr.24, 28 MG PO DAILY Nitrofurantoin Monohyd/M-Cryst (Nitrofurantoin Esmeralda-Mcr 100 mg) 100 Mg Capsule, 100 MG PO QHS 8 pm Nortriptyline HCl (Nortriptyline HCl) 25 Mg Cap, 25 MG PO BID Pregabalin (Lyrica) 100 Mg Capsule, 100 MG PO TID Scheduled PRN Albuterol Sulfate (Proair Hfa) 8.5 Gm Hfa.aer.ad, 2 PUFF INH Q4-6HP PRN for wheezing Ipratropium/Albuterol Sulfate (Iprat-Albut 0.5-3(2.5) mg/3 ml) 1 Joel Joel, 1 JOEL INH Q6H PRN for SHORTNESS OF BREATH Miscellaneous Medications [Pt Comment] MED LIST OBTAINED FROM [facility]OMAS'S LAST DOSE TAKEN OBTAINED FROM DAUGHTER Allergies Coded Allergies: metformin (Verified Adverse Reaction, Mild, N/V, 05/23/20) clopidogrel (Verified Adverse Reaction, Unknown, unsure, 10/22/20) PT REPORTS SHE STILL HAS ITCHINESS SO SHE DOES NOT THINK SHE IS ALLERGIC TO PLAVIX WHICH IS WHY THEY STOPPED THE PLAVIX BEFORE FOR POSSIBLE ADVERSE REACTION OF FEELING ITCHY (10/22/20 VISIT) SHELLIE LUJAN D.O. Oct 22, 2020 18:24 Milagros REYES-3 Oct 22, 2020 18:50 ROB CROUCH MD Oct 23, 2020 09:33
[2020-10-22 20:10] VITALS: BP 167/75
[2020-10-22 20:25] VITALS: BP 169/70
[2020-10-22] MEDS: carBAMazepine XR 200 MG TAB PO SCH (21:00)
[2020-10-22] MEDS: HumaLOG INSULIN (NovoLOG) PER UNIT SC SCH (21:00)
[2020-10-22] MEDS: SYMBICORT 80/4.5MCG INHALER 6GM INH SCH (21:02)
[2020-10-22 21:10] VITALS: BP 165/79
[2020-10-22 22:08] VITALS: BP 175/77
[2020-10-22 22:32] VITALS: BP 152/70
[2020-10-22] MEDS: PANTOPRAZOLE 40MG VIAL (C9113 PER 1) IV SCH (22:48)
[2020-10-22] MEDS: FERROUS SULFATE 325MG TAB PO SCH (22:49)
[2020-10-22] MEDS: PREGABALIN 100 MG CAP (LYRICA) PO SCH (22:49)
[2020-10-22] MEDS: CARVedilol 12.5 MG TAB PO SCH (22:50)
[2020-10-22 23:15] LABS: HEMATOCRIT 29.1 % (36.0-47.0); HEMOGLOBIN 8.8 g/dl (12.0-15.5)
[2020-10-23] VITALS (23 sets, daily range): BP systolic 96–154; BP diastolic 54–81; O2SAT 92–96
[2020-10-23] MEDS: NORTRIPTYLINE 25 MG CAP PO SCH ×3 (01:09→20:59)
[2020-10-23] MEDS: NITROFURANTOIN (MACROBID) 100 MG CAP PO SCH ×2 (01:09→20:58)
[2020-10-23 03:11] LABS: HEMATOCRIT 28.9 % (36.0-47.0); HEMOGLOBIN 8.8 g/dl (12.0-15.5); MEAN CORPUSCULAR HEMOGLOBIN 26.3 pg (27.0-33.0); MEAN CORPUSCULAR HGB CONC 30.4 g/dl (32.0-36.5); MEAN CORPUSCULAR VOLUME 86.5 fl (80.0-96.0); PLATELET COUNT, AUTOMATED 185 10^3/uL (150-450); RED BLOOD COUNT 3.34 10^6/uL (4.00-5.40); WHITE BLOOD COUNT 5.3 10^3/uL (4.0-10.0)
[2020-10-23 03:58] LABS: ALBUMIN 3.1 GM/DL (3.2-5.2); BILIRUBIN,TOTAL 0.3 MG/DL (0.2-1.0); CALCIUM LEVEL 8.1 MG/DL (8.8-10.2); CREATININE FOR GFR 1.4 MG/DL (0.55-1.30); GLOMERULAR FILTRATION RATE 38.5 (>32); MAGNESIUM LEVEL 2.2 MG/DL (1.8-2.4); POTASSIUM SERUM 3.7 MEQ/L (3.5-5.1); TOTAL PROTEIN 7.2 GM/DL (6.4-8.2)
--- NOTE | 2020-10-23 04:22 | REPVR ---
PROCEDURE INFORMATION: Exam: XR Abdomen Exam date and time: 10/23/2020 3:09 AM Age: 80 years old Clinical indication: Bloating; Additional info: Abd distention TECHNIQUE: Imaging protocol: XR of the abdomen. Views: Frontal supine view of the abdomen. 1 View. COMPARISON: CT ABD/PEL W/IV ORAL CONTRAS 10/03/2018 6:09 PM FINDINGS: Gastrointestinal tract: Moderate stool in colon. Vasculature: Atherosclerotic disease. Bones/joints: Hardware in the bilateral hips. IMPRESSION: Moderate stool in colon. Electronically signed by: Gerardo Mcpherson On 10/23/2020 04:22:35 AM
[2020-10-23] MEDS: HumaLOG INSULIN (NovoLOG) PER UNIT SC SCH ×4 (07:30→20:57)
[2020-10-23] MEDS ORDERED: SLF 3 ML SYR IV PRN (08:55)
[2020-10-23] MEDS: CARVedilol 12.5 MG TAB PO SCH ×2 (08:58→20:59)
[2020-10-23] MEDS: ATORVASTATIN 20 MG TAB PO SCH (08:58)
[2020-10-23] MEDS: VITAMIN D 1,000 INTERNATIONAL UNITS TABLET PO SCH (08:58)
[2020-10-23] MEDS: carBAMazepine XR 200 MG TAB PO SCH ×2 (08:58→20:59)
[2020-10-23] MEDS: PREGABALIN 100 MG CAP (LYRICA) PO SCH ×3 (08:59→21:04)
[2020-10-23] MEDS: PANTOPRAZOLE 40MG VIAL (C9113 PER 1) IV SCH ×2 (08:59→20:53)
[2020-10-23] MEDS: CYANOCOBALAMIN 500 MCG TAB PO SCH (08:59)
[2020-10-23] MEDS ORDERED: CYCLOBENZAPRINE 5MG TABLET PO ONE (09:00)
[2020-10-23] MEDS ORDERED: FUROSEMIDE 20MG/2ML VIAL (J1940) IV SCH (09:00)
[2020-10-23] MEDS: SYMBICORT 80/4.5MCG INHALER 6GM INH SCH ×2 (11:00→19:50)
[2020-10-23 11:04] LABS: HEMATOCRIT 28.3 % (36.0-47.0); HEMOGLOBIN 8.6 g/dl (12.0-15.5)
--- NOTE | 2020-10-23 11:30 | IPNPDOC ---
Text Note Date of Service The patient was seen on 10/23/20. NOTE SUBJECTIVE: Patient is seen and examined this morning at bedside. Patient OBJECTIVE: VITAL SIGNS: See below GENERAL: Alert, comfortable, in no acute distress HEENT: Normocephalic, atraumatic, sclera anicteric, moist mucous membranes NECK: Supple, trachea midline CARDIOVASCULAR: Regular rate and rhythm, normal S1 and S2. No murmurs, rubs, or gallops RESPIRATORY: Bibasilar crackles notes. Otherwise upper lung mata are clear to auscultation. No wheezing. ABDOMEN: Soft, nontender, nondistended, bowel sounds present. EXTREMITIES: Trace pedal pitting edema bilaterally. Pulses 2+/4 in bilateral upper and lower extremities SKIN: bruising on the abdomen from insulin injections NEUROLOGIC: Alert and oriented x3 to person, place and time. No focal deficits appreciated PSYCHIATRIC: Mood and affect appropriate ASSESSMENT/PLAN: 80 year old female with PMH of COPD, seizures, HTN, DM, and prior admissions for anemia who presents to the ED with shortness of breath worsening over the past four months. Pt reports that she has had chronically low hgb and has been worked up in the past but a source of bleeding was not found. In the ED, pt hgb is 7.1. Pt is admitted for further workup of SOB and symptomatic anemia. # SOB 2/2 symptomatic anemia vs CHF exacerbation - improved today - Plans discussed below for possible causes. # Anemia 2/2 GI bleed, acute on chronic with hx iron deficiency - Stool occult pending. Hx GI bleeding the past with acute anemia - s/p 2 units PRBCs transfused - IV protonix BID - Recheck H/H this afternoon. tranfuse for Hg less than 8. - advance to full diet - continue home iron supplement # Edema 2/2 possible CHF - Last echo December 2019, could not comment on EF - BNP elevated compared to priors. - 40 IV Lasix ordered in the ED x1 with good effect. - hold off on further diuresis at this point # Hypertension - Continue home meds. # Diabetes mellitus - Restart basal insulin tonight at 40 units. ISS ACHS. Hypoglycemic precautions. - advanced to consistent carb diet today # CKD stage III - Cr at baseline. Avoid nephrotoxins. # COPD - Not in exacerbation. Continue home inhalers. # Hx TIA and NSTEMI - hold asa for possible GI bleed. Continue statin. # Seizure disorder - Continue home meds. # Chronic UTI - continue home prophylactic Macrobid daily # Osteoarthritis - Tylenol as needed for pain # Mood disorder - Continue home meds DVT prophylaxis: Teds/SCDs, no medical prophylaxis due to possible GI bleed DISPOSITION: pending clinical improvement, PT/OT eval Attending Attestation: Patient independently seen and examined. I have discussed in detail with the resident / student the findings and plan of treatment as documented by the resid ent / student. I agree with their findings and treatment plan and have edited their documentation. I will continue to follow the patient during this hospital stay. VS,Fishbone, I+O VS, Fishbone, I+O Laboratory Tests 10/22/20 17:01 10/22/20 23:00 10/23/20 02:58 Vital Signs Date Time Temp Pulse Resp B/P (MAP) Pulse Ox O2 Delivery O2 Flow Rate FiO2 10/23/20 08:00 97.2 84 20 140/70 (93) 94 Room Air I&O- Last 24 Hours up to 6 AM 10/23/20 06:00 Intake Total 1000 ml Output Total 300 ml Balance 700 ml SHELLIE LUJAN D.O. Oct 23, 2020 11:30 ROB CROUCH MD Oct 25, 2020 07:01
[2020-10-23] MEDS: SLF 3 ML SYR IV SCH ×2 (14:57→21:26)
[2020-10-23 15:05] LABS: HEMATOCRIT 29.3 % (36.0-47.0)
[2020-10-23] MEDS: FERROUS SULFATE 325MG TAB PO SCH (20:58)
[2020-10-23] MEDS ORDERED: LEVEMIR (INSULIN DETEMIR) 1 UNITS/0.01ML SC SCH (21:00)
[2020-10-24] VITALS (7 sets, daily range): BP systolic 112–156; BP diastolic 50–68; O2SAT 93–96
[2020-10-24] MEDS: SLF 3 ML SYR IV SCH ×2 (05:13→14:00)
[2020-10-24] MEDS: HumaLOG INSULIN (NovoLOG) PER UNIT SC SCH ×2 (07:30→12:18)
[2020-10-24] MEDS: SYMBICORT 80/4.5MCG INHALER 6GM INH SCH (08:19)
[2020-10-24 08:34] LABS: HEMATOCRIT 33.8 % (36.0-47.0); HEMOGLOBIN 9.9 g/dl (12.0-15.5); MEAN CORPUSCULAR HEMOGLOBIN 25.9 pg (27.0-33.0); MEAN CORPUSCULAR HGB CONC 29.3 g/dl (32.0-36.5); MEAN CORPUSCULAR VOLUME 88.5 fl (80.0-96.0); PLATELET COUNT, AUTOMATED 195 10^3/uL (150-450); RED BLOOD COUNT 3.82 10^6/uL (4.00-5.40); WHITE BLOOD COUNT 5.4 10^3/uL (4.0-10.0)
[2020-10-24] MEDS: PREGABALIN 100 MG CAP (LYRICA) PO SCH ×2 (08:50→15:30)
[2020-10-24] MEDS: PANTOPRAZOLE 40MG VIAL (C9113 PER 1) IV SCH (08:50)
[2020-10-24] MEDS: CYANOCOBALAMIN 500 MCG TAB PO SCH (08:50)
[2020-10-24] MEDS: NORTRIPTYLINE 25 MG CAP PO SCH (08:51)
[2020-10-24] MEDS: ATORVASTATIN 20 MG TAB PO SCH (08:51)
[2020-10-24] MEDS: CARVedilol 12.5 MG TAB PO SCH (08:51)
[2020-10-24] MEDS: VITAMIN D 1,000 INTERNATIONAL UNITS TABLET PO SCH (08:51)
[2020-10-24] MEDS: carBAMazepine XR 200 MG TAB PO SCH (08:51)
[2020-10-24] MEDS ORDERED: MOM 30ML SUSPENSION UDC PO ONE (09:00)
[2020-10-24 09:04] LABS: CALCIUM LEVEL 8.6 MG/DL (8.8-10.2); CREATININE FOR GFR 1.35 MG/DL (0.55-1.30); GLOMERULAR FILTRATION RATE 40.2 (>32); MAGNESIUM LEVEL 2.3 MG/DL (1.8-2.4); POTASSIUM SERUM 4.5 MEQ/L (3.5-5.1)
--- NOTE | 2020-10-24 10:01 | REP ---
INDICATION: sob, interim eval. COMPARISON: 10/22/2020, 09/04/2020, CT 06/23/2020. TECHNIQUE: Two views FINDINGS: Lungs are well inflated. There are small bilateral pleural effusions right greater than left. Some underlying interstitial fibrotic changes are noted. There is vascular redistribution but less upper lobe vascular engorgement indicating improving edema. Some patchy basilar atelectasis or infiltrates versus alveolar edema have improved compared to yesterday. Heart size borderline. Calcified aorta with tortuosity but no aneurysm. Airway intact. Bones show demineralization but without acute compression deformity or focal lesion. IMPRESSION: 1. Borderline heart size with some venous hypertension, much improved vascular congestion and resolving basilar airspace opacities representing resolving of either alveolar edema or atelectasis. Small bilateral effusions, right greater than left. Underlying fibrosis and COPD. 2. Calcified tortuous aorta without gross aneurysm. Bones demineralized without compression deformity in the spine. <Electronically signed by Johnson Ng > 10/24/20 [id number]
[2020-10-24] MEDS ORDERED: PROT1TAB2 PO (12:49)
--- NOTE | 2020-10-24 16:32 | DS.PDOC ---
Discharge Summary General Date of Admission Oct 22, 2020 at 18:47 Date of Discharge October 24, 2020 Primary Care Physician: TAWANDA ADEN PA-C Attending Physician: ROB CROUCH MD Discharge Summary PROCEDURES PERFORMED DURING STAY: None. ADMITTING DIAGNOSES: Anemia 2/2 GI bleed, acute on chronic with hx iron deficiency Edema 2/2 possible CHF Hypertension Diabetes mellitus CKD stage III COPD Hx TIA and NSTEMI Seizure disorder Chronic UTI Osteoarthritis DISCHARGE DIAGNOSES: Anemia 2/2 iron deficiency Edema 2/2 possible CHF Hypertension Diabetes mellitus CKD stage III COPD Hx TIA and NSTEMI Seizure disorder Chronic UTI Osteoarthritis. COMPLICATIONS/CHIEF COMPLAINT: Symptomatic Anemia. HISTORY OF PRESENT ILLNESS: Patient is a 80 year old female with PMH of COPD, seizures, HTN, DM, and prior admissions for anemia who presents to the ED with shortness of breath worsening over the past four months. She states it is worse on exertion. She notes this morning she went to get dressed and was having a difficult time. She also noted significant shortness of breath when walking out to get in the car and when closed in the car. She states that typically she has only been walking short distances such as around the house and out to the car. Reports that her daughter brought her to the ED due to increased shortness of breath. She states she uses a nebulizer and inhaler at home which helps a little. She reports that she has had similar episodes in the past but "it was never this bad". Pt denies any fever, chills, N/V/D, abd pain, constipation, w orsening edema, cough, congestion, chest pain, or headaches. She denies any recent sick contacts. Recently she has been seeing Dr. Garcia for cardiology because she had "a heart attack they said". In regards to her anemia, pt states that she has had this chronically low hgb and has had multiple tests done that has not shown a cause of low hgb. Pt states that she has a colonoscopy, EGD, and pill endoscopy in the past. She does not remember when her last colonoscopy was but states that the cause of her anemia was not found. HOSPITAL COURSE: Patient was admitted to the hospital and transfused with 2 units PRBCs. She was started on IV Protonix twice a day for possible GI bleed. Her hemoglobin and hematocrit levels were trended every 6 hours. Her hemoglobin improved to the 9-10 range and remained stable throughout the remainder of her admission. She was continued on her home iron supplement. Stool occult testing was negative and the patient did not report any history of zaida blood or black stools. He patient received 1 dose of 40 mg IV Lasix in the ED. This resulted in significant improvement in her lower extremity edema as well as the vascular congestion seen on chest x-ray. She was not continued on any further diuresis. Her diet was progressed without complication. Her shortness of breath improved after the blood transfusions and IV Lasix dosing. It remains uncertain whether her shortness of breath was exacerbated by the anemia or the buildup of edema. Considering there is no GI bleed is less likely that the anemia occurred acutely. He patient should be continued on oral iron supplementation and may require iron infusions if she continues to have recurrent drops in hemoglobin levels. DISCHARGE MEDICATIONS: Please see below. ALLERGIES: Please see below. PHYSICAL EXAMINATION ON DISCHARGE: VITAL SIGNS: Please see below. GENERAL: Alert, comfortable, in no acute distress HEENT: Normocephalic, atraumatic, sclera anicteric, moist mucous membranes NECK: Supple, trachea midline CARDIOVASCULAR: Regular rate and rhythm, normal S1 and S2. No murmurs, rubs, or gallops RESPIRATORY: Clear to auscultation bilaterally. No wheezing, rhonchi or rales. ABDOMEN: Soft, nontender, nondistended, bowel sounds present. EXTREMITIES: Trace pedal pitting edema bilaterally. Pulses 2+/4 in bilateral upper and lower extremities SKIN: bruising on the abdomen from insulin injections NEUROLOGIC: Alert and oriented x3 to person, place and time. No focal deficits appreciated PSYCHIATRIC: Mood and affect appropriate LABORATORY DATA: Please see below. IMAGING: (impressions per radiologist report) -CXR Some left ventricular configuration of the heart and vascular redistribution with interstitial edema suggested as well as basilar alveolar edema or patchy infiltrates with small bilateral effusions. -Vascular U/S There is no ultrasonographic evidence of deep venous thrombosis involving any of thevisualized deep venous structures of the left thigh as described above. -XR abdomen Moderate stool in colon -CXR 1. Borderline heart size with some venous hypertension, much improved vascular congestion and resolving basilar airspace opacities representing resolving of either alveolar edema or atelectasis. Small bilateral effusions, right greater than left. Underlying fibrosis and COPD. 2. Calcified tortuous aorta without gross aneurysm. Bones demineralized without compression deformity in the spine. PROGNOSIS: Fair ACTIVITY: As tolerated. DIET: Consistent carbohydrate DISCHARGE PLAN: Follow up with PCP for further monitoring and treatment as indicated DISPOSITION: Home DISCHARGE INSTRUCTIONS: Follow up with PCP in 7-10 days If your symptoms return please call your PCP or return to the ED for further evaluation ITEMS TO FOLLOWUP ON ON OUTPATIENT: 1. Anemia - please continue to monitor pt's CBC DISCHARGE CONDITION: Stable. TIME SPENT ON DISCHARGE: Greater than 35 minutes. Attending Attestation: Patient independently seen and examined. I have discussed in detail with the resident / student the findings and plan of treatment as documented by the resident / student. I agree with their findings and treatment plan and have edited their docume ntation. I will continue to follow the patient during this hospital stay. Vital Signs/I&Os Vital Signs Date Time Temp Pulse Resp B/P (MAP) Pulse Ox O2 Delivery O2 Flow Rate FiO2 10/24/20 12:00 91 Room Air 10/24/20 12:00 97.4 79 18 112/50 (70) I&O- Last 24 Hours up to 6 AM 10/24/20 06:00 Intake Total 1925 ml Output Total 700 ml Balance 1225 ml Laboratory Data Labs 24H Laboratory Tests 2 10/23/20 17:15: Bedside Glucose (Misc Panel) 164H 10/23/20 20:57: Bedside Glucose (Misc Panel) 176H 10/24/20 07:53: Nucleated Red Blood Cells % (auto) 0.4H, Anion Gap 7L, Glomerular Filtration Rate 40.2, Calcium Level 8.6L, Magnesium Level 2.3, KF-Vdg-W-Type Natriuretic Peptide 495H 10/24/20 12:10: Bedside Glucose (Misc Panel) 319H CBC/BMP Laboratory Tests 10/24/20 07:53 FSBS Laboratory Tests Test 10/23/20 17:15 10/23/20 20:57 10/24/20 12:10 Range/Units Bedside Glucose (Misc Panel) 164 176 319 83-110 MG/DL Discharge Medications Scheduled Aspirin (Aspirin EC) 81 Mg Tab, 81 MG PO DAILY, (Reported) Atorvastatin Calcium (Atorvastatin Calcium) 20 Mg Tab, 20 MG PO DAILY, (Reported) Budesonide/Formoterol (Symbicort 80-4.5 Mcg Inhaler) 6.9 Gm Hfa.aer.ad, 2 PUFF INH BID, (Reported) Carbamazepine (Carbamazepine ER) 200 Mg Tab.er.12h, 200 MG PO BID, (Reported) Carvedilol (Carvedilol) 25 Mg Tab, 25 MG PO BID, (Reported) Cholecalciferol (Vitamin D3) (Vitamin D3) 1,000 Unit Tablet, 5,000 UNITS PO DAILY, (Reported) Cyanocobalamin (Vitamin B-12) (Vitamin B-12) 1,000 Mcg Capsule, 1,000 MCG PO DAILY, (Reported) Ferrous Sulfate (Ferrous Sulfate) 325 Mg Tab, 325 MG PO QHS, (Reported) Insulin Glargine,Hum.rec.anlog (Toujeo Solostar) 300 Unit/Ml Inj, 80 UNIT SC QHS, (Reported) Insulin Human Lispro (Novolog) 100 U/Ml Inj, 1 DOSE SC ACHS, (Reported) PER SLIDING SCALE, MDD=70 UNITS Memantine HCl (Namenda Xr) 28 Mg Cap.spr.24, 28 MG PO DAILY, (Reported) Nitrofurantoin Monohyd/M-Cryst (Nitrofurantoin Moody-Mcr 100 mg) 100 Mg Capsule, 100 MG PO QHS, (Reported) 8 pm Nortriptyline HCl (Nortriptyline HCl) 25 Mg Cap, 25 MG PO BID, (Reported) Pantoprazole Sodium (Protonix) 40 Mg Tablet.dr, 40 MG PO DAILY Pregabalin (Lyrica) 100 Mg Capsule, 100 MG PO TID, (Reported) Scheduled PRN Albuterol Sulfate (Proair Hfa) 8.5 Gm Hfa.aer.ad, 2 PUFF INH Q4-6HP PRN for wheezing, (Reported) Ipratropium/Albuterol Sulfate (Iprat-Albut 0.5-3(2.5) mg/3 ml) 1 Joel Joel, 1 JOEL INH Q6H PRN for SHORTNESS OF BREATH, (Reported) Miscellaneous Medications [Pt Comment] , (Reported) MED LIST OBTAINED FROM [facility]'S LAST DOSE TAKEN OBTAINED FROM DAUGHTER Allergies Coded Allergies: metformin (Verified Adverse Reaction, Mild, N/V, 05/23/20) clopidogrel (Verified Adverse Reaction, Unknown, unsure, 10/22/20) PT REPORTS SHE STILL HAS ITCHINESS SO SHE DOES NOT THINK SHE IS ALLERGIC TO PLAVIX WHICH IS WHY THEY STOPPED THE PLAVIX BEFORE FOR POSSIBLE ADVERSE REACTION OF FEELING ITCHY (10/22/20 VISIT) SHELLIE LUJAN D.O. Oct 24, 2020 16:32 ROB CROUCH MD Oct 25, 2020 07:35
== END 2020-10-24 16:23 | disposition home or self-care (01) | DRG 812 ==
LOC: M ED 16:24 → M ED INP 18:47 → ENRESERV 21:03 → M PCU 22:19
PROVIDERS: ADMIT Internal Medicine; ATTEND Internal Medicine
PROC: 30233N1 Transfusion of Nonautologous Red Blood Cells into Peripheral Vein, Percutaneous Approach (ICD-10-PCS; principal; 2020-10-22)
DX: D50.9 Iron deficiency anemia, unspecified (principal); I13.0 Hypertensive heart and chronic kidney disease with heart failure and stage 1 through stage 4 chronic kidney disease, or unspecified chronic kidney disease; N39.0 Urinary tract infection, site not specified; G40.909 Epilepsy, unspecified, not intractable, without status epilepticus; J44.9 Chronic obstructive pulmonary disease, unspecified; E11.22 Type 2 diabetes mellitus with diabetic chronic kidney disease; E11.65 Type 2 diabetes mellitus with hyperglycemia; N18.30 Chronic kidney disease, stage 3 unspecified; E55.9 Vitamin D deficiency, unspecified; M81.0 Age-related osteoporosis without current pathological fracture; M51.36 Other intervertebral disc degeneration, lumbar region; F39 Unspecified mood [affective] disorder; K21.9 Gastro-esophageal reflux disease without esophagitis; E78.5 Hyperlipidemia, unspecified; Z98.41 Cataract extraction status, right eye; Z98.42 Cataract extraction status, left eye; Z90.49 Acquired absence of other specified parts of digestive tract; Z87.891 Personal history of nicotine dependence; Z79.4 Long term (current) use of insulin; Z79.899 Other long term (current) drug therapy; Z88.8 Allergy status to other drugs, medicaments and biological substances; I50.9 Heart failure, unspecified; Z86.73 Personal history of transient ischemic attack (TIA), and cerebral infarction without residual deficits; Z96.641 Presence of right artificial hip joint; I25.2 Old myocardial infarction

== ENCOUNTER 2020-10-30 11:24 | Inpatient (IN) | payer MEDICARE ==
[~2020-10-30] VITALS: Ht 157.5 cm; Wt 92.4 kg
[~2020-10-30 11:24] MED LIST changes: +CARB20TAXR PO; +PROT1TAB2 PO; +PT COMMENT
[2020-10-30] MEDS ORDERED: methylPREDNISolone 125MG 2ML VIAL IV ONE (12:00)
[2020-10-30] MEDS: COMBIVENT RESPIMAT 100-20MCG INHALER 4GM INH SCH ×3 (12:03→13:29)
--- NOTE | 2020-10-30 12:20 | REP ---
INDICATION: DYSPNEA/COUGH. COMPARISON: PA and lateral chest dated 10/24/2020. TECHNIQUE: Portable AP chest with the patient sitting. FINDINGS: There is diffuse bilateral interstitial coarsening and there are small bilateral pleural effusions. The findings are similar to the comparison study. Cardiac size is upper normal, unchanged. The dipesh, mediastinum, and skeletal structures are unchanged. IMPRESSION: Interstitial coarsening and small bilateral pleural effusions and borderline enlarged cardiac size. No significant interval change from the comparison study. <Electronically signed by Francisco Leahy > 10/30/20 [id number]
[2020-10-30 12:26] LABS: BASO % 0.5 % (0.0-1.0); EOS # 0.1 10^3/uL (0.0-0.5); EOS % 1.3 % (0.0-3.0); HEMATOCRIT 35.2 % (36.0-47.0); HEMOGLOBIN 10.4 g/dl (12.0-15.5); LYMPH # 0.8 10^3/uL (1.5-5.0); LYMPH % 14.1 % (24.0-44.0); MEAN CORPUSCULAR HEMOGLOBIN 26.2 pg (27.0-33.0); MEAN CORPUSCULAR HGB CONC 29.5 g/dl (32.0-36.5); MEAN CORPUSCULAR VOLUME 88.7 fl (80.0-96.0); MONO # 0.4 10^3/uL (0.0-0.8); NEUTROPHILS # 4.3 10^3/uL (1.5-8.5); NEUTROPHILS % 76.6 % (36.0-66.0); PLATELET COUNT, AUTOMATED 228 10^3/uL (150-450); RED BLOOD COUNT 3.97 10^6/uL (4.00-5.40); WHITE BLOOD COUNT 5.6 10^3/uL (4.0-10.0)
[2020-10-30] MEDS ORDERED: BRIL90TA PO (12:57)
[2020-10-30] MEDS ORDERED: HUMA100I5 SC (12:57)
[2020-10-30 13:09] LABS: ALBUMIN 3.6 GM/DL (3.2-5.2); ALT/SGPT 24 U/L (12-78); BILIRUBIN,DIRECT 0.1 MG/DL (0.0-0.2); BILIRUBIN,TOTAL 0.3 MG/DL (0.2-1.0); BLOOD UREA NITROGEN 27 MG/DL (7-18); CALCIUM LEVEL 9.2 MG/DL (8.8-10.2); CARBON DIOXIDE LEVEL 29 MEQ/L (21-32); CHLORIDE LEVEL 106 MEQ/L (98-107); CK-MB VALUE MASS 3.1 NG/ML (<3.6); CPK CREATINE PHOSPHOKINASE 77 U/L (26-192); CREATININE FOR GFR 1.21 MG/DL (0.55-1.30); GLOMERULAR FILTRATION RATE 45.6 (>32); GLUCOSE, FASTING 114 MG/DL (70-100); MB/CK RELATIVE INDEX 4.03 (< OR =4); NT-PRO BNP 1312 PG/ML (<450); POTASSIUM SERUM 4.6 MEQ/L (3.5-5.1); SODIUM LEVEL 139 MEQ/L (136-145); THYROID STIMULATING HORMONE 0.547 uIU/ML (0.358-3.740); TOTAL PROTEIN 7.4 GM/DL (6.4-8.2); TROPONIN I < 0.02 NG/ML (< 0.10)
--- NOTE | 2020-10-30 13:28 | ECGEPIP ---
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
[2020-10-30] MEDS ORDERED: FUROSEMIDE 20MG/2ML VIAL (J1940) IV ONE ×2 (13:40→16:00)
[2020-10-30] MEDS ORDERED: PANT40TA29 PO (13:54)
[2020-10-30] MEDS ORDERED: ADME100I SC (13:54)
[2020-10-30] MEDS ORDERED: ISOVUE-370 76% 100ML VIAL As Ordered ONE (14:11)
--- NOTE | 2020-10-30 14:17 | HPEPDOC ---
[facility] Medical History & Physical Date of Admission Oct 30, 2020 Date of Service: Oct 30, 2020 Attending Physician: Ruba Latham MD History and Physical CHIEF COMPLAINT: Increased SOB HISTORY OF PRESENT ILLNESS: Patient is an 80-year-old female with past medical history of hypertension, diabetes mellitus type 2, COPD, carotid stenosis, recent hospital admission for symptomatic anemia s/p 2 units of PRBC, seizure disorder, GERD, TIA, CK D stage III who presented to [facility] emergency room with chief complaint of increased shortness of breath. She states she's had progressive shortness of breath over the past several months and was recently admitted to the medicine service at [facility] from 104/07/2020 where she was transfused several units of blood. She states she was told the past that she has COPD but has never had primary function testing and does not follow with a senior controls analyst. She states today her shortness of breath was severe and she "couldn't breathe" and felt like "this was going to be it". She states she had concomitant chest discomfort substernally, nonradiating, 10/10, constant. It was also associated with some lightheadedness. She denied coughing, fevers, chills, diaphoresis, dizziness, blurry vision, increased lower extremity swelling over the past several weeks. She attempted to use her nebulizer 3 times at home after using her rescue inhaler which did not help. After her treatments failed at home she came to the ER for further evaluation. In the emergency room vital signs showed 97.6, 79341 for heart rate, 052310/[id number], respiratory rate 18, 98% on 2 L. She does not use home oxygen at home. H&H was stable at 10/35.2 and much improved from her prior admission. BNP was higher at 1312 compared to last admission of 600. Troponin was negative. ABG showed normal pH. CTA chest: no pulmonary emboli, small/moderate bilateral pleural effusions, increased in size from the comparison study. Patient was given steroids, nebulizer treatments in ER. I ordered IV lasix to beign. She stated she was recently started on Lasix again as outpatient, it was unclear why it was stopped initially. On exam the patient had +1 pitting edema in the lower extremities and admitted to eating salt frequently. She was admitted under observation status for Shortness of breath likely 2/2 to HFpEF with mild exacerbation, bilateral pleural effusions. REVIEW OF SYSTEMS: Neg except for what is mentioned above PAST MEDICAL HISTORY: Anemia- recent hospital admission 10/22/20-10/24/20 s/p 2 units PRBC Hypertension Insulin dependent diabetes mellitus CKD stage III COPD Bilateral carotid stenosis TIA Seizure disorder Vitamin D deficiency Osteoarthritis Lumbar disc neuropathy Mood disorder GERD Hyperlipidemia ? CAD Dementia PAST SURGICAL HISTORY: Carpal tunnel release Right hip replacement Left hip fracture Right rest biopsy Hysterectomy Bladder surgery Bilateral cataract removal SOCIAL HISTORY: Former smoker quit July 2020, 1-2 PPD since 16. No alcohol in the past 20 years. Denies illicit substance use. Lives with daughter. 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 FULL CODE FAMILY HISTORY: M: DM type II. at 65 y/o F: lung problems. at 89 y/o ALLERGIES: Please see below. HOME MEDICATIONS: Please see below. PHYSICAL EXAMINATION: VS: 97.6, 98-107 HR sinus tach, 172-214/67-98, RR 18, 98% on 2 L NC CONSTITUTIONAL: No acute distress, AAO x 3 EYES: PERRLA, EOM intact HENT, MOUTH: Normocephalic, atraumatic, moist mucous membranes, NC in place NECK: SUPPLE, no JVD, no lymphadenopathy, no carotid bruit CV: Regular rate and rhythm, S1S2 normal, no murmurs/rubs/gallops RESPIRATORY: Crackles in b/l posterior lower lung mata, no rales/rhonchi/wheezes GI: BS positive in 4 quadrants, soft, nontender, nondistended, no rebound or guarding, no organomegaly : Deferred MUSCULOSKELETAL: Normal ROM. No cyanosis, clubbing, swelling, joint deformity, extremity edema INTEGUMENTARY: Intact, no rashes, no lesions, no erythema NEUROLOGIC: Cranial Nerves II-XII are intact, no focal deficits PSYCHIATRIC: Mood and affect are normal LABORATORY DATA: Please see below IMAGING: CTA chest : There are no pulmonary emboli. There are small/moderate bilateral pleural effusions, increased in size from the comparison study. There are no lung nodules, masses, infiltrates or effusions. No adenopathy. Right hemithyroidectomy, unchanged. Nodules in the remaining thyroid left lobe, unchanged. Thoracic aorta is unremarkable. Cardiac size is normal. CXR: Interstitial coarsening and small bilateral pleural effusions and borderline enlarged cardiac size. No significant interval change from the comparison study. Last echocardiogram 12/2019: EF 80 % Normal sinus rhythm without intraventricular conduction disturbance. M-mode and two-dimensional echocardiography was performed with pulsed, continuous wave, color flow and tissue Doppler studies. Mild concentric left ventricle hypertrophy with hyperkinetic wall motion. Left atrial size upper limits of normal. Unable to estimate LV diastolic function with mitral valve disorder. Normal right heart chamber sizes and motion with Doppler evidence of mild pulmonary hypertension. Somewhat small IVC with normal respiratory collapse in keeping with central venous pressure of 0-5 mmHg. Normal aortic diameters. Mild aortic valvular sclerosis without stenosis and only trace insufficiency. Severe mitral annular calcification with mild inflow tract obstruction and very mild insufficiency. Normal appearing tricuspid valve with very mild insufficiency. No apparent intracardiac mass or pericardial effusion. ASSESSMENT: 80-year-old female with past medical history of hypertension, diabetes mellitus type 2, COPD, carotid stenosis, dementia recent hospital admission for symptomatic anemia s/p 2 units of PRBC, seizure disorder, GERD, TIA, CK D stage III admitted for shortness of breath likely 2/2 to HFpEF with mild exacerbation, bilateral pleural effusions. PLAN: Shortness of breath likely 2/2 to HFpEF with mild exacerbation, bilateral pleural effusions -Currently saturating well on 2 L NC, will attempt to wean down -Only recently started back on lasix (but not on current med rec for some reason), eats salt a lot with meals -Prior echo above -CTA above -Repeat echocardiogram ordered. -Strict I&O's, fluid restriction 1800 cc/24H, lasix BID, daily wt, low salt diet Hypertensive urgency -C/w home meds, lasix BID -Monitor closely DM type II -BS stable -C/w levemir BID, AC/HS FS and ISS, consistent carb diet COPD -Never had pulmonary function testing, long history of tobacco use -C/w home meds, ATC albuterol -Received methylprednisolone in ER, not believed to be in exacerbation BRANDON -Stable -C/w ferrous sulfate BID -CBC daily Seizure d/o -Stable -C/w home meds TIA -C/w statin, ASA Peripheral neuropathy -C/w gabapentin CKD Stage III -Cr wnl -Monitor after receiving contrast with CTA chest and with diuresis -Daily labs GERD -PPI DVT px -Lovenox DISPOSITION: Admitted under observation status. Plan is discharge home when [facility] improved. Vital Signs Vital Signs Date Time Temp Pulse Resp B/P (MAP) Pulse Ox O2 Delivery O2 Flow Rate FiO2 10/30/20 13:50 101 18 10/30/20 13:04 98 Nasal Cannula 10/30/20 13:00 180/75 (110) 10/30/20 12:20 2.0 10/30/20 11:24 97.6 Laboratory Data Labs 24H Laboratory Tests 2 10/30/20 12:05: Immature Granulocyte % (Auto) 0.5, Neutrophils (%) (Auto) 76.6H, Lymphocytes (%) (Auto) 14.1L, Monocytes (%) (Auto) 7.0, Eosinophils (%) (Auto) 1.3, Basophils (%) (Auto) 0.5, Neutrophils # (Auto) 4.3, Lymphocytes # (Auto) 0.8L, Monocytes # (Auto) 0.4, Eosinophils # (Auto) 0.1, Basophils # (Auto) 0.0, Nucleated Red Blood Cells % (auto) 0.0, Anion Gap 4L, Glomerular Filtration Rate 45.6, Lactic Acid Level 0.9, Calcium Level 9.2, Total Bilirubin 0.3, Direct Bilirubin 0.1, Aspartate Amino Transf (AST/SGOT) 16, Alanine Aminotransferase (ALT/SGPT) 24, Alkaline Phosphatase 109, Total Creatine Kinase 77, Creatine Kinase MB 3.1, Creatine Kinase MB Relative Index 4.03H, Troponin I < 0.02, EM-Eat-K-Type Natriuretic Peptide 1312H, Total Protein 7.4, Albumin 3.6, Albumin/Globulin Ratio 0.9L, Thyroid Stimulating Hormone (TSH) 0.547, Thyroxine (T4) 9.0 10/30/20 12:18: POC pH (Misc Panel) 7.424, POC Base Excess (Misc Panel) 1.0, POC Saturated Perce nt O2 (Misc) 96, POC pO2 (Misc Panel) 77.0L, POC pCO2 (Misc Panel) 38.8, POC HCO3 (Misc Panel) 25.4, POC Total CO2 (Misc Panel) 27.0 CBC/BMP Laboratory Tests 10/30/20 12:05 Microbiology Microbiology 10/30/20 Respiratory Virus Panel (PCR) (DAYAN) - Final, Complete 10/30/20 Blood Culture, Received Pending Home Medications Scheduled Aspirin (Aspirin EC) 81 Mg Tab, 81 MG PO DAILY Atorvastatin Calcium (Atorvastatin Calcium) 20 Mg Tab, 20 MG PO DAILY Budesonide/Formoterol (Symbicort 80-4.5 Mcg Inhaler) 6.9 Gm Hfa.aer.ad, 2 PUFF INH BID Carbamazepine (Carbamazepine ER) 200 Mg Tab.er.12h, 200 MG PO BID Carvedilol (Carvedilol) 25 Mg Tab, 25 MG PO BID Cholecalciferol (Vitamin D3) (Vitamin D3) 1,000 Unit Tablet, 5,000 UNITS PO DAILY Cyanocobalamin (Vitamin B-12) (Vitamin B-12) 1,000 Mcg Capsule, 1,000 MCG PO DAILY Ferrous Sulfate (Ferrous Sulfate) 325 Mg Tab, 325 MG PO QHS Insulin Glargine,Hum.rec.anlog (Toujeo Solostar) 300 Unit/Ml Inj, 70 UNIT SC QHS Insulin Lispro (Admelog) 100 Unit/1 Ml Vial, 20 UNIT SC AC Memantine HCl (Namenda Xr) 28 Mg Cap.spr.24, 28 MG PO DAILY Nitrofurantoin Monohyd/M-Cryst (Nitrofurantoin Vermillion-Mcr 100 mg) 100 Mg Capsule, 100 MG PO QHS 8 pm Nortriptyline HCl (Nortriptyline HCl) 25 Mg Cap, 25 MG PO BID Pantoprazole Sodium (Pantoprazole Sodium) 40 Mg Tablet.dr, 40 MG PO DAILY Pregabalin (Lyrica) 100 Mg Capsule, 100 MG PO TID Ticagrelor Base (Brilinta) 90 Mg Tablet, 90 MG PO BID Scheduled PRN Albuterol Sulfate (Proair Hfa) 8.5 Gm Hfa.aer.ad, 2 PUFF INH Q4H PRN for wheezing Ipratropium/Albuterol Sulfate (Iprat-Albut 0.5-3(2.5) mg/3 ml) 1 Joel Joel, 1 JOLE INH Q6H PRN for SHORTNESS OF BREATH Allergies Coded Allergies: metformin (Verified Adverse Reaction, Mild, N/V, 05/23/20) clopidogrel (Verified Adverse Reaction, Unknown, unsure, 10/22/20) PT REPORTS SHE STILL HAS ITCHINESS SO SHE DOES NOT THINK SHE IS ALLERGIC TO PLAVIX WHICH IS WHY THEY STOPPED THE PLAVIX BEFORE FOR POSSIBLE ADVERSE REACTION OF FEELING ITCHY (10/22/20 VISIT) A-FIB/CHADSVASC A-FIB History Current/History of A-Fib/PAF?: No Current PO Anticoag Therapy: No Age/Risk Factor Scoring CHADSVASC: CHADSVASC Response (Comments) Value Age Risk Factor Age >/= 75 years old 2 Gender Risk Factor Female 1 Hx of CHF Yes 1 Hx of HTN Yes 1 Hx of Stroke/TIA/or VTE Yes 2 Hx of Diabetes Yes 1 Hx of Vascular Disease No 0 Total 8 Treatment Treatment ordered: Other Other anticoagulant ordered: Ruba Darby MD Oct 30, 2020 14:17
--- NOTE | 2020-10-30 15:07 | REP ---
INDICATION: sob. COMPARISON: Chest CT with IV contrast dated 06/23/2020. TECHNIQUE: Chest CT with IV contrast, CT angiography. FINDINGS: There are no emboli in the pulmonary trunk or central pulmonary arteries. There are no emboli in the pulmonary artery lobar segment branches. There are small/moderate bilateral pleural effusions, larger than on the comparison study. There are no infiltrates. There are no lung masses or nodules. There is no mediastinal or hilar lymph node enlargement. No axillary lymph node enlargement. There is a right hemithyroidectomy. The remaining left lobe contains nodules. This is unchanged. The thoracic aorta is unremarkable except for calcified atheroma. Cardiac size is normal. There is no pericardial effusion. There is calcified atheroma in the coronary arteries. The visualized upper abdominal contents are unremarkable. IMPRESSION: There are no pulmonary emboli. There are small/moderate bilateral pleural effusions, increased in size from the comparison study. There are no lung nodules, masses, infiltrates or effusions. No adenopathy. Right hemithyroidectomy, unchanged. Nodules in the remaining thyroid left lobe, unchanged. Thoracic aorta is unremarkable. Cardiac size is normal. <Electronically signed by Francisco Leahy > 10/30/20 [id number]
[2020-10-30] MEDS ORDERED: GLUCOSE 4GM CHEW TABLET PO PRN (15:40)
[2020-10-30] MEDS ORDERED: DEXTROSE 50% 50 ML SYRINGE IV PRN (15:40)
[2020-10-30] MEDS ORDERED: GLUCAGON INJ 1MG VIAL SC PRN (15:40)
[2020-10-30] MEDS ORDERED: IPRATROPIUM 0.5MG/ALBUTEROL 2.5MG INH SOL UD 3ML (DUONEB) INH PRN (15:40)
[2020-10-30] MEDS ORDERED: FUROSEMIDE 40MG/4ML VIAL (J1940) IV SCH (17:00)
[2020-10-30 17:04] LABS: INR 1.06
[2020-10-30 18:00] VITALS: BP 181/88
[2020-10-30] MEDS: PREGABALIN 100 MG CAP (LYRICA) PO SCH ×2 (19:36→21:51)
[2020-10-30] MEDS: HumaLOG INSULIN (NovoLOG) PER UNIT SC SCH ×2 (19:45→21:52)
[2020-10-30 19:48] VITALS: BP 160/81
[2020-10-30] MEDS ORDERED: ENOXAPARIN 40MG/0.4ML SYRINGE (J1650 PER 10MG) SC SCH (21:00)
[2020-10-30] MEDS: ALBUTEROL SULFATE 2.5 MG/0.5 ML INH NEB SOLN NEB SCH (21:41)
[2020-10-30] MEDS: SYMBICORT 80/4.5MCG INHALER 6GM INH SCH (21:41)
[2020-10-30 21:45] VITALS: O2SAT 93
[2020-10-30] MEDS: NITROFURANTOIN (MACROBID) 100 MG CAP PO SCH (21:51)
[2020-10-30] MEDS: NORTRIPTYLINE 25 MG CAP PO SCH (21:51)
[2020-10-30] MEDS: TICAGRELOR 90 MG TABLET (BRILINTA) PO SCH (21:51)
[2020-10-30] MEDS: carBAMazepine XR 200 MG TAB PO SCH (21:51)
[2020-10-30] MEDS: FERROUS SULFATE 325MG TAB PO SCH (21:51)
[2020-10-30] MEDS: LEVEMIR (INSULIN DETEMIR) 1 UNITS/0.01ML SC SCH (21:52)
[2020-10-30] MEDS: CARVedilol 12.5 MG TAB PO SCH (21:53)
[2020-10-30 22:00] VITALS: BP 153/79
[2020-10-31 06:00] VITALS: BP 131/90
[2020-10-31 06:21] LABS: HEMATOCRIT 33.6 % (36.0-47.0); HEMOGLOBIN 9.9 g/dl (12.0-15.5); MEAN CORPUSCULAR HEMOGLOBIN 25.8 pg (27.0-33.0); MEAN CORPUSCULAR HGB CONC 29.5 g/dl (32.0-36.5); MEAN CORPUSCULAR VOLUME 87.5 fl (80.0-96.0); PLATELET COUNT, AUTOMATED 240 10^3/uL (150-450); RED BLOOD COUNT 3.84 10^6/uL (4.00-5.40); WHITE BLOOD COUNT 5.3 10^3/uL (4.0-10.0)
[2020-10-31 06:41] LABS: CALCIUM LEVEL 9.4 MG/DL (8.8-10.2); CREATININE FOR GFR 1.62 MG/DL (0.55-1.30); GLOMERULAR FILTRATION RATE 32.5 (>32); POTASSIUM SERUM 3.9 MEQ/L (3.5-5.1)
[2020-10-31] MEDS: SYMBICORT 80/4.5MCG INHALER 6GM INH SCH ×2 (07:36→19:31)
[2020-10-31] MEDS: FUROSEMIDE 40MG/4ML VIAL (J1940) IV SCH (09:06)
[2020-10-31] MEDS: ASPIRIN 81MG ENTERIC TABLET PO SCH (09:06)
[2020-10-31] MEDS: CYANOCOBALAMIN 500 MCG TAB PO SCH (09:06)
[2020-10-31] MEDS: PANTOPRAZOLE 40MG TAB (PROTONIX) PO SCH (09:13)
[2020-10-31] MEDS: PREGABALIN 100 MG CAP (LYRICA) PO SCH ×3 (09:13→21:42)
[2020-10-31] MEDS: carBAMazepine XR 200 MG TAB PO SCH ×2 (09:13→21:37)
[2020-10-31] MEDS: TICAGRELOR 90 MG TABLET (BRILINTA) PO SCH ×2 (09:13→21:37)
[2020-10-31] MEDS: CARVedilol 12.5 MG TAB PO SCH ×2 (09:13→21:37)
[2020-10-31] MEDS: NORTRIPTYLINE 25 MG CAP PO SCH ×2 (09:13→21:42)
[2020-10-31] MEDS: ATORVASTATIN 20 MG TAB PO SCH (09:13)
[2020-10-31] MEDS: HumaLOG INSULIN (NovoLOG) PER UNIT SC SCH ×4 (09:14→21:00)
[2020-10-31] MEDS: VITAMIN D 1,000 INTERNATIONAL UNITS TABLET PO SCH (09:14)
[2020-10-31 14:00] VITALS: BP 119/96
[2020-10-31] MEDS: ALBUTEROL SULFATE 2.5 MG/0.5 ML INH NEB SOLN NEB SCH ×2 (15:45→23:42)
--- NOTE | 2020-10-31 15:58 | IPNPDOC ---
Date Seen The patient was seen on 10/31/20. Progress Note SUBJECTIVE: Taken off O2 during day and tolerated PT well without on RA. later placed back on. Denies increased SOB, chest pain, n/v/d. OBJECTIVE: PHYSICAL EXAMINATION: VS: Please see below CONSTITUTIONAL: No acute distress, AAO x 3 EYES: PERRLA, EOM intact HENT, MOUTH: Normocephalic, atraumatic, moist mucous membranes, NC in place NECK: SUPPLE, no JVD, no lymphadenopathy, no carotid bruit CV: Regular rate and rhythm, S1S2 normal, no murmurs/rubs/gallops RESPIRATORY: Crackles in b/l posterior lower lung mata, no rales/rhonchi/wheezes GI: BS positive in 4 quadrants, soft, nontender, nondistended, no rebound or guarding, no organomegaly : Deferred MUSCULOSKELETAL: Normal ROM. No cyanosis, clubbing, swelling, joint deformity, extremity edema INTEGUMENTARY: Intact, no rashes, no lesions, no erythema NEUROLOGIC: Cranial Nerves II-XII are intact, no focal deficits PSYCHIATRIC: Mood and affect are normal LABORATORY DATA: Please see below IMAGING: F/u echocardiogram CTA chest : There are no pulmonary emboli. There are small/moderate bilateral pleural effusions, increased in size from the comparison study. There are no lung nodules, masses, infiltrates or effusions. No adenopathy. Right hemithyroidectomy, unchanged. Nodules in the remaining thyroid left lobe, unchanged. Thoracic aorta is unremarkable. Cardiac size is normal. CXR: Interstitial coarsening and small bilateral pleural effusions and borderline enlarged cardiac size. No significant interval change from the comparison study. Last echocardiogram 12/2019: EF 80 % Normal sinus rhythm without intraventricular conduction disturbance. M-mode and two-dimensional echocardiography was performed with pulsed, continuous wave, color flow and tissue Doppler studies. Mild concentric left ventricle hypertrophy with hyperkinetic wall motion. Left atrial size upper limits of normal. Unable to estimate LV diastolic function with mitral valve disorder. Normal right heart chamber sizes and motion with Doppler evidence of mild pulmonary hypertension. Somewhat small IVC with normal respiratory collapse in keeping with central venous pressure of 0-5 mmHg. Normal aortic diameters. Mild aortic valvular sclerosis without stenosis and only trace insufficiency. Severe mitral annular calcification with mild inflow tract obstruction and very mild insufficiency. Normal appearing tricuspid valve with very mild insufficiency. No apparent intracardiac mass or pericardial effusion. ASSESSMENT: 80-year-old female with past medical history of hypertension, diabetes mellitus type 2, COPD, carotid stenosis, dementia recent hospital admission for symptomatic anemia s/p 2 units of PRBC, seizure disorder, GERD, TIA, CK D stage III admitted for shortness of breath likely 2/2 to HFpEF with mild exacerbation, bilateral pleural effusions. PLAN: Shortness of breath likely 2/2 to HFpEF with mild exacerbation, bilateral pleural effusions -Currently saturating well on 2 L NC -Neg fluid balance over 24 H -Prior echo above, f/u echocardiogram -CTA above -Strict I&O's, fluid restriction 1800 cc/24H, lasix daily , daily wt, low salt diet DORINA on CKD Stage III likely 2/2 to diuresis vs. contrast -Cr 1.62 today, incr from 1.21 -Decreased lasix to daily -f/u daily labs, avoid other nephrotoxic meds. If worsens, start gentle IVF hydration and stop lasix HTN, resolved urgency -C/w home meds, lasix daily -Monitor closely DM type II -BS stable -C/w levemir BID, AC/HS FS and ISS, consistent carb diet COPD -Never had pulmonary function testing, long history of tobacco use -C/w home meds, ATC albuterol -Received methylprednisolone in ER, not believed to be in exacerbation BRANDON -Stable -C/w ferrous sulfate BID -CBC daily Seizure d/o -Stable -C/w home meds TIA -C/w statin, ASA Peripheral neuropathy -C/w gabapentin GERD -PPI DVT px -heparin DISPOSITION: Admitted under observation status. If still here 11/01/20, will make inpatient status. Plan is discharge home when medically improved. VS, I&O, 24H, Fishbone Vital Signs/I&O Vital Signs Date Time Temp Pulse Resp B/P (MAP) Pulse Ox O2 Delivery O2 Flow Rate FiO2 10/31/20 14:00 97.4 89 18 119/96 (104) 95 Nasal Cannula 2.0 10/30/20 21:45 24 I&O- Last 24 Hours up to 6 AM 10/31/20 06:00 Intake Total 420 ml Output Total 875 ml Balance -455 ml Laboratory Data 24H LABS Laboratory Tests 2 10/30/20 16:20: Prothrombin Time 14.0, Prothromb Time International Ratio 1.06, Activated Partial Thromboplast Time 29.0 10/30/20 20:43: Bedside Glucose (Misc Panel) 479H 10/31/20 05:59: Nucleated Red Blood Cells % (auto) 0.0, Anion Gap 9, Glomerular Filtration Rate 32.5, Calcium Level 9.4 10/31/20 11:26: Bedside Glucose (Misc Panel) 70L CBC/BMP Laboratory Tests 10/31/20 05:59 Microbiology Microbiology 10/30/20 Respiratory Virus Panel (PCR) (DAYAN) - Final, Complete 10/30/20 Blood Culture - Preliminary, Resulted No growth after 24 hours . All specim... Current Medications Current Medications Medications (Trade) Dose Ordered Sig/Aurora Route PRN Reason Start Time Stop Time Status Last Admin Dose Admin Albuterol Sulfate (Proventil Neb) 2.5 mg RQ8H NEB 10/31/20 16:00 10/30/20 21:41 Albuterol/ Ipratropium (Combivent Respimat 100-20mcg) 4 puff Q20M INH 10/30/20 12:00 10/30/20 12:41 DC 10/30/20 13:29 Albuterol/ Ipratropium (Duoneb (Ipr 0.5mg/Alb 2.5mg)) 3 ml Q6H PRN INH SHORTNESS OF BREATH 10/30/20 15:40 Aspirin (Ecotrin) 81 mg DAILY PO 10/31/20 09:00 10/31/20 09:06 Atorvastatin Calcium (Lipitor) 20 mg DAILY PO 10/31/20 09:00 10/31/20 09:13 Budesonide/ Formoterol Fumarate (Symbicort 80/ 4.5mcg) 2 puff RBID INH 10/30/20 20:00 10/31/20 07:36 Carbamazepine (TEGretol XR) 200 mg BID PO 10/30/20 21:00 10/31/20 09:13 Carvedilol (COReg) 25 mg BID PO 10/30/20 21:00 10/31/20 09:13 Cyanocobalamin (Vitamin B12) 1,000 mcg DAILY PO 10/31/20 09:00 10/31/20 09:06 Dextrose (Dextrose 50%) 25 ml ASDIRECTED PRN IV SEE LABEL COMMENTS 10/30/20 15:40 Enoxaparin Sodium (Lovenox) 40 mg DAILY@2100 SC 10/30/20 21:00 10/31/20 08:39 DC 10/30/20 21:51 Ferrous Sulfate (Ferrous Sulfate) 325 mg QHS PO 10/30/20 21:00 10/30/20 21:51 Furosemide (LASIX injection) 40 mg BID@09,17 IV 10/30/20 17:00 10/31/20 08:38 DC 10/30/20 21:53 Furosemide (LASIX injection) 40 mg DAILY IV 10/31/20 09:00 10/31/20 09:06 Glucagon (Glucagon) 1 mg ASDIRECTED PRN SC SEE LABEL COMMENTS 10/30/20 15:40 Glucose (Glucose) 16 GM ASDIRECTED PRN PO SEE LABEL COMMENTS 10/30/20 15:40 Heparin Sodium (Porcine) (Heparin) 5,000 units Q12H SQ 10/31/20 21:00 Home Med (Med Rec Complete!) ASDIRECTED XX 10/30/20 13:55 10/30/20 13:55 DC Insulin Detemir (Levemir Insulin) 70 units QHS SC 10/30/20 21:00 10/30/20 21:52 Insulin Human Lispro (HumaLOG INSULIN) SEE PROTOCOL TABLE AC SC 10/30/20 17:30 10/31/20 09:14 Insulin Human Lispro (HumaLOG INSULIN) SEE PROTOCOL TABLE QHS IA 10/30/20 21:00 10/30/20 21:52 Nitrofurantoin Monoh/Nitrofur Macro (Macrobid) 100 mg QHS PO 10/30/20 21:00 10/30/20 21:51 Nortriptyline HCl (Pamelor) 25 mg BID PO 10/30/20 21:00 10/31/20 09:13 Pantoprazole Sodium (Protonix) 40 mg DAILY PO 10/31/20 09:00 10/31/20 09:13 Pregabalin (Lyrica) 100 mg TID PO 10/30/20 16:00 10/31/20 09:13 Ticagrelor (Brilinta) 90 mg BID PO 10/30/20 21:00 10/31/20 09:13 Vitamin D (Vitamin D) 5,000 units DAILY PO 10/31/20 09:00 10/31/20 09:14 Allergies Coded Allergies: metformin (Verified Adverse Reaction, Mild, N/V, 05/23/20) clopidogrel (Verified Adverse Reaction, Unknown, unsure, 10/22/20) PT REPORTS SHE STILL HAS ITCHINESS SO SHE DOES NOT THINK SHE IS ALLERGIC TO PLAVIX WHICH IS WHY THEY STOPPED THE PLAVIX BEFORE FOR POSSIBLE ADVERSE REACTION OF FEELING ITCHY (10/22/20 VISIT) Ruba Latham MD Oct 31, 2020 15:58
[2020-10-31 19:31] VITALS: O2SAT 95
[2020-10-31] MEDS: HEPARIN SOD (PORCINE) 5000UNITS/ML 1ML VIAL/SYRINGE SQ SCH (21:37)
[2020-10-31] MEDS: FERROUS SULFATE 325MG TAB PO SCH (21:37)
[2020-10-31] MEDS: LEVEMIR (INSULIN DETEMIR) 1 UNITS/0.01ML SC SCH (21:38)
[2020-10-31] MEDS: NITROFURANTOIN (MACROBID) 100 MG CAP PO SCH (21:42)
[2020-10-31 22:00] VITALS: BP 134/56
[2020-11-01 06:00] VITALS: BP 136/84
[2020-11-01 06:10] LABS: HEMATOCRIT 33.2 % (36.0-47.0); HEMOGLOBIN 9.7 g/dl (12.0-15.5); MEAN CORPUSCULAR HGB CONC 29.2 g/dl (32.0-36.5); PLATELET COUNT, AUTOMATED 223 10^3/uL (150-450); RED BLOOD COUNT 3.73 10^6/uL (4.00-5.40); WHITE BLOOD COUNT 4.8 10^3/uL (4.0-10.0)
[2020-11-01 06:21] LABS: CALCIUM LEVEL 8.8 MG/DL (8.8-10.2); CREATININE FOR GFR 1.53 MG/DL (0.55-1.30); GLOMERULAR FILTRATION RATE 34.8 (>32); POTASSIUM SERUM 3.7 MEQ/L (3.5-5.1)
[2020-11-01] MEDS: SYMBICORT 80/4.5MCG INHALER 6GM INH SCH (07:49)
[2020-11-01] MEDS: ALBUTEROL SULFATE 2.5 MG/0.5 ML INH NEB SOLN NEB SCH ×2 (07:50→16:00)
[2020-11-01] MEDS: HumaLOG INSULIN (NovoLOG) PER UNIT SC SCH ×2 (08:37→13:55)
[2020-11-01] MEDS: HEPARIN SOD (PORCINE) 5000UNITS/ML 1ML VIAL/SYRINGE SQ SCH (08:38)
[2020-11-01] MEDS: FUROSEMIDE 40MG/4ML VIAL (J1940) IV SCH (08:38)
[2020-11-01 08:39] VITALS: BP 130/57
[2020-11-01] MEDS: CARVedilol 12.5 MG TAB PO SCH (08:39)
[2020-11-01] MEDS: ASPIRIN 81MG ENTERIC TABLET PO SCH (08:39)
[2020-11-01] MEDS: carBAMazepine XR 200 MG TAB PO SCH (08:39)
[2020-11-01] MEDS: VITAMIN D 1,000 INTERNATIONAL UNITS TABLET PO SCH (08:39)
[2020-11-01] MEDS: CYANOCOBALAMIN 500 MCG TAB PO SCH (08:39)
[2020-11-01] MEDS: NORTRIPTYLINE 25 MG CAP PO SCH (08:39)
[2020-11-01] MEDS: PREGABALIN 100 MG CAP (LYRICA) PO SCH (08:39)
[2020-11-01] MEDS: PANTOPRAZOLE 40MG TAB (PROTONIX) PO SCH (08:39)
[2020-11-01] MEDS: TICAGRELOR 90 MG TABLET (BRILINTA) PO SCH (08:39)
[2020-11-01] MEDS: ATORVASTATIN 20 MG TAB PO SCH (08:40)
[2020-11-01] MEDS ORDERED: LASI20TA3 PO (12:55)
--- NOTE | 2020-11-01 16:48 | DS.PDOC ---
Discharge Summary General Date of Admission Nov 01, 2020 at 08:55 Date of Discharge 11/01/20 Attending Physician: Ruba Latham MD Discharge Summary HISTORY OF PRESENT ILLNESS: Patient is an 80-year-old female with past medical history of hypertension, diabetes mellitus type 2, COPD, carotid stenosis, recent hospital admission for symptomatic anemia s/p 2 units of PRBC, seizure disorder, GERD, TIA, CK D stage III who presented to [facility] emergency room with chief complaint of increased shortness of breath. She states she's had progressive shortness of breath over the past several months and was recently admitted to the medicine service at [facility] from 104/07/2020 where she was transfused several units of blood. She states she was told the past that she has COPD but has never had primary function testing and does not follow with a flush tester. She states today her shortness of breath was severe and she "couldn't breathe" and felt like "this was going to be it". She states she had concomitant chest discomfort substernally, nonradiating, 10/10, constant. It was also associated with some lightheadedness. She denied coughing, fevers, chills, diaphoresis, dizziness, blurry vision, increased lower extremity swelling over the past several weeks. She attempted to use her nebulizer 3 times at home after using her rescue inhaler which did not help. After her treatments failed at home she came to the ER for further evaluation. In the emergency room vital signs showed 97.6, 96496 for heart rate, [id number], respiratory rate 18, 98% on 2 L. She does not use home oxygen at home. H&H was stable at 10/35.2 and much improved from her prior admission. BNP was higher at 1312 compared to last admission of 600. Troponin was negative. ABG showed normal pH. CTA chest: no pulmonary emboli, small/moderate bilateral pleural effusions, increased in size from the comparison study. Patient was given steroids, nebulizer treatments in ER. I ordered IV lasix to beign. She stated she was recently started on Lasix again as outpatient, it was unclear why it was stopped initially. On exam the patient had +1 pitting edema in the lower extremities and admitted to eating salt frequently. She was admitted under observation status for Shortness of breath likely 2/2 to HFpEF with mild exacerbation, bilateral pleural effusions. HOSPITAL COURSE: Shortness of breath likely 2/2 to HFpEF with mild exacerbation, bilateral pleural effusions. She remained in a neg fluid balance since admission daily. She was assessed by PT and each time, ambulating and saturating well on RA. May take several days to get results of final transcribed echocardiogram from 10/31/20. Since patient much improved, discharging home today with low dose diuretic and need to f/u with PCP for echocardiogram results. Recommend low salt diet at discharge, which patient admits to not being compliant with at home. It is recommended that she f/u with cardiology after discharge. She had some DORINA on CKD Stage III likely 2/2 to diuresis but this is slowly improving. Likely will improve with time and lower dose diuretic. Recommend f/u with PCP on next visit to recheck BMP, Cr HTN, resolved urgency. Other chronic issues remained stable. She was discharged home on 11/01/20 in improved condition without any complaints. PAST MEDICAL HISTORY: Anemia- recent hospital admission 10/22/20-10/24/20 s/p 2 units PRBC Hypertension Insulin dependent diabetes mellitus CKD stage III COPD Bilateral carotid stenosis TIA Seizure disorder Vitamin D deficiency Osteoarthritis Lumbar disc neuropathy Mood disorder GERD Hyperlipidemia ? CAD Dementia PAST SURGICAL HISTORY: Carpal tunnel release Right hip replacement Left hip fracture Right rest biopsy Hysterectomy Bladder surgery Bilateral cataract removal SOCIAL HISTORY: Former smoker quit July 2020, 1-2 PPD since 16. No alcohol in the past 20 y ears. Denies illicit substance use. Lives with daughter. 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 FULL CODE FAMILY HISTORY: M: DM type II. at 65 y/o F: lung problems. at 89 y/o DISCHARGE MEDS: Please see below PHYSICAL EXAMINATION: VS: Please see below CONSTITUTIONAL: No acute distress, AAO x 3 EYES: PERRLA, EOM intact HENT, MOUTH: Normocephalic, atraumatic, moist mucous membranes, NC in place NECK: SUPPLE, no JVD, no lymphadenopathy, no carotid bruit CV: Regular rate and rhythm, S1S2 normal, no murmurs/rubs/gallops RESPIRATORY: decreased crackles in b/l posterior lower lung mata, no rales/rhonchi/wheezes GI: BS positive in 4 quadrants, soft, nontender, nondistended, no rebound or guarding, no organomegaly : Deferred MUSCULOSKELETAL: Normal ROM. No cyanosis, clubbing, swelling, joint deformity, extremity edema INTEGUMENTARY: Intact, no rashes, no lesions, no erythema NEUROLOGIC: Cranial Nerves II-XII are intact, no focal deficits PSYCHIATRIC: Mood and affect are normal LABORATORY DATA: Please see below IMAGING: Echocardiogram done 10/31/20: result pending CTA chest : There are no pulmonary emboli. There are small/moderate bilateral pleural effusions, increased in size from the comparison study. There are no lung nodules, masses, infiltrates or effusions. No adenopathy. Right hemithyroidectomy, unchanged. Nodules in the remaining thyroid left lobe, unchanged. Thoracic aorta is unremarkable. Cardiac size is normal. CXR: Interstitial coarsening and small bilateral pleural effusions and borderline enlarged cardiac size. No significant interval change from the comparison study. Last echocardiogram 12/2019: EF 80 % Normal sinus rhythm without intraventricular conduction disturbance. M-mode and two-dimensional echocardiography was performed with pulsed, continuous wave, color flow and tissue Doppler studies. Mild concentric left ventricle hypertrophy with hyperkinetic wall motion. Left atrial size upper limits of normal. Unable to estimate LV diastolic function with mitral valve disorder. Normal right heart chamber sizes and motion with Doppler evidence of mild pulmonary hypertension. Somewhat small IVC with normal respiratory collapse in keeping with central venous pressure of 0-5 mmHg. Normal aortic diameters. Mild aortic valvular sclerosis without stenosis and only trace insufficiency. Severe mitral annular calcification with mild inflow tract obstruction and very mild insufficiency. Normal appearing tricuspid valve with very mild insufficiency. No apparent intracardiac mass or pericardial effusion. ASSESSMENT: 80-year-old female with past medical history of hypertension, diabetes mellitus type 2, COPD, carotid stenosis, dementia recent hospital admission for symptomatic anemia s/p 2 units of PRBC, seizure disorder, GERD, TIA, CK D stage III admitted for shortness of breath likely 2/2 to HFpEF with mild exacerbation, bilateral pleural effusions. PLAN: Shortness of breath likely 2/2 to HFpEF with mild exacerbation, bilateral pleural effusions -Currently ambulating and saturating well on RA -Neg fluid balance daily since admission -Prior echo above -CT above -May take several days to get results of final transcribed echocardiogram from 10/31/20. Since patient much improved, discharging home today with low dose diuretic and need to f/u with PCP for echocardiogram results. Recommend low salt diet at discharge, which patient admits to not being compliant with at home. -F/u with cardiology after discharge. DORINA on CKD Stage III likely 2/2 to diuresis -Cr 1.53, improving -Decreased lasix to daily and low dose -Likely will improve with time and lower dose diuretic -Recommend f/u with PCP on next visit to recheck BMP, Cr HTN, resolved urgency -C/w home meds, lasix daily -Monitor closely DM type II -BS stable -C/w home meds COPD -Never had pulmonary function testing, long history of tobacco use -C/w home meds -Received methylprednisolone in ER, not believed to be in exacerbation BRANDON -Stable -C/w ferrous sulfate BID -CBC daily Seizure d/o -Stable -C/w home meds TIA -C/w statin, ASA Peripheral neuropathy -C/w gabapentin GERD -PPI DISPOSITION: Discharged home today to f/u with PCP within 1-2 weeks after discharge. TIME SPENT ON DISCHARGE: 35 minutes. Vital Signs/I&Os Vital Signs Date Time Temp Pulse Resp B/P (MAP) Pulse Ox O2 Delivery O2 Flow Rate FiO2 11/01/20 09:00 1.0 11/01/20 08:39 90 130/57 11/01/20 06:00 97.0 18 93 10/31/20 22:00 Nasal Cannula 10/31/20 19:31 24 I&O- Last 24 Hours up to 6 AM 11/01/20 06:00 Intake Total 1060 ml Output Total 1650 ml Balance -590 ml Laboratory Data Labs 24H Laboratory Tests 2 10/31/20 21:34: Bedside Glucose (Misc Panel) 186H 11/01/20 05:24: Nucleated Red Blood Cells % (auto) 0.0, Anion Gap 4L, Glomerular Filtration Rate 34.8, Calcium Level 8.8 11/01/20 11:47: Bedside Glucose (Misc Panel) 230H CBC/BMP Laboratory Tests 11/01/20 05:24 FSBS Laboratory Tests Test 10/31/20 21:34 11/01/20 11:47 Range/Units Bedside Glucose (Misc Panel) 186 230 83-110 MG/DL Microbiology Microbiology 10/30/20 Respiratory Virus Panel (PCR) (DAYAN) - Final, Complete 10/30/20 Blood Culture - Preliminary, Resulted No Growth after 48 hours. All Specime... Discharge Medications Scheduled Aspirin (Aspirin EC) 81 Mg Tab, 81 MG PO DAILY, (Reported) Atorvastatin Calcium (Atorvastatin Calcium) 20 Mg Tab, 20 MG PO DAILY, (Reported) Budesonide/Formoterol (Symbicort 80-4.5 Mcg Inhaler) 6.9 Gm Hfa.aer.ad, 2 PUFF INH BID, (Reported) Carbamazepine (Carbamazepine ER) 200 Mg Tab.er.12h, 200 MG PO BID, (Reported) Carvedilol (Carvedilol) 25 Mg Tab, 25 MG PO BID, (Reported) Cholecalciferol (Vitamin D3) (Vitamin D3) 1,000 Unit Tablet, 5,000 UNITS PO DAILY, (Reported) Cyanocobalamin (Vitamin B-12) (Vitamin B-12) 1,000 Mcg Capsule, 1,000 MCG PO DAILY, (Reported) Ferrous Sulfate (Ferrous Sulfate) 325 Mg Tab, 325 MG PO QHS, (Reported) Furosemide (Lasix) 20 Mg Tablet, 20 MG PO DAILY Insulin Glargine,Hum.rec.anlog (Toujeo Solostar) 300 Unit/Ml Inj, 70 UNIT SC QHS, (Reported) Insulin Lispro (Admelog) 100 Unit/1 Ml Vial, 20 UNIT SC AC, (Reported) Memantine HCl (Namenda Xr) 28 Mg Cap.spr.24, 28 MG PO DAILY, (Reported) Nitrofurantoin Monohyd/M-Cryst (Nitrofurantoin Harlan-Mcr 100 mg) 100 Mg Capsule, 100 MG PO QHS, (Reported) 8 pm Nortriptyline HCl (Nortriptyline HCl) 25 Mg Cap, 25 MG PO BID, (Reported) Pantoprazole Sodium (Pantoprazole Sodium) 40 Mg Tablet.dr, 40 MG PO DAILY, (Reported) Pregabalin (Lyrica) 100 Mg Capsule, 100 MG PO TID, (Reported) Ticagrelor Base (Brilinta) 90 Mg Tablet, 90 MG PO BID, (Reported) Scheduled PRN Albuterol Sulfate (Proair Hfa) 8.5 Gm Hfa.aer.ad, 2 PUFF INH Q4H PRN for wheezing, (Reported) Ipratropium/Albuterol Sulfate (Iprat-Albut 0.5-3(2.5) mg/3 ml) 1 Joel Joel, 1 JOEL INH Q6H PRN for SHORTNESS OF BREATH, (Reported) Allergies Coded Allergies: metformin (Verified Adverse Reaction, Mild, N/V, 05/23/20) clopidogrel (Verified Adverse Reaction, Unknown, unsure, 10/22/20) PT REPORTS SHE STILL HAS ITCHINESS SO SHE DOES NOT THINK SHE IS ALLERGIC TO PLAVIX WHICH IS WHY THEY STOPPED THE PLAVIX BEFORE FOR POSSIBLE ADVERSE REACTION OF FEELING ITCHY (10/22/20 VISIT) Ruba Latham MD Nov 01, 2020 16:48
== END 2020-11-01 15:00 | disposition home health service (06) | DRG 291 ==
LOC: M ED 11:24 → M ED INP 11:25 → ENRESERV 15:24 → M MSPAV 17:59 → OBSVTOIN 11-01 08:55
PROVIDERS: ADMIT Internal Medicine; ATTEND Internal Medicine
DX: I13.0 Hypertensive heart and chronic kidney disease with heart failure and stage 1 through stage 4 chronic kidney disease, or unspecified chronic kidney disease (principal); I50.33 Acute on chronic diastolic (congestive) heart failure; N17.9 Acute kidney failure, unspecified; I16.0 Hypertensive urgency; E11.9 Type 2 diabetes mellitus without complications; J44.9 Chronic obstructive pulmonary disease, unspecified; G40.909 Epilepsy, unspecified, not intractable, without status epilepticus; K21.9 Gastro-esophageal reflux disease without esophagitis; Z86.73 Personal history of transient ischemic attack (TIA), and cerebral infarction without residual deficits; N18.30 Chronic kidney disease, stage 3 unspecified; Z79.4 Long term (current) use of insulin; E55.9 Vitamin D deficiency, unspecified; M19.90 Unspecified osteoarthritis, unspecified site; E78.5 Hyperlipidemia, unspecified; F03.90 Unspecified dementia, unspecified severity, without behavioral disturbance, psychotic disturbance, mood disturbance, and anxiety; I65.23 Occlusion and stenosis of bilateral carotid arteries; Z96.641 Presence of right artificial hip joint; Z98.41 Cataract extraction status, right eye; Z98.42 Cataract extraction status, left eye; Z87.891 Personal history of nicotine dependence; D50.9 Iron deficiency anemia, unspecified; Z79.899 Other long term (current) drug therapy; Z79.82 Long term (current) use of aspirin; Z88.8 Allergy status to other drugs, medicaments and biological substances

== ENCOUNTER 2020-11-11 16:28 | Inpatient (IN) | payer MEDICARE ==
[~2020-11-11] VITALS: Ht 157.5 cm; Wt 81.3 kg
[~2020-11-11 16:28] MED LIST changes: +ADME100I SC; +BRIL90TA PO; +HUMA100I5 SC; +PANT40TA29 PO
--- NOTE | 2020-11-11 17:54 | REP ---
INDICATION: admission COMPARISON: 10/30/2020 TECHNIQUE: Portable AP view of the chest FINDINGS: The mediastinum and cardiac silhouette are stable and within normal limits for portable technique. The lung mata are clear without acute consolidation, effusion, or pneumothorax. Skeletal structures are intact. IMPRESSION: No acute cardiopulmonary process appreciated. <Electronically signed by Flo Ramon > 11/11/20 7201
[2020-11-11] MEDS ORDERED: GLUCOSE 4GM CHEW TABLET PO PRN (18:30)
[2020-11-11] MEDS ORDERED: DEXTROSE 50% 50 ML SYRINGE IV PRN (18:30)
[2020-11-11] MEDS ORDERED: MOM 30ML SUSPENSION UDC PO PRN (18:30)
[2020-11-11] MEDS ORDERED: GLUCAGON INJ 1MG VIAL SC PRN (18:30)
[2020-11-11] MEDS ORDERED: FURO40TA2 PO (18:44)
[2020-11-11] MEDS ORDERED: FURO20TA2 PO (18:44)
[2020-11-11] MEDS ORDERED: IPRATROPIUM 0.5MG/ALBUTEROL 2.5MG INH SOL UD 3ML (DUONEB) INH PRN (19:00)
[2020-11-11] MEDS ORDERED: ALBUTEROL 90 MCG/ACT 8GM HFA INHALER INH PRN (19:00)
--- NOTE | 2020-11-11 19:24 | HPEPDOC ---
[facility] Medical History & Physical Date of Admission Nov 11, 2020 Date of Service: Nov 11, 2020 Attending Physician: HARRY COX MD History and Physical CHIEF COMPLAINT: [place] poorly and weak at nephrology appt today and was found to have a Hgb of 7 down from 9.7 HISTORY OF PRESENT ILLNESS: 80-year-old W with a history of IDDM 2, COPD, carotid stenosis, chronic GIB from known GI actesias with prior admissions for acute on chronic anemia and gets transfusions with some regularity, HTN, CKDIII, seizure disorder, GERD, HFpEF, history of a TIA and BRANDON who presented to [facility] emergency room with chief complaint of weakness and was found to have acute on chronic anemia on lab check at her nephrology appointment this afternoon and directed to the ED for transfusions. In the emergency room she is hemodynamically stable, afebrile, breathing comfortably on room air but tachycardic to 108. No new labs or imaging were done in the ED and nephrology clinic labs showed a Hgb of 7 down from 9.7. She is now being admitted under observation status for acute on chronic anemia with known chronic slow GIB and BRANDON. She otherwise denies any fever, chills, chest pain, palpitations, abdominal pain, zaida BRBPR, dizziness, hemoptysis, hematemesis, hematuria or easy bruising. 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 REVIEW OF SYSTEMS: 10 point ROS was negative except for what is mentioned above. PAST MEDICAL HISTORY: Anemia- recent hospital admission 10/22/20-10/24/20 s/p 2 units PRBC Hypertension Insulin dependent diabetes mellitus CKD stage III COPD Bilateral carotid stenosis TIA Seizure disorder Vitamin D deficiency Osteoarthritis Lumbar disc neuropathy Mood disorder GERD Hyperlipidemia CAD HFpEF Chart diagnosis of dementia PAST SURGICAL HISTORY: Carpal tunnel release Right hip replacement Left hip fracture Right rest biopsy Hysterectomy Bladder surgery Bilateral cataract removal SOCIAL HISTORY: Former smoker quit July 2020, 1-2 PPD since 16. No alcohol in the past 20 years. Denies illicit substance use. Lives with daughter. 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 FULL CODE FAMILY HISTORY: M: DM type II. at 65 y/o F: lung problems. at 89 y/o ALLERGIES: Please see below. HOME MEDICATIONS: Please see below. PHYSICAL EXAMINATION: Vital signs: see below, HR 108, otherwise normotensive, and breathing comfo rtably on room air and afebrile CONSTITUTIONAL: No acute distress, AAO x 3 EYES: PERRLA, EOM intact HENT, MOUTH: Normocephalic, atraumatic, moist mucous membranes, NC in place NECK: SUPPLE, no JVD, no lymphadenopathy, no carotid bruit CV: Regular rate and rhythm, S1S2 normal, no murmurs/rubs/gallops RESPIRATORY: Bibasilar posterior lower lung field crackles, no rhonchi/wheezes GI: BS positive in 4 quadrants, soft, nontender, nondistended, no rebound or guarding, no organomegaly EXT: no LE edema, WWP INTEGUMENTARY: Intact, no rashes, no lesions, no erythema NEUROLOGIC: Cranial Nerves II-XII are intact, no focal deficits PSYCHIATRIC: Mood and affect are normal LABORATORY DATA: discussed above. ASSESSMENT: 80-year-old W with a history of IDDM 2, COPD, carotid stenosis, chronic GIB from known GI actesias with prior admissions for acute on chronic anemia and gets transfusions with some regularity, HTN, CKDIII, seizure disorder, GERD, HFpEF, history of a TIA and BRANDON who presented to [facility] emergency room with chief complaint of weakness i/s/o having been found to have acute on chronic anemia on lab check at her nephrology appointment this afternoon and directed to the ED for transfusions with a known history of slow GIB likely from small bowel AVMs. PLAN: Symptomatic anemia with acute on chronic anemia 2/2 known slow GIB with a history of small bowel AVMs seen on capsule endoscopy per Dr. Oden -Dr. Oden aware of admission, will follow up as an outpatient -will give 3u of pRBCs, with 1 time dose lasix 20mg given history of HFpEF with recent exacerbation. -AM CBC DM type II -BS stable -C/w levemir BID, AC/HS FS and ISS, consistent carb diet COPD: stable -Never had pulmonary function testing, long history of tobacco use -C/w home meds, ATC albuterol BRANDON -C/w ferrous sulfate BID -CBC daily Seizure d/o -C/w home meds History of TIA -C/w statin, ASA Peripheral neuropathy -C/w gabapentin CKD Stage III -Cr wnl -Daily labs GERD -continue home PPI Mild HFpEF exacerbation: -will hold home PO lasix and give 1 dose of 40 IV lasix while giving blood. Was just increased to 40 PO a few days ago in the outpatient setting. -check BMP CAD: -continue ASA81, lipitor 20, stop Brilinta. On my discussion with Dr. Garcia whom the daughter told me prescribed it >1y ago, he did not have recollection of prescribing it and without a recent history of known PCI, recommends stopping it especially because she is bleeding and requiring frequent transfusions. DVT px -SCDs and TEDs DISPOSITION: Admitted under observation status. Plan is discharge home when medically improved. Vital Signs Vital Signs Date Time Temp Pulse Resp B/P (MAP) Pulse Ox O2 Delivery O2 Flow Rate FiO2 11/11/20 18:14 11/11/20 16:28 98.3 103 18 95 Room Air Laboratory Data Microbiology Microbiology 11/11/20 Respiratory Virus Panel (PCR) (DAYAN), Received Pending Home Medications Scheduled Aspirin (Aspirin EC) 81 Mg Tab, 81 MG PO DAILY Atorvastatin Calcium (Atorvastatin Calcium) 20 Mg Tab, 20 MG PO DAILY Budesonide/Formoterol (Symbicort 80-4.5 Mcg Inhaler) 6.9 Gm Hfa.aer.ad, 2 PUFF INH BID Carbamazepine (Carbamazepine ER) 200 Mg Tab.er.12h, 200 MG PO BID Carvedilol (Carvedilol) 25 Mg Tab, 25 MG PO BID Cholecalciferol (Vitamin D3) (Vitamin D3) 1,000 Unit Tablet, 5,000 UNITS PO DAILY Cyanocobalamin (Vitamin B-12) (Vitamin B-12) 1,000 Mcg Capsule, 1,000 MCG PO DAILY Ferrous Sulfate (Ferrous Sulfate) 325 Mg Tab, 325 MG PO QHS Furosemide (Furosemide) 20 Mg Tablet, 40 MG PO DAILY Insulin Glargine,Hum.rec.anlog (Toujeo Solostar) 300 Unit/Ml Inj, 70 UNIT SC QHS Insulin Lispro (Admelog) 100 Unit/1 Ml Vial, 20 UNIT SC AC Memantine HCl (Namenda Xr) 28 Mg Cap.spr.24, 28 MG PO DAILY Nitrofurantoin Monohyd/M-Cryst (Nitrofurantoin [place]-Mcr 100 mg) 100 Mg Capsule, 100 MG PO QHS 8 pm Nortriptyline HCl (Nortriptyline HCl) 25 Mg Cap, 25 MG PO BID Pantoprazole Sodium (Pantoprazole Sodium) 40 Mg Tablet.dr, 40 MG PO DAILY Pregabalin (Lyrica) 100 Mg Capsule, 100 MG PO TID Ticagrelor Base (Brilinta) 90 Mg Tablet, 90 MG PO BID Scheduled PRN Albuterol Sulfate (Proair Hfa) 8.5 Gm Hfa.aer.ad, 2 PUFF INH Q4H PRN for wheezing Ipratropium/Albuterol Sulfate (Iprat-Albut 0.5-3(2.5) mg/3 ml) 1 Joel Joel, 1 JOEL INH Q6H PRN for SHORTNESS OF BREATH Allergies Coded Allergies: metformin (Verified Adverse Reaction, Mild, N/V, 05/23/20) clopidogrel (Verified Adverse Reaction, Unknown, unsure, 10/22/20) PT REPORTS SHE STILL HAS ITCHINESS SO SHE DOES NOT THINK SHE IS ALLERGIC TO PLAVIX WHICH IS WHY THEY STOPPED THE PLAVIX BEFORE FOR POSSIBLE ADVERSE REACTION OF FEELING ITCHY (10/22/20 VISIT) A-FIB/CHADSVASC A-FIB History Current/History of A-Fib/PAF?: No Current PO Anticoag Therapy: No Age/Risk Factor Scoring CHADSVASC: CHADSVASC Response (Comments) Value Age Risk Factor Age >/= 75 years old 2 Gender Risk Factor Female 1 Hx of CHF Yes 1 Hx of HTN Yes 1 Hx of Stroke/TIA/or VTE No 0 Hx of Diabetes Yes 1 Hx of Vascular Disease Yes 1 Total 7 Treatment Treatment ordered: NONE Reason Anticoagulant not given: Current bleeding HARRY COX MD Nov 11, 2020 18:58
[2020-11-11] MEDS ORDERED: FUROSEMIDE 40MG/4ML VIAL (J1940) IV ONE (19:25)
[2020-11-11] MEDS: SYMBICORT 80/4.5MCG INHALER 6GM INH SCH (20:00)
[2020-11-11 20:39] LABS: CALCIUM LEVEL 8.2 MG/DL (8.8-10.2); CREATININE FOR GFR 1.45 MG/DL (0.55-1.30); POTASSIUM SERUM 3.8 MEQ/L (3.5-5.1)
[2020-11-11 20:53] VITALS: BP 154/81
[2020-11-11] MEDS ORDERED: LEVEMIR (INSULIN DETEMIR) 1 UNITS/0.01ML SC SCH (21:00)
[2020-11-11 22:30] VITALS: BP 148/57
[2020-11-11] MEDS: CARVedilol 12.5 MG TAB PO SCH (22:32)
[2020-11-11] MEDS: NITROFURANTOIN (MACROBID) 100 MG CAP PO SCH (22:33)
[2020-11-11] MEDS: MEMANTINE 5MG TABLET (NAMENDA) PO SCH (22:33)
[2020-11-11] MEDS: carBAMazepine XR 200 MG TAB PO SCH (22:33)
[2020-11-11] MEDS: PREGABALIN 100 MG CAP (LYRICA) PO SCH (22:33)
[2020-11-11] MEDS: FERROUS SULFATE 325MG TAB PO SCH (22:33)
[2020-11-11] MEDS: NORTRIPTYLINE 25 MG CAP PO SCH (22:33)
[2020-11-11] MEDS: HumaLOG INSULIN (NovoLOG) PER UNIT SC SCH (22:34)
[2020-11-11] MEDS: ACETAMINOPHEN TAB 650MG DOSE (2X325MG) PO PRN (22:36)
--- NOTE | 2020-11-11 22:40 | ECGEPIP ---
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
[2020-11-11 22:45] VITALS: BP 150/57
[2020-11-11 23:30] VITALS: BP 122/95
[2020-11-12] VITALS (17 sets, daily range): BP systolic 109–160; BP diastolic 53–83
[2020-11-12] MEDS: HumaLOG INSULIN (NovoLOG) PER UNIT SC SCH ×4 (07:30→21:00)
[2020-11-12] MEDS: SYMBICORT 80/4.5MCG INHALER 6GM INH SCH ×2 (07:57→20:12)
[2020-11-12 09:13] LABS: HEMATOCRIT 35.1 % (36.0-47.0); MEAN CORPUSCULAR HEMOGLOBIN 27.8 pg (27.0-33.0); MEAN CORPUSCULAR HGB CONC 31.3 g/dl (32.0-36.5); MEAN CORPUSCULAR VOLUME 88.9 fl (80.0-96.0); PLATELET COUNT, AUTOMATED 201 10^3/uL (150-450); RED BLOOD COUNT 3.95 10^6/uL (4.00-5.40); WHITE BLOOD COUNT 4.6 10^3/uL (4.0-10.0)
[2020-11-12 09:37] LABS: BLOOD UREA NITROGEN 26 MG/DL (7-18); CALCIUM LEVEL 8.5 MG/DL (8.8-10.2); CARBON DIOXIDE LEVEL 28 MEQ/L (21-32); CHLORIDE LEVEL 107 MEQ/L (98-107); CREATININE FOR GFR 1.34 MG/DL (0.55-1.30); GLOMERULAR FILTRATION RATE 40.5 (>32); GLUCOSE, FASTING 172 MG/DL (70-100); POTASSIUM SERUM 3.3 MEQ/L (3.5-5.1); SODIUM LEVEL 141 MEQ/L (136-145)
[2020-11-12] MEDS: VITAMIN D 1,000 INTERNATIONAL UNITS TABLET PO SCH (09:43)
[2020-11-12] MEDS: PREGABALIN 100 MG CAP (LYRICA) PO SCH ×3 (09:43→21:40)
[2020-11-12] MEDS: CYANOCOBALAMIN 500 MCG TAB PO SCH (09:44)
[2020-11-12] MEDS: ATORVASTATIN 20 MG TAB PO SCH (09:44)
[2020-11-12] MEDS: PANTOPRAZOLE 40MG TAB (PROTONIX) PO SCH (09:44)
[2020-11-12] MEDS: NORTRIPTYLINE 25 MG CAP PO SCH ×2 (09:44→21:41)
[2020-11-12] MEDS: ASPIRIN 81MG ENTERIC TABLET PO SCH (09:44)
[2020-11-12] MEDS: carBAMazepine XR 200 MG TAB PO SCH ×2 (09:44→21:41)
[2020-11-12] MEDS: CARVedilol 12.5 MG TAB PO SCH ×2 (09:48→21:41)
[2020-11-12] MEDS ORDERED: POTASSIUM CHLORIDE 10 MEQ SR TABLET PO ONE (12:10)
[2020-11-12 12:35] LABS: BASO % 0.7 % (0.0-1.0); EOS # 0.1 10^3/uL (0.0-0.5); EOS % 2.9 % (0.0-3.0); HEMATOCRIT 32.8 % (36.0-47.0); HEMOGLOBIN 10.4 g/dl (12.0-15.5); LYMPH # 1.1 10^3/uL (1.5-5.0); LYMPH % 23.1 % (24.0-44.0); MEAN CORPUSCULAR HEMOGLOBIN 27.9 pg (27.0-33.0); MEAN CORPUSCULAR HGB CONC 31.7 g/dl (32.0-36.5); MEAN CORPUSCULAR VOLUME 87.9 fl (80.0-96.0); MONO # 0.5 10^3/uL (0.0-0.8); MONO % 11.6 % (2.0-8.0); NEUTROPHILS # 2.8 10^3/uL (1.5-8.5); NEUTROPHILS % 61.3 % (36.0-66.0); PLATELET COUNT, AUTOMATED 194 10^3/uL (150-450); RED BLOOD COUNT 3.73 10^6/uL (4.00-5.40); WHITE BLOOD COUNT 4.6 10^3/uL (4.0-10.0)
[2020-11-12] MEDS ORDERED: METOPROLOL SUCC *XL* 25MG TAB (TopROL *XL*) PO SCH (13:00)
[2020-11-12] MEDS ORDERED: DIGOXIN INJ 0.5 MG/2 ML AMP (J1160) IV ONE ×3 (14:20→18:00)
[2020-11-12 14:41] LABS: CK-MB VALUE MASS 1.3 NG/ML (<3.6); CPK CREATINE PHOSPHOKINASE 83 U/L (26-192); MB/CK RELATIVE INDEX 1.57 (< OR =4); TROPONIN I < 0.02 NG/ML (< 0.10)
[2020-11-12 15:34] LABS: CK-MB VALUE MASS 1.4 NG/ML (<3.6); MB/CK RELATIVE INDEX 1.92 (< OR =4); TROPONIN I 0.02 NG/ML (< 0.10)
--- NOTE | 2020-11-12 18:16 | IPNPDOC ---
Text Note Date of Service The patient was seen on 11/12/20. NOTE Subjective: Patient seen and examined at bedside. She denies having any acute issues overnight, she reports her weakness has improved. She did get 3 units of blood transfusions. And her hemoglobin increased from 7 to 11. He was initially decided to be discharged today followin g a repeat hemoglobin check at no time but around that time she was tachycardic and an EKG done showed a flutter/A. fib with a rate of 120s. She denied having any symptoms of chest pain, shortness of breath, headaches during the whole time. Objective: Physical exam: General examination: Patient is alert and oriented 3, no acute distress. Cardiac: Initially in the morning she had regular rate and rhythm, no murmurs appreciated. Later in the afternoon her heart rate is irregularly irregular. Respiration: Clear breath sounds heard bilaterally lungs, no wheezes, crackles appreciated. Abdomen: Soft, positive bowel sounds, no tenderness on palpation in the 4 quadrants of the abdomen. Extremity: No pedal edema appreciated. Neurological: No focal deficits. Assessment: 80-year-old woman with history of NIDDM 2, COPD, carotid stenosis, chronic GI bleed from known GI days she has with prior admission for acute on chronic anemia getting blood transfusions with some regularity, HTN, CKD lll, seizure disorder, GERD, CHF PEF, history of TIA and BRANDON presented to [facility] ED with a chief complaint of weakness having been found with acute on chronic anemia on lab check at her nephrology appointment and was sent to the ED for transfusion. She was admitted under medical team for blood transfusions. Plan: Symptomatic anemia with acute on chronic 2/2 GI bleed: - Patient did receive 3 units of packed red blood cells and 1 dose of Lasix 20 mg given her history of heart failure or to reduce exacerbation. - Her hemoglobin increased from 7 to 11. Atrial flutter/atrial fibrillation with RVR: - Patient was tachycardic at noon time, and the stat EKG showed she was in atrial fibrillation with RVR at a rate of 120s. - Patient was already on Coreg and did receive her morning dose of Coreg. - She was given 1 dose of metoprolol 25 mg by mouth, not much change in heart rate. - Cardiology Dr. Garcia was contacted regarding the same as they follow the patient outpatient, he recommended to give digoxin IV 0.5 mg and her heart rate reduced to 115. - Cardiology recommended digoxin 0.25mg 1 dose at 6 PM, if needed gives 0.25 MG to a maximum of 1 mg if heart rate is more than 120. - Cardiology recommended amiodarone 200 mg by mouth 4 times daily from tomorrow. And digoxin 0.25 mg daily from tomorrow with hold parameter of heart rate < 90/min. - Patient was informed regarding the risks and benefits of starting her on anticoagulation, starting her on anticoagulation will cause bleed more vs holding her anticoagulation she has a risk of having a stroke. At this time given her condition starting an anticoagulation will put her at the major risk of bleeding. DM type II: - On insulin sliding scale before meals and at bedtime. - Hypoglycemic protocol - Continue Levemir twice a day. - Consistent carbohydrate diet. COPD: -Patient never had pulmonary function test, he hasn't long history of tobacco use. - Will continue home medications, albuterol. Iron deficiency anemia: - Patient has a chronic anemia due to chronic GI bleed she would be a candidate to get a colonoscopy outpatient which she is trying to be scheduled after cardiology clearance for anesthesia prior to her admission. -Will continue ferrous sulfate twice a day. Seizure disorder: - Continue home medication History of TIA: - Patient is on statin and aspirin will continue those medication. Peripheral neuropathy: -Continue gabapentin CKD stage lll: - Her creatinine is 1.3 - Will continue to monitor the labs GERD: - Continue home PPI CAD: - Continue aspirin 81, Lipitor 20, stop Brilinta.On my discussion with Dr. Garcia whom the daughter told me prescribed it >1y ago, he did not have recollection of prescribing it and without a recent history of known PCI, recommends stopping it especially because she is bleeding and requiring frequent transfusions. DVT prophylaxis: -SCDs and TEDs Disposition: When the patient is in A. fib with RVR Dr. Garcia was contacted for the same and recommended the recommendations as above. Pending clinical improvement. Detailed discussion with the patient regarding the anticoagulation about the risks and benefits of starting it have been discussed given that patient has a history of chronic GI bleed, came in with acute drop of hemoglobin and was given blood transfusions during this admission, she wouldn't be a candidate for anticoagulation at this point of time. VS,Fishbone, I+O VS, Fishbone, I+O Laboratory Tests 11/11/20 19:55 11/12/20 08:55 11/12/20 12:15 Vital Signs Date Time Temp Pulse Resp B/P (MAP) Pulse Ox O2 Delivery O2 Flow Rate FiO2 11/12/20 15:40 114 11/12/20 15:15 97.7 22 134/59 (84) 95 Room Air I&O- Last 24 Hours up to 6 AM 11/12/20 06:00 Intake Total 1349 ml Output Total 1500 ml Balance -151 ml GME ATTESTATION GME ATTESTATION My faculty preceptor for this patient encounter was physically present during the encounter and was fully available. All aspects of the patient interview, examination, medical decision making process, and medical care plan development were reviewed and approved by the faculty preceptor. The faculty preceptor is aware and concurs with the plan as stated in the body of this note and will attest to such by his/her cosignature. ATTENDING NOTE I, Emily Urbina, have independently examined this patient and performed my own physical exam, as well as reviewed the documentation and edited where necessary. I have discussed in detail with the resident / student the findings and plan of treatment as documented by the resident / student and edited their note. I agree with their findings and treatment plan and have edited their documentation. I will continue to follow the patient during this hospital stay. Antionette Bill MD Nov 12, 2020 18:16 EMILY URBINA MD Nov 12, 2020 18:50
--- NOTE | 2020-11-12 20:37 | ECGEPIP ---
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
--- NOTE | 2020-11-12 20:42 | REPVR ---
PROCEDURE INFORMATION: Exam: XR Chest Exam date and time: 11/12/2020 7:54 PM Age: 80 years old Clinical indication: Other: Tachcardia; Additional info: Tachycardia TECHNIQUE: Imaging protocol: XR of the chest. Views: 2 views. COMPARISON: CR Chest, 1 view 11/11/2020 5:36 PM FINDINGS: Lungs: No focal lung consolidation. Pleural spaces: No pleural effusion or pneumothorax. Heart/Mediastinum: Cardiomediastinal silhouette is not significantly enlarged. There is extensive atherosclerotic calcification. Bones/joints: Skeletal degeneration. IMPRESSION: No acute findings. Electronically signed by: Virginia Schroeder On 11/12/2020 20:41:53 PM
[2020-11-12] MEDS: NITROFURANTOIN (MACROBID) 100 MG CAP PO SCH (21:41)
[2020-11-12] MEDS: MEMANTINE 5MG TABLET (NAMENDA) PO SCH (21:41)
[2020-11-12] MEDS: FERROUS SULFATE 325MG TAB PO SCH (21:41)
[2020-11-12] MEDS ORDERED: DIGOXIN INJ 0.5 MG/2 ML AMP (J1160) IV STA (22:25)
[2020-11-12] MEDS: LEVEMIR (INSULIN DETEMIR) 1 UNITS/0.01ML SC SCH (23:17)
[2020-11-13] VITALS: BP 110/52
[2020-11-13 01:01] LABS: CK-MB VALUE MASS 1.4 NG/ML (<3.6); MB/CK RELATIVE INDEX 2.06 (< OR =4); TROPONIN I 0.03 NG/ML (< 0.10)
[2020-11-13 04:00] VITALS: BP 148/58
[2020-11-13 05:13] LABS: BASO % 0.7 % (0.0-1.0); EOS # 0.2 10^3/uL (0.0-0.5); EOS % 2.8 % (0.0-3.0); HEMATOCRIT 34.2 % (36.0-47.0); HEMOGLOBIN 10.6 g/dl (12.0-15.5); LYMPH # 1.3 10^3/uL (1.5-5.0); LYMPH % 20.5 % (24.0-44.0); MEAN CORPUSCULAR HEMOGLOBIN 28.1 pg (27.0-33.0); MEAN CORPUSCULAR VOLUME 90.7 fl (80.0-96.0); MONO # 0.8 10^3/uL (0.0-0.8); MONO % 12.5 % (2.0-8.0); NEUTROPHILS # 3.9 10^3/uL (1.5-8.5); NEUTROPHILS % 63.2 % (36.0-66.0); PLATELET COUNT, AUTOMATED 196 10^3/uL (150-450); RED BLOOD COUNT 3.77 10^6/uL (4.00-5.40); WHITE BLOOD COUNT 6.1 10^3/uL (4.0-10.0)
[2020-11-13 05:47] LABS: CALCIUM LEVEL 8.3 MG/DL (8.8-10.2); CREATININE FOR GFR 1.23 MG/DL (0.55-1.30); GLOMERULAR FILTRATION RATE 44.7 (>32); POTASSIUM SERUM 4.4 MEQ/L (3.5-5.1)
[2020-11-13 07:07] VITALS: BP 160/70
[2020-11-13] MEDS: HumaLOG INSULIN (NovoLOG) PER UNIT SC SCH ×4 (08:34→22:42)
[2020-11-13] MEDS: CARVedilol 12.5 MG TAB PO SCH ×2 (08:35→22:44)
[2020-11-13] MEDS: ASPIRIN 81MG ENTERIC TABLET PO SCH (08:35)
[2020-11-13] MEDS: CYANOCOBALAMIN 500 MCG TAB PO SCH (08:36)
[2020-11-13] MEDS: ATORVASTATIN 20 MG TAB PO SCH (08:36)
[2020-11-13] MEDS: PREGABALIN 100 MG CAP (LYRICA) PO SCH ×3 (08:36→22:45)
[2020-11-13] MEDS: VITAMIN D 1,000 INTERNATIONAL UNITS TABLET PO SCH (08:36)
[2020-11-13] MEDS: PANTOPRAZOLE 40MG TAB (PROTONIX) PO SCH (08:37)
[2020-11-13] MEDS: SYMBICORT 80/4.5MCG INHALER 6GM INH SCH ×2 (08:46→20:47)
[2020-11-13] MEDS ORDERED: DIGOXIN 0.25 MG TAB PO SCH (09:00)
[2020-11-13] MEDS: carBAMazepine XR 200 MG TAB PO SCH ×2 (10:25→22:43)
[2020-11-13] MEDS: AMIODARONE 200 MG TAB (PACERONE) PO SCH ×4 (10:25→22:46)
[2020-11-13] MEDS: NORTRIPTYLINE 25 MG CAP PO SCH ×2 (10:25→22:44)
[2020-11-13 11:44] VITALS: BP 140/65
[2020-11-13 15:20] VITALS: BP 150/63
--- NOTE | 2020-11-13 18:22 | IPNPDOC ---
Text Note Date of Service The patient was seen on 11/13/20. NOTE Subjective: Patient seen at bedside and examined. Patient reports she feels better today. Denies having any symptoms. Denies chest pain, abdominal pain, headache, nausea, vomiting, diarrhea. Patient is still in atrial flutter/A. fib with a heart rate of 90s- 100. Today we'll start her on amiodarone 4 times daily and digoxin 0.25 mg daily. Given that she can't get anticoagulation due to her chronic bleeding she should be reverted back to sinus rhythm as soon as possible[as per cardiology Dr. Garcia] Objective: Physical exam: Gen. examination: Patient was alert oriented 3, no acute distress. Cardiac: Patient was at normal rate, irregularly irregular rhythm, no murmur or rub appreciated. Respiratory: Clear bilateral breath sounds heard, no wheezes or crackles appreciated. Abdomen: Soft positive bowel sounds, no tenderness on palpation in all 4 quadrants Extremities: No pedal edema Assessment: 80-year-old woman with history of NIDDM 2, COPD, carotid stenosis, chronic GI bleed from known GI days she has with prior admission for acute on chronic anemia getting blood transfusions with some regularity, HTN, CKD lll, seizure disorder, GERD, CHF PEF, history of TIA and BRANDON presented to [facility] ED with a chief complaint of weakness having been found with acute on chronic anemia on lab check at her nephrology appointment and was sent to the ED for transfusion. She was admitted under medical team for blood transfusions. Plan: Symptomatic anemia with acute on chronic 2/2 GI bleed: - S/p units of packed blood cells and her hemoglobin was stable today HB 10.6. Atrial flutter/atrial fibrillation with RVR: -Patient heart rate was in 80s and 90s the whole time but she is in A. fib/atrial flutter. When that we're not giving anticoagulation due to her c hronic GI bleed she should be reverted back to sinus rhythm as soon as possible. - Will be started on amiodarone 200 mg 4 times a day. - Will be started on digoxin 0.5 mg daily. - Check her digoxin levels in the a.m. tomorrow[patient did receive a total of 1 g of digoxin yesterday] - Will continue Coreg 25 mg twice a day by mouth. - Patient was informed regarding the risks and benefits of starting her on anticoagulation, starting her on anticoagulation will cause bleed more vs holding her anticoagulation she has a risk of having a stroke. At this time given her condition starting an anticoagulation will put her at the major risk of bleeding. DM type II: - On insulin sliding scale before meals and at bedtime. - Hypoglycemic protocol - Given that patient had low blood sugars in the a.m. that night team decrease the Levemir to 60 units from 70 units. - Continue giving her 60 units of Levemir at today as well. - Consistent carbohydrate diet. COPD: -Patient never had pulmonary function test, he hasn't long history of tobacco use. - Will continue home medications, albuterol. Iron deficiency anemia: - Patient has a chronic anemia due to chronic GI bleed she would be a candidate to get a colonoscopy outpatient which she is trying to be scheduled after cardiology clearance for anesthesia prior to her admission. -Will continue ferrous sulfate twice a day. Seizure disorder: - Continue home medication History of TIA: - Patient is on statin and aspirin will continue those medication. - Continue aspirin 81 mg by mouth daily Peripheral neuropathy: -Continue gabapentin CKD stage lll: - Her creatinine is 1.3 - Will continue to monitor the labs GERD: - Continue home PPI 40 mg by mouth daily CAD: - Continue aspirin 81, Lipitor 20, stop Brilinta.On my discussion with Dr. Garcia whom the daughter told me prescribed it >1y ago, he did not have recollection of prescribing it and without a recent history of known PCI, recommends stopping it especially because she is bleeding and requiring frequent transfusions. DVT prophylaxis: -SCDs and TEDs Disposition: - As patient was started on amiodarone and digoxin and she needs to be reverted back to sinus rhythm before she could go home. Pending clinical improvement. VS,Fishbone, I+O VS, Fishbone, I+O Laboratory Tests 11/13/20 04:57 Vital Signs Date Time Temp Pulse Resp B/P (MAP) Pulse Ox O2 Delivery O2 Flow Rate FiO2 11/13/20 15:20 98.6 87 18 150/63 (92) 93 Room Air l I&O- Last 24 Hours up to 6 AM 11/13/20 06:00 Intake Total 1180 ml Output Total 650 ml Balance 530 ml GME ATTESTATION GME ATTESTATION My faculty preceptor for this patient encounter was physically present during the encounter and was fully available. All aspects of the patient interview, examination, medical decision making process, and medical care plan development were reviewed and approved by the faculty preceptor. The faculty preceptor is aware and concurs with the plan as stated in the body of this note and will atte st to such by his/her cosignature. ATTENDING NOTE I, Emily Urbina, have independently examined this patient and performed my own physical exam, as well as reviewed the documentation and edited where necessary. I have discussed in detail with the resident / student the findings and plan of treatment as documented by the resident / student and edited their note. I agree with their findings and treatment plan and have edited their documentation. I will continue to follow the patient during this hospital stay. Antionette Bill MD Nov 13, 2020 18:22 EMILY URBINA MD Nov 13, 2020 21:25
[2020-11-13 20:00] VITALS: BP 175/76
--- NOTE | 2020-11-13 20:41 | ECGEPIP ---
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 FIBRILLATION Electronically Signed on 11-13-2020 20:41:29 EDT by Bhargav Fuentes
--- NOTE | 2020-11-13 20:46 | ECGEPIP ---
Test Date: 2020-11-13 Pat Name: JAVY RUIZ Department: Room: [place] [address] Gender: Female Magazine Supervisor: giovanna : 1940 Requested By: TERRANCE URBINA Order Number: [id number] Reading MD: Bhargav Fuentes Measurements Intervals [place] Rate: 82 P: 86 IN: QRS: 50 QRSD: 86 T: 160 QT: 336 QTc: 392 Interpretive Statements Atrial flutter with variable AV block NON-SPECIFIC STT ABNORMALITIES NO CHANGE COMPARED TO 9:42 SAME DAY Electronically Signed on 11-13-2020 20:45:50 EDT by Bhargav Fuentes
[2020-11-13] MEDS: LEVEMIR (INSULIN DETEMIR) 1 UNITS/0.01ML SC SCH (22:43)
[2020-11-13] MEDS: FERROUS SULFATE 325MG TAB PO SCH (22:44)
[2020-11-13] MEDS: MEMANTINE 5MG TABLET (NAMENDA) PO SCH (22:51)
[2020-11-14] VITALS (7 sets, daily range): BP systolic 90–162; BP diastolic 51–78
[2020-11-14 06:10] LABS: BASO % 0.7 % (0.0-1.0); EOS # 0.1 10^3/uL (0.0-0.5); EOS % 2.8 % (0.0-3.0); HEMATOCRIT 34.2 % (36.0-47.0); HEMOGLOBIN 10.5 g/dl (12.0-15.5); LYMPH # 1.2 10^3/uL (1.5-5.0); LYMPH % 26.1 % (24.0-44.0); MEAN CORPUSCULAR HEMOGLOBIN 28.3 pg (27.0-33.0); MEAN CORPUSCULAR HGB CONC 30.7 g/dl (32.0-36.5); MEAN CORPUSCULAR VOLUME 92.2 fl (80.0-96.0); MONO # 0.7 10^3/uL (0.0-0.8); MONO % 14.2 % (2.0-8.0); NEUTROPHILS # 2.6 10^3/uL (1.5-8.5); NEUTROPHILS % 55.5 % (36.0-66.0); PLATELET COUNT, AUTOMATED 186 10^3/uL (150-450); RED BLOOD COUNT 3.71 10^6/uL (4.00-5.40); WHITE BLOOD COUNT 4.6 10^3/uL (4.0-10.0)
[2020-11-14 06:49] LABS: CALCIUM LEVEL 8.9 MG/DL (8.8-10.2); CREATININE FOR GFR 1.33 MG/DL (0.55-1.30); GLOMERULAR FILTRATION RATE 40.9 (>32); POTASSIUM SERUM 4.4 MEQ/L (3.5-5.1)
[2020-11-14] MEDS: SYMBICORT 80/4.5MCG INHALER 6GM INH SCH ×2 (07:33→20:43)
[2020-11-14] MEDS: CYANOCOBALAMIN 500 MCG TAB PO SCH (08:46)
[2020-11-14] MEDS: PANTOPRAZOLE 40MG TAB (PROTONIX) PO SCH (08:46)
[2020-11-14] MEDS: ATORVASTATIN 20 MG TAB PO SCH (08:46)
[2020-11-14] MEDS: HumaLOG INSULIN (NovoLOG) PER UNIT SC SCH ×4 (08:46→21:54)
[2020-11-14] MEDS: SENOKOT S TAB PO SCH ×2 (08:47→21:48)
[2020-11-14] MEDS: CARVedilol 12.5 MG TAB PO SCH ×2 (08:47→21:49)
[2020-11-14] MEDS: AMIODARONE 200 MG TAB (PACERONE) PO SCH ×4 (08:47→21:52)
[2020-11-14] MEDS: ASPIRIN 81MG ENTERIC TABLET PO SCH (08:47)
[2020-11-14] MEDS: PREGABALIN 100 MG CAP (LYRICA) PO SCH ×3 (08:47→21:51)
[2020-11-14] MEDS: carBAMazepine XR 200 MG TAB PO SCH ×2 (08:48→21:52)
[2020-11-14] MEDS: NORTRIPTYLINE 25 MG CAP PO SCH ×2 (08:48→21:50)
[2020-11-14] MEDS: VITAMIN D 1,000 INTERNATIONAL UNITS TABLET PO SCH (08:48)
--- NOTE | 2020-11-14 13:59 | IPNPDOC ---
Text Note Date of Service The patient was seen on 11/14/20. NOTE Subjective: Patient examined and seen at bedside today. She denies having any overnight events, denies having any symptoms, she is still in atrial flutter/A. fib at a heart rate of 80s to 90s. Denies having any chest pain, headache, nausea vomiting diarrhea, abdominal pain. - Today would be day 2 of amiodarone 200 mg 4 times a day, and her digoxin was held today as her digoxin levels were checked and it was 2. Objective: Physical exam: Gen. appearance: He shouldn't is alert and oriented 3, in no acute distress. Cardiac: Rhythm is irregularly irregular, heart rate ranging somewhere from 80- 100, no murmur appreciated. Respiratory: Bilaterally clear breath sounds appreciated, no crackles or wheezes noticed. Abdomen: Soft, positive bowel sounds, no tenderness on palpation in all 4 quadrants, patient did not have a bowel movement since 4 days. Extremities no pedal edema noted. Assessment: 80 years old female with PMH NIDDM 2, COPD, carotid stenosis, chronic GI bleed from known GI ectasia prior to the admission for acute on chronic anemia got blood transfusions during this admission, and was getting them outpatient as well, HTN, CKD lll, seizure disorder, GERD, CHF preserved ejection fraction, history of TIA and ADA presented to [facility] ED with a chief complaint of weakness having been found with acute on chronic anemia on lab check at nephrology appointment and was sent to ED for transfusion. She was admitted on the medical team for blood transfusions. Plan: Symptomatic anemia with acute on chronic 2/2 GI bleed: Status post 3 PBC transfusion and HB is stable 10.5 today. Atrial fibrillation/atrial flutter with RVR: -Patient heart rate is in 80s to 90s, and the rhythm and atrial fibrillation/atrial flutter. She did not be put on anticoagulation due to her chronic GI bleed and it is important to revert her back to sinus rhythm as soon as possible. - Dr. Garcia cardiology was contacted regarding this patient and he recommended starting on amiodarone 200 mg 4 times a day today would be day 2. - Also recommended starting on digoxin 0.5 mg daily, but patient's digoxin level was checked today and it was 2 so her digoxin will be held today. - Will start her on digoxin 0.125 mg tomorrow after checking the level again. - Will continue Coreg 25 mg twice a day by mouth. - She was informed regarding the risks and benefits of starting her on anticoagulation, as starting her on anticoagulation with positive bleed versus holding she would have a risk of having a stroke. At this time given her condition starting on an anticoagulation will put her at a major risk of bleeding. As a result decision was made to start her on complete treatment of atrial fibrillation/atrial flutter except the anticoagulation and revert her back to sinus rhythm as soon as possible. DM type II: - On insulin sliding scale before meals and at bedtime. - Hypoglycemic protocol - Continue giving her 60 units of Levemir. - Consistent carbohydrate diet. COPD: - Patient never had pulmonary function test, he hasn't long history of tobacco use. - Will continue home medications, albuterol. Iron deficiency anemia: - Patient has a chronic anemia due to chronic GI bleed she would be a candidate to get a colonoscopy outpatient which she is trying to be scheduled [facility] for [facility] prior to her admission. -Will continue ferrous sulfate twice a day. Seizure disorder: - Continue home medication History of TIA: - Patient is on statin and aspirin will continue those medication. - Continue aspirin 81 mg by mouth daily Peripheral neuropathy: -Continue gabapentin CKD stage lll: - Her creatinine is 1.3 - Will continue to monitor the labs GERD: - Continue home PPI 40 mg by mouth daily CAD: - Continue aspirin 81, Lipitor 20, stop Brilinta.On discussion with Dr. Garcia whom the daughter told me prescribed it >1y ago, he did not have recollection of prescribing it and without a recent history of known PCI, recommends stopping it especially because she is bleeding and requiring frequent transfusions. DVT prophylaxis: -SCDs and TEDs Disposition: - As patient was started on amiodarone and digoxin and she needs to be reverted back to sinus rhythm before she could go home. Pending clinical improvement. VS,Fishbone, I+O VS, Fishbone, I+O Laboratory Tests 11/14/20 05:36 Vital Signs Date Time Temp Pulse Resp B/P (MAP) Pulse Ox O2 Delivery O2 Flow Rate FiO2 11/14/20 12:05 98.2 85 18 150/57 (88) 95 Room Air I&O- Last 24 Hours up to 6 AM 11/14/20 06:00 Intake Total 2100 ml Balance 2100 ml GME ATTESTATION GME ATTESTATION My faculty preceptor for this patient encounter was physically present during the encounter and was fully available. All aspects of the patient interview, examination, medical decision making process, and medical care plan development were reviewed and approved by the faculty preceptor. The faculty preceptor is aware and concurs with the plan as stated in the body of this note and will a ttest to such by his/her cosignature. ATTENDING NOTE I, Emily Urbina, have independently examined this patient and performed my own physical exam, as well as reviewed the documentation and edited where necessary. I have discussed in detail with the resident / student the findings and plan of treatment as documented by the resident / student and edited their note. I agree with their findings and treatment plan and have edited their documentation. I will continue to follow the patient during this hospital stay. Antionette Bill MD Nov 14, 2020 13:59 EMILY RUBINA MD Nov 14, 2020 14:35
[2020-11-14] MEDS: FERROUS SULFATE 325MG TAB PO SCH (21:50)
[2020-11-14] MEDS: MEMANTINE 5MG TABLET (NAMENDA) PO SCH (21:51)
[2020-11-14] MEDS: LEVEMIR (INSULIN DETEMIR) 1 UNITS/0.01ML SC SCH (21:54)
[2020-11-15] VITALS: BP 125/54
[2020-11-15 04:00] VITALS: BP 105/44
[2020-11-15 05:31] LABS: BASO % 0.8 % (0.0-1.0); EOS # 0.2 10^3/uL (0.0-0.5); EOS % 3.4 % (0.0-3.0); HEMOGLOBIN 9.8 g/dl (12.0-15.5); LYMPH % 18.8 % (24.0-44.0); MEAN CORPUSCULAR HEMOGLOBIN 28.2 pg (27.0-33.0); MEAN CORPUSCULAR HGB CONC 30.6 g/dl (32.0-36.5); MONO # 0.6 10^3/uL (0.0-0.8); MONO % 11.1 % (2.0-8.0); NEUTROPHILS # 3.5 10^3/uL (1.5-8.5); NEUTROPHILS % 65.5 % (36.0-66.0); PLATELET COUNT, AUTOMATED 185 10^3/uL (150-450); RED BLOOD COUNT 3.48 10^6/uL (4.00-5.40); WHITE BLOOD COUNT 5.3 10^3/uL (4.0-10.0)
[2020-11-15 06:01] LABS: CALCIUM LEVEL 8.1 MG/DL (8.8-10.2); CREATININE FOR GFR 1.2 MG/DL (0.55-1.30); POTASSIUM SERUM 4.5 MEQ/L (3.5-5.1)
[2020-11-15] MEDS: ACETAMINOPHEN TAB 650MG DOSE (2X325MG) PO PRN (06:06)
[2020-11-15] MEDS: SYMBICORT 80/4.5MCG INHALER 6GM INH SCH (07:43)
[2020-11-15 07:59] LABS: DIGOXIN LEVEL 1.6 NG/ML (0.5-2.0)
[2020-11-15 08:00] VITALS: BP 127/55
[2020-11-15] MEDS: HumaLOG INSULIN (NovoLOG) PER UNIT SC SCH ×2 (08:30→12:15)
[2020-11-15] MEDS: SENOKOT S TAB PO SCH (08:31)
[2020-11-15] MEDS: VITAMIN D 1,000 INTERNATIONAL UNITS TABLET PO SCH (08:31)
[2020-11-15] MEDS: PANTOPRAZOLE 40MG TAB (PROTONIX) PO SCH (08:31)
[2020-11-15] MEDS: AMIODARONE 200 MG TAB (PACERONE) PO SCH ×2 (08:31→12:14)
[2020-11-15] MEDS: ASPIRIN 81MG ENTERIC TABLET PO SCH (08:31)
[2020-11-15] MEDS: CYANOCOBALAMIN 500 MCG TAB PO SCH (08:31)
[2020-11-15] MEDS: NORTRIPTYLINE 25 MG CAP PO SCH (08:31)
[2020-11-15 08:32] VITALS: BP 127/55
[2020-11-15] MEDS: carBAMazepine XR 200 MG TAB PO SCH (08:32)
[2020-11-15] MEDS: PREGABALIN 100 MG CAP (LYRICA) PO SCH (08:32)
[2020-11-15] MEDS: ATORVASTATIN 20 MG TAB PO SCH (08:32)
[2020-11-15] MEDS: CARVedilol 12.5 MG TAB PO SCH (08:32)
[2020-11-15] MEDS ORDERED: DIGO0.123 PO (10:15)
[2020-11-15] MEDS ORDERED: AMIO200T3 PO (10:15)
[2020-11-15] MEDS ORDERED: MIRA3350 PO (10:23)
--- NOTE | 2020-11-15 10:33 | ECHO ---
DATE OF PROCEDURE: 11/14/2020 Age: 80 Gender: Female Height: 157 cm Weight: 80 kg REFERRING PHYSICIAN: Dr. Bill INDICATION: Atrial fibrillation and atrial flutter. MEASUREMENTS: IVS 1.6 cm LV 3.1 cm LVPW 1.5 cm LA 4.1 cm Aorta 3.4 cm IVC 1.4 cm FINDINGS: This study is of fair technical quality with somewhat challenging visualization. The patient is in atrial flutter with controlled rate. The left ventricle is normal size. Moderate left ventricular hypertrophy is noted. I assume overall preserved LV systolic function, but the visualization was rather limited. Right ventricle does not appear grossly enlarged. There is biatrial enlargement. Aortic valve has three cusps. It is prominently sclerotic, but mobility is preserved. There are very prominent degenerative abnormalities of the mitral valve with mitral annular calcifications and thickening of mitral leaflets. Overall leaflet motion appears to be reasonably preserved, though based on limited views. Tricuspid valve appears normal. Pulmonic valve also appears normal. No pericardial effusion is noted. Inferior vena cava is of relatively small size and appropriately collapses with inspiration indicative of normal central venous pressure. The aortic root is normal. Aortic arch was not well seen. Abdominal aorta also was not well visualized. Doppler interrogation of the aortic valve reveals no significant stenosis or insufficiency. There is trivial mitral insufficiency and no significant mitral stenosis, but the interrogation of the mitral valve was not completed, but based on available data it is unlikely that significant mitral stenosis is present. Trace tricuspid insufficiency is present. Calculated pulmonary artery pressure is in the low 30s corresponding to borderline pulmonary hypertension. Evaluation of diastolic function is inconclusive due to underlying atrial flutter. CONCLUSIONS: 1. Study is of fair technical quality, underlying atrial flutter with controlled rate. 2. Normal LV size with moderate left ventricular hypertrophy and overall normal LV systolic function based on limited views. 3. Aortic sclerosis, but no stenosis or insufficiency. 4. Prominent degenerative abnormalities of the mitral valve with mitral annular calcifications and thickening of mitral leaflets with only trivial insufficiency and no significant stenosis. 5. Normal or low central venous pressure and borderline pulmonary hypertension. 6. Biatrial enlargement. MTDD
--- NOTE | 2020-11-15 19:28 | DS.PDOC ---
Discharge Summary General Date of Admission Nov 12, 2020 at 16:30 Date of Discharge 11/15/2020 Attending Physician: EMILY STINSON MD Discharge Summary PROCEDURES PERFORMED DURING STAY: [None]. ADMITTING DIAGNOSES: Anemia: Transfusion 3 units, atrial flutter/atrial fibrillation with RVR Hypertension Insulin dependent diabetes mellitus CKD stage III COPD Bilateral carotid stenosis TIA Seizure disorder Vitamin D deficiency Osteoarthritis Lumbar disc neuropathy Mood disorder GERD Hyperlipidemia CAD HFpEF DISCHARGE DIAGNOSES: Atrial flutter /Atrial fibrillation with RVR Hypertension Insulin dependent diabetes mellitus CKD stage III COPD Bilateral carotid stenosis TIA Seizure disorder Vitamin D deficiency Osteoarthritis Lumbar disc neuropathy Mood disorder GERD Hyperlipidemia CAD HFpEF. COMPLICATIONS/CHIEF COMPLAINT: Chronic Gi Bleeding,Symptomatic Anemia. HISTORY OF PRESENT ILLNESS: 80-year-old woman with history of NIDDM 2, COPD, carotid stenosis, chronic GI bleed from known GI days she has with prior admission for acute on chronic anemia getting blood transfusions with some regularity, HTN, CKD lll, seizure disorder, GERD, CHF PEF, history of TIA and BRANDON presented to [facility] ED with a chief complaint of weakness having been found with acute on chronic anemia on lab check at her nephrology appointment and was sent to the ED for transfusion. She was admitted under medical team for blood transfusions. HOSPITAL COURSE: Patient was admitted for blood transfusions she was given 3 units of blood transfusions over the weekend, she was about to be discharged on Wednesday, November 11, then she developed having irregular rhythm atrial flutter with rapid ventricular rate. She was started on rate control medication. Patient was informed regarding potential risks and benefits of starting and not starting an anticoagulation in her situation. She was educated about the risk of stroke if the anticoagulation was not started and the risk of bleeding if the anticoagulation is started. After they shared decision making it was decided to not to start her on an ticoagulation [patient was aware of her risks of stroke when this decision was made]. Patient was continued on ASA 81. Following which Dr. Garcia the senior maintenance technician was contacted and he recommended to start patient on digoxin and amiodarone as she was already receiving Coreg. Which brought her heart rate down to 70 to 80s and she stayed there for couple of days but her rhythm was in atrial flutter. Patient was stable throughout this time and denied having any symptoms at any point of time. Her hemoglobin was stable after the transfusion. Eventually Dr. Mckee was well service floorperson on the day of her discharge; had a lengthy discussion with Dr. Mckee and he recommended to discharge the patient on amiod arone and digoxin for rate control. If she is medically optimized as per Dr. Mckee she can be discharged. When the patient was not having any other medical conditions other than the atrial flutter with normal rate she was discharged from hospital with medications. Patient was advised to follow-up with senior maintenance technician, Dr. Garcia on 11/19, Gastroenterology and Nephrology within the next 7 days. DISCHARGE MEDICATIONS: Please see below. ALLERGIES: Please see below. PHYSICAL EXAMINATION ON DISCHARGE: VITAL SIGNS: Please see below. Gen. appearance: He shouldn't is alert and oriented 3, in no acute distress. Cardiac: Rhythm is irregularly irregular, heart rate ranging somewhere from 80- 100, no murmur appreciated. Respiratory: Bilaterally clear breath sounds appreciated, no crackles or wheezes noticed. Abdomen: Soft, positive bowel sounds, no tenderness on palpation in all 4 quadrants, patient did not have a bowel movement since 4 days. Extremities no pedal edema noted. LABORATORY DATA: Please see below. IMAGING: Chest x-ray done on 11/11/2020: Reported as: No acute cardiopulmonary processes appreciated Chest x-ray done on 11/12/2020 reported as: No acute findings PROGNOSIS: Fair ACTIVITY: [As tolerated]. DIET: Distant carbohydrate diet DISCHARGE PLAN: [Home DISPOSITION: 06 Home Health Service. DISCHARGE INSTRUCTIONS: 1. Follow-up with cardiology in 3-4 days. 2. Follow-up with PCP in one week. 3. To continue amiodarone 200 mg 4 times a day. 4. Continue taking digitoxin 125 MCG tablet once a day daily. 5. Take MiraLAX as needed for constipation. 6. Continue taking rest of your medications as you were taking prior to the hospitalization 7. Stopped taking nitrofurantoin. 8. Stopped taking Brilinta until further instructed to take. ITEMS TO FOLLOWUP ON ON OUTPATIENT: 1. Follow-up with cardiology in 3-4 days. 2. Follow-up with PCP in one week. DISCHARGE CONDITION: [Stable]. TIME SPENT ON DISCHARGE: Greater than 40 minutes. Vital Signs/I&Os Vital Signs Date Time Temp Pulse Resp B/P (MAP) Pulse Ox O2 Delivery O2 Flow Rate FiO2 11/15/20 08:32 83 127/55 11/15/20 08:00 97.5 18 92 Room Air I&O- Last 24 Hours up to 6 AM 11/15/20 06:00 Intake Total 2220 ml Output Total 300 ml Balance 1920 ml Laboratory Data Labs 24H Laboratory Tests 2 11/14/20 20:18: Bedside Glucose (Misc Panel) 265H 11/15/20 04:44: Immature Granulocyte % (Auto) 0.4, Neutrophils (%) (Auto) 65.5, Lymphocytes (%) (Auto) 18.8L, Monocytes (%) (Auto) 11.1H, Eosinophils (%) (Auto) 3.4H, Basophils (%) (Auto) 0.8, Neutrophils # (Auto) 3.5, Lymphocytes # (Auto) 1.0L, Monocytes # (Auto) 0.6, Eosinophils # (Auto) 0.2, Basophils # (Auto) 0.0, Nucleated Red Blood Cells % (auto) 0.0, Anion Gap 6L, Glomerular Filtration Rate 46.0, Calcium Level 8.1L, Digoxin Level 1.6 11/15/20 11:50: Bedside Glucose (Misc Panel) 276H CBC/BMP Laboratory Tests 11/15/20 04:44 FSBS Laboratory Tests Test 11/14/20 20:18 11/15/20 11:50 Range/Units Bedside Glucose (Misc Panel) 265 276 83-110 MG/DL Microbiology Microbiology 11/11/20 Respiratory Virus Panel (PCR) (DAYAN) - Final, Complete Discharge Medications Scheduled Amiodarone HCl (Amiodarone HCl) 200 Mg Tablet, 200 MG PO QID for atrial fibrillation Aspirin (Aspirin EC) 81 Mg Tab, 81 MG PO DAILY, (Reported) Atorvastatin Calcium (Atorvastatin Calcium) 20 Mg Tab, 20 MG PO DAILY, (Reported) Budesonide/Formoterol (Symbicort 80-4.5 Mcg Inhaler) 6.9 Gm Hfa.aer.ad, 2 PUFF I NH BID, (Reported) Carbamazepine (Carbamazepine ER) 200 Mg Tab.er.12h, 200 MG PO BID, (Reported) Carvedilol (Carvedilol) 25 Mg Tab, 25 MG PO BID, (Reported) Cholecalciferol (Vitamin D3) (Vitamin D3) 1,000 Unit Tablet, 5,000 UNITS PO DAILY, (Reported) Cyanocobalamin (Vitamin B-12) (Vitamin B-12) 1,000 Mcg Capsule, 1,000 MCG PO DAILY, (Reported) Digoxin (Digoxin) 125 Mcg Tablet, 1 TAB PO DAILY Ferrous Sulfate (Ferrous Sulfate) 325 Mg Tab, 325 MG PO QHS, (Reported) Furosemide (Furosemide) 20 Mg Tablet, 40 MG PO DAILY, (Reported) Insulin Glargine,Hum.rec.anlog (Toujeo Solostar) 300 Unit/Ml Inj, 70 UNIT SC QHS, (Reported) Insulin Lispro (Admelog) 100 Unit/1 Ml Vial, 20 UNIT SC AC, (Reported) Memantine HCl (Namenda Xr) 28 Mg Cap.spr.24, 28 MG PO DAILY, (Reported) Nortriptyline HCl (Nortriptyline HCl) 25 Mg Cap, 25 MG PO BID, (Reported) Pantoprazole Sodium (Pantoprazole Sodium) 40 Mg Tablet.dr, 40 MG PO DAILY, (Reported) Polyethylene Glycol 3350 (Miralax) 119 Gm Powder, 17 GRAM PO DAILY for constipation dissolve in water Pregabalin (Lyrica) 100 Mg Capsule, 100 MG PO TID, (Reported) Scheduled PRN Albuterol Sulfate (Proair Hfa) 8.5 Gm Hfa.aer.ad, 2 PUFF INH Q4H PRN for wheezing, (Reported) Ipratropium/Albuterol Sulfate (Iprat-Albut 0.5-3(2.5) mg/3 ml) 1 Joel Joel, 1 JOEL INH Q6H PRN for SHORTNESS OF BREATH, (Reported) Allergies Coded Allergies: metformin (Verified Adverse Reaction, Mild, N/V, 05/23/20) clopidogrel (Verified Adverse Reaction, Unknown, unsure, 10/22/20) PT REPORTS SHE STILL HAS ITCHINESS SO SHE DOES NOT THINK SHE IS ALLERGIC TO PLAVIX WHICH IS WHY THEY STOPPED THE PLAVIX BEFORE FOR POSSIBLE ADVERSE REACTION OF FEELING ITCHY (10/22/20 VISIT) GME ATTESTATION GME ATTESTATION My faculty preceptor for this patient encounter was physically present during the encounter and was fully available. All aspects of the patient interview, examination, medical decision making process, and medical care plan development were reviewed and approved by the faculty preceptor. The faculty preceptor is aware and concurs with the plan as stated in the body of this note and will attest to such by his/her cosignature. ATTENDING NOTE I, Emily Stinson, have independently examined this patient and performed my own physical exam, as well as reviewed the documentation and edited where necessary. I have discussed in detail with the resident / student the findings and plan of treatment as documented by the resident / student and edited their note. I agree with their findings and treatment plan and have edited their documentation. I will continue to follow the patient during this hospital stay. Time spent on discharge 35 minutes Antionette Bill MD Nov 15, 2020 19:28 EMILY STINSON MD Nov 16, 2020 17:54
== END 2020-11-15 14:14 | disposition home health service (06) | DRG 378 ==
LOC: M ED 16:28 → M ED INP 16:29 → ENRESERV 18:45 → M MSPAV 20:54 → M PCU 11-12 15:07 → OBSVTOIN 11-12 16:30
PROVIDERS: ADMIT Internal Medicine; ATTEND Internal Medicine
PROC: 30233N1 Transfusion of Nonautologous Red Blood Cells into Peripheral Vein, Percutaneous Approach (ICD-10-PCS; principal; 2020-11-12)
DX: K92.2 Gastrointestinal hemorrhage, unspecified (principal); I48.92 Unspecified atrial flutter; I50.32 Chronic diastolic (congestive) heart failure; I13.0 Hypertensive heart and chronic kidney disease with heart failure and stage 1 through stage 4 chronic kidney disease, or unspecified chronic kidney disease; D50.0 Iron deficiency anemia secondary to blood loss (chronic); E78.5 Hyperlipidemia, unspecified; E11.51 Type 2 diabetes mellitus with diabetic peripheral angiopathy without gangrene; N18.30 Chronic kidney disease, stage 3 unspecified; E55.9 Vitamin D deficiency, unspecified; G40.909 Epilepsy, unspecified, not intractable, without status epilepticus; Z86.73 Personal history of transient ischemic attack (TIA), and cerebral infarction without residual deficits; I65.23 Occlusion and stenosis of bilateral carotid arteries; I48.91 Unspecified atrial fibrillation; M19.90 Unspecified osteoarthritis, unspecified site; K21.9 Gastro-esophageal reflux disease without esophagitis; F39 Unspecified mood [affective] disorder; Z79.4 Long term (current) use of insulin; Z87.891 Personal history of nicotine dependence; Z98.41 Cataract extraction status, right eye; Z98.42 Cataract extraction status, left eye; Z96.641 Presence of right artificial hip joint; Z79.899 Other long term (current) drug therapy; Z79.82 Long term (current) use of aspirin; Z88.8 Allergy status to other drugs, medicaments and biological substances; J44.9 Chronic obstructive pulmonary disease, unspecified

== ENCOUNTER → 2020-11-19 | Outpatient (REF) | payer MEDICARE ==
[~2020-11-19] MED LIST changes: +AMIO200T3 PO; +DIGO0.123 PO; +FURO40TA2 PO; +MIRA3350 PO
[2020-11-19 17:01] LABS: BASO % 0.4 % (0.0-1.0); EOS # 0.1 10^3/uL (0.0-0.5); HEMOGLOBIN 11.7 g/dl (12.0-15.5); LYMPH # 1.1 10^3/uL (1.5-5.0); LYMPH % 15.7 % (24.0-44.0); MEAN CORPUSCULAR HEMOGLOBIN 28.1 pg (27.0-33.0); MEAN CORPUSCULAR VOLUME 93.5 fl (80.0-96.0); MONO # 0.5 10^3/uL (0.0-0.8); MONO % 7.8 % (2.0-8.0); NEUTROPHILS % 74.7 % (36.0-66.0); PLATELET COUNT, AUTOMATED 233 10^3/uL (150-450); RED BLOOD COUNT 4.17 10^6/uL (4.00-5.40); WHITE BLOOD COUNT 6.7 10^3/uL (4.0-10.0)
[2020-11-19 17:32] LABS: CALCIUM LEVEL 9.3 MG/DL (8.8-10.2); CREATININE FOR GFR 1.69 MG/DL (0.55-1.30); DIGOXIN LEVEL 1.5 NG/ML (0.5-2.0); FREE T4 0.96 NG/DL (0.76-1.46); MAGNESIUM LEVEL 2.3 MG/DL (1.8-2.4); POTASSIUM SERUM 4.6 MEQ/L (3.5-5.1); THYROID STIMULATING HORMONE 2.31 uIU/ML (0.358-3.740)
== END ==
LOC: M LABDRWAD 16:05
PROVIDERS: ATTEND Physician Assistant
DX: I48.92 Unspecified atrial flutter (principal); Z79.899 Other long term (current) drug therapy
CPT/HCPCS: 36415; 80048; 80162; 83735; 84439; 84443; 85025; 99496; G0463

== ENCOUNTER → 2020-12-03 | Outpatient (REF) | payer MEDICARE ==
[2020-12-03 17:06] LABS: HEMOGLOBIN 9.2 g/dl (12.0-15.5); MEAN CORPUSCULAR HEMOGLOBIN 29.1 pg (27.0-33.0); MEAN CORPUSCULAR HGB CONC 30.7 g/dl (32.0-36.5); MEAN CORPUSCULAR VOLUME 94.9 fl (80.0-96.0); PLATELET COUNT, AUTOMATED 185 10^3/uL (150-450); RED BLOOD COUNT 3.16 10^6/uL (4.00-5.40); WHITE BLOOD COUNT 4.9 10^3/uL (4.0-10.0)
== END ==
LOC: M SHH 16:12
PROVIDERS: ATTEND Physician Assistant
DX: N39.0 Urinary tract infection, site not specified (principal); E11.22 Type 2 diabetes mellitus with diabetic chronic kidney disease; D50.0 Iron deficiency anemia secondary to blood loss (chronic); I48.92 Unspecified atrial flutter

== ENCOUNTER → 2020-12-11 | Outpatient (REF) | payer MEDICARE ==
[~2020-12-11] MED LIST changes: +ACET-907 PO; +TRAM50TA2 PO
[2020-12-11 17:30] LABS: HEMATOCRIT 32.4 % (36.0-47.0); HEMOGLOBIN 9.8 g/dl (12.0-15.5); MEAN CORPUSCULAR HEMOGLOBIN 29.8 pg (27.0-33.0); MEAN CORPUSCULAR HGB CONC 30.2 g/dl (32.0-36.5); MEAN CORPUSCULAR VOLUME 98.5 fl (80.0-96.0); PLATELET COUNT, AUTOMATED 248 10^3/uL (150-450); RED BLOOD COUNT 3.29 10^6/uL (4.00-5.40); WHITE BLOOD COUNT 6.2 10^3/uL (4.0-10.0)
[2020-12-11 18:04] LABS: PERCENT SATURATION 14.6 % (13.2-45.0)
== END ==
LOC: M SFHCADAM 15:41
PROVIDERS: ATTEND Physician Assistant
DX: D50.0 Iron deficiency anemia secondary to blood loss (chronic) (principal)
CPT/HCPCS: 82728; 83550; 85027; G0463

== ENCOUNTER 2020-12-12 16:00 | Emergency (ER) | payer MEDICARE, MEDICAID ==
[~2020-12-12] VITALS: Ht 162.6 cm; Wt 85.0 kg
[~2020-12-12 16:00] MED LIST changes: -ACET-907 PO; -TRAM50TA2 PO
[2020-12-12 16:08] VITALS: BP 191/74
[2020-12-12 17:09] LABS: BASO % 0.5 % (0.0-1.0); EOS # 0.1 10^3/uL (0.0-0.5); EOS % 2.1 % (0.0-3.0); HEMOGLOBIN 9.7 g/dl (12.0-15.5); LYMPH # 1.1 10^3/uL (1.5-5.0); LYMPH % 19.1 % (24.0-44.0); MEAN CORPUSCULAR HEMOGLOBIN 29.8 pg (27.0-33.0); MEAN CORPUSCULAR HGB CONC 30.3 g/dl (32.0-36.5); MEAN CORPUSCULAR VOLUME 98.2 fl (80.0-96.0); MONO # 0.6 10^3/uL (0.0-0.8); MONO % 9.7 % (2.0-8.0); NEUTROPHILS # 3.9 10^3/uL (1.5-8.5); NEUTROPHILS % 67.6 % (36.0-66.0); PLATELET COUNT, AUTOMATED 237 10^3/uL (150-450); RED BLOOD COUNT 3.26 10^6/uL (4.00-5.40); WHITE BLOOD COUNT 5.8 10^3/uL (4.0-10.0)
[2020-12-12 17:28] LABS: C REACTIVE PROTEIN QUANTITATIV 7.27 MG/DL (0.00-0.30); CALCIUM LEVEL 8.9 MG/DL (8.8-10.2); CREATININE FOR GFR 1.47 MG/DL (0.55-1.30); GLOMERULAR FILTRATION RATE 36.4 (>32); POTASSIUM SERUM 4.7 MEQ/L (3.5-5.1)
[2020-12-12 17:36] LABS: ERYTHROCYTE SEDIMENTATION RATE 73 mm/hr (0-30)
--- NOTE | 2020-12-12 18:30 | REP ---
INDICATION: recent hip surgery, swelling pain, ro dvt. COMPARISON: None. TECHNIQUE: Multiple ultrasonographic images of the deep venous structures of the left thigh were obtained from the common femoral vein to the popliteal vein along with Doppler interrogation and color flow Doppler images. FINDINGS: There is no abnormal echogenic material seen within any of the visualized deep venous structures that would suggest acute thrombosis. Coaptation is unremarkable throughout. Doppler interrogation shows an expected response to respiratory variability and augmentation. The color flow images show what appears to be a normal vascular pattern throughout. IMPRESSION: There is no ultrasonographic evidence of deep venous thrombosis involving any of the visualized deep venous structures of the left thigh, as described above. <Electronically signed by Carmine Schneider > 12/12/20 [id number]
== END 2020-12-12 20:00 | disposition home or self-care (01) ==
LOC: M ED 16:00
DX: G89.18 Other acute postprocedural pain (principal); R22.42 Localized swelling, mass and lump, left lower limb; N18.9 Chronic kidney disease, unspecified; J44.9 Chronic obstructive pulmonary disease, unspecified; E11.9 Type 2 diabetes mellitus without complications; E78.5 Hyperlipidemia, unspecified; I48.91 Unspecified atrial fibrillation; Z79.4 Long term (current) use of insulin; Z88.8 Allergy status to other drugs, medicaments and biological substances

== ENCOUNTER → 2020-12-17 | Outpatient (CLI) | payer MEDICARE ==
[~2020-12-17] MED LIST changes: +TRAM50TA2 PO
--- NOTE | 2020-12-19 16:48 | SLEEPHOME ---
DIAGNOSTIC HOME SLEEP STUDY DATE: 12/17/2020 ORDERED BY: Gabo Mckee M.D. Diagnostic home sleep testing was performed due to concern for the obstructive sleep apnea syndrome in this patient with a history of snoring. For testing, a nocturnal T3 respiratory monitoring device was used. Continuous record was made of pulse, oxygen saturation, air flow, chest and abdominal strain, and body position. 9 hours and 59 minutes of data were reviewed. There were 3 hours and 58 minutes marked as time in bed. During the interval marked time in bed, there were 58 respiratory events identified of 10 seconds in duration or greater for a respiratory event index of 14.6. The events were obstructive. Baseline pulse rate 75. Pulse rate range 34 to 134. Baseline saturation was 86%. The lowest oxygen saturation recorded was 78%. Testing was performed in both the supine and non-supine positions. IMPRESSION: Abnormal home sleep testing, with repetitive respiratory events and oxygen desaturations to 78% with a respiratory event index of 14.6, is consistent with the obstructive sleep apnea syndrome. The patient also demonstrated baseline borderline saturations at 86%. Given the patient's history and the above findings, referral for formal sleep evaluation is recommended. RECOMMENDATION: The patient should be encouraged to undergo formal sleep evaluation.
== END ==
LOC: M SLEEP HO 09:30
PROVIDERS: ATTEND Internal Medicine Cardiovascular Disease
DX: R06.83 Snoring (principal)

== ENCOUNTER → 2020-12-19 | Outpatient (REF) | payer MEDICARE ==
[2020-12-19 16:45] LABS: HEMATOCRIT 34.6 % (36.0-47.0); HEMOGLOBIN 10.8 g/dl (12.0-15.5); MEAN CORPUSCULAR HEMOGLOBIN 30.4 pg (27.0-33.0); MEAN CORPUSCULAR HGB CONC 31.2 g/dl (32.0-36.5); MEAN CORPUSCULAR VOLUME 97.5 fl (80.0-96.0); PLATELET COUNT, AUTOMATED 210 10^3/uL (150-450); RED BLOOD COUNT 3.55 10^6/uL (4.00-5.40); WHITE BLOOD COUNT 5.2 10^3/uL (4.0-10.0)
== END ==
LOC: M SHH 15:18
PROVIDERS: ATTEND Physician Assistant
DX: E11.22 Type 2 diabetes mellitus with diabetic chronic kidney disease (principal); N18.9 Chronic kidney disease, unspecified

== ENCOUNTER → 2020-12-25 | Outpatient (CLI) | payer MEDICARE | LOC: M LABSMTC 11:35 | PROVIDERS: ATTEND Anesthesiology | DX: Z01.812 Encounter for preprocedural laboratory examination (principal) ==

== ENCOUNTER 2020-12-30 07:34 | Day surgery (SDC) | payer MEDICARE, MEDICAID ==
[~2020-12-30] VITALS: Ht 162.6 cm; Wt 79.8 kg
[~2020-12-30 07:34] MED LIST changes: +NS 1,000 ML IV ONE
[2020-12-30] MEDS ORDERED: fentaNYL 100 MCG/2 ML INJECTION (J3010) As Ordered ONE (08:38)
[2020-12-30] MEDS ORDERED: LIDOCAINE 2% 100MG/5ML SDV (FOR ANES.) As Ordered ONE (08:38)
[2020-12-30] MEDS ORDERED: propofoL 200 MG/20 ML VIAL As Ordered ONE ×4 (08:38→10:04)
[2020-12-30] MEDS ORDERED: LABETALOL 100MG/20ML VIAL As Ordered ONE (09:43)
--- NOTE | 2020-12-30 10:32 | ROOR ---
Patient Name: Chelita Acosta Procedure Date: 12/30/2020 8:53 AM Date of : 1940 Age: 80 Room: [facility] Gender: Female Note Status: Finalized Procedure: Upper GI endoscopy Indications: Iron deficiency anemia Providers: Armaan Oden MD Referring MD: EMILY Miranda Requesting Provider: Medicines: Monitored Anesthesia Care Complications: No immediate complications. Procedure: Pre-Anesthesia Assessment: - Prior to the procedure, a History and Physical was performed, and patient medications and allergies were reviewed. The patient is competent. The risks and benefits of the procedure and the sedation options and risks were discussed with the patient. All questions were answered and informed consent was obtained. Patient identification and proposed procedure were verified by the physician, the nurse and the anesthesiologist in the procedure room. Mental Status Examination: alert and oriented. Airway Examination: normal oropharyngeal airway and neck mobility. Respiratory Examination: clear to auscultation. CV Examination: normal. Prophylactic Antibiotics: The patient does not require prophylactic antibiotics. Prior Anticoagulants: The patient has taken no previous anticoagulant or antiplatelet agents. ASA Grade Assessment: III - A patient with severe systemic disease. After reviewing the risks and benefits, the patient was deemed in satisfactory condition to undergo the procedure. The anesthesia plan was to use monitored anesthesia care (MAC). Immediately prior to administration of medications, the patient was re-assessed for adequacy to receive sedatives. The heart rate, respiratory rate, oxygen saturations, blood pressure, adequacy of pulmonary ventilation, and response to care were monitored throughout the procedure. The physical status of the patient was re-assessed after the procedure. The Colonoscope was introduced through the mouth, and advanced to the second part of duodenum. The upper GI endoscopy was accomplished without difficulty. The patient tolerated the procedure well. Findings: No gross lesions were noted in the entire esophagus. The Z-line was irregular and was found at the gastroesophageal junction. Patchy mild inflammation characterized by congestion (edema), erythema and granularity was found in the gastric antrum. Two 8 mm angioectasias with stigmata of recent bleeding were found in the second portion of the duodenum and in the fourth portion of the duodenum. Coagulation for bleeding prevention using argon plasma at 0.8 liters/minute and 20 felipe was successful. Estimated blood loss was minimal. Three 6 mm angioectasias with stigmata of recent bleeding were found in the jejunum. Coagulation for hemostasis using argon plasma at 0.8 liters/minute and 20 felipe was successful. Impression: - No gross lesions in esophagus. - Z-line irregular, at the gastroesophageal junction. - Gastritis. - Two recently bleeding angioectasias in the duodenum. Treated with argon plasma coagulation (APC). - Three recently bleeding angioectasias in the jejunum. Treated with argon plasma coagulation (APC). - No specimens collected. Recommendation: - Patient has a contact number available for emergencies. The signs and symptoms of potential delayed complications were discussed with the patient. Return to normal activities tomorrow. Written discharge instructions were provided to the patient. - Full liquid diet for 1 day, then advance as tolerated to high fiber diet. - Continue present medications. - Miralax 1 capful (17 grams) in 8 ounces of water PO daily. - Resume aspirin at prior dose today. Refer to primary physician for further adjustment of therapy. - Check CBC, serum iron , transferrin and ferritin levels (fasting labs) in 1 month. - Return to GI clinic in [facility] (address [address], [address], [place] [address]) in 4 -- 6 weeks. Please call GI clinic @ [phone] for apppointment date and time. - Return to primary care physician. Procedure Code(s): --- Professional --- 81786, Esophagogastroduodenoscopy, flexible, transoral; with control of bleeding, any method Diagnosis Code(s): --- Professional --- K22.8, Other specified diseases of esophagus K29.70, Gastritis, unspecified, without bleeding K31.811, Angiodysplasia of stomach and duodenum with bleeding K55.21, Angiodysplasia of colon with hemorrhage D50.9, Iron deficiency anemia, unspecified CPT copyright 2019 [employer]. All rights reserved. The codes documented in this report are preliminary and upon professional fee coder review may be revised to meet current compliance requirements. Armaan Oden MD Armaan Oden MD 12/30/2020 10:31:48 AM Electronically signed by Armaan Oden MD Number of Addenda: 0 Note Initiated On: 12/30/2020 8:53 AM Estimated Blood Loss: Estimated blood loss was minimal.
[2020-12-30 10:49] VITALS: BP 134/60
--- NOTE | 2020-12-30 11:00 | ROOR ---
Patient Name: Chelita Acosta Procedure Date: 12/30/2020 8:54 AM Date of : 1940 Age: 80 Room: [facility] Gender: Female Note Status: Finalized Procedure: Colonoscopy Indications: For therapy of colon polyps Providers: Armaan Oden MD Referring MD: EMILY Miranda Requesting Provider: Medicines: Monitored Anesthesia Care Complications: No immediate complications. Procedure: Pre-Anesthesia Assessment: - Prior to the procedure, a History and Physical was performed, and patient medications and allergies were reviewed. The patient is competent. The risks and benefits of the procedure and the sedation options and risks were discussed with the patient. All questions were answered and informed consent was obtained. Patient identification and proposed procedure were verified by the physician, the nurse and the anesthesiologist in the procedure room. Mental Status Examination: alert and oriented. Airway Examination: normal oropharyngeal airway and neck mobility. CV Examination: normal. Prophylactic Antibiotics: The patient does not require prophylactic antibiotics. Prior Anticoagulants: The patient has taken no previous anticoagulant or antiplatelet agents. ASA Grade Assessment: III - A patient with severe systemic disease. After reviewing the risks and benefits, the patient was deemed in satisfactory condition to undergo the procedure. The anesthesia plan was to use monitored anesthesia care (MAC). Immediately prior to administration of medications, the patient was re-assessed for adequacy to receive sedatives. The heart rate, respiratory rate, oxygen saturations, blood pressure, adequacy of pulmonary ventilation, and response to care were monitored throughout the procedure. The physical status of the patient was re-assessed after the procedure. The Colonoscope was introduced through the anus and advanced to the terminal ileum, with identification of the appendiceal orifice and IC valve. The colonoscopy was technically difficult and complex due to multiple diverticula in the colon and restricted mobility of the colon. Successful completion of the procedure was aided by withdrawing the scope and replacing with the enteroscope. The patient tolerated the procedure well. The quality of the bowel preparation was inadequate. The terminal ileum, ileocecal valve, appendiceal orifice, and rectum were photographed. Scope insertion time was 4 minutes. Scope withdrawal time was 10 minutes. The total duration of the procedure was 15 minutes. Findings: The perianal and digital rectal examinations were normal. The terminal ileum appeared normal. Five sessile polyps were found in the sigmoid colon, ascending colon and cecum. The polyps were 4 to 15 mm in size. These polyps were removed with a cold snare. Resection and retrieval were complete. To close a defect after polypectomy, three hemostatic clips were successfully placed. There was no bleeding at the end of the procedure. Multiple small and large-mouthed diverticula were found from sigmoid to descending colon. There was narrowing of the colon in association with the diverticular opening. There was evidence of diverticular spasm. There was no evidence of diverticular bleeding. Non-bleeding external and internal hemorrhoids were found during retroflexion. The hemorrhoids were large. Impression: - Preparation of the colon was inadequate. - The examined portion of the ileum was normal. - Five 4 to 15 mm polyps in the sigmoid colon, in the ascending colon and in the cecum, removed with a cold snare. Resected and retrieved. Clips were placed. - Moderate diverticulosis from sigmoid to descending colon. There was narrowing of the colon in association with the diverticular opening. There was evidence of diverticular spasm. There was no evidence of diverticular bleeding. - Non-bleeding external and internal hemorrhoids. Recommendation: - Patient has a contact number available for emergencies. The signs and symptoms of potential delayed complications were discussed with the patient. Return to normal activities tomorrow. Written discharge instructions were provided to the patient. - Full liquid diet for 1 day, then advance as tolerated to high fiber diet. - Continue present medications. - Resume aspirin at prior dose today. Refer to primary physician for further adjustment of therapy. - Await pathology results. - Miralax 1 capful (17 grams) in 8 ounces of water PO daily. - Repeat colonoscopy in 3 - 5 years for surveillance based on pathology results and depending on clinical and functional status. - Follow the recommendations as per the other procedure note. - Return to GI clinic in [facility] (address [address], [address], [place], [facility]) in 4 -- 6 weeks. Please call GI clinic @ [phone] for apppointment date and time. - Return to primary care physician. Procedure Code(s): --- Professional --- 59827, Colonoscopy, flexible; with removal of tumor(s), polyp(s), or other lesion(s) by snare technique Diagnosis Code(s): --- Professional --- K64.8, Other hemorrhoids K63.5, Polyp of colon K57.30, Diverticulosis of large intestine without perforation or abscess without bleeding CPT copyright 2019 [employer]. All rights reserved. The codes documented in this report are preliminary and upon director of public works review may be revised to meet current compliance requirements. Armaan Oden MD Armaan Oden MD 12/30/2020 10:59:46 AM Electronically signed by Armaan Oden MD Number of Addenda: 0 Note Initiated On: 12/30/2020 8:54 AM Estimated Blood Loss: Estimated blood loss was minimal.
[2020-12-31] MEDS ORDERED: FURO40TA2 PO (20:30)
[2020-12-31] MEDS ORDERED: AMIO200T3 PO (20:30)
[2020-12-31] MEDS ORDERED: ACET-907 PO (20:30)
[2020-12-31] MEDS ORDERED: DIGO0.123 PO (20:30)
== END 2020-12-30 11:00 | disposition home or self-care (01) ==
LOC: M OPP 07:34
PROVIDERS: ATTEND Internal Medicine Gastroenterology
DX: K57.30 Diverticulosis of large intestine without perforation or abscess without bleeding (principal); K64.8 Other hemorrhoids; K22.8 Other specified diseases of esophagus; K29.70 Gastritis, unspecified, without bleeding; K31.811 Angiodysplasia of stomach and duodenum with bleeding; K55.21 Angiodysplasia of colon with hemorrhage; D50.9 Iron deficiency anemia, unspecified; D12.6 Benign neoplasm of colon, unspecified; Z79.4 Long term (current) use of insulin; Z79.891 Long term (current) use of opiate analgesic; Z79.899 Other long term (current) drug therapy; Z88.8 Allergy status to other drugs, medicaments and biological substances; Z86.69 Personal history of other diseases of the nervous system and sense organs

== ENCOUNTER 2020-12-31 12:59 | Inpatient (IN) | payer MEDICAID, MEDICARE ==
[~2020-12-31] VITALS: Ht 162.6 cm; Wt 79.0 kg
[~2020-12-31 12:59] MED LIST changes: -NS 1,000 ML IV ONE
[2020-12-31 17:32] LABS: ABG BASE EXCESS -1.3 (-2.0-2.0); ABG O2 SATURATION 95.7 % (95.0-99.0); ABG PARTIAL PRESSURE CO2 36.6 mmHg (35.0-45.0); ABG PARTIAL PRESSURE O2 86.3 mmHg (75.0-100.0); ABG STANDARD HCO3 23.4 MEQ/L (22.0-26.0); ABG TOTAL CO2 24.1 MEQ/L (23.0-31.0); ABG pH (ARTERIAL) 7.416 UNITS (7.350-7.450)
[2020-12-31 17:35] LABS: HEMATOCRIT 29.5 % (36.0-47.0); HEMOGLOBIN 8.7 g/dl (12.0-15.5); MEAN CORPUSCULAR HEMOGLOBIN 28.7 pg (27.0-33.0); MEAN CORPUSCULAR HGB CONC 29.5 g/dl (32.0-36.5); MEAN CORPUSCULAR VOLUME 97.4 fl (80.0-96.0); PLATELET COUNT, AUTOMATED 170 10^3/uL (150-450); RED BLOOD COUNT 3.03 10^6/uL (4.00-5.40); WHITE BLOOD COUNT 3.7 10^3/uL (4.0-10.0)
--- NOTE | 2020-12-31 17:41 | REPVR ---
PROCEDURE INFORMATION: Exam: CT Head Without Contrast Exam date and time: 12/31/2020 4:56 PM Age: 80 years old Clinical indication: Other: Dka TECHNIQUE: Imaging protocol: Computed tomography of the head without contrast. Radiation optimization: All CT scans at this facility use at least one of these dose optimization techniques: automated exposure control; mA and/or kV adjustment per patient size (includes targeted exams where dose is matched to clinical indication); or iterative reconstruction. COMPARISON: CT Head without contrast 05/23/2020 5:44 PM FINDINGS: Brain: No acute intracerebral abnormality or injury. No acute infarct or intracerebral bleed. Mild age-appropriate cerebral atrophy patchy periventricular leukomalacia in both cerebral hemispheres, consistent most likely with chronic underlying small vessel / microvascular ischemic disease. A small chronic lacunar infarct is again seen in the left thalamus, unchanged since the previous head CT from 05/23/2020. A small chronic lacunar infarct is present in the left posterior cerebellar hemisphere on image 12 of series 201 and image 30 of series 203. This is a new finding since the previous head CT from 05/23/2020. [place] Stroke Program Early CT Score (ASPECTS score) = 10. Cerebral ventricles: No ventriculomegaly. Paranasal sinuses: Visualized sinuses are unremarkable. No fluid levels. Mastoid air cells: Visualized mastoid air cells are well aerated. Bones/joints: Unremarkable. No acute fracture. Soft tissues: Unremarkable. IMPRESSION: 1. No acute intracerebral abnormality or injury. No acute infarct or intracerebral bleed. 2. Mild age-appropriate cerebral atrophy patchy periventricular leukomalacia in both cerebral hemispheres, consistent most likely with chronic underlying small vessel / microvascular ischemic disease. A small chronic lacunar infarct is again seen in the left thalamus, unchanged since the previous head CT from 05/23/2020. A small chronic lacunar infarct is present in the left posterior cerebellar hemisphere on image 12 of series 201 and image 30 of series 203. This is a new finding since the previous head CT from 05/23/2020. 3. [place] Stroke Program Early CT Score (ASPECTS score) = 10. Electronically signed by: Salomon Gallegos On 12/31/2020 17:41:02 PM
--- NOTE | 2020-12-31 17:43 | ECGEPIP ---
[facility] - ED Test Date: 2020-12-31 Pat Name: JAVY RUIZ Department: Room: - Gender: Female Cereal Supervisor: ERLIN : 1940 Requested By: JUSTA Vance PA-C Order Number: [id number] Reading MD: Arielle Ivey Measurements Intervals [place] Rate: 75 P: 54 OH: 230 QRS: 45 QRSD: 98 T: 138 QT: 364 QTc: 406 Interpretive Statements Sinus rhythm with 1st degree AV block ST & T wave abnormality, consider anterolateral ischemia, more pronounced c compared 11/13/20, clinical correlation prior atrial flutter 11/13/20 Electronically Signed on 12-31-2020 17:42:40 EDT by Arielle Ivey
--- NOTE | 2020-12-31 17:53 | REP ---
INDICATION: LE edema, h/o chf. COMPARISON: 11/12/2020. TECHNIQUE: Single portable AP view of the chest was performed. FINDINGS: Cardiac silhouette and pulmonary vasculature are mildly prominent. There is no infiltrate identified. There is calcification of the thoracic aorta. The mediastinal silhouette is unchanged. IMPRESSION: Very mild cardiomegaly and vascular congestion. No infiltrate or pulmonary edema. <Electronically signed by Francisco Christiansen > 12/31/20 [id number]
[2020-12-31 17:58] LABS: ACETONE/KETONE 1.15 MG/DL (<2.81); ALBUMIN 3.2 GM/DL (3.2-5.2); BILIRUBIN,DIRECT 0.1 MG/DL (0.0-0.2); BILIRUBIN,TOTAL 0.3 MG/DL (0.2-1.0); CALCIUM LEVEL 9.1 MG/DL (8.8-10.2); CK-MB VALUE MASS 1.3 NG/ML (<3.6); CREATININE FOR GFR 1.46 MG/DL (0.55-1.30); GLOMERULAR FILTRATION RATE 36.7 (>32); MAGNESIUM LEVEL 2.5 MG/DL (1.8-2.4); MB/CK RELATIVE INDEX 1.43 (< OR =4); PHOSPHORUS LEVEL 3.7 MG/DL (2.5-4.9); POTASSIUM SERUM 4.6 MEQ/L (3.5-5.1); TOTAL PROTEIN 7.5 GM/DL (6.4-8.2); TROPONIN I 0.03 NG/ML (< 0.10)
[2020-12-31 17:59] LABS: HEMOGLOBIN A1c 7.7 %
[2020-12-31 18:06] LABS: EOSINOPHILS 2 % (0-3); LYMPHOCYTES 27 % (16-44); MONOCYTES 10 % (0-5); NEUTROPHILS 61 % (28-66); PLATELET ESTIMATE NORMAL (NORMAL)
--- NOTE | 2020-12-31 18:42 | REP ---
INDICATION: r/o dvt LLE COMPARISON: 12/12/2020. TECHNIQUE: Real time compression and duplex Doppler interrogation of the left lower extremity deep venous system is performed, including the right common femoral vein.Compression of the left peroneal and posterior tibial veins is performed. FINDINGS: The left common femoral, superficial femoral and popliteal veins are fully compressible with transducer pressure and demonstrate normal spontaneous and phasic flow, without evidence of deep venous thrombosis.The right common femoral vein demonstrates no thrombus.The visualized left peroneal and posterior tibial veins demonstrate no thrombus. IMPRESSION: No evidence of deep venous thrombosis of the left lower extremity femoral popliteal venous system.No thrombus in the visualized left peroneal and posterior tibial veins. <Electronically signed by Francisco Christiansen > 12/31/20 [id number]
[2020-12-31] MEDS ORDERED: MOM 30ML SUSPENSION UDC PO PRN (19:25)
[2020-12-31] MEDS ORDERED: GLUCAGON INJ 1MG VIAL SC PRN (19:25)
[2020-12-31] MEDS ORDERED: CAPTOpril 6.25 MG PER 1/2 TABLET PO SCH (19:25)
[2020-12-31] MEDS ORDERED: DEXTROSE 50% 50 ML SYRINGE IV PRN (19:25)
[2020-12-31] MEDS ORDERED: GLUCOSE 4GM CHEW TABLET PO PRN (19:25)
[2020-12-31] MEDS ORDERED: ACETAMINOPHEN TAB 650MG DOSE (2X325MG) PO PRN (19:25)
[2020-12-31] MEDS ORDERED: MAALOX 30 ML SUSP *UDC PO PRN (19:25)
--- NOTE | 2020-12-31 19:39 | HPEPDOC ---
[facility] Medical History & Physical Date of Admission Dec 31, 2020 Date of Service: Dec 31, 2020 Primary Care Physician: TAWANDA ADEN PA-C Attending Physician: JOYCE TREJO MD History and Physical TIME OF SERVICE: 759pm CHIEF COMPLAINT: sent by PCP HISTORY OF PRESENT ILLNESS: was last admitted to [facility] at the end of October for rapid A fib and acute anemia; in the interim she had L hip surgery after falling and breaking her hip while on vacation in [place] & was started on nocturnal O2 after a home sleep study. At 8AM her serum glucose was 47 (usual range is 150 to 250s). After eating a Zimbabwean and drinking orange juice her sugar increased to >600. Despite taking insulin her serum glucose wouldnt go down; she was asymptomatic despite the low and high sugars. Over the last few weeks she has also had transient episodes of slurred speech. Today the patient's PCP sent her to the ER for evaluation. 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, Osteoporosis, Essential HTN, Paroxysmal Atrial Fib / Flutter, 1st Degree AV block, Aortic sclerosis w/o stenosis, Hx of GI bleed 2/2 AVMs, Hx of colonic tubular adenomas, Seizure disorder Vitamin D deficiency, Chronic OA, RLS, Newly diagnosed REMIGIO, Chronic HFpEF / mild Pulm HTN, Carpal tunnel release, Right hip replacement, Left hip fracture, Hysterectomy, Bilateral cataract surgeries, L hip repair SOCIAL HISTORY: Former smoker (1-2 PPD since 16yrs of age) / doesnt drink / 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 ALLERGIES: Please see below. HOME MEDICATIONS: Please see below. PHYSICAL EXAMINATION: Vital Signs Date Time Temp Pulse Resp B/P (MAP) Pulse Ox O2 Delivery O2 Flow Rate FiO2 12/31/20 13:00 97.6 65 18 181/74 (109) 98 Room Air GENERAL APPEARANCE: well nourished and developed / NAD HEENT: EOMI/ MMM&P / is pursuing her lips during the expiratory phase of breathing CARDIOVASCULAR: RRR/ + systolic murmur / LLE swelling LUNGS: not coughing/ has end expiratory crackles ABDOMEN: contour obese MUSCULOSKELETAL: NCAT INTEGUMENT: not pale or flushed NEUROLOGICAL: CN 2-12 grossly intact /speech not dysarthric PSYCHIATRIC: A&O to person and place but not date LABORATORY DATA: IMAGING: Chest xray IMPRESSION: Very mild cardiomegaly and vascular congestion. No infiltrate or pulmonary edema. CT head IMPRESSION: 1. No acute intracerebral abnormality or injury. No acute infarct or intracerebral bleed. 2. Mild age-appropriate cerebral atrophy patchy periventricular leukomalacia in both cerebral hemispheres, consistent most likely with chronic underlying small vessel / microvascular ischemic disease. A small chronic lacunar infarct is again seen in the left thalamus, unchanged since the previous head CT from 05/23/2020. A small chronic lacunar infarct is present in the left posterior cerebellar hemisphere on image 12 of series 201 and image 30 of series 203. This is a new finding since the previous head CT fr om 05/23/2020. 3. [place] Stroke Program Early CT Score (ASPECTS score) = 10. Vascular US IMPRESSION: No evidence of deep venous thrombosis of the left lower extremity femoral popliteal venous system. No thrombus in the visualized left peroneal and posterior tibial veins. EKG shows sinus rhythm w 1st degree AV block w ST and T wave abnormalities in anterolateral leads MICROBIOLOGY: respiratory panel neg ASSESSMENT: is a 80 yr old w suspected vascular dementia, L lacunar and L thalamus CVAs, Bilateral carotid stenosis, Chronic CAD w RCA stent, DLP, IDDM2, CKD3, COPD, Osteoporosis, REMIGIO, Essential HTN, Paroxysmal Atrial Fib / Flutter, 1st Degree AV block, AVMs, Seizure disorder, RLS, & Chronic HFpEF who will be admitted for Uncontrolled HTN, partially decompensated HFpEF & subacute CVAs. PLAN: 1 Uncontrolled HTN She is asymptomatic and there are no signs of end-organ damage therefore she doesn't meet the criteria to diagnose HTN Urgency or HTN Emergency It is currently unclear what the trigger is (her daughter and home RN manage her meds & diet & she no longer smokes) Plan: admit to PCU / will aim to lower BP by 25% w/in the first 2-4 hours with target BP of <160/100 / resume Coreg, switch to IV Lasix bc of fluid overload + give 1 dose of PO Captopril now / low salt diet 2 Suspected Subacute CVAs She also has a hx of chronic Bilateral Carotid stenosis s/p R CEA She has been having transient episodes of dysarthria which I think might be due to the elevations on her BP CT of the head identified a left chronic lacunar infarct (not present on previous imaging studies) & an old chronic left thalamus infarct which was previously visualized She has a hx of R sided CEA Plan: telemetry / f/u MRI/ MRA head, carotid US & Echo / c/w ASA & statin / improve BP control/ the day time team may consider Neuro consult 3 Partially decompensated HFpEF She has transient episodes of dyspnea; I suspect that this may be flash pulmonary edema triggered by the acute elevation in her BP. She has crackles, her BNP is elevated, the chest xray also shows congestion and cardiomegaly. Plan: f/u strict Is and Os, daily weights/ restrict fluid to 2L / IV Lasix 3 Labile glucose Her A1C is 7.7%; her PCP may consider liberating her target A1C to 8.0 to 8.5% to reduce the risk of hypoglycemia/ her PCP may consider out pt Endo referral to switch the patient from basal bolus injection to continuous subcutaneous insulin infusion which has been shown to produced small improvements in A1C, improve QOL and reduce episodes of severe hypoglycemia 4 REMIGIO Plan: c/w 2L nocturnal O2 pending formal sleep study 5 ST & T wave changes on EKG She denies chest pain & her Trop is wnl Plan: telemetry /f/u repeat EKG 7 Multifactorial Bicytopenia She has a hx of GI bleed 2/2 AVMs; there were plans for her School Based Therapist to start her on Aranesp (not sure if she has already started this) Plan: trend Hg 8 CAD s/p RCA stent / DLP Plan: c/w ASA, Coreg 9 CKD3 Plan: f/u BMP and w School Based Therapist on an out pt basis as scheduled 10 Dementia Likely vascular dementia CT shows microvascular ischemic changes) Plan: c/w Namenda 11 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 Plan: amiodarone, digoxin ( she is not on AC ( possibly bc of hx of GI bleed requiring blood transfusion?) 14 Chronic Seizure disorder Plan: carbamazepine 15 RLS Plan: pregabalin 16 Class 1 Obesity She has co-existing DM, HTN and REMIGIO which complicates her care DVT px w SCDs Dispo: home after at least 2 midnights stay Home Medications Scheduled Acetaminophen (Tylenol) 325 Mg Tablet, 975 MG PO QHS Amiodarone HCl (Amiodarone HCl) 200 Mg Tablet, 200 MG PO BID Aspirin (Aspirin EC) 81 Mg Tab, 81 MG PO DAILY Atorvastatin Calcium (Atorvastatin Calcium) 20 Mg Tab, 20 MG PO DAILY Carbamazepine (Carbamazepine ER) 200 Mg Tab.er.12h, 200 MG PO BID Carvedilol (Carvedilol) 25 Mg Tab, 25 MG PO BID Cholecalciferol (Vitamin D3) (Vitamin D3) 1,000 Unit Tablet, 5,000 UNITS PO DAILY Cyanocobalamin (Vitamin B-12) (Vitamin B-12) 1,000 Mcg Capsule, 1,000 MCG PO DAILY Digoxin (Digoxin) 125 Mcg Tablet, 125 MCG PO DAILY Furosemide (Furosemide) 40 Mg Tablet, 40 MG PO DAILY Insulin Glargine,Hum.rec.anlog (Toujeo Solostar) 300 Unit/Ml Inj, 70 UNIT SC QHS Insulin Lispro (Admelog) 100 Unit/1 Ml Vial, 20 UNIT SC AC Memantine HCl (Namenda Xr) 28 Mg Cap.spr.24, 28 MG PO DAILY Nortriptyline HCl (Nortriptyline HCl) 25 Mg Cap, 25 MG PO BID Pantoprazole Sodium (Pantoprazole Sodium) 40 Mg Tablet.dr, 40 MG PO DAILY Pregabalin (Lyrica) 100 Mg Capsule, 100 MG PO BID Scheduled PRN Albuterol Sulfate (Proair Hfa) 8.5 Gm Hfa.aer.ad, 2 PUFF INH Q4H PRN for SHORTNESS OF BREATH Budesonide/Formoterol (Symbicort 80-4.5 Mcg Inhaler) 6.9 Gm Hfa.aer.ad, 2 PUFF INH BID PRN for SHORTNESS OF BREATH PT STATES USES PRN Ipratropium/Albuterol Sulfate (Iprat-Albut 0.5-3(2.5) mg/3 ml) 1 Joel Joel, 1 JOEL INH Q6H PRN for SHORTNESS OF BREATH Tramadol HCl (Tramadol HCl) 50 Mg Tablet, 50 MG PO Q8H PRN for PAIN Allergies Coded Allergies: metformin (Verified Adverse Reaction, Mild, N/V, 12/20/20) clopidogrel (Verified Adverse Reaction, Unknown, unsure, 12/20/20) PT REPORTS SHE STILL HAS ITCHINESS SO SHE DOES NOT THINK SHE IS ALLERGIC TO PLAVIX WHICH IS WHY THEY STOPPED THE PLAVIX BEFORE FOR POSSIBLE ADVERSE REACTION OF FEELING ITCHY (10/22/20 VISIT) A-FIB/CHADSVASC A-FIB History Current/History of A-Fib/PAF?: Yes Current PO Anticoag Therapy: No Treatment Treatment ordered: NONE Reason Anticoagulant not given: Other (hx of GI bleed) Other reason anticoagulant not: hx of GI bleed JOYCE TREJO MD Dec 31, 2020 19:39
[2020-12-31] MEDS: FUROSEMIDE 100MG/10ML VIAL (J1940) IV ONE ×2 (19:58→20:02)
[2020-12-31] MEDS ORDERED: DIGO0.123 PO (20:30)
[2020-12-31] MEDS ORDERED: AMIO200T3 PO (20:30)
[2020-12-31] MEDS ORDERED: ACET-907 PO (20:30)
[2020-12-31] MEDS ORDERED: FURO40TA2 PO (20:30)
[2020-12-31 20:50] LABS: RSV AMPLIFICATION NEGATIVE (NEGATIVE)
[2020-12-31] MEDS ORDERED: ALBUTEROL 90 MCG/ACT 8GM HFA INHALER INH PRN (21:45)
[2020-12-31] MEDS ORDERED: SYMBICORT 80/4.5MCG INHALER 6GM INH PRN (21:45)
[2020-12-31] MEDS ORDERED: ASPIRIN 81 MG CHEW TABLET PO ONE (21:45)
--- NOTE | 2020-12-31 21:47 | REPVR ---
PROCEDURE INFORMATION: Exam: MR Head Without Contrast Exam date and time: 12/31/2020 9:10 PM Age: 80 years old Clinical indication: Alteration of consciousness; Transient alteration of awareness; Patient HX: Confusion facial numbness; Additional info: R/O stroke TECHNIQUE: Imaging protocol: MR of the head without contrast. COMPARISON: MRI-Brain without Contrast 05/23/2020 7:25 PM FINDINGS: Brain: There is hyperintense signal in the periventricular white matter. There are multiple additional hyperintense foci scattered throughout the white matter. This is consistent with chronic microvascular disease. There are small old white matter, basal ganglia, thalamic and cerebellar lacunar infarcts. As seen on DWI images 56-72 there is a 12 mm focus of restricted diffusion in the left posteroinferior medial cerebellum. This is consistent with a recent, acute to subacute, infarct as confirmed on ADC. This infarct is clearly visible on FLAIR and T2 weighted images which suggests it is subacute. There is a small old right cerebellar Gradient echo images demonstrate no evidence of hemorrhage. There is no extra-axial collection. There is no mass. Cerebral ventricles: There is no hydrocephalus. Bones/joints: Unremarkable. Paranasal sinuses: Normal as visualized. No acute sinusitis. Mastoid air cells: Normal as visualized. No mastoid effusion. Orbital cavity: Unremarkable. Soft tissues: Unremarkable. IMPRESSION: 1. Chronic microvascular disease with multiple old lacunar infarcts. 2. There is a new, acute to subacute, left posteroinferior medial cerebellar infarct measuring 12 mm in maximal dimension . Electronically signed by: Ryan Chu On 12/31/2020 21:47:37 PM
--- NOTE | 2020-12-31 21:50 | REPVR ---
PROCEDURE INFORMATION: Exam: MRA Head Without Contrast; Arteriography Exam date and time: 12/31/2020 9:10 PM Age: 80 years old Clinical indication: Cognitive deficit; Altered mental status; Patient HX: Confusion facial numbness; Additional info: R/O stroke TECHNIQUE: Imaging protocol: Magnetic resonance angiography head without contrast. Exam focused on the arteries. COMPARISON: MRA BRAIN W/O CONTRAST 05/13/2015 1:22 PM FINDINGS: ANTERIOR CIRCULATION: Right internal carotid artery: Intracranial segment is patent with no significant stenosis. No aneurysm. Right middle cerebral artery: No occlusion or significant stenosis. No aneurysm. Right anterior cerebral artery: No occlusion or significant stenosis. No aneurysm. Left internal carotid artery: Intracranial segment is patent with no significant stenosis. No aneurysm. Left middle cerebral artery: No occlusion or significant stenosis. No aneurysm. Left anterior cerebral artery: No occlusion or significant stenosis. No aneurysm. POSTERIOR CIRCULATION: Right vertebral artery: No occlusion or significant stenosis. No aneurysm. Left vertebral artery: The left vertebral artery is markedly hypoplastic or stenotic. It increases in size distal to the left PICA. This distal segment may be supplied in a retrograde fashion. Basilar artery: No stenosis. No aneurysm. Right posterior cerebral artery: No occlusion or significant stenosis. No aneurysm. Left posterior cerebral artery: There is a probable PCOM infundibulum on the left. No aneurysm identified IMPRESSION: 1. 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 No stenosis of the dominant right vertebral artery. 2. No anterior circulation stenosis or occlusion Electronically signed by: Ryan Chu On 12/31/2020 21:49:54 PM
[2021-01-01] VITALS (13 sets, daily range): BP systolic 113–181; BP diastolic 58–81
[2021-01-01] MEDS: PREGABALIN 100 MG CAP (LYRICA) PO SCH ×3 (00:20→20:47)
[2021-01-01] MEDS: AMIODARONE 200 MG TAB (PACERONE) PO SCH ×3 (00:20→20:47)
[2021-01-01] MEDS: carBAMazepine XR 200 MG TAB PO SCH ×3 (00:21→20:47)
[2021-01-01] MEDS: CARVedilol 12.5 MG TAB PO SCH ×3 (00:21→20:47)
[2021-01-01] MEDS: NORTRIPTYLINE 25 MG CAP PO SCH ×3 (00:21→20:47)
[2021-01-01] MEDS: HumaLOG INSULIN (NovoLOG) PER UNIT SC SCH ×5 (00:28→20:46)
[2021-01-01 05:26] LABS: HEMATOCRIT 25.2 % (36.0-47.0); HEMOGLOBIN 7.5 g/dl (12.0-15.5); MEAN CORPUSCULAR HEMOGLOBIN 29.2 pg (27.0-33.0); MEAN CORPUSCULAR HGB CONC 29.8 g/dl (32.0-36.5); MEAN CORPUSCULAR VOLUME 98.1 fl (80.0-96.0); PLATELET COUNT, AUTOMATED 152 10^3/uL (150-450); RED BLOOD COUNT 2.57 10^6/uL (4.00-5.40); WHITE BLOOD COUNT 3.9 10^3/uL (4.0-10.0)
[2021-01-01 05:50] LABS: BLOOD UREA NITROGEN 16 MG/DL (7-18); CALCIUM LEVEL 8.2 MG/DL (8.8-10.2); CARBON DIOXIDE LEVEL 30 MEQ/L (21-32); CHLORIDE LEVEL 107 MEQ/L (98-107); CREATININE FOR GFR 1.55 MG/DL (0.55-1.30); FERRITIN 22 NG/ML (8-252); GLOMERULAR FILTRATION RATE 34.2 (>32); GLUCOSE, FASTING 268 MG/DL (70-100); IRON (FE) 18 UG/DL (50-170); PERCENT SATURATION 4.8 % (13.2-45.0); POTASSIUM SERUM 4.4 MEQ/L (3.5-5.1); SODIUM LEVEL 142 MEQ/L (136-145); TOTAL IRON BINDING CAPACITY 373 UG/DL (250-450)
--- NOTE | 2021-01-01 07:30 | REP ---
INDICATION: transient dysarthria COMPARISON: 08/08/2020 TECHNIQUE: Christiansen scale and color Doppler evaluation using linear high frequency transducer Findings: FINDINGS: Right common carotid artery is patent with a patent stent extending from the distal common carotid artery into the internal carotid artery. Partially calcified atheromatous plaquing is appreciated and the proximal ICA peak systolic velocity suggest narrowing in the 50-69% range with suspected occlusion to the distal ICA. Right vertebral artery is not identified. Left common carotid artery is patent to the level of the carotid bulb where significant partially calcified atheromatous plaquing is appreciated and the ICA peak systolic velocity suggests narrowing in the greater than 70% range. Left vertebral artery appears patent. ICA peak systolic velocity: Right 157.3 cm/s; Left 503.9 cm/s ICA diastolic velocity: Right 24.1 cm/s; Left 74.0 cm/s ECA peak systolic velocity: Right 303.6 cm/s; Left 218.0 cm/s CCA peak systolic velocity: Right 145.0 cm/s; Left 163.5 cm/s ICA/CCA ratio: Right 1.1 cm/s; Left 3.1 cm/s IMPRESSION: 1. Proximal right ICA narrowing in the 50-69% range with suspected occlusion of the distal right ICA. 2. Increased velocity to the left ICA suggesting greater than 70% stenosis. <Electronically signed by Flo Ramon > 01/01/21 0799
[2021-01-01] MEDS ORDERED: ASPIRIN 81 MG CHEW TABLET PO SCH (09:00)
[2021-01-01] MEDS ORDERED: ENOXAPARIN 40MG/0.4ML SYRINGE (J1650 PER 10MG) SC SCH (09:00)
[2021-01-01] MEDS ORDERED: ASPIRIN 81MG ENTERIC TABLET PO SCH (09:00)
[2021-01-01] MEDS ORDERED: FUROSEMIDE 40MG/4ML VIAL (J1940) IV SCH (09:00)
[2021-01-01] MEDS: MEMANTINE 5MG TABLET (NAMENDA) PO SCH ×2 (09:26→20:47)
[2021-01-01] MEDS: PANTOPRAZOLE 40MG TAB (PROTONIX) PO SCH (09:27)
[2021-01-01] MEDS: VITAMIN D 1,000 INTERNATIONAL UNITS TABLET PO SCH (09:28)
[2021-01-01] MEDS: CYANOCOBALAMIN 500 MCG TAB PO SCH (09:28)
[2021-01-01] MEDS: DIGOXIN 0.125 MG TAB PO SCH (09:28)
[2021-01-01] MEDS: ATORVASTATIN 20 MG TAB PO SCH (09:28)
[2021-01-01 11:20] LABS: VITAMIN B12 LEVEL > 2000 PG/ML (247-911)
[2021-01-01 11:22] LABS: FOLATE 11.9 NG/ML (>5.4)
[2021-01-01 12:30] LABS: CHOLESTEROL LEVEL 170 MG/DL (<200); CHOLESTEROL RISK RATIO 5.312 (<5); HDL CHOLESTEROL 32 MG/DL (>40); NON-HDL-C 138 MG/DL; NT-PRO BNP 1129 PG/ML (<450); TRIGLYCERIDES LEVEL 618 MG/DL (<150)
[2021-01-01] MEDS ORDERED: ASPIRIN 81MG ENTERIC TABLET PO ONE (14:00)
--- NOTE | 2021-01-01 14:08 | IPNPDOC ---
Date Seen The patient was seen on 01/01/21. Progress Note SUBJECTIVE: Chelita was seen and examined this morning by the hospitalist service while lying upright in her ICU bed (pt is PCU status). She denies any current or overnight fever, chills, night sweats, chest pain, chest pressure, palpitations, shortness of breath OBJECTIVE PHYSICAL EXAMINATION: VITAL SIGNS: Please see below. GENERAL: Pleasant, elderly female lying upright in bed. Does not appear to be in acute distress. Wearing supplemental oxygen. HEENT: Normocephalic, atraumatic. Noninjected, anicteric sclera. Conjunctival pallor present. ORAL CAVITY: Upper dentures are in place. There are no lower teeth present. No pharyngeal erythema or exudate. Moist mucous membranes. CHEST: No chest wall tenderness. Telemetry leads in place.. There are scattered dark brown papules present over lower neck and chest. NECK: Trachea midline. No lymphadenopathy appreciated. No JVD appreciated CARDIOVASCULAR: Overall heart sounds are distant. Regular rate, regular rhythm. On both EKG and active telemetry, there is a first-degree heart block present. There is a 2/6 systolic murmur present as well. No rubs were appreciated. RESPIRATORY: Currently receiving 1 L supplemental oxygen via nasal cannula. There are bilateral crackles posteriorly, right greater than left, and greater with inspiration. Symmetric chest expansion. No visualized accessory muscle use appreciated. ABDOMINAL: Soft, nondistended, nontender. Hypoactive bowel sounds throughout. No guarding or rigidity. Moderately obese abdomen compromising accuracy of hepatosplenomegaly palpation to some extent. BACK: There is 1+ presacral edema appreciated. There are scattered areas of dark brown papules as well as skin tags overlying skin of patient's back. EXTREMITIES: There is 2+ pitting edema of the left lower extremity. There are arthritic changes visualized DIP joints bilaterally. Scattered areas of ecchymosis on bilateral forearms. NEUROLOGICAL: Patient is alert and oriented to person, place, and time. She responds appropriately to all questions and commands. Upon visualization assessing for facial symmetry, there appears to be a mild right facial droop. Sensation to light touch of upper and lower extremities is intact bilaterally. Short-term memory recall also intact. On cranial nerve testing, left-side finger to nose testing was slightly slower than less precise in the right, otherwise, cranial nerves III through XII were grossly intact. No dysdiadochokinesis. There is no significant dysarthria appreciated. PSYCHOLOGICAL: Mood and affect appears appropriate. LABORATORY DATA, IMAGING STUDIES, MICROBIOLOGY: Please see below. Echocardiogram: ordered on 12/31/20 by the admitting team; official impression report has yet to result. ASSESSMENT AND PLAN: This is an 80yo female w/ an extensive med hx most notable for chronic left lacunar and thalamic infarcts, CAD status post RCA stent, insulin-dependent diabetes mellitus 2, CKD3, bilateral carotid stenosis s/p right-sided CEA, COPD, hypertension, paroxysmal atrial flutter dx October 2020, HFpEF, and left hip fracture November 2020 s/p SHALA, who presented to the ED on 12/31/20 after being sent over via her primary care provider due to recent labile home blood sugars. She also reported some transient episodes of slurred speech in the past few weeks. Upon presentation, patient was in hypertensive urgency with systolics in the 220s. Her blood pressure quickly came down. After administration of home carvedilol and a single dose of oral captopril. Can brain imaging revealed new acute to subacute left posteroinferior medial cerebellar infarct (max diameter of 12 mm). Head CT showed small chronic lacunar infarcts in left thalamus and left posterior cerebellar hemisphere with no acute intracranial abnormality. 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 A bilateral carotid ultrasound revealed left internal carotid stenosis greater than 70% and right internal carotid stenosis between 5069 percent. Patient was placed on insulin sliding scale for glycemic control. Patient was also thought to potentially be in partial decompensated HFpEF due to mild vascular congestion seen on chest x- ray and was subsequently started on fluid restriction with 60 mg of IV furosemide; of note, her initial BNP was 1249, yet was 1312 during a hospitalization two months ago. #New acuteto-subacute left posteroinferior medial cerebellar infarct seen on imaging -Maximum dimension seen on MRI brain without contrast was 12 mm. Patient does have chronic small lacunar infarcts in the left thalamus and left posterior cerebral hemisphere on head CT without any acute intracranial abnormality. Patient also has known bilateral carotid artery stenosis which was confirmed com plete carotid ultrasound admission (greater than 70% stenosis left ICA, 5069 percent stenosis right ICA) disease. -Upon admission last night, documented exam stated, cranial nerves II through XII were documented as grossly intact on admission exam last night with non- dysarthric speech. Exam today was relatively unremarkable today other than mild left facial droop which were uncertain if this is a recent finding or new onset (please see neurologic section above for further details). -Patient's home aspirin 81 mg and home atorvastatin 20 mg were both continued upon admission. 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 Her indices. Dr. Garcia) had the hospitalist team stop it - -as patient was greater then a year removed from PCI and has a long history of anemia requiring transfusions secondary to GI ectasias. -We called and spoke with the on-call neurologist today (Dr. Pita Fisher) regardi ng the patient who recommended increasing her aspirin to 162 mg daily. He also will be seen the patient during this admission. The hospitalist team sincerely appreciates the neurology services involvement and continued insights. -An echocardiogram was ordered by the admitting team with official impression read not yet resulted. -A physical therapy consultation has been placed, as has a speech therapy bedside swallow evaluation. Aspiration precautions. -A lipid panel was ordered today. #Hypertensive urgency, resolved -When patient presented yesterday evening, her systolics crept up to 221. She was asymptomatic. She was administered a one-time dose of captopril as well as having her home carvedilol continued. The admitting team felt the patient potentially was in a partial decompensation of heart failure and also began 60 mg IV Lasix. -Patient was placed on a 2 g sodium diet in the setting of the hypertensive urgency and known outpatient history of hypertension. #Mild vascular congestion seen on chest x-ray -Patient has a previous documentation of heart failure with preserved ejection fraction and was reporting transient episodes of dyspnea per admission note. There was a suspicion for possible flash pulmonary edema causing the hypertensive urgency. Patient was subsequently started on 60 mg IV Lasix with daily weights, 24-hour fluid restriction of 2 L, and strict I's and O's. She did have an elevated BNP of 1249.-Upon exam this morning, patient did have bilateral crackles, but had no JVD and on review of past records, her BNP was just 1312 2 months ago. As of now, we don't believe that the patient has an acute decompensation of her heart failure and does have discontinued the IV Lasix. A repeat BNP has been ordered. Should patient's respiratory status or fluid volume appear more overload on exam, we'll certainly consider getting a repeat chest x- ray. #Recent reported history of labile glucose levels as outpatient -Prior to presentation, the patient reportedly had been having significant waxing and waning of her home sugars despite stating she was taking outpatient diabetic meds as prescribed. Serum glucose this morning was 268. She was placed on insulin sliding scale upon admission. Likely due to the labile sugars, the patient was placed on fingersticks every 6 hours. As she is tolerating food at this time, we have switched her fingersticks to before meals and at night. A1c was measured on admission at 7.7%. We will continue to monitor her sugars and adjust coverage accordingly. #Macrocytic anemia in the setting of chronic anemia secondary to known GI ectasias -Per reports, patient has received multiple transfusions in the past -Hemoglobin 7.5 this morning with MCV of 98. As patient has known coronary artery disease with a right coronary artery stent, threshold for transfusion is hemoglobin less than 8. As a result, blood product consent was signed after a type and screen and 1 unit of packed red blood cells was ordered. A follow-up H&H has been placed for this evening. -Also per reports, patient has recently established with Dr. Oden of gastroenterology as an outpatient due to her chronic GI bleeding ectasias. -Apparently, per records, patient was in the process of seeing nephrology to be given Aranesp treatments. #Elevated creatinine with history of CKDIII -Serum creatinine this morning was 1.55. Creatinine upon admission last night was 1.46. Upon review, her baseline appears to be around 1.2. We will continue to trend metabolic panels as she is borderline. Acute kidney injury at this time. Avoiding nephrotoxic agents. She does follow with nephrology as an outpatient. #CAD status post right coronary artery stent -Patient's home aspirin was initially continued but was switched to 162 mg today due to recommendation from neurology in the setting of new acute to subacute CVA. Home carvedilol was also continued. With history of CAD, threshold to transfuse patient is hemoglobin less than 8 and she was subsequently transfuse 1 unit today. -On telemetry. #Thrombocytopenia -Platelets were 152,000 this morning. We will continue to monitor. Patient is on CARIDAD hose and sequentials. #History of paroxysmal atrial flutter, diagnosed October 2020 -Patient was admitted in mid to late October 2020 and developed new onset atrial flutter with rapid ventricular response. She does follow with Dr. Garcia as an outpatient for cardiology care and upon discharge from that admission was started on amiodarone and digoxin, as well as carvedilol. During this admission. She is consistently been in sinus rhythm with first degree AV block, as evidenced on 2 EKG studies. Due to her history of GI bleeding and chronic anemia, collaborative decision with Dr. Garcia was made not to start patient on anticoagulation. -Patient's home digoxin and amiodarone were continued upon admission. Patient is on telemetry. #Suspected COPD with 90 pack year plus history of tobacco use -Patient is a former smoker having quit within the last few months and previously had smoked from the age of 16. No formal PFTs were found on admission a month and a half ago, but obstructive process, likely suspected. Home albuterol and Symbicort were continued #Possible sleep apnea -Apparently, the patient completed a home sleep study recently and was started on nightly oxygen. There is no comment on any use of his CPAP machine. Patient is unsure how much oxygen she uses at home. She was saturating well on 1 L nasal cannula. # Unspecified chronic seizure disorder -Home carbamazepine was continued upon admission. -Neurology has been consulted in the setting of patient's acute to subacute CVA. #History of dementia -CT showed microvascular ischemic changes. Home Namenda was continued. May be an element of depression with her dementia as she is on nortriptyline as well. #Report history of restless leg syndrome -Home pregabalin was continued upon admission. DISPOSITION: Pending continued stability, and blood pressure and blood sugars as well as workup of new CVA with neurology consultation. Attending Attestation: Patient independently seen and examined. I have discussed in detail with the res ident the findings and plan of treatment as documented by the resident. I agree with their findings and treatment plan. I will continue to follow the patient during this hospital stay. VS, I&O, 24H, Fishbone Vital Signs/I&O Vital Signs Date Time Temp Pulse Resp B/P (MAP) Pulse Ox O2 Delivery O2 Flow Rate FiO2 01/01/21 13:54 97.9 60 18 113/77 Nasal Cannula 1.0 01/01/21 12:00 96 I&O- Last 24 Hours up to 6 AM 01/01/21 06:00 Intake Total 50 ml Output Total 0 ml Balance 50 ml Laboratory Data 24H LABS Laboratory Tests 2 12/31/20 17:20: Immature Granulocyte % (Auto) , Neutrophils (%) (Auto) , Lymphocytes (%) (Auto) , Monocytes (%) (Auto) , Eosinophils (%) (Auto) , Basophils (%) (Auto) , Neutrophils # (Auto) , Lymphocytes # (Auto) , Monocytes # (Auto) , Eosinophils # (Auto) , Basophils # (Auto) , Nucleated Red Blood Cells % (auto) 0.0, Neutrophils 61, Lymphocytes (Manual) 27, Monocytes (Manual) 10H, Eosinophils (Manual) 2, Platelet Estimate NORMAL, Blood Gas Bicarbonate Standard 23.4, Arterial Blood pH 7.416, Arterial Blood Partial Pressure CO2 36.6, Arterial Blood Partial Pressure O2 86.3, Arterial Blood Total CO2 24.1, Arterial Blood HCO3 23.0, Arterial Blood Base Excess -1.3, Arterial Blood Oxygen Saturation 95.7, Anion Gap 6L, Glomerular Filtration Rate 36.7, Estimated Mean Plasma Glucose 174H, Hemoglobin A1c 7.7, Osmolality 317H, Calcium Level 9.1, Phosphorus Level 3.7, Magnesium Level 2.5H, Total Bilirubin 0.3, Direct Bilirubin 0.1, Aspartate Amino Transf (AST/SGOT) 10, Alanine Aminotransferase (ALT/SGPT) 16, Alkaline Phosphatase 182H, Total Creatine Kinase 91, Creatine Kinase MB 1.3, Creatine Kinase MB Relative Index 1.43, Troponin I 0.03, EI-Cgs-D-Type Natriuretic Peptide 1249H, Total Protein 7.5, Albumin 3.2, Albumin/Globulin Ratio 0.7L, Lipase 268, B-Hydroxybutyrate 1.15 12/31/20 18:13: Urine Color YELLOW, Urine Appearance CLOUDYH, Urine pH 5.0, Urine Specific [place] 1.015, Urine Protein 1+H, Urine Glucose (UA) 3+H, Urine Ketones NEGATIVE, Urine Blood 1+H, Urine Nitrite POSITIVEH, Urine Bilirubin NEGATIVE, Urine Urobilinogen 0.2, Urine Leukocyte Esterase 3+H, Urine WBC (Auto) 162H, Urine RBC (Auto) 14H, Urine Hyaline Casts (Auto) 0, Urine Bacteria (Auto) 3+H, Urine Squamous Epithelial Cells 2, Urine Sperm (Auto) 12/31/20 19:54: Coronavirus (COVID-19)(PCR) NEGATIVE, Influenza Type A (RT-PCR) NEGATIVE, Influenza Type B (RT-PCR) NEGATIVE, Respiratory Syncytial Virus (PCR) NEGATIVE 01/01/21 00:25: Bedside Glucose (Misc Panel) 258H 01/01/21 04:57: Nucleated Red Blood Cells % (auto) 0.0, Anion Gap 5L, Glomerular Filtration Rate 34.2, Calcium Level 8.2L, Iron Level 18L, Total Iron Binding Capacity 373, Transferrin % Saturation 4.8L, Ferritin 22, Vitamin B12 Level > 2000H, Folate 11.9 01/01/21 05:16: Bedside Glucose (Misc Panel) 266H 01/01/21 11:24: XY-Mre-Y-Type Natriuretic Peptide 1129H, Triglycerides Level 618H, Total Cholesterol 170, LDL Cholesterol , Non-HDL Cholesterol (LDL + VLDL) 138, Total HDL Cholesterol 32L, Cholesterol/HDL Ratio 5.312H 01/01/21 12:01: Bedside Glucose (Misc Panel) 360H CBC/BMP Laboratory Tests 12/31/20 17:20 01/01/21 04:57 Microbiology Microbiology 12/31/20 Urine Culture, Received Pending YISEL MAURICE D.O. Jan 01, 2021 14:08 ROB CROUCH MD Jan 02, 2021 09:52
[2021-01-01 18:17] LABS: HEMATOCRIT 28.8 % (36.0-47.0); HEMOGLOBIN 8.8 g/dl (12.0-15.5)
[2021-01-02] VITALS: BP 153/67
[2021-01-02 04:00] VITALS: BP 142/65
[2021-01-02 05:36] LABS: BASO % 0.8 % (0.0-1.0); EOS # 0.1 10^3/uL (0.0-0.5); EOS % 2.9 % (0.0-3.0); HEMATOCRIT 27.2 % (36.0-47.0); HEMOGLOBIN 8.2 g/dl (12.0-15.5); LYMPH # 1.1 10^3/uL (1.5-5.0); LYMPH % 28.6 % (24.0-44.0); MEAN CORPUSCULAR HEMOGLOBIN 28.7 pg (27.0-33.0); MEAN CORPUSCULAR HGB CONC 30.1 g/dl (32.0-36.5); MEAN CORPUSCULAR VOLUME 95.1 fl (80.0-96.0); MONO # 0.5 10^3/uL (0.0-0.8); NEUTROPHILS # 2.1 10^3/uL (1.5-8.5); NEUTROPHILS % 54.2 % (36.0-66.0); PLATELET COUNT, AUTOMATED 139 10^3/uL (150-450); RED BLOOD COUNT 2.86 10^6/uL (4.00-5.40); WHITE BLOOD COUNT 3.8 10^3/uL (4.0-10.0)
--- NOTE | 2021-01-02 05:52 | ECGEPIP ---
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
[2021-01-02 06:06] LABS: ALBUMIN 2.7 GM/DL (3.2-5.2); BILIRUBIN,TOTAL 0.2 MG/DL (0.2-1.0); CALCIUM LEVEL 8.4 MG/DL (8.8-10.2); CREATININE FOR GFR 1.76 MG/DL (0.55-1.30); GLOMERULAR FILTRATION RATE 29.6 (>32); POTASSIUM SERUM 4.5 MEQ/L (3.5-5.1); TOTAL PROTEIN 6.3 GM/DL (6.4-8.2)
[2021-01-02] MEDS: HumaLOG INSULIN (NovoLOG) PER UNIT SC SCH ×4 (07:51→20:48)
[2021-01-02 08:00] VITALS: BP 134/63
[2021-01-02] MEDS ORDERED: LEVEMIR (INSULIN DETEMIR) 1 UNITS/0.01ML SC SCH (09:00)
[2021-01-02] MEDS: ASPIRIN 81MG ENTERIC TABLET PO SCH (09:13)
[2021-01-02] MEDS: VITAMIN D 1,000 INTERNATIONAL UNITS TABLET PO SCH (09:13)
[2021-01-02] MEDS: ATORVASTATIN 20 MG TAB PO SCH (09:13)
[2021-01-02] MEDS: AMIODARONE 200 MG TAB (PACERONE) PO SCH ×2 (09:13→20:42)
[2021-01-02] MEDS: CARVedilol 12.5 MG TAB PO SCH ×2 (09:14→20:43)
[2021-01-02] MEDS: PREGABALIN 100 MG CAP (LYRICA) PO SCH ×2 (09:14→20:42)
[2021-01-02] MEDS: PANTOPRAZOLE 40MG TAB (PROTONIX) PO SCH (09:14)
[2021-01-02] MEDS: CYANOCOBALAMIN 500 MCG TAB PO SCH (09:14)
[2021-01-02] MEDS: NORTRIPTYLINE 25 MG CAP PO SCH ×2 (09:14→20:42)
[2021-01-02] MEDS: MEMANTINE 5MG TABLET (NAMENDA) PO SCH ×2 (09:14→20:42)
[2021-01-02] MEDS: carBAMazepine XR 200 MG TAB PO SCH ×2 (09:14→20:43)
[2021-01-02] MEDS: DIGOXIN 0.125 MG TAB PO SCH (09:15)
--- NOTE | 2021-01-02 09:31 | CR ---
CONSULTATION DATE: 01/01/2021 REFERRING PHYSICIAN: JOYCE TREJO MD REASON FOR CONSULTATION: Acute stroke. HISTORY OF PRESENT ILLNESS: Chelita Acosta is an 80-year-old woman with a history of atrial fibrillation, severe anemia requiring blood transfusions and concern for GI bleed who is not on anticoagulation. She fell and had left hip surgery during vacation in [place]. She was started on nocturnal oxygen after a home sleep study. Around 8 a.m. on the morning of admission her blood sugar was 47 and she had a Lao and orange juice which increased her blood sugar. Her blood sugar went above 600 and despite taking insulin it would not go down. She had transient episodes of slurred speech over the last couple of weeks. She denies any headaches, neck or back pain, dysphagia, dysarthria, diplopia or urinary incontinence. She follows with vascular surgery in [place] and had right carotid endarterectomy and she is already aware that they are keeping an eye on her left side which may need surgery. DIAGNOSTIC STUDIES: MRI scan of brain showed 4 mm left medial cerebellar ischemic stroke. Carotid ultrasound showed more than 70% left and 50-69% right internal carotid artery stenosis. MRA Brain showed severe left Vertebral artery stenosis. Her CBC showed hemoglobin 8.7, white count 3.7, creatinine 1.46. PAST MEDICAL HISTORY: 1. Ischemic stroke. 2. Cardiac disease status post stent. 3. Insulin dependent diabetes. 4. Chronic kidney disease Stage III. 5. Bilateral carotid artery disease status post right carotid endarterectomy. 6. COPD. 7. Hypertension. 8. Paroxysmal atrial fibrillation/flutter, first degree AV block. 9. History of GI bleed due to AVMs. 10.Severe anemia. 11.Vitamin D deficiency. 12.Restless leg syndrome. 13.Sleep apnea. 14.Mild pulmonary hypertension. 15.Right hip replacement. 16.Left hip fracture. 17.Hysterectomy. 18.Bilateral cataract surgery. 19.Left hip repair. SOCIAL HISTORY: She is a former smoker. She denies alcohol or illicit drugs. FAMILY HISTORY: Mother had Type 2 diabetes. Father had lung disease. REVIEW OF SYSTEMS: All systems were reviewed and found to be noncontributory except as mentioned in the history of present illness. HOME MEDICATIONS: 1. Aspirin 81 mg p.o. daily. 2. Amiodarone 200 mg p.o. b.i.d. 3. Atorvastatin 20 mg p.o. daily. 4. Tegretol 200 mg p.o. b.i.d. 5. Carvedilol 25 mg p.o. b.i.d. 6. Vitamin B12 1000 mcg p.o. daily. 7. Vitamin D3. 8. Lasix 40 mg p.o. daily. 9. Insulin Lantus 70 units once a day. 10.Insulin Lispro sliding scale. 11.Memantine extended release 28 mg p.o. daily. 12.Nortriptyline 25 mg p.o. b.i.d. 13.Protonix 40 mg p.o. daily. 14.Lyrica 100 mg p.o. b.i.d. 15.Albuterol inhaler. 16.Symbicort inhaler. 17.Combivent inhaler. 18.Tramadol as needed. ALLERGIES: Plavix, Metformin. REVIEW OF SYSTEMS: All systems were reviewed and found to be noncontributory except as mentioned in the history of present illness. PHYSICAL EXAMINATION: Temperature is 98.1, blood pressure 160/58, pulse 65. Heart: Irregular rate and rhythm. Lungs are clear to auscultation. Abdomen is soft, nontender and nondistended. No pedal edema. No musculoskeletal abnormalities. No rash. No signs of meningeal irritation. Patient is awake, alert and oriented to person, place and time. Normal speech, comprehension and repetition. Extraocular muscles are intact. No facial weakness. Tongue and uvula are midline. 5/5 strength in all four extremities. She has decreased cold, vibration and sensation in her feet. Deep tendon reflexes are 1+ in arms and knees and absent at ankles. Her gait is unsteady. ASSESSMENT: 1. Small left medial cerebellar ischemic stroke. 2. Greater than 70% left and 50-69% right internal carotid artery stenosis status post right CEA. 3. Paroxysmal atrial fibrillation. 4. Severe anemia possibly related to GI bleed. PLAN: 1. Patient is likely not a candidate for anticoagulation. 2. Increase aspirin to 162 mg p.o. daily. 3. Continue Lipitor 20 mg p.o. daily. Follow up vascular surgery to consider left CEA. 4. Physical and Occupational Therapy. 5. Follow-up in our office in one to two weeks after hospital discharge. 6. Keep blood pressure below 130/80 for long-term goal. Allow permissive hypotension during hospital stay. MTDD
--- NOTE | 2021-01-02 11:24 | ECHO ---
ECHOCARDIOGRAM DATE OF PROCEDURE: 01/01/2021 Age: 80 Gender: Height: Weight: REFERRING PROVIDER: Mari Holm MD. PATIENT LOCATION: Room 3204. REASON FOR TESTING: TIA. 2D MEASUREMENTS: IVS 1.4 cm LV 3.6 cm LA 3.7 cm Aorta 3.7 cm DOPPLER MEASUREMENT Peak velocity across the aortic valve 1.5 m/s Peak velocity across the LVOT 0.99 m/s Mitral E 1.7 Mitral A 1.7 with a ratio of 1.0 Maximum tricuspid valve velocity 3.1 m/s 2D COMMENTS: 1. Normal left ventricular size with mildly increased left ventricular wall thickness. Left ventricular systolic function is normal, estimated at 60 to 65%. 2. Normal left atrium. Normal right atrium and right ventricle. 3. The atrial septum appeared to be normal without evidence of defect or shunt. 4. Borderline dilated aortic root at 3.7 cm. 5. No pericardial effusion seen. 6. Mildly calcified aortic valve with normal leaflet excursion. Moderately calcified mitral annulus with normal anterior mitral valve leaflet motion. Normal tricuspid valve. The pulmonic valve and proximal pulmonary artery branches were not well visualized. 7. The inferior vena cava was not well visualized. DOPPLER: Doppler detects mild aortic regurgitation, mild to moderate tricuspid regurgitation. The calculated pulmonary artery systolic pressure varies between 40 to 50 mmHg. Abnormal relaxation pattern was noted across the mitral valve annulus consistent with features of grade 1 left ventricular diastolic dysfunction. IMPRESSION: 1. Normal global left ventricular systolic function with mild concentric left ventricular hypertrophy. There were some features of grade 1 left ventricular diastolic dysfunction manifested by abnormal relaxation. 2. Aortic valve sclerosis with mild aortic regurgitation. No aortic stenosis. 3. Moderate mitral annulus calcification. No evidence of mitral regurgitation or stenosis. 4. Mild to moderate tricuspid regurgitation with moderate pulmonary hypertension.
[2021-01-02 12:00] VITALS: BP 172/68
[2021-01-02 15:10] VITALS: BP 173/70
--- NOTE | 2021-01-02 19:41 | IPNPDOC ---
Date Seen The patient was seen on 01/02/21. Progress Note SUBJECTIVE: Chelita was seen and examined this morning by the hospitalist service while sitting upright in bed. She reports no significant events overnight. PT did not work with her yesterday, but will do so reportedly today. She handled the 1 unit of PRBC transfusion yesterday without any issue. She denies any significant neurological issues. This morning, specifically headache, loss of sensation of extremities, visual changes, overnight, falls, difficulty concentrating. She also denies any current or overnight fever, chills, night sweats, shortness breath, chest pain, palpitations, nausea, vomiting, or diarrhea. OBJECTIVE PHYSICAL EXAMINATION: VITAL SIGNS: Please see below. GENERAL: Pleasant, elderly upbeat female lying upright in bed. NAD. Wearing supplemental oxygen. HEENT: Normocephalic, atraumatic. Noninjected, anicteric sclera. Conjunctival pallor present. ORAL CAVITY: Upper dentures are in place. There are no lower teeth present. No pharyngeal erythema or exudate. Moist mucous membranes. CHEST: Telemetry leads in place. Scattered dark brown papules present over lower neck and chest. NECK: Trachea midline. No lymphadenopathy appreciated. No JVD appreciated CARDIOVASCULAR: Overall heart sounds remain distant. Regular rate, regular rhythm. On telemetry. There is a 2/6 systolic murmur present as well. No rubs were appreciated. RESPIRATORY: Continues to be on 1 L supplemental oxygen via nasal cannula. There remained bilateral crackles posteriorly, right greater than left, and greater with inspiration. Symmetric chest expansion. No visualized accessory muscle use appreciated. ABDOMINAL: Soft, nondistended, nontender., Normoactive bowel sounds throughout. No guarding or rigidity. Moderately obese abdomen compromising accuracy of hepatosplenomegaly palpation to some extent. BACK: There remains 1+ presacral edema appreciated. Scattered areas of dark bro wn papules as well as skin tags overlying skin of patient's back. EXTREMITIES: Trace pitting edema of left lower extremity, which is an improvement over yesterday's exam. There are arthritic changes visualized DIP joints bilaterally. Scattered areas of ecchymosis on bilateral forearms. NEUROLOGICAL: Patient is alert and oriented to person, place, and time. She responds appropriately to all questions and commands. Upon visualization assessing for facial symmetry, there still appears to be a mild right facial droop.no significant focal deficits were appreciated, nor was significant dysarthria appreciated. PSYCHOLOGICAL: Mood and affect appears appropriate. LABORATORY DATA, IMAGING STUDIES, MICROBIOLOGY: Please see below. ASSESSMENT AND PLAN: This is an 80yo female w/ an extensive med hx most notable for chronic left lacunar and thalamic infarcts, CAD status post RCA stent, insulin-dependent diabetes mellitus 2, CKD3, bilateral carotid stenosis s/p right-sided CEA, COPD, hypertension, paroxysmal atrial flutter dx October 2020, HFpEF, and left hip fracture November 2020 s/p SHALA, who presented to the ED on 12/31/20 after being sent over via her primary care provider due to recent labile home blood sugars. She also reported some transient episodes of slurred speech in the past few weeks. Upon presentation, patient was in hypertensive urgency with systolics in the 220s. Her blood pressure quickly came down. After administration of home carvedilol and a single dose of oral captopril. Can brain imaging revealed new acute to subacute left posteroinferior medial cerebellar infarct (max diameter of [address] mm). [address] CT showed small chronic lacunar infarcts in left thalamus and left posterior cerebellar hemisphere with no acute intracranial abnormality. 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 A bilateral carotid ultrasound revealed left internal carotid stenosis greater than 70% and right internal carotid stenosis between 5069 percent. Patient was placed on insulin sliding scale for glycemic control. Patient was also thought to potentially be in partial decompensated HFpEF due to mild vascular congestion seen on chest x- ray and was subsequently started on fluid restriction with 60 mg of IV furosemide; of note, her initial BNP was 1249, yet was 1312 during a hospitalization two months ago. Patient received 1 unit of PRBC on 01/01, with good response. She has had issues controlling sugars since admission and thus nasal insulin added on 01/02. Seen by neurology on 01/01 with recommendation for continued aspirin 162 and outpatient follow-up with both vascular surgery in [place] for possible left carotid endarterectomy and with local [place] neurology group. #Small left medial cerebellar ischemic stroke -Patient was seen and examined by the neurology service on 01/01, who recommend c ontinued aspirin at 162 mg daily (this was first doubled on 01/01 from her home 81. Post (. Also continue with atorvastatin 20 mg daily with follow-up in [place] with the vascular surgery service. She has been seeing. They have been considering a left carotid endarterectomy. She is status post right carotid enterectomy. -Continuing with physical and occupational therapy. -Upon discharge, neurology recommends outpatient follow-up in the wrong office within 1-2 weeks. -Specific to patient's blood pressures, they report allowing permissive [hypertension] during hospital stay as well as keeping her blood pressure below 130/84. Long-term goal upon discharge. -Hospitalist team sincerely appreciates the neurology services involvement and continued insights. -An echocardiogram ordered upon admission, resulted salient findings of normal global left ventricle systolic function with mild concentric LVH and some features of grade 1 ventricular diastolic dysfunction secondary to abnormal relaxation. EF was estimated between 6065 percent. There was moderate pulmonary hypertension in mild to moderate tricuspid regurgitation. -A physical therapy consultation has been placed, as has a speech therapy bedside swallow evaluation. Aspiration precautions. -Lipid panel ordered yesterday was remarkable for isolated hypertriglyceridemia (triglyceride level 618). #Labile glucose levels -Patient's sugars remained relatively high over the past 24 hours. As a result, we will add 12 units of daily long-acting insulin. She required 24 units of short acting insulin the past 24 hours and thus we cut that amount half and are giving that in the form of long-acting. -Prior to presentation, the patient reportedly had been having significant waxing and waning of her home sugars despite stating she was taking outpatient diabetic meds as prescribed. Serum glucose this morning was 268. She was placed on insulin sliding scale upon admission. Likely due to the labile sugars, the patient was placed on fingersticks every 6 hours. As she is tolerating food at this time, we have switched her fingersticks to before meals and at night. A1c was measured on admission at 7.7%. -We will continue to monitor her sugars and adjust coverage accordingly. #Hypertensive urgency, resolved -Patient's pressures have remained relatively well-controlled. -Please see above for neurology's recommendations, both short-term and long-term for her blood pressures in the setting of new small left medial cerebellar isch emic stroke. -When patient presented, her systolics crept up to 221. She was asymptomatic. She was administered a one-time dose of captopril as well as having her home carvedilol continued. The admitting team felt the patient potentially was in a partial decompensation of heart failure and also began 60 mg IV Lasix. -Patient was placed on a 2 g sodium diet in the setting of the hypertensive urgency and known outpatient history of hypertension. #Macrocytic anemia in the setting of chronic anemia secondary to known GI ectasias -Patient responded well to 1 unit of PRBC yesterday with increase in hemoglobin to 8.8. This morning level was 8.2. -Threshold to transfuse is whenever hemoglobin is under 8 due to her CAD. -Stool occult has been ordered -She has a history of multiple transfusions in the past. -Also per reports, patient has recently established with Dr. Oden of gastroenterology as an outpatient due to her chronic GI bleeding ectasias. -Apparently, per records, patient was in the process of seeing nephrology to be given Aranesp treatments. #Mild vascular congestion seen on chest x-ray in the setting of moderate pulmonary hypertension -Patient has a previous documentation of heart failure with preserved ejection fraction and was reporting transient episodes of dyspnea per admission note. There was a suspicion for possible flash pulmonary edema causing the hyperte nsive urgency. Patient was subsequently started on 60 mg IV Lasix with daily weights, 24-hour fluid restriction of 2 L, and strict I's and O's. She did have an elevated BNP of 1249. -Upon exam again today, while still having bilateral crackles, she had no JVD. Of note, BNP was just 1312 2 months ago. As of now, we don't believe that the patient has an acute decompensation of her heart failure and does have discontinued the IV Lasix. A repeat BNP has been ordered. Should patient's respiratory status or fluid volume appear more overload on exam, we'll certainly consider getting a repeat chest x-ray. -An echocardiogram was ordered and resulted showing moderate pulmonary hypertension. #Elevated creatinine with history of CKDIII -Serum creatinine this morning was 1.76. Creatinine upon admission last night was 1.46. Upon review, her baseline appears to be around 1.2. We will continue to trend metabolic panels as she is borderline acute kidney injury at this time. Avoiding nephrotoxic agents. She does follow with nephrology as an outpatient. #CAD status post right coronary artery stent -Patient's home aspirin was initially continued but was switched to 162 mg on 01/01 due to recommendation from neurology in the setting of new acute to subacute CVA. Home carvedilol was also continued. With history of CAD, threshold to transfuse patient is hemoglobin less than 8 and she was subsequently transfuse 1 unit on 01/01. -On telemetry. #Thrombocytopenia -Platelets were 139 this AM. We will continue to monitor. Patient is on TEDs and sequentials. #History of paroxysmal atrial flutter, diagnosed October 2020 -Patient was admitted in mid to late October 2020 and developed new onset atrial flutter with rapid ventricular response. She does follow with Dr. Garcia as an outpatient for cardiology care and upon discharge from that admission was started on amiodarone and digoxin, as well as carvedilol. During this admission. She is consistently been in sinus rhythm with first degree AV block, as evidenced on 2 EKG studies. Due to her history of GI bleeding and chronic anemia, collaborative decision with Dr. Garcia was made not to start patient on anticoagulation. -Patient's home digoxin and amiodarone were continued upon admission. Patient is on telemetry. #Suspected COPD with 90 pack year plus history of tobacco use -Patient is a former smoker having quit within the last few months and previously had smoked from the age of 16. No formal PFTs were found on admission a month and a half ago, but obstructive process, likely suspected. Home albuterol and Symbicort were continued #Possible sleep apnea -Apparently, the patient completed a home sleep study recently and was started on nightly oxygen. There is no comment on any use of his CPAP machine. Patient is unsure how much oxygen she uses at home. She was saturating well on 1 L nasal cannula. # Unspecified chronic seizure disorder -Home carbamazepine was continued upon admission. -Neurology has been consulted in the setting of patient's acute to subacute CVA. #History of dementia -CT showed microvascular ischemic changes. Home Namenda was continued. May be an element of depression with her dementia as she is on nortriptyline as well. #Report history of restless leg syndrome -Home pregabalin was continued upon admission. DISPOSITION: Patient was downgraded to MedSurg with telemetry today. Rate limiting factors are her sugars and stable hemoglobin enough for discharge. Upon discharge, she will need to follow-up with neurology within 12 weeks as well as vascular surgery in [place] for possible left carotid endarterectomy. Attending Attestation: Patient independently seen and examined. I have discussed in detail with the resident the findings and plan of treatment as documented by the resident. I agree with their findings and treatment plan. I will continue to follow the patient during this hospital stay. VS, I&O, 24H, Fishbone Vital Signs/I&O Vital Signs Date Time Temp Pulse Resp B/P (MAP) Pulse Ox O2 Delivery O2 Flow Rate FiO2 01/02/21 15:15 1.0 01/02/21 15:10 97.0 64 18 173/70 (104) 96 Nasal Cannula I&O- Last 24 Hours up to 6 AM 01/02/21 06:00 Intake Total 1880 ml Output Total 1200 ml Balance 680 ml Laboratory Data 24H LABS Laboratory Tests 2 01/01/21 20:38: Bedside Glucose (Misc Panel) 286H 01/02/21 05:09: Immature Granulocyte % (Auto) 0.5, Neutrophils (%) (Auto) 54.2, Lymphocytes (%) (Auto) 28.6, Monocytes (%) (Auto) 13.0H, Eosinophils (%) (Auto) 2.9, Basophils (%) (Auto) 0.8, Neutrophils # (Auto) 2.1, Lymphocytes # (Auto) 1.1L, Monocytes # (Auto) 0.5, Eosinophils # (Auto) 0.1, Basophils # (Auto) 0.0, Nucleated Red Blood Cells % (auto) 0.0, Anion Gap 7L, Glomerular Filtration Rate 29.6L, Calcium Level 8.4L, Total Bilirubin 0.2, Aspartate Amino Transf (AST/SGOT) 13, Alanine Aminotransferase (ALT/SGPT) 12, Alkaline Phosphatase 135H, Total Protein 6.3L, Albumin 2.7L, Albumin/Globulin Ratio 0.8L 01/02/21 11:47: Bedside Glucose (Misc Panel) 364H 01/02/21 16:42: Bedside Glucose (Misc Panel) 310H CBC/BMP Laboratory Tests 01/02/21 05:09 Microbiology Microbiology 12/31/20 Urine Culture - Final, Complete Escherichia Coli YISEL MAURICE D.O. Jan 02, 2021 19:41 ROB CROUCH MD Jan 03, 2021 06:34
[2021-01-02] MEDS: SYMBICORT 80/4.5MCG INHALER 6GM INH SCH (20:35)
[2021-01-02 22:00] VITALS: BP 146/70
[2021-01-03] VITALS (14 sets, daily range): BP systolic 141–186; BP diastolic 46–75
[2021-01-03 05:54] LABS: BASO % 0.4 % (0.0-1.0); EOS # 0.1 10^3/uL (0.0-0.5); EOS % 2.3 % (0.0-3.0); HEMATOCRIT 25.7 % (36.0-47.0); HEMOGLOBIN 7.8 g/dl (12.0-15.5); MEAN CORPUSCULAR HEMOGLOBIN 28.3 pg (27.0-33.0); MEAN CORPUSCULAR HGB CONC 30.4 g/dl (32.0-36.5); MEAN CORPUSCULAR VOLUME 93.1 fl (80.0-96.0); MONO # 0.5 10^3/uL (0.0-0.8); NEUTROPHILS % 64.1 % (36.0-66.0); PLATELET COUNT, AUTOMATED 134 10^3/uL (150-450); RED BLOOD COUNT 2.76 10^6/uL (4.00-5.40); WHITE BLOOD COUNT 4.7 10^3/uL (4.0-10.0)
[2021-01-03 06:15] LABS: CALCIUM LEVEL 8.3 MG/DL (8.8-10.2); CREATININE FOR GFR 1.45 MG/DL (0.55-1.30); POTASSIUM SERUM 4.8 MEQ/L (3.5-5.1)
[2021-01-03] MEDS: SYMBICORT 80/4.5MCG INHALER 6GM INH SCH ×2 (07:37→19:37)
[2021-01-03] MEDS: ASPIRIN 81MG ENTERIC TABLET PO SCH (08:11)
[2021-01-03] MEDS: VITAMIN D 1,000 INTERNATIONAL UNITS TABLET PO SCH (08:11)
[2021-01-03] MEDS: AMIODARONE 200 MG TAB (PACERONE) PO SCH ×2 (08:11→21:03)
[2021-01-03] MEDS: carBAMazepine XR 200 MG TAB PO SCH ×2 (08:11→21:02)
[2021-01-03] MEDS: PREGABALIN 100 MG CAP (LYRICA) PO SCH ×2 (08:11→21:02)
[2021-01-03] MEDS: MEMANTINE 5MG TABLET (NAMENDA) PO SCH ×2 (08:11→21:02)
[2021-01-03] MEDS: ATORVASTATIN 20 MG TAB PO SCH (08:11)
[2021-01-03] MEDS: PANTOPRAZOLE 40MG TAB (PROTONIX) PO SCH (08:11)
[2021-01-03] MEDS: CYANOCOBALAMIN 500 MCG TAB PO SCH (08:11)
[2021-01-03] MEDS: HumaLOG INSULIN (NovoLOG) PER UNIT SC SCH ×4 (08:12→21:02)
[2021-01-03] MEDS: NORTRIPTYLINE 25 MG CAP PO SCH ×2 (08:12→21:02)
[2021-01-03] MEDS: CARVedilol 12.5 MG TAB PO SCH ×2 (08:12→21:03)
[2021-01-03] MEDS: DIGOXIN 0.125 MG TAB PO SCH (08:12)
[2021-01-03] MEDS ORDERED: LEVEMIR (INSULIN DETEMIR) 1 UNITS/0.01ML SC SCH (09:00)
[2021-01-03] MEDS ORDERED: NITROFURANTOIN (MACROBID) 100 MG CAP PO SCH (13:45)
--- NOTE | 2021-01-03 14:30 | IPNPDOC ---
Date Seen The patient was seen on 01/03/21. Progress Note SUBJECTIVE: Chelita was seen and examined this morning by the hospitalist service while sitting in a chair. She is much more holli in at times argumentative on today's exam. This is a change from exams on prior days when she was either upbeat, or abnormal mood. She specifically became verbally confrontational at times when the prospect of going to the acute rehabilitation unit after hospital discharge was brought up. She is vehement about a hospital discharge in the near future. Of note, she denies any dysuria, flank pain or tenderness, or hematuria. She also denies any current or overnight fever, chills, night sweats, chest pain, palpitations, shortness of breath, abdominal pain, nausea, or vomiting. OBJECTIVE PHYSICAL EXAMINATION: VITAL SIGNS: Please see below. GENERAL: Elderly female sitting in chair. Much more terse and perturbed today on exam than previous days. No acute distress. Wearing supplemental nausea and. HEENT: Normocephalic, atraumatic. Noninjected, anicteric sclera. ORAL CAVITY: Upper dentures are in place. No lower teeth. No pharyngeal erythema or exudate. CHEST: Telemetry leads in place. Scattered dark brown papules present over lower neck and chest. NECK: Trachea midline. No lymphadenopathy appreciated. No JVD appreciated CARDIOVASCULAR: Overall heart sounds distant. Regular rate, regular rhythm. On telemetry. There is a 2/6 systolic murmur present as well. No rubs were appreciated. RESPIRATORY: Continues to be on 1 L supplemental oxygen via nasal cannula. Mild bilateral crackles posteriorly, right greater than left. Symmetric chest expans ion. No visualized accessory muscle use appreciated. ABDOMINAL: Soft, nondistended, nontender., Normoactive bowel sounds throughout. No guarding or rigidity. Moderately obese abdomen. BACK: There remains 1+ presacral edema appreciated. Scattered areas of dark brown papules as well as skin tags overlying skin of patient's back. EXTREMITIES: Trace pitting edema of left lower extremity. , Well-healed surgical scars over left lateral occipital lower extremity. There are arthritic changes visualized DIP joints bilaterally. Scattered areas of ecchymosis on bilateral forearms. NEUROLOGICAL: Patient is alert and oriented to person, place, and time. She responds appropriately to all questions and commands. PSYCHOLOGICAL: More angered mood today versus previous day exams. Affect appears appropriate. LABORATORY DATA, IMAGING STUDIES, MICROBIOLOGY: Please see below. ASSESSMENT AND PLAN: This is an 80yo female w/ an extensive med hx most notable for chronic left lacunar and thalamic infarcts, CAD status post RCA stent, insulin-dependent diabetes mellitus 2, CKD3, bilateral carotid stenosis s/p right-sided CEA, COPD, hypertension, paroxysmal atrial flutter dx October 2020, HFpEF, and left hip fr acture November 2020 s/p SHALA, who presented to the ED on 12/31/20 after being sent over via her primary care provider due to recent labile home blood sugars. She also reported some transient episodes of slurred speech in the past few weeks. Upon presentation, patient was in hypertensive urgency with systolics in the 220s. Her blood pressure quickly came down. After administration of home carvedilol and a single dose of oral captopril. Can brain imaging revealed new acute to subacute left posteroinferior medial cerebellar infarct (max diameter of [address] mm). Head CT showed small chronic lacunar infarcts in left thalamus and left posterior cerebellar hemisphere with no acute intracranial abnormality. 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 A bilateral carotid ultrasound revealed left internal carotid stenosis greater than 70% and right internal carotid stenosis between 5069 percent. Patient was placed on insulin sliding scale for glycemic control. Patient was also thought to potentially be in partial decompensated HFpEF due to mild vascular congestion seen on chest x- ray and was subsequently started on fluid restriction with 60 mg of IV furosemide; of note, her initial BNP was 1249, yet was 1312 during a hospitalization two months ago. Patient received 1 unit of PRBC on 01/01, with good response. She has had issues controlling sugars since admission and thus nasal insulin added on 01/02. Seen by neurology on 01/01 with recommendation for continued aspirin 162 and outpatient follow-up with both vascular surgery in [place] for possible left carotid endarterectomy and with local [place] neuro logy group. On the morning of 01/03, urine culture returned growing Escherichia coli; this represented asymptomatic UTI but with a change in her demeanor on 01/03, patient was started on amoxicillin. Patient's hemoglobin again was under 8 on the morning of 01/03, and she ultimately received 1 unit PRBCs (blood shortage would not allow for 2 units to be given). #Asymptomatic Escherichia coli UTI -Patient denied any dysuria, flank pain or hematuria. On review, this morning, but a UA with reflex to culture ordered in the ED upon admission grew Escherichia coli with ordaz sensitivity. -Patient exhibited a change in her mood this morning, from the previous days, exams, she was more argumentative and holli. As a result of her change in mood as well as the significant number of colonies of Escherichia coli on the culture, amoxicillin 500 mg twice a day for 5 days was ordered. 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 As she is now formed again below 8, transfusion of PRBCs ordered. Initially, 2 units ordered but due to a blood shortage in the hospital, patient only received 1 unit. -Patient responded well to 1 unit of PRBC on 01/01 -Threshold to transfuse is whenever hemoglobin is under 8 due to her CAD. -Stool occult has been ordered -She has a history of multiple transfusions in the past. -Also per reports, patient has recently established with Dr. Oden of gastroenterology as an outpatient due to her chronic GI bleeding ectasias. -Apparently, per records, patient was in the process of seeing nephrology to be given Aranesp treatments. #Labile glucose levels -Patient's sugars have remained high since admission. Measured serum glucose was 310 this morning with a fingerstick later in the morning of 403.-Patient has required 28 units of short acting over the last 24 hours. She had been started on 12 units long-acting yesterday, and we will switch to 12 units twice a day of long-acting moving forward in the setting of her persistent hyperglycemia. -Prior to presentation, the patient reportedly had been having significant waxing and waning of her home sugars despite stating she was taking outpatient diabetic meds as prescribed. Serum glucose this morning was 268. She was placed on insulin sliding scale upon admission. Likely due to the labile sugars, the patient was placed on fingersticks every 6 hours. As she is tolerating food at this time, we have switched her fingersticks to before meals and at night. A1c was measured on admission at 7.7%. -We will continue to monitor her sugars and adjust coverage accordingly. #Small left medial cerebellar ischemic stroke -Patient was seen and examined by the neurology service on 01/01, who recommend continued aspirin at 162 mg daily (this was first doubled on 01/01 from her home 81). Also continue with atorvastatin 20 mg daily with follow-up in [place] with the vascular surgery service. She has been seeing. They have been considering a left carotid endarterectomy. She is status post right carotid enterectomy. -Continuing with physical and occupational therapy. -Upon discharge, neurology recommends outpatient follow-up in the [place] within 1-2 weeks. -Specific to patient's blood pressures, they report allowing permissive [hyper tension] during hospital stay as well as keeping her blood pressure below 130/84 as a long-term goal upon discharge. -Hospitalist team sincerely appreciates the neurology services involvement and continued insights. -An echocardiogram ordered upon admission, resulted salient findings of normal global left ventricle systolic function with mild concentric LVH and some features of grade 1 ventricular diastolic dysfunction secondary to abnormal relaxation. EF was estimated between 6065 percent. There was moderate pulmonary hypertension in mild to moderate tricuspid regurgitation. -A physical therapy consultation has been placed, as has a speech therapy bedside swallow evaluation. -Aspiration precautions. -Lipid panel ordered 01/01 was remarkable for isolated hypertriglyceridemia (triglyceride level 618). #Hypertensive urgency, resolved -Patient's pressures have remained relatively well-controlled. -Please see above for neurology's recommendations, both short-term and long-term for her blood pressures in the setting of new small left medial cerebellar ischemic stroke. -When patient presented, her systolics crept up to 221. She was asymptomatic. She was administered a one-time dose of captopril as well as having her home carvedilol continued. The admitting team felt the patient potentially was in a partial decompensation of heart failure and also began 60 mg IV Lasix. -Patient was placed on a 2 g sodium diet in the setting of the hypertensive urgency and known outpatient history of hypertension. #Mild vascular congestion seen on chest x-ray in the setting of moderate pu lmonary hypertension -Patient has a previous documentation of heart failure with preserved ejection fraction and was reporting transient episodes of dyspnea per admission note. There was a suspicion for possible flash pulmonary edema causing the hypertensive urgency. Patient was subsequently started on 60 mg IV Lasix with daily weights, 24-hour fluid restriction of 2 L, and strict I's and O's. She did have an elevated BNP of 1249. -Upon multiple exams over the past few days, while still having bilateral crackles, she had no JVD. -Of note, BNP was just 1312 two months ago. As of now, we don't believe that the patient has an acute decompensation of her heart failure and does have discontinued the IV Lasix. A repeat BNP has been ordered. -Should patient's respiratory status or fluid volume appear more overload on exam, we'll certainly consider getting a repeat chest x-ray. -An echocardiogram was ordered and resulted showing moderate pulmonary hypertension. #Elevated creatinine with history of CKDIII -Serum creatinine improved today to 1.45. Creatinine upon admission was 1.46. Upon review, her baseline appears to be around 1.2. We will continue to trend metabolic panels as she is borderline acute kidney injury at this time. -Avoiding nephrotoxic agents. -She does follow with nephrology as an outpatient. #CAD status post right coronary artery stent -Patient's home aspirin was initially continued but was switched to 162 mg on 01/01 due to recommendation from neurology in the setting of new acute to subacute CVA. Home carvedilol was also continued. With history of CAD, threshold to transfuse patient is hemoglobin less than 8 and she was subsequently transfuse 1 unit on 01/01. -On telemetry. #Thrombocytopenia -Platelets were 134 this AM. We will continue to monitor. Patient is on TEDs and sequentials. #History of paroxysmal atrial flutter, diagnosed October 2020 -Patient was admitted in mid to late October 2020 and developed new onset atrial flutter with rapid ventricular response. She does follow with Dr. Garcia as an outpatient for cardiology care and upon discharge from that admission was started on amiodarone and digoxin, as well as carvedilol. During this admission. She is consistently been in sinus rhythm with first degree AV block, as evidenced on 2 EKG studies. Due to her history of GI bleeding and chronic anemia, collaborative decision with Dr. Garcia was made not to start patient on anticoagulation. -Patient's home digoxin and amiodarone were continued upon admission. Patient is on telemetry. #Suspected COPD with 90 pack year plus history of tobacco use -Patient is a former smoker having quit within the last few months and previously had smoked from the age of 16. No formal PFTs were found on admission a month and a half ago, but obstructive process, likely suspected. Home albuterol and Symbicort were continued #Possible sleep apnea -Apparently, the patient completed a home sleep study recently and was started on nightly oxygen. There is no comment on any use of his CPAP machine. Patient is unsure how much oxygen she uses at home. She was saturating well on 1 L nasal cannula. #Unspecified chronic seizure disorder -Home carbamazepine was continued upon admission. -Neurology has been consulted in the setting of patient's acute to subacute CVA. #History of dementia -CT showed microvascular ischemic changes. Home Namenda was continued. May be an element of depression with her dementia as she is on nortriptyline as well. #Report history of restless leg syndrome -Home pregabalin was continued upon admission. DISPOSITION: Patient was downgraded to [facility] with telemetry on 01/01 and is in the process of being screened for possible transition to ARU upon discharge. Upon final [facility] discharge, she will need to follow-up with neurology within 12 weeks as well as vascular surgery in [place] for possible left carotid endarterectomy. Attending Attestation: Patient independently seen and examined. I have discussed in detail with the resident the findings and plan of treatment as documented by the resident. I agree with their findings and treatment plan. I will continue to follow the patient during this hospital stay. VS, I&O, 24H, [place] Vital Signs/I&O Vital Signs Date Time Temp Pulse Resp B/P (MAP) Pulse Ox O2 Delivery O2 Flow Rate FiO2 01/03/21 13:51 97.3 57 18 141/49 96 Nasal Cannula 1.0 I&O- Last 24 Hours up to 6 AM 01/03/21 06:00 Intake Total 1215 ml Output Total 900 ml Balance 315 ml Laboratory Data 24H LABS Laboratory Tests 2 01/02/21 16:42: Bedside Glucose (Misc Panel) 310H 01/02/21 20:28: Bedside Glucose (Misc Panel) 368H 01/03/21 05:28: Immature Granulocyte % (Auto) 0.2, Neutrophils (%) (Auto) 64.1, Lymphocytes (%) (Auto) 22.0L, Monocytes (%) (Auto) 11.0H, Eosinophils (%) (Auto) 2.3, Basophils (%) (Auto) 0.4, Neutrophils # (Auto) 3.0, Lymphocytes # (Auto) 1.0L, Monocytes # (Auto) 0.5, Eosinophils # (Auto) 0.1, Basophils # (Auto) 0.0, Nucleated Red Blood Cells % (auto) 0.0, Anion Gap 4L, Glomerular Filtration Rate 37.0, Calcium Level 8.3L 01/03/21 11:28: Bedside Glucose (Misc Panel) 403H CBC/BMP Laboratory Tests 01/03/21 05:28 Microbiology Microbiology 01/03/21 Stool Occult Blood (DAYAN) - Final, Complete 12/31/20 Urine Culture - Final, Complete Escherichia Coli YISEL MAURICE D.O. Jan 03, 2021 14:30 ROB CROUCH MD Jan 04, 2021 06:30
[2021-01-03] MEDS: AMOXICILLIN 500 MG CAP PO SCH ×2 (14:50→21:02)
[2021-01-03] MEDS: traMADol 50 MG TAB PO PRN (18:23)
[2021-01-03] MEDS: LEVEMIR (INSULIN DETEMIR) 1 UNITS/0.01ML SC SCH (21:02)
[2021-01-04 06:00] VITALS: BP 160/70
[2021-01-04 06:31] LABS: BASO % 0.4 % (0.0-1.0); EOS # 0.1 10^3/uL (0.0-0.5); EOS % 2.1 % (0.0-3.0); HEMATOCRIT 32.6 % (36.0-47.0); LYMPH # 1.1 10^3/uL (1.5-5.0); LYMPH % 22.8 % (24.0-44.0); MEAN CORPUSCULAR HEMOGLOBIN 28.5 pg (27.0-33.0); MEAN CORPUSCULAR HGB CONC 31.3 g/dl (32.0-36.5); MEAN CORPUSCULAR VOLUME 91.1 fl (80.0-96.0); MONO # 0.6 10^3/uL (0.0-0.8); MONO % 11.7 % (2.0-8.0); NEUTROPHILS # 3.1 10^3/uL (1.5-8.5); NEUTROPHILS % 62.8 % (36.0-66.0); PLATELET COUNT, AUTOMATED 130 10^3/uL (150-450); RED BLOOD COUNT 3.58 10^6/uL (4.00-5.40); WHITE BLOOD COUNT 4.9 10^3/uL (4.0-10.0)
[2021-01-04 06:33] LABS: HEMOGLOBIN 10.2 g/dl (12.0-15.5)
[2021-01-04 06:44] LABS: CALCIUM LEVEL 8.7 MG/DL (8.8-10.2); CREATININE FOR GFR 1.32 MG/DL (0.55-1.30); GLOMERULAR FILTRATION RATE 41.2 (>32)
[2021-01-04] MEDS: HumaLOG INSULIN (NovoLOG) PER UNIT SC SCH ×4 (07:49→21:40)
[2021-01-04] MEDS: LEVEMIR (INSULIN DETEMIR) 1 UNITS/0.01ML SC SCH (07:49)
[2021-01-04] MEDS: VITAMIN D 1,000 INTERNATIONAL UNITS TABLET PO SCH (07:50)
[2021-01-04] MEDS: DIGOXIN 0.125 MG TAB PO SCH (07:50)
[2021-01-04] MEDS: NORTRIPTYLINE 25 MG CAP PO SCH ×2 (07:50→21:40)
[2021-01-04] MEDS: AMOXICILLIN 500 MG CAP PO SCH ×2 (07:50→21:40)
[2021-01-04] MEDS: MEMANTINE 5MG TABLET (NAMENDA) PO SCH ×2 (07:50→21:40)
[2021-01-04] MEDS: ATORVASTATIN 20 MG TAB PO SCH (07:50)
[2021-01-04] MEDS: PREGABALIN 100 MG CAP (LYRICA) PO SCH ×2 (07:50→21:40)
[2021-01-04] MEDS: AMIODARONE 200 MG TAB (PACERONE) PO SCH ×2 (07:50→21:41)
[2021-01-04] MEDS: ASPIRIN 81MG ENTERIC TABLET PO SCH (07:50)
[2021-01-04] MEDS: PANTOPRAZOLE 40MG TAB (PROTONIX) PO SCH (07:51)
[2021-01-04] MEDS: CYANOCOBALAMIN 500 MCG TAB PO SCH (07:51)
[2021-01-04] MEDS: carBAMazepine XR 200 MG TAB PO SCH ×2 (07:51→21:40)
[2021-01-04] MEDS: CARVedilol 12.5 MG TAB PO SCH ×2 (07:51→21:41)
[2021-01-04] MEDS: SYMBICORT 80/4.5MCG INHALER 6GM INH SCH ×2 (07:52→20:22)
[2021-01-04 14:00] VITALS: BP 161/76
[2021-01-04] MEDS ORDERED: LEVEMIR (INSULIN DETEMIR) 1 UNITS/0.01ML SC SCH (17:00)
--- NOTE | 2021-01-04 19:22 | IPNPDOC ---
Date Seen The patient was seen on 01/04/21. Progress Note SUBJECTIVE: Chelita was seen and examined this morning by the hospitalist service while sitting in a chair. She reports sleeping well overnight with no complaints. There were no reported overnight events when speaking with nursing. During our discussion examination today, we informed her of the update that Escherichia coli grew on her urine culture and that is why she is now getting oral amoxic illin; she repeatedly said "why are you always finding issues with me when I'm here." She denies any complaints at this time, specifically any overnight or current fever, chills, chest pain, shortness of breath, palpitations, dysuria, flank pain, abdominal pain. OBJECTIVE PHYSICAL EXAMINATION: VITAL SIGNS: Please see below. GENERAL: Elderly female sitting in chair. No acute distress. Wearing supplemental O2.. HEENT: Normocephalic, atraumatic. Noninjected, anicteric sclera. CHEST: Telemetry leads in place. Scattered dark brown papules present over lower neck and chest. NECK: Trachea midline. No lymphadenopathy appreciated. No JVD appreciated CARDIOVASCULAR: Overall heart sounds distant. Regular rate, regular rhythm. Remains on telemetry. There is a 2/6 systolic murmur present as well. No rubs were appreciated. RESPIRATORY: On 1 L supplemental oxygen via nasal cannula. Mild bilateral crackles posteriorly, right greater than left. Symmetric chest expansion. No visualized accessory muscle use appreciated. ABDOMINAL: Soft, nondistended, nontender., Normoactive bowel sounds throughout. No guarding or rigidity. Moderately obese abdomen. BACK: There remains 1+ presacral edema appreciated. EXTREMITIES: Left lower extremity trace pitting edema from previous days has improved. Well-healed surgical scars over left lateral occipital lower extremity. Arthritic changes visualized on DIP joints bilaterally. Scattered areas of ecchymosis on bilateral forearms. NEUROLOGICAL: Patient is alert and oriented to person, place, and time. She responds appropriately to all questions and commands. PSYCHOLOGICAL: Appears more even tempered today than yesterday. Affect appears appropriate. LABORATORY DATA, IMAGING STUDIES, MICROBIOLOGY: Please see below. ASSESSMENT AND PLAN: This is an 80yo female w/ an extensive med hx most notable for chronic left lacunar and thalamic infarcts, CAD status post RCA stent, insulin-dependent diabetes mellitus 2, CKD3, bilateral carotid stenosis s/p right-sided CEA, COPD, hypertension, paroxysmal atrial flutter dx October 2020, HFpEF, and left hip fracture November 2020 s/p SHALA, who presented to the ED on 12/31/20 after being sent over via her primary care provider due to recent labile home blood sugars. She also reported some transient episodes of slurred speech in the past few weeks. Upon presentation, patient was in hypertensive urgency with systolics in the 220s. Her blood pressure quickly came down. After administration of home carvedilol and a single dose of oral captopril. Can brain imaging revealed new acute to subacute left posteroinferior medial cerebellar infarct (max diameter of 12 mm). Head CT showed small chronic lacunar infarcts in left thalamus and left posterior cerebellar hemisphere with no acute intracranial abnormality. 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 A bilateral carotid ultrasound revealed left internal carotid stenosis greater than 70% and right internal carotid stenosis between 5069 percent. Patient was placed on insulin sliding scale for glycemic control. Patient was also thought to potentially be in partial decompensated HFpEF due to mild vascular congestion seen on chest x- ray and was subsequently started on fluid restriction with 60 mg of IV furosemide; of note, her initial BNP was 1249, yet was 1312 during a hospitalization two months ago. Patient received 1 unit of PRBC on 01/01, with good response. She has had issues controlling sugars since admission and thus nasal insulin added on 01/02. Seen by neurology on 01/01 with recommendation for continued aspirin 162 and outpatient follow-up with both vascular surgery in [place] for possible left carotid endarterectomy and with local [facility] group. On the morning of 01/03, urine culture returned growing Escherichia coli; this represented asymptomatic UTI but with a change in her demeanor on 01/03, patient was started on amoxicillin. Patient's hemoglobin again was under 8 on the morning of 01/03, and she received 2 u PRBCs. #Labile glucose levels -Patient's sugars have remained high since admission. Measured serum glucose was 338 this morning. -Patient has required 36 units of short acting over the last 24 hours. -She had been started on 12 units long-acting and progressed to 12 units long- acting twice a day. -Due to persistent hyperglycemia, we have switched her to 18 units long-acting twice a day. -Prior to presentation, the patient reportedly had been having significant waxing and waning of her home sugars despite stating she was taking outpatient diabetic meds as prescribed. Serum glucose this morning was 268. She was placed on insulin sliding scale upon admission. Likely due to the labile sugars, the patient was placed on fingersticks every 6 hours. As she is tolerating food at this time, we have switched her fingersticks to before meals and at night. A1c was measured on admission at 7.7%. -We will continue to monitor her sugars and adjust coverage accordingly. #Asymptomatic Escherichia coli UTI -Patient denied any dysuria, flank pain or hematuria. UA with reflex to culture grew Escherichia coli with ordaz sensitivity. -Patient exhibited a change in her mood yesterday, from the previous days, exams , she was more argumentative and holli. As a result of her change in mood, as well as the significant number of colonies of Escherichia coli on the culture, amoxicillin 500 mg twice a day for 5 days was ordered. 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 -Patient responded well to 1 unit of PRBC on 01/01 -Threshold to transfuse is whenever hemoglobin is under 8 due to her CAD. -Stool occult has been ordered -She has a history of multiple transfusions in the past. -Also per reports, patient has recently established with Dr. Oden of gastroenterology as an outpatient due to her chronic GI bleeding ectasias. -Apparently, per records, patient was in the process of seeing nephrology to be given Aranesp treatments. #Small left medial cerebellar ischemic stroke -Patient was seen and examined by the neurology service on 01/01, who recommend continued aspirin at 162 mg daily (this was first doubled on 01/01 from her home 81). Also continue with atorvastatin 20 mg daily with follow-up in [place] with the vascular surgery service. She has been seeing. They have been considering a left carotid endarterectomy. She is status post right carotid enterectomy. -Continuing with physical and occupational therapy. -Upon discharge, neurology recommends outpatient follow-up in the [place] office within 1-2 weeks. -Specific to patient's blood pressures, they report allowing permissive [hypertension] during hospital stay as well as keeping her blood pressure below 130/84 as a long-term goal upon discharge. -Hospitalist team sincerely appreciates the neurology services involvement and continued insights. -An echocardiogram ordered upon admission, resulted salient findings of normal global left ventricle systolic function with mild concentric LVH and some features of grade 1 ventricular diastolic dysfunction secondary to abnormal relaxation. EF was estimated between 6065 percent. There was moderate pulmonary hypertension in mild to moderate tricuspid regurgitation. -PT is working with the patient -Speech therapy evaluated the patient on 01/01, reporting no dysphagia present and recommended a regular texture diet (level 4) -Aspiration precautions. -Lipid panel ordered 01/01 was remarkable for isolated hypertriglyceridemia (triglyceride level 618). #Hypertensive urgency, resolved -Patient's pressures have remained relatively well-controlled. She did peak up on her systolic blood pressures overnight, but has been in the 140s to 160s throughout today shift. -Please see above for neurology's recommendations, both short-term and long-term for her blood pressures in the setting of new small left medial cerebellar ischemic stroke. -When patient presented, her systolics crept up to 221. She was asymptomatic. She was administered a one-time dose of captopril as well as having her home carvedilol continued. The admitting team felt the patient potentially was in a partial decompensation of heart failure and also began 60 mg IV Lasix. -Patient was placed on a 2 g sodium diet in the setting of the hypertensive urgency and known outpatient history of hypertension. #Mild vascular congestion seen on chest x-ray in the setting of moderate pulmonary hypertension -Patient has a previous documentation of heart failure with preserved ejection fraction and was reporting transient episodes of dyspnea per admission note. There was a suspicion for possible flash pulmonary edema causing the hypertensive urgency. Patient was subsequently started on 60 mg IV Lasix with daily weights, 24-hour fluid restriction of 2 L, and strict I's and O's. She did have an elevated BNP of 1249. -Upon multiple exams over the past few days, while still having bilateral crackles, she had no JVD. -Of note, BNP was just 1312 two months ago. As of now, we don't believe that the patient has an acute decompensation of her heart failure and does have discontinued the IV Lasix. A repeat BNP has been ordered. -Should patient's respiratory status or fluid volume appear more overload on exam, we'll certainly consider getting a repeat chest x-ray. -An echocardiogram was ordered and resulted showing moderate pulmonary hypertension. #Elevated creatinine with history of CKDIII -Serum creatinine improved again today slightly at 1.32. Creatinine upon admission was 1.46. Upon review, her baseline appears to be around 1.2. We will continue to trend metabolic panels as she is borderline acute kidney injury at this time. -Avoiding nephrotoxic agents. -She does follow with nephrology as an outpatient. #CAD status post right coronary artery stent -Patient's home aspirin was initially continued but was switched to 162 mg on 01/01 due to recommendation from neurology in the setting of new acute to subacute CVA. Home carvedilol was also continued. With history of CAD, threshold to transfuse patient is hemoglobin less than 8 and she was subsequently transfuse 1 unit on 01/01. -On telemetry. #Thrombocytopenia -Platelets were 130 this AM. We will continue to monitor. Patient is on TEDs and sequentials. #History of paroxysmal atrial flutter, diagnosed October 2020 -Patient was admitted in mid to late October 2020 and developed new onset atrial flutter with rapid ventricular response. She does follow with Dr. Garcia as an outpatient for cardiology care and upon discharge from that admission was started on amiodarone and digoxin, as well as carvedilol. During this admission. She has consistently been in sinus rhythm with first degree AV block, as evidenced on 2 EKG studies. Due to her history of GI bleeding and chronic anemia, collaborative decision with Dr. Garcia was made not to start patient on anticoagulation. -Patient's home digoxin and amiodarone were continued upon admission. -Patient is on telemetry. #Suspected COPD with 90 pack year plus history of tobacco use -Patient is a former smoker having quit within the last few months and pre viously had smoked from the age of 16. No formal PFTs were found on admission a month and a half ago, but obstructive process, likely suspected. Home albuterol and Symbicort were continued #Possible sleep apnea -Apparently, the patient completed a home sleep study recently and was started on nightly oxygen. There is no comment on any use of his CPAP machine. Patient is unsure how much oxygen she uses at home. She was saturating well on 1 L nasal cannula. #Unspecified chronic seizure disorder -Home carbamazepine was continued upon admission. -Neurology has been consulted in the setting of patient's acute to subacute CVA. #History of dementia -CT showed microvascular ischemic changes. Home Namenda was continued. May be an element of depression with her dementia as she is on nortriptyline as well. #Report history of restless leg syndrome -Home pregabalin was continued upon admission. DISPOSITION: In the process of being screened for possible transition to ARU upon discharge. Upon final [facility] discharge, she will need to follow-up with neurology within 12 weeks as well as vascular surgery in [place] for possible left carotid endarterectomy. Attending Attestation: Patient independently seen and examined. I have discussed in detail with the resident the findings and plan of treatment as documented by the resident. I agree with their findings and treatment plan. I will continue to follow the patient during this hospital stay. VS, I&O, 24H, Fishbone Vital Signs/I&O Vital Signs Date Time Temp Pulse Resp B/P (MAP) Pulse Ox O2 Delivery O2 Flow Rate FiO2 01/04/21 14:00 97.0 57 16 161/76 (104) 93 Nasal Cannula 1.0 I&O- Last 24 Hours up to 6 AM 01/04/21 06:00 Intake Total 2928 ml Balance 2928 ml Laboratory Data 24H LABS Laboratory Tests 2 01/03/21 20:34: Bedside Glucose (Misc Panel) 293H 01/04/21 05:25: Immature Granulocyte % (Auto) 0.2, Neutrophils (%) (Auto) 62.8, Lymphocytes (%) (Auto) 22.8L, Monocytes (%) (Auto) 11.7H, Eosinophils (%) (Auto) 2.1, Basophils (%) (Auto) 0.4, Neutrophils # (Auto) 3.1, Lymphocytes # (Auto) 1.1L, Monocytes # (Auto) 0.6, Eosinophils # (Auto) 0.1, Basophils # (Auto) 0.0, Nucleated Red Blood Cells % (auto) 0.0, Anion Gap 6L, Glomerular Filtration Rate 41.2, Calcium Level 8.7L 01/04/21 11:47: Bedside Glucose (Misc Panel) 350H 01/04/21 17:09: Bedside Glucose (Misc Panel) 309H CBC/BMP Laboratory Tests 01/04/21 05:25 Microbiology Microbiology 01/03/21 Stool Occult Blood (DAYAN) - Final, Complete 12/31/20 Urine Culture - Final, Complete Escherichia Coli YISEL MAURICE D.O. Jan 04, 2021 19:22 ROB CROUCH MD Jan 05, 2021 06:49
[2021-01-05 00:15] VITALS: BP 166/40
[2021-01-05] MEDS: traMADol 50 MG TAB PO PRN (03:13)
[2021-01-05 06:00] VITALS: BP 156/66
[2021-01-05 06:08] LABS: BASO % 0.7 % (0.0-1.0); EOS # 0.1 10^3/uL (0.0-0.5); HEMATOCRIT 32.1 % (36.0-47.0); LYMPH % 22.3 % (24.0-44.0); MEAN CORPUSCULAR HEMOGLOBIN 27.7 pg (27.0-33.0); MEAN CORPUSCULAR HGB CONC 31.2 g/dl (32.0-36.5); MEAN CORPUSCULAR VOLUME 88.9 fl (80.0-96.0); MONO # 0.5 10^3/uL (0.0-0.8); MONO % 11.8 % (2.0-8.0); NEUTROPHILS # 2.9 10^3/uL (1.5-8.5); NEUTROPHILS % 62.8 % (36.0-66.0); PLATELET COUNT, AUTOMATED 133 10^3/uL (150-450); RED BLOOD COUNT 3.61 10^6/uL (4.00-5.40); WHITE BLOOD COUNT 4.6 10^3/uL (4.0-10.0)
[2021-01-05 06:24] LABS: CALCIUM LEVEL 8.7 MG/DL (8.8-10.2); CREATININE FOR GFR 1.55 MG/DL (0.55-1.30); GLOMERULAR FILTRATION RATE 34.2 (>32); POTASSIUM SERUM 5.2 MEQ/L (3.5-5.1)
[2021-01-05] MEDS: LEVEMIR (INSULIN DETEMIR) 1 UNITS/0.01ML SC SCH ×2 (09:01→20:36)
[2021-01-05] MEDS: HumaLOG INSULIN (NovoLOG) PER UNIT SC SCH ×4 (09:02→20:35)
[2021-01-05] MEDS: ASPIRIN 81MG ENTERIC TABLET PO SCH (09:05)
[2021-01-05] MEDS: CYANOCOBALAMIN 500 MCG TAB PO SCH (09:05)
[2021-01-05] MEDS: PREGABALIN 100 MG CAP (LYRICA) PO SCH ×2 (09:05→20:35)
[2021-01-05] MEDS: AMIODARONE 200 MG TAB (PACERONE) PO SCH ×2 (09:05→20:35)
[2021-01-05] MEDS: ATORVASTATIN 20 MG TAB PO SCH (09:05)
[2021-01-05] MEDS: NORTRIPTYLINE 25 MG CAP PO SCH ×2 (09:06→20:34)
[2021-01-05] MEDS: PANTOPRAZOLE 40MG TAB (PROTONIX) PO SCH (09:06)
[2021-01-05] MEDS: AMOXICILLIN 500 MG CAP PO SCH ×2 (09:06→20:34)
[2021-01-05] MEDS: MEMANTINE 5MG TABLET (NAMENDA) PO SCH ×2 (09:06→20:35)
[2021-01-05] MEDS: CARVedilol 12.5 MG TAB PO SCH ×2 (09:06→20:35)
[2021-01-05] MEDS: VITAMIN D 1,000 INTERNATIONAL UNITS TABLET PO SCH (09:06)
[2021-01-05] MEDS: carBAMazepine XR 200 MG TAB PO SCH ×2 (09:07→20:35)
[2021-01-05] MEDS: DIGOXIN 0.125 MG TAB PO SCH (09:07)
[2021-01-05] MEDS: SYMBICORT 80/4.5MCG INHALER 6GM INH SCH ×2 (12:34→20:00)
[2021-01-05 14:00] VITALS: BP 131/47
[2021-01-06 06:00] VITALS: BP 148/75
[2021-01-06] MEDS: SYMBICORT 80/4.5MCG INHALER 6GM INH SCH ×2 (08:00→21:33)
[2021-01-06] MEDS: HumaLOG INSULIN (NovoLOG) PER UNIT SC SCH ×4 (08:07→22:03)
[2021-01-06] MEDS: PREGABALIN 100 MG CAP (LYRICA) PO SCH ×2 (08:08→22:05)
[2021-01-06] MEDS: VITAMIN D 1,000 INTERNATIONAL UNITS TABLET PO SCH (08:08)
[2021-01-06] MEDS: LEVEMIR (INSULIN DETEMIR) 1 UNITS/0.01ML SC SCH ×2 (08:08→22:03)
[2021-01-06] MEDS: ATORVASTATIN 20 MG TAB PO SCH (08:08)
[2021-01-06] MEDS: MEMANTINE 5MG TABLET (NAMENDA) PO SCH ×2 (08:08→22:04)
[2021-01-06] MEDS: CYANOCOBALAMIN 500 MCG TAB PO SCH (08:09)
[2021-01-06] MEDS: AMOXICILLIN 500 MG CAP PO SCH ×2 (08:09→22:04)
[2021-01-06] MEDS: PANTOPRAZOLE 40MG TAB (PROTONIX) PO SCH (08:09)
[2021-01-06] MEDS: ASPIRIN 81MG ENTERIC TABLET PO SCH (08:09)
[2021-01-06] MEDS: carBAMazepine XR 200 MG TAB PO SCH ×2 (08:09→22:04)
[2021-01-06] MEDS: AMIODARONE 200 MG TAB (PACERONE) PO SCH ×2 (08:09→22:04)
[2021-01-06] MEDS: NORTRIPTYLINE 25 MG CAP PO SCH ×2 (08:09→22:05)
[2021-01-06] MEDS: DIGOXIN 0.125 MG TAB PO SCH (08:09)
[2021-01-06] MEDS: CARVedilol 12.5 MG TAB PO SCH ×2 (08:10→22:04)
[2021-01-06 13:43] LABS: HEMATOCRIT 34.5 % (36.0-47.0); HEMOGLOBIN 10.8 g/dl (12.0-15.5); MEAN CORPUSCULAR HEMOGLOBIN 28.2 pg (27.0-33.0); MEAN CORPUSCULAR HGB CONC 31.3 g/dl (32.0-36.5); MEAN CORPUSCULAR VOLUME 90.1 fl (80.0-96.0); PLATELET COUNT, AUTOMATED 155 10^3/uL (150-450); RED BLOOD COUNT 3.83 10^6/uL (4.00-5.40); WHITE BLOOD COUNT 4.4 10^3/uL (4.0-10.0)
[2021-01-06 14:00] VITALS: BP 148/50
[2021-01-06 14:01] LABS: CREATININE FOR GFR 1.5 MG/DL (0.55-1.30); GLOMERULAR FILTRATION RATE 35.6 (>32)
--- NOTE | 2021-01-06 16:05 | IPNPDOC ---
Text Note Date of Service The patient was seen on 01/06/21. NOTE SUBJECTIVE: Patient seen and examined at bedside. No acute overnight events reported. Patient has no new medical complaints this morning OBJECTIVE VITAL SIGNS: Please see below. GENERAL: Elderly female sitting in chair. No acute distress. Wearing supplemental O2.. HEENT: Normocephalic, atraumatic. Noninjected, anicteric sclera. CHEST: CTA B/L CARDIOVASCULAR: RRR, systolic murmur, +S1S2 RESPIRATORY: CTA B/L ABDOMINAL: Soft, ND, NT, +BS, obese EXTREMITIES: trace edema NEUROLOGICAL: no gross focal deficits PSYCHOLOGICAL: AAOx3 LABORATORY DATA, IMAGING STUDIES, MICROBIOLOGY: Please see below. ASSESSMENT AND PLAN: 80F with extensive med hx including chronic left lacunar and thalamic infarcts, CAD/RCA stent, IDDM, CKD3, b/l carotid stenosis s/p right CEA, COPD, HTN, paflutter, HFpEF, left hip Fx s/p SHALA, sent to ED for labile home blood sugars, several weeks slurred speech, found to be in hypertensive emergency, new acute to subacute left posteroinferior medial cerebellar infarct, decompensated CHF. #Labile glucose levels - continue titrating up basal insulin - carb consistent diet - continue ISS #decompensated acute/chronic HFpEF - grossly compensated #Escherichia coli UTI -amoxicillin 500 mg twice a day for 5 days was ordered. 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 Oden of GI #multiple CVA - Follow as per neurology - assistance appreciated - recommend continued aspirin at 162 mg daily - continue with atorvastatin 20 mg daily with follow-up in [place] with the vascular surgery service. #carotid artery disease - vascular surgery has been considering a left carotid endarterectomy. She is status post right carotid enterectomy. She follows with vascular in [place] #Hypertensive urgency, resolved # moderate pulmonary hypertension #CAD #Thrombocytopenia #History of paroxysmal atrial flutter, diagnosed October 2020 - currently sinus rhythm with first degree AV block - due to GI bleed collaborative decision with Dr. Garcia was made not to start patient on anticoagulation. -Patient's home digoxin and amiodarone were continued upon admission. #Possible REMIGIO -Apparently, the patient completed a home sleep study recently and was started on nightly oxygen. There is no comment on any use of his CPAP machine. Patient is unsure how much oxygen she uses at home. She was saturating well on 1 L nasal cannula. #Unspecified chronic seizure disorder -Home carbamazepine was continued upon admission. #History of dementia #Report history of restless leg syndrome -Home pregabalin was continued upon admission. DISPOSITION: Extensive discussion with patient and family at bedside, pending further review by ARU for possible rehabilitation. Patient, however, states that she does not want rehabilitation. She changes her mind quite frequently about this. VS,Fishbone, I+O VS, Fishbone, I+O Vital Signs Date Time Temp Pulse Resp B/P (MAP) Pulse Ox O2 Delivery O2 Flow Rate FiO2 01/06/21 08:17 1.0 01/06/21 08:10 66 138/83 01/06/21 06:00 97.5 17 97 Room Air I&O- Last 24 Hours up to 6 AM 01/06/21 06:00 Intake Total 1540 ml Output Total 900 ml Balance 640 ml ROB CROUCH MD Jan 06, 2021 13:49
[2021-01-06 22:00] VITALS: BP 160/72
[2021-01-07 06:00] VITALS: BP 168/77
[2021-01-07 06:37] LABS: HEMATOCRIT 29.7 % (36.0-47.0); HEMOGLOBIN 9.5 g/dl (12.0-15.5); MEAN CORPUSCULAR HEMOGLOBIN 28.4 pg (27.0-33.0); MEAN CORPUSCULAR VOLUME 88.7 fl (80.0-96.0); PLATELET COUNT, AUTOMATED 140 10^3/uL (150-450); RED BLOOD COUNT 3.35 10^6/uL (4.00-5.40)
[2021-01-07 07:03] LABS: CALCIUM LEVEL 8.5 MG/DL (8.8-10.2); CREATININE FOR GFR 1.23 MG/DL (0.55-1.30); GLOMERULAR FILTRATION RATE 44.7 (>32); POTASSIUM SERUM 4.9 MEQ/L (3.5-5.1)
[2021-01-07] MEDS: SYMBICORT 80/4.5MCG INHALER 6GM INH SCH (07:19)
[2021-01-07] MEDS: HumaLOG INSULIN (NovoLOG) PER UNIT SC SCH ×2 (08:49→12:14)
[2021-01-07] MEDS: VITAMIN D 1,000 INTERNATIONAL UNITS TABLET PO SCH (08:50)
[2021-01-07] MEDS: AMOXICILLIN 500 MG CAP PO SCH (08:50)
[2021-01-07] MEDS: carBAMazepine XR 200 MG TAB PO SCH (08:50)
[2021-01-07] MEDS: ATORVASTATIN 20 MG TAB PO SCH (08:50)
[2021-01-07] MEDS: PREGABALIN 100 MG CAP (LYRICA) PO SCH (08:50)
[2021-01-07] MEDS: NORTRIPTYLINE 25 MG CAP PO SCH (08:50)
[2021-01-07] MEDS: PANTOPRAZOLE 40MG TAB (PROTONIX) PO SCH (08:50)
[2021-01-07] MEDS: MEMANTINE 5MG TABLET (NAMENDA) PO SCH (08:50)
[2021-01-07] MEDS: ASPIRIN 81MG ENTERIC TABLET PO SCH (08:50)
[2021-01-07 08:52] VITALS: BP 184/59
[2021-01-07] MEDS: CARVedilol 12.5 MG TAB PO SCH (08:52)
[2021-01-07] MEDS: AMIODARONE 200 MG TAB (PACERONE) PO SCH (08:52)
[2021-01-07] MEDS: DIGOXIN 0.125 MG TAB PO SCH (08:52)
[2021-01-07] MEDS: CYANOCOBALAMIN 500 MCG TAB PO SCH (08:52)
[2021-01-07] MEDS: LEVEMIR (INSULIN DETEMIR) 1 UNITS/0.01ML SC SCH (08:53)
[2021-01-07 10:22] VITALS: BP 156/64
[2021-01-07] MEDS ORDERED: AMOX500C PO (12:32)
[2021-01-07] MEDS ORDERED: ASPI-551 PO (12:32)
[2021-01-07] MEDS ORDERED: TOUJ1.2I SC ×2 (13:44→13:48)
[2021-01-07] MEDS ORDERED: ADME100I SC ×2 (13:48→13:49)
--- NOTE | 2021-01-07 20:07 | DS.PDOC ---
Discharge Summary General Date of Admission Dec 31, 2020 at 19:32 Date of Discharge Thursday, January 07, 2021 Primary Care Physician: TAWANDA ADEN PA-C Attending Physician: EMILY STINSON MD Specialist/Consultants Involve: PITA FISHER MD Discharge Summary PROCEDURES PERFORMED DURING STAY: None ADMITTING DIAGNOSES: -Uncontrolled hypertension -Suspected subacute CVA -Partially decompensated heart failure with preserved ejection fraction -Labile glucose -Obstructive sleep apnea -ST and T wave changes on EKG -Multifactorial bicytopenia -Coronary artery disease status post right coronary artery stent -Dyslipidemia -Chronic kidney disease stage III -Dementia -2 previous left cerebellar infarcts -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 coli UTI -Thrombocytopenia -Suspected subacute CVA -Partially decompensated heart failure with preserved ejection fraction -Labile glucose -Obstructive sleep apnea -ST and T wave changes on EKG -Multifactorial bicytopenia -Coronary artery disease status post right coronary artery stent -Dyslipidemia -Chronic kidney disease stage III -Dementia -2 previous left cerebellar infarcts -COPD -Tobacco abuse -Osteoporosis -Paroxysmal atrial flutter -Chronic seizure disorder -Restless leg syndrome -Class I obesity -Carotid artery disease -Moderate pulmonary hypertension COMPLICATIONS/CHIEF COMPLAINT: Hypertensive Urgency,Labile Blood Glucose,Tia. HISTORY OF PRESENT ILLNESS: Chelita is an 80yo female w/ an extensive PMHx most notable for 2 prior left cerebellar infarcts, chronic anemia secondary to GI ectasias, paroxysmal atrial flutter (DX October 2020), CAD status post stent, insulin-dependent diabetes mellitus type 2 (poorly controlled), sleep apnea, COPD, chronic kidney disease, who presented to the [facility] ED on the evening of 12/31/2020 after recommendation from her primary care physician for emergency evaluation. Per report, the patient had had labile blood sugars at home on the day of presentation (both high and low). Per report, at 8 AM, her serum glucose was 47 (usually runs [id number]). She then drank some orange juice and ate a Bulgarian, and her sugars increased dramatically to over 600. She then took insulin and yet her serum glucose remain elevated. Throughout this timeframe she remained asymptomatic. In addition, it was reported patient had been experiencing associated slurred speech over the last few weeks. Of relevant note, the patient had recently been admitted just over a month ago to [facility] for atrial flutter with rapid ventricular response and acute anemia. After being discharged, she went to [place] on vacation with family unfortunately fell and broke her left hip and had to undergo left total hip arthroplasty. Also during the interim time, she underwent a home sleep study that resulted with diagnosis of obstructive sleep apnea. HOSPITAL COURSE: #Labile glucose levels -Initially, patient was n.p.o. due to suspected stroke pending swallow evaluation. As such, her long-acting was not continued upon admission. She was placed on sliding scale insulin with fingersticks and hypoglycemic protocol. -When her diet was able to be advanced she switched to a consistent carb in 2 g sodium diet. -Throughout her hospitalization she had elevated sugars which required titrating of her basal long-acting insulin. We initially calculated 24-hour use of 24 units of short acting and thus started on 12 units long-acting daily. Her sugars remained elevated we switched to 12 units twice a day dosing. Sugars still remain elevated we switched 18 units twice a day. Eventually we switched patient to 25 units daily in the morning of long-acting with 30 units every evening of long-acting. Upon discharge, her sugars were still relatively debby vated with only minimal improvement and thus her home insulin dosing regimen was changed. We sent prescription for her to do short acting sliding scale insulin before meals and to take 30 units of long-acting insulin in the morning and evening every day. -This is an issue that certainly needs to be followed up with her PCP. #Decompensated acute/chronic HFpEF, improved - grossly compensated at time of discharge. -An echo was done on 01/01/2021 which showed moderate pulmonary hypertension grade 1 left ventricular diastolic dysfunction, mild concentric left ventricular hypertrophy, aortic valve sclerosis with mild aortic regurgitation. EF was calculated 60 to 65%. -There is likely significant element of cor pulmonale #Escherichia coli UTI -Patient never had any dysuria, flank pain, or hematuria during admission but a urinalysis was ordered upon admission which grew E. coli. -Patient was given 8 of the 10 (twice a day for 5 days) doses of amoxicillin. Upon discharge 2 more doses were sent. #Macrocytic anemia in the setting of chronic anemia secondary to known GI ectasias - s/p 3 total units PRBC transfusion during this inpatient stay -Threshold for transfusion during this stay was hemoglobin under 8 owing to her coronary artery disease. -A stool occult was ordered and was pending - history of multiple transfusions - follows with Dr. Oden of GI as outpatient #New acutesubacute small left medial cerebellar ischemic stroke with two known previous left cerebellar infarcts. -Patient was seen and examined by the neurology service on 01/01, who recommend continued aspirin at 162 mg daily (this was first doubled on 01/01 from her home 81). Also continue with atorvastatin 20 mg daily with follow-up in [place] with the vascular surgery service. She has been seeing. They have been considering a left carotid endarterectomy. She is status post right carotid enterectomy. -Patient was also evaluated by physical therapy and Occupational Therapy who reported a discharge disposition of home with services. These were arranged on day of discharge (01/07). -Upon discharge, neurology recommended outpatient follow-up in the [place] office within 1-2 weeks. Per the patient's family, she already does follow with [place] neurology with Dr. Brittni Mcpherson. -Specific to patient's blood pressures, they report allowing permissive [hypertension] during hospital stay as well as keeping her blood pressure below 130/84 as a long-term goal upon discharge. -Hospitalist team sincerely appreciates the neurology services involvement and continued insights. -An echocardiogram ordered upon admission, resulted salient findings of normal global left ventricle systolic function with mild concentric LVH and some features of grade 1 ventricular diastolic dysfunction secondary to abnormal r elaxation. EF was estimated between 6065 percent. There was moderate pulmonary hypertension in mild to moderate tricuspid regurgitation. -PT/OT is working with the patient; has been cleared for DC home with services -Speech therapy evaluated the patient on 01/01, reporting no dysphagia present and recommended a regular texture diet (level 4) -Aspiration precautions. -Lipid panel ordered 01/01 was remarkable for isolated hypertriglyceridemia (triglyceride level 618). #carotid artery disease -Patient follows with vascular surgery from time to time as outpatient in [place]. This service also performed patient's right carotid endarterectomy. Per reports, they have been considering possible left carotid endarterectomy. -Upon discharge, patient should be referred back/establish back with [place] vascular surgery office since she has greater than 70% stenosis of left carotid artery imaging. #Hypertensive urgency, resolved -Patient's pressures remained relatively well-controlled since admission. -Please see above for neurology's recommendations, both short-term and long-term for her blood pressures in the setting of new small left medial cerebellar ischemic stroke. -When patient presented, her systolics crept up to 221. She was asymptomatic. She was administered a one-time dose of captopril as well as having her home carvedilol continued. The admitting team felt the patient potentially was in a partial decompensation of heart failure and also began 60 mg IV Lasix. -Patient was placed on a 2 g sodium diet in the setting of the hypertensive urgency and known outpatient history of hypertension. #Mild vascular congestion seen on chest x-ray in the setting of moderate pulmonary hypertension -Patient has a previous documentation of heart failure with preserved ejection fraction and was reporting transient episodes of dyspnea per admission note. There was a suspicion for possible flash pulmonary edema causing the hypertensive urgency. Patient was subsequently started on 60 mg IV Lasix with daily weights, 24-hour fluid restriction of 2 L, and strict I's and O's. She did have an elevated BNP of 1249. -Upon multiple exams during admission, while still having bilateral crackles, she had no JVD. -Of note, BNP was just 1312 two months ago. As of now, we don't believe that the patient has an acute decompensation of her heart failure and have discontinued the IV Lasix. A repeat BNP was ordered. -An echocardiogram was ordered and resulted showing moderate pulmonary hypertens ion. #Elevated creatinine with history of CKDIII -Serum creatinine improved again today slightly at 1.32. Creatinine upon admission was 1.46. Upon review, her baseline appears to be around 1.2. We will continue to trend metabolic panels as she is borderline acute kidney injury at this time. -Avoiding nephrotoxic agents. -She does follow with nephrology as an outpatient. #CAD status post right coronary artery stent -Patient's home aspirin was initially continued but was switched to 162 mg on due to recommendation from neurology in the setting of new acute to subacute CVA. Home carvedilol was also continued. With history of CAD, threshold to transfuse patient is hemoglobin less than 8 and she was subsequently transfuse 1 unit on 01/01. -Was on telemetry for most of her inpatient stay and no significant sustained events were reported. #Thrombocytopenia -Patient's platelets initially dropped to the 130s after admission. She had been started on medical DVT prophylaxis both subsequently switched over to teds and sequentials with a drop in platelets. -Again this will be something to monitor after discharge and outpatient basis #History of paroxysmal atrial flutter, diagnosed October 2020 -Patient was admitted in mid to late October 2020 and developed new onset atrial flutter with rapid ventricular response. She does follow with Dr. Garcia as an outpatient for cardiology care and upon discharge from that admission was started on amiodarone and digoxin, as well as carvedilol. During this admission, she consistently remained in sinus rhythm with first degree AV block, as evidenced on 2 EKG studies. Due to her history of GI bleeding and chronic anemia, collaborative decision with Dr. Garcia was made not to start patient on anticoagulation. -Patient's home digoxin and amiodarone were continued upon admission. -Patient was on telemetry for most of her stay. #Suspected COPD with 90 pack year plus history of tobacco use -Patient is a former smoker having quit within the last few months and previously had smoked from the age of 16. No formal PFTs were found on admission a month and a half ago, but obstructive process is likely. -Home albuterol and Symbicort were continued #Sleep apnea -Apparently, the patient completed a home sleep study recently and was started on nightly oxygen. There is no comment on any use of his CPAP machine. Patient is unsure how much oxygen she uses at home. She was saturating well on 1 L nasal cannula. -At day of discharge, there was documentation from one of the patient's daughters saying that the patient did have diagnosed sleep apnea on outpatient sleep study. -This will be something patient needs to follow-up on his outpatient to get titrated for CPAP mask #Unspecified chronic seizure disorder -Home carbamazepine was continued upon admission. #History of dementia -CT during admission showed microvascular ischemic changes.-Home Namenda was continued.-There may also be an element of depression with her dementia as her nortriptyline was continued. #Report history of restless leg syndrome -Home pregabalin was continued upon admission. DISCHARGE MEDICATIONS: Please see below. ALLERGIES: Please see below. PHYSICAL EXAMINATION ON DISCHARGE: VITAL SIGNS: Please see below. GENERAL: Elderly female seated in chair. Mood improved improved today, and patient is more approachable. No acute distress. Accompanied by her 2 daughters. HEENT: Normocephalic, atraumatic. Noninjected, anicteric sclera. CHEST: Patient is off telemetry. There are are scattered dark brown papules present over both her lower neck and chest. NECK: No lymphadenopathy is appreciated. Trachea midline. CARDIOVASCULAR EXAMINATION: Heart sounds remain somewhat distant. Patient is off telemetry. There remains a 2/6 systolic murmur. Rate is regular, regular rhythm. No rubs were appreciated. RESPIRATORY EXAMINATION: Patient is breathing room air. She continues to have some mild bibasilar crackles posteriorly. No accessory muscle use appreciated. Symmetric chest expansion. ABDOMINAL EXAMINATION: Soft, nondistended and nontender. Normal active bowel sounds throughout. Moderately obese abdomen. No guarding rigidity appreciated. Back: Continues to be trace1+ presacral pitting edema. EXTREMITIES: There are well-healed surgical scars over the left lateral lower extremity. The trace pitting edema of the left lower extremity has improved greatly from previous days exams. There are arthritic changes visualized on DIP joints bilaterally. Areas of scattered ecchymosis remain present over bilateral forearms. NEUROLOGICAL EXAMINATION: Patient is alert and oriented to person, place, and time. She responds appropriately to all questions and commands. Upon visualization for facial asymmetry, there appears to be a right mild facial droop with no significant other focal deficits appreciated. Speech not quite dysarthric but a bit slowed and this has been consistent during admission. PSYCHIATRIC EXAMINATION: Improve mood today from previous days exams. Affect appears appropriate. LABORATORY DATA: Please see below. IMAGING: Portable chest x-ray, 12/31/2020 FINDINGS: Cardiac silhouette and pulmonary vasculature are mildly prominent. There is no infiltrate identified. There is calcification of the thoracic aorta. The mediastinal silhouette is unchanged. IMPRESSION: Very mild cardiomegaly and vascular congestion. No infiltrate or pulmonary edema. CT head without contrast, 12/31/2020 FINDINGS: Brain: No acute intracerebral abnormality or injury. No acute infarct or intracerebral bleed. Mild age-appropriate cerebral atrophy patchy periventricular leukomalacia in both cerebral hemispheres, consistent most likely with chronic underlying small vessel / microvascular ischemic disease. A small chronic lacunar infarct is again seen in the left thalamus, unchanged since the previous head CT from 05/23/2020. A small chronic lacunar infarct is present in the left posterior cerebellar hemisphere on image 12 of series 201 and image 30 of series 203. This is a new finding since the previous head CT from 05/23/2020. [place] Stroke Program Early CT Score (ASPECTS score) = 10. Cerebral ventricles: No ventriculomegaly. Paranasal sinuses: Visualized sinuses are unremarkable. No fluid levels. Mastoid air cells: Visualized mastoid air cells are well aerated. Bones/joints: Unremarkable. No acute fracture. Soft tissues: Unremarkable. IMPRESSION: 1. No acute intracerebral abnormality or injury. No acute infarct or intracerebral bleed. 2. Mild age-appropriate cerebral atrophy patchy periventricular leukomalacia in both cerebral hemispheres, consistent most likely with chronic underlying small vessel / microvascular ischemic disease. A small chronic lacunar infarct is again seen in the left thalamus, unchanged since the previous head CT from 05/23/2020. A small chronic lacunar infarct is present in the left posterior cerebellar hemisphere on image 12 of series 201 and image 30 of series 203. This is a new finding since the previous head CT from 05/23/2020. 3. [place] Stroke Program Early CT Score (ASPECTS score) = 10. Unilateral left lower extremity duplex venous ultrasound, 12/31/2020 FINDINGS: The left common femoral, superficial femoral and popliteal veins are fully compressible with transducer pressure and demonstrate normal spontaneous and phasic flow, without evidence of deep venous thrombosis.The right common femoral vein demonstrates no thrombus.The visualized left peroneal and posterior tibial veins demonstrate no thrombus. IMPRESSION: No evidence of deep venous thrombosis of the left lower extremity femoral popliteal venous system.No thrombus in the visualized left peroneal and posterior tibial veins. MRI brain without contrast, 12/31/2020 FINDINGS: Brain: There is hyperintense signal in the periventricular white matter. There are multiple additional hyperintense foci scattered throughout the white matter. This is consistent with chronic microvascular disease. There are small old white matter, basal ganglia, thalamic and cerebellar lacunar infarcts. As seen on DWI images 56-72 there is a 12 mm focus of restricted diffusion in the left posteroinferior medial cerebellum. This is consistent with a recent, acute to subacute, infarct as confirmed on ADC. This infarct is clearly visible on FLAIR and T2 weighted images which suggests it is subacute. There is a small old right cerebellar Gradient echo images demonstrate no evidence of hemorrhage. There is no extra-axial collection. There is no mass. Cerebral ventricles: There is no hydrocephalus. Bones/joints: Unremarkable. Paranasal sinuses: Normal as visualized. No acute sinusitis. Mastoid air cells: Normal as visualized. No mastoid effusion. Orbital cavity: Unremarkable. Soft tissues: Unremarkable. IMPRESSION: 1. Chronic microvascular disease with multiple old lacunar infarcts. 2. There is a new, acute to subacute, left posteroinferior medial cerebellar infarct measuring 12 mm in maximal dimension. MRA brain, 12/31/2020 FINDINGS: ANTERIOR CIRCULATION: Right internal carotid artery: Intracranial segment is patent with no significant stenosis. No aneurysm. Right middle cerebral artery: No occlusion or significant stenosis. No aneurysm. Right anterior cerebral artery: No occlusion or significant stenosis. No aneurysm. Left internal carotid artery: Intracranial segment is patent with no significant stenosis. No aneurysm. Left middle cerebral artery: No occlusion or significant stenosis. No aneurysm. Left anterior cerebral artery: No occlusion or significant stenosis. No aneurysm. POSTERIOR CIRCULATION: Right vertebral artery: No occlusion or significant stenosis. No aneurysm. Left vertebral artery: The left vertebral artery is markedly hypoplastic or stenotic. It increases in size distal to the left PICA. This distal segment may be supplied in a retrograde fashion. Basilar artery: No stenosis. No aneurysm. Right posterior cerebral artery: No occlusion or significant stenosis. No aneurysm. Left posterior cerebral artery: There is a probable PCOM infundibulum on the left. No aneurysm identified IMPRESSION: 1. 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 No stenosis of the dominant right vertebral artery. 2. No anterior circulation stenosis or occlusion Duplex carotid complete ultrasound, 01/01/2021 IMPRESSION: 1. Proximal right ICA narrowing in the 50-69% range with suspected occlusion of the distal right ICA. 2. Increased velocity to the left ICA suggesting greater than 70% stenosis. Transthoracic echocardiogram, 01/01/2021 2D COMMENTS: 1. Normal left ventricular size with mildly increased left ventricular wall thickness. Left ventricular systolic function is normal, estimated at 60 to 65%. 2. Normal left atrium. Normal right atrium and right ventricle. 3. The atrial septum appeared to be normal without evidence of defect or shunt. 4. Borderline dilated aortic root at 3.7 cm. 5. No pericardial effusion seen. 6. Mildly calcified aortic valve with normal leaflet excursion. Moderately calcified mitral annulus with normal anterior mitral valve leaflet motion. Normal tricuspid valve. The pulmonic valve and proximal pulmonary artery branches were not well visualized. 7. The inferior vena cava was not well visualized. DOPPLER: Doppler detects mild aortic regurgitation, mild to moderate tricuspid regurgitation. The calculated pulmonary artery systolic pressure varies between 40 to 50 mmHg. Abnormal relaxation pattern was noted across the mitral valve annulus consistent with features of grade 1 left ventricular diastolic dysfunction. IMPRESSION: 1. Normal global left ventricular systolic function with mild concentric left ventricular hypertrophy. There were some features of grade 1 left ventricular diastolic dysfunction manifested by abnormal relaxation. 2. Aortic valve sclerosis with mild aortic regurgitation. No aortic stenosis. 3. Moderate mitral annulus calcification. No evidence of mitral regurgitation or stenosis. 4. Mild to moderate tricuspid regurgitation with moderate pulmonary hypertension. PROGNOSIS: Fair ACTIVITY: As tolerated DIET: Diabetic/consistent carb and 2 g sodium diet DISPOSITION: Home, with services DISCHARGE INSTRUCTIONS & ITEMS TO FOLLOW-UP ON ON OUTPATIENT: -Please follow-up with primary care physician within the next 3-5 days; a significant issue to discuss at that appointment is control of serum glucose as outpatient as this has been a persistent issue. -Please follow-up with neurology within the next week (Dr. Mcpherson or Dr. Pita Fisher) in the setting of new subacute to acute small left cerebellar stroke. -Please follow-up as scheduled with your outpatient oil well directional surveyor (Dr. Garcia). -Please take 2 more doses of amoxicillin antibiotic to complete 10 total doses for E. coli urinary tract infection. -Your home long-acting insulin dosing and short acting insulin dosing regimens were changed based on your unstable blood sugars both prior to presenting and during this admission. We have switched your home long-acting dosing to 30 units both in the morning and the evening. Your short acting insulin will not be a static 20 units before meals as it had been, but will be switched to a sliding scale short acting insulin before meals based on your fingerstick blood sugars. -Fluid restriction to 2000 mL (or 2 L) every 24 hours. -Maintain a 2 g sodium and consistent carb diet. -Please follow-up after sleep study revealed sleep apnea to get CPAP mask t itration. -Patient will be discharged home with services; please complete the services as instructed. -Please comply with treatment plan. -Please return to the emergency department if presenting symptoms recur and/or acutely worsen. -Thank you for the opportunity to participate in your care. DISCHARGE CONDITION: Stable TIME SPENT ON DISCHARGE: 39 minutes Vital Signs/I&Os Vital Signs Date Time Temp Pulse Resp B/P (MAP) Pulse Ox O2 Delivery O2 Flow Rate FiO2 01/07/21 10:22 156/64 (94) 01/07/21 09:00 1.0 01/07/21 08:52 70 01/07/21 06:00 97.1 18 90 Room Air I&O- Last 24 Hours up to 6 AM 01/07/21 06:00 Intake Total 700 ml Output Total 375 ml Balance 325 ml Laboratory Data Labs 24H Laboratory Tests 2 01/06/21 20:55: Bedside Glucose (Misc Panel) 309H 01/07/21 06:21: Nucleated Red Blood Cells % (auto) 0.0, Anion Gap 6L, Glomerular Filtration Rate 44.7, Calcium Level 8.5L 01/07/21 11:25: Bedside Glucose (Misc Panel) 397H CBC/BMP Laboratory Tests 01/07/21 06:21 FSBS Laboratory Tests Test 01/06/21 20:55 01/07/21 11:25 Range/Units Bedside Glucose (Misc Panel) 309 397 83-110 MG/DL Microbiology Microbiology 01/03/21 Stool Occult Blood (DAYAN) - Final, Complete 12/31/20 Urine Culture - Final, Complete Escherichia Coli Discharge Medications Scheduled Acetaminophen (Tylenol) 325 Mg Tablet, 975 MG PO QHS, (Reported) Amiodarone HCl (Amiodarone HCl) 200 Mg Tablet, 200 MG PO BID, (Reported) Amoxicillin (Amoxicillin) 500 Mg Capsule, 500 MG PO BID Aspirin (Aspirin EC) 81 Mg Tablet.dr, 162 MG PO DAILY Atorvastatin Calcium (Atorvastatin Calcium) 20 Mg Tab, 20 MG PO DAILY, (Reported) Carbamazepine (Carbamazepine ER) 200 Mg Tab.er.12h, 200 MG PO BID, (Reported) Carvedilol (Carvedilol) 25 Mg Tab, 25 MG PO BID, (Reported) Cholecalciferol (Vitamin D3) (Vitamin D3) 1,000 Unit Tablet, 5,000 UNITS PO DAILY, (Reported) Cyanocobalamin (Vitamin B-12) (Vitamin B-12) 1,000 Mcg Capsule, 1,000 MCG PO DAILY, (Reported) Digoxin (Digoxin) 125 Mcg Tablet, 125 MCG PO DAILY, (Reported) Furosemide (Furosemide) 40 Mg Tablet, 40 MG PO DAILY, (Reported) Insulin Glargine,Hum.rec.anlog (Toujeo Solostar) 300 Unit/Ml Inj, 70 UNIT SC ASD IRECTED 30 UNITS IN AM / 30 UNITS IN PM Insulin Lispro (Admelog) 100 Unit/1 Ml Vial, 1 UNIT SC AC Based on a sliding scale from [facility] Memantine HCl (Namenda Xr) 28 Mg Cap.spr.24, 28 MG PO DAILY, (Reported) Nortriptyline HCl (Nortriptyline HCl) 25 Mg Cap, 25 MG PO BID, (Reported) Pantoprazole Sodium (Pantoprazole Sodium) 40 Mg Tablet.dr, 40 MG PO DAILY, (Reported) Pregabalin (Lyrica) 100 Mg Capsule, 100 MG PO BID, (Reported) Scheduled PRN Albuterol Sulfate (Proair Hfa) 8.5 Gm Hfa.aer.ad, 2 PUFF INH Q4H PRN for SHORTNESS OF BREATH, (Reported) Budesonide/Formoterol (Symbicort 80-4.5 Mcg Inhaler) 6.9 Gm Hfa.aer.ad, 2 PUFF INH BID PRN for SHORTNESS OF BREATH, (Reported) PT STATES USES PRN Ipratropium/Albuterol Sulfate (Iprat-Albut 0.5-3(2.5) mg/3 ml) 1 Joel Joel, 1 JOEL INH Q6H PRN for SHORTNESS OF BREATH, (Reported) Tramadol HCl (Tramadol HCl) 50 Mg Tablet, 50 MG PO Q8H PRN for PAIN, (Reported) Allergies Coded Allergies: metformin (Verified Adverse Reaction, Mild, N/V, 12/20/20) clopidogrel (Verified Adverse Reaction, Unknown, unsure, 12/20/20) PT REPORTS SHE STILL HAS ITCHINESS SO SHE DOES NOT THINK SHE IS ALLERGIC TO PLAVIX WHICH IS WHY THEY STOPPED THE PLAVIX BEFORE FOR POSSIBLE ADVERSE REACTION OF FEELING ITCHY (10/22/20 VISIT) GME ATTESTATION GME ATTESTATION My faculty preceptor for this patient encounter was physically present during the encounter and was fully available. All aspects of the patient interview, examination, medical decision making process, and medical care plan development were reviewed and approved by the faculty preceptor. The faculty preceptor is aware and concurs with the plan as stated in the body of this note and will attest to such by his/her cosignature. ATTENDING NOTE I, Emily Stinson, have independently examined this patient and performed my own physical exam, as well as reviewed the documentation and edited where necessary. I have discussed in detail with the resident / student the findings and plan of treatment as documented by the resident / student and edited their note. I agree with their findings and treatment plan and have edited their documentation. I will continue to follow the patient during this hospital stay. Time spent on discharge 40 minutes YISEL MAURICE D.O. Jan 07, 2021 20:07 EMILY STINSON MD Jan 07, 2021 21:27
== END 2021-01-07 13:15 | disposition home health service (06) | DRG 64 ==
LOC: M ED 12:59 → M ED INP 19:25 → OBSVTOIN 19:32 → ENRESERV 22:35 → M ICU 23:55 → M PCU 01-01 13:44 → M MSPAV 01-02 15:06
PROVIDERS: ADMIT Internal Medicine; ATTEND Internal Medicine
PROC: 30233N1 Transfusion of Nonautologous Red Blood Cells into Peripheral Vein, Percutaneous Approach (ICD-10-PCS; principal; 2021-01-01)
DX: I63.9 Cerebral infarction, unspecified (principal); I50.33 Acute on chronic diastolic (congestive) heart failure; I13.0 Hypertensive heart and chronic kidney disease with heart failure and stage 1 through stage 4 chronic kidney disease, or unspecified chronic kidney disease; I48.92 Unspecified atrial flutter; N39.0 Urinary tract infection, site not specified; Z79.4 Long term (current) use of insulin; Z79.891 Long term (current) use of opiate analgesic; Z79.899 Other long term (current) drug therapy; Z88.8 Allergy status to other drugs, medicaments and biological substances; G47.33 Obstructive sleep apnea (adult) (pediatric); I25.10 Atherosclerotic heart disease of native coronary artery without angina pectoris; D69.6 Thrombocytopenia, unspecified; F17.200 Nicotine dependence, unspecified, uncomplicated; Z95.2 Presence of prosthetic heart valve; N18.30 Chronic kidney disease, stage 3 unspecified; I27.20 Pulmonary hypertension, unspecified; B96.29 Other Escherichia coli [E. coli] as the cause of diseases classified elsewhere; G40.909 Epilepsy, unspecified, not intractable, without status epilepticus; E78.5 Hyperlipidemia, unspecified; I16.0 Hypertensive urgency; J44.9 Chronic obstructive pulmonary disease, unspecified; G25.81 Restless legs syndrome; M81.0 Age-related osteoporosis without current pathological fracture; E11.9 Type 2 diabetes mellitus without complications; F03.90 Unspecified dementia, unspecified severity, without behavioral disturbance, psychotic disturbance, mood disturbance, and anxiety; Z79.82 Long term (current) use of aspirin; Z98.41 Cataract extraction status, right eye; Z98.42 Cataract extraction status, left eye; Z96.641 Presence of right artificial hip joint; E55.9 Vitamin D deficiency, unspecified; D53.9 Nutritional anemia, unspecified

== ENCOUNTER 2021-01-13 12:37 | Observation (INO) | payer MEDICARE ==
[~2021-01-13] VITALS: Ht 162.6 cm; Wt 77.0 kg
[~2021-01-13 12:37] MED LIST changes: +ACET-907 PO; +AMOX500C PO; +ASPI-551 PO
--- NOTE | 2021-01-13 14:32 | REP ---
INDICATION: Altered Mental Status. COMPARISON: 12/31/2020. TECHNIQUE: Single portable AP view of the chest was performed. FINDINGS: The heart and mediastinum are unchanged. No acute infiltrate is seen. There are degenerative changes of the spine. IMPRESSION: No acute pulmonary disease. <Electronically signed by Francisco Christiansen > 01/13/21 [id number]
--- NOTE | 2021-01-13 14:44 | REP ---
INDICATION: altered mental status. COMPARISON: None. TECHNIQUE: 4.5 mm contiguous transaxial sections were obtained from the skull base to the cerebral convexities with thin cuts through the posterior fossa without the administration of intravenous contrast. FINDINGS: The ventricles and sulci are consistent with the patient's age. There are no extra-axial fluid collections. There is no mass effect. The deep cerebral white matter is consistent with the patient's age. Bilateral basal ganglion calcifications are again noted. There is an old left thalamic lacunar infarct which is unchanged. Scattered areas of lucency are again seen throughout the deep cerebral white matter status quo. The small focal area of suspected lucency seen in the left cerebellum is not present today. There is no shift of the midline structures. There is no evidence of an acute intracranial hemorrhagic or non hemorrhagic event. There is no change in the skull or skull base. The imaged paranasal sinuses and mastoid air cells are again seen to be clear IMPRESSION: There is no acute abnormality. There are chronic changes as described above. The small focal area of decreased density seen in the left cerebellar hemisphere on the prior examination of 12/31/2020 is not present today. If stroke is of clinical concern I would suggest brain MRI at this time. <Electronically signed by Carmine Schneider > 01/13/21 [id number]
[2021-01-13 15:08] LABS: BASO % 0.8 % (0.0-1.0); EOS # 0.1 10^3/uL (0.0-0.5); EOS % 1.9 % (0.0-3.0); HEMATOCRIT 31.3 % (36.0-47.0); HEMOGLOBIN 9.7 g/dl (12.0-15.5); LYMPH # 0.8 10^3/uL (1.5-5.0); LYMPH % 17.7 % (24.0-44.0); MEAN CORPUSCULAR HEMOGLOBIN 28.4 pg (27.0-33.0); MEAN CORPUSCULAR VOLUME 91.8 fl (80.0-96.0); MONO # 0.4 10^3/uL (0.0-0.8); MONO % 9.1 % (2.0-8.0); NEUTROPHILS # 3.3 10^3/uL (1.5-8.5); NEUTROPHILS % 69.7 % (36.0-66.0); PLATELET COUNT, AUTOMATED 166 10^3/uL (150-450); RED BLOOD COUNT 3.41 10^6/uL (4.00-5.40); WHITE BLOOD COUNT 4.7 10^3/uL (4.0-10.0)
[2021-01-13 15:39] LABS: BILIRUBIN,DIRECT 0.1 MG/DL (0.0-0.2); BILIRUBIN,TOTAL 0.3 MG/DL (0.2-1.0); CALCIUM LEVEL 8.7 MG/DL (8.8-10.2); CK-MB VALUE MASS 1.3 NG/ML (<3.6); CREATININE FOR GFR 1.65 MG/DL (0.55-1.30); GLOMERULAR FILTRATION RATE 31.9 (>32); MB/CK RELATIVE INDEX 1.94 (< OR =4); POTASSIUM SERUM 4.4 MEQ/L (3.5-5.1); THYROID STIMULATING HORMONE 6.22 uIU/ML (0.358-3.740); TOTAL PROTEIN 7.1 GM/DL (6.4-8.2); TROPONIN I 0.02 NG/ML (< 0.10)
--- NOTE | 2021-01-13 15:52 | ECGEPIP ---
[facility] - ED Test Date: 2021-01-13 Pat Name: JAVY RUIZ Department: Room: - Gender: Female Grab Jack Man: KIKA : [id number] Requested By: Angelo Rome Order Number: [id number] Reading MD: Gabo Villegas Measurements Intervals [place] Rate: 65 P: 53 MS: 260 QRS: 50 QRSD: 96 T: 99 QT: 402 QTc: 418 Interpretive Statements Sinus rhythm with 1st degree AV block Nonspecific ST and T wave abnormality Similar to tracing done 01-01-21 Electronically Signed on 01-13-2021 15:51:45 EDT by Gabo Villegas
[2021-01-13] MEDS ORDERED: TOUJ1.2I SC (18:52)
[2021-01-13] MEDS ORDERED: ASPI81TA26 PO (18:52)
[2021-01-13] MEDS ORDERED: AMOX500C PO (18:52)
[2021-01-13] MEDS ORDERED: ADME100I2 SC (18:52)
[2021-01-13] MEDS ORDERED: DEXTROSE 50% 50 ML SYRINGE IV PRN (19:25)
[2021-01-13] MEDS ORDERED: GLUCOSE 4GM CHEW TABLET PO PRN (19:25)
[2021-01-13] MEDS ORDERED: GLUCAGON INJ 1MG VIAL SC PRN (19:25)
[2021-01-13] MEDS ORDERED: IPRATROPIUM 0.5MG/ALBUTEROL 2.5MG INH SOL UD 3ML (DUONEB) INH PRN (19:25)
--- NOTE | 2021-01-13 19:38 | HPEPDOC ---
General Date of Admission 01/13/21 Date of Service: Jan 13, 2021 Chief Complaint The patient is a 80-year-old female admitted with a reason for visit of Weakness. History of Present Illness 80 year old female with multiple medical problems including multiple lacular infarcts, TIAs, A subacute stroke in the left cerebellum in December 2020, Paroxysmal a flutter, CKD, DM, HTN, HLD, CHF, Chronic iron def anemia, dementia, seizure disordered was in her usual state of health this mroning when she woke up. Her sugar was over 400 before breakfast. She had aher breakfast and went and sat in a chair in the living room wanting to read something. She suddenly felt herself shaking/ swinging from side to side in sitting position without ny loss of consciousness. She could not stand up. 4 people helped her to stand up and got her into the WC and wheeled her to the bedroom and put her to bed. She felt that if she took some est she would be better. When she was laying down in bed nothing was wrong but then as soon as she sat up by the side of the bed she started having the shaking/ swinging movement of her body from side to side. Family had also noticed some slurring of speech during breakfast. So it was decided to bring her to the ED. In the ED she was hypertensive. She was also noted to have some hypoxia about 86% on room air. She was admitted for TIA rule out stroke. On my exam she was alert and oriented and sitting up in bed. I did not see any of the described symptoms. Home Medications Scheduled Acetaminophen (Tylenol) 325 Mg Tablet, 975 MG PO QHS, (Reported) Amiodarone HCl (Amiodarone HCl) 200 Mg Tablet, 200 MG PO BID, (Reported) Amoxicillin (Amoxicillin) 500 Mg Capsule, 500 MG PO BID, (Reported) Aspirin (Aspirin EC) 81 Mg Tablet.dr, 162 MG PO DAILY, (Reported) Atorvastatin Calcium (Atorvastatin Calcium) 20 Mg Tab, 20 MG PO DAILY, (Reported) Carbamazepine (Carbamazepine ER) 200 Mg Tab.er.12h, 200 MG PO BID, (Reported) Carvedilol (Carvedilol) 25 Mg Tab, 25 MG PO BID, (Reported) Cholecalciferol (Vitamin D3) (Vitamin D3) 1,000 Unit Tablet, 5,000 UNITS PO DAILY, (Reported) Cyanocobalamin (Vitamin B-12) (Vitamin B-12) 1,000 Mcg Capsule, 1,000 MCG PO DAILY, (Reported) Digoxin (Digoxin) 125 Mcg Tablet, 125 MCG PO DAILY, (Reported) Furosemide (Furosemide) 40 Mg Tablet, 40 MG PO DAILY, (Reported) Insulin Glargine,Hum.rec.anlog (Toujeo Solostar) 300 Unit/1 Ml Insuln.pen, 30 UNIT SC BID, (Reported) Insulin Lispro (Admelog Solostar) 100 Unit/1 Ml Insuln.pen, 1 DOSE SC AC, (Reported) PER SLIDING SCALE Memantine HCl (Namenda Xr) 28 Mg Cap.spr.24, 28 MG PO DAILY, (Reported) Nortriptyline HCl (Nortriptyline HCl) 25 Mg Cap, 25 MG PO BID, (Reported) Pantoprazole Sodium (Pantoprazole Sodium) 40 Mg Tablet.dr, 40 MG PO DAILY, (Reported) Pregabalin (Lyrica) 100 Mg Capsule, 100 MG PO BID, (Reported) Scheduled PRN Albuterol Sulfate (Proair Hfa) 8.5 Gm Hfa.aer.ad, 2 PUFF INH Q4H PRN for SHORTNESS OF BREATH, (Reported) Budesonide/Formoterol (Symbicort 80-4.5 Mcg Inhaler) 6.9 Gm Hfa.aer.ad, 2 PUFF INH BID PRN for SHORTNESS OF BREATH, (Reported) PT STATES USES PRN Ipratropium/Albuterol Sulfate (Iprat-Albut 0.5-3(2.5) mg/3 ml) 1 Joel Joel, 1 JOEL INH Q6H PRN for SHORTNESS OF BREATH, (Reported) Tramadol HCl (Tramadol HCl) 50 Mg Tablet, 50 MG PO Q8H PRN for PAIN, (Reported) Allergies Coded Allergies: metformin (Verified Adverse Reaction, Mild, N/V, 12/20/20) clopidogrel (Verified Adverse Reaction, Unknown, unsure, 12/20/20) PT REPORTS SHE STILL HAS ITCHINESS SO SHE DOES NOT THINK SHE IS ALLERGIC TO PLAVIX WHICH IS WHY THEY STOPPED THE PLAVIX BEFORE FOR POSSIBLE ADVERSE REACTION OF FEELING ITCHY (10/22/20 VISIT) Past Medical History Medical History New subacute left cerebellar infarct posteromedial region 12 mm on 12/31/20 Chronic multiple old lacunar infarcts. left thalamus, basal ganglia , cerebellum, left white matter Severe Left Vertebral artery stenosis. Dementia Seizure disorder Chronic CAD s/p RCA stent, Paroxysmal atrial flutter. DLP, Brittle DM. CKD3, Bilateral carotid stenosis s/p right sided CEA, Carotid ultrasound showed more than 70% left and 50-69% on right internal carotid artery stenosis. Chronic HFpEF COPD 2/2 tobacco abuse, Newly diagnosed REMIGIO by home sleep study Newly prescribed home oxygen Mild to moderate pulmonary hypertension. RLS Osteoporosis, Essential HTN, Paroxysmal Atrial Fib / Flutter, 1st Degree AV block, Aortic sclerosis w/o stenosis, Iron def anemia due to GIB. 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 Vitamin D deficiency, Chronic OA, mild Pulm HTN, Carpal tunnel release, Right hip replacement, Left hip fracture s/p ORIF in [place] in November 2020. Hysterectomy, Bilateral cataract surgeries Family History Mother: DM type II Father: lung problems. Social History * Smoker: former Smoker Alcohol: Denies Drugs: denies A-FIB/CHADSVASC A-FIB History Current/History of A-Fib/PAF?: Yes Current PO Anticoag Therapy: Yes Review of Systems Constitutional: Reports: Weakness; Denies: Chills, Fever, Night Sweats Eyes: Denies: Pain, Vision change ENT: Denies: Head Aches, Ear Pain, Dysphagia Skin: Reports: Itching; Denies: Rash, Lesions, Breakdown Pulmonary: Denies: Dyspnea, Cough Cardiovascular: Denies: Chest Pain, Palpitations, Orthopnea, Paroxysmal Noc. Dyspnea, Lt Headedness Gastrointestinal: Denies: Nausea, Vomiting, Abdominal Pain, Diarrhea Neurological: Reports: Weakness, Incoordination, Change in speech Physical Examination General Exam: Positive: Alert, Cooperative, No Acute Distress Eye Exam: Positive: PERRLA, Conjunctiva & lids normal, EOMI, Other Eye Symptoms (No nystagmus); Negative: Sclera icteric ENT Exam: Positive: Atraumatic, Mucous membr. moist/pink, Pharynx Normal Neck Exam: Positive: Supple; Negative: JVD, thyromegaly Chest Exam: Positive: Clear to auscultation, Normal air movement, Diminished (diminished air entry bilaterally, bilateral fibrotic crackles. ) Heart Exam: Positive: Rate Normal, Regular Rhythm, Normal S1, Normal S2, Murmurs (soft systolic murmur); Negative: Rubs Abdomen Exam: Positive: Normal bowel sounds, Soft; Negative: Tenderness, Hepatospenomegaly Extremity Exam: Negative: Clubbing, Cyanosis, Edema Neuro Exam: Positive: Normal Speech, Strength at 5/5 X4 ext, Normal Tone, Other (finger - nose test and heel call test normal, no disdiadocokinesis.) Psych Exam: Positive: Oriented x 3 Vital Signs Vital Signs Date Time Temp Pulse Resp B/P (MAP) Pulse Ox O2 Delivery O2 Flow Rate FiO2 01/13/21 18:07 71 20 180/98 (125) 94 Room Air 01/13/21 14:04 98.2 Laboratory Data Labs 24H Laboratory Tests 2 01/13/21 14:49: Immature Granulocyte % (Auto) 0.8, Neutrophils (%) (Auto) 69.7H, Lymphocytes (%) (Auto) 17.7L, Monocytes (%) (Auto) 9.1H, Eosinophils (%) (Auto) 1.9, Basophils (%) (Auto) 0.8, Neutrophils # (Auto) 3.3, Lymphocytes # (Auto) 0.8L, Monocytes # (Auto) 0.4, Eosinophils # (Auto) 0.1, Basophils # (Auto) 0.0, Nucleated Red Blood Cells % (auto) 0.0, Anion Gap 8, Glomerular Filtration Rate 31.9L, Calcium Level 8.7L, Total Bilirubin 0.3, Direct Bilirubin 0.1, Aspartate Amino Transf (AST/SGOT) 15, Alanine Aminotransferase (ALT/SGPT) 14, Alkaline Phosphatase 125H, Total Creatine Kinase 67, Creatine Kinase MB 1.3, Creatine Kinase MB Relative Index 1.94, Troponin I 0.02, Total Protein 7.1, Albumin 3.0L, Albumin/Globulin Ratio 0.7L, Thyroid Stimulating Hormone (TSH) 6.220H 01/13/21 17:03: Urine Color YELLOW, Urine Appearance CLEAR, Urine pH 6.0, Urine Specific [place] 1.008, Urine Protein NEGATIVE, Urine Glucose (UA) 3+H, Urine Ketones NEGATIVE, Urine Blood 3+H, Urine Nitrite NEGATIVE, Urine Bilirubin NEGATIVE, Urine Urobilinogen 0.2, Urine Leukocyte Esterase NEGATIVE, Urine WBC (Auto) 2, Urine RBC (Auto) 2, Urine Hyaline Casts (Auto) 0, Urine Bacteria (Auto) NEGATIVE, Urine Squamous Epithelial Cells 0, Urine Sperm (Auto) CBC/BMP Laboratory Tests 01/13/21 14:49 Assessment/Plan 80 year old female with multiple medical problems including multiple lacular infarcts, TIAs, A subacute stroke in the left cerebellum in December 2020, Paroxysmal a flutter, CKD, DM, HTN, HLD, CHF, Chronic iron def anemia, dementia, seizure disordered was in her usual state of health this morning when she woke up. Her sugar was over 400 before breakfast. She had her breakfast and went and sat in a chair in the living room wanting to read something. She suddenly felt herself shaking/ swinging from side to side in sitting position without any loss of consciousness. She could not stand up. 4 people helped her to stand up and g ot her into the WC and wheeled her to the bedroom and put her to bed. She felt that if she took some est she would be better. When she was laying down in bed nothing was wrong but then as soon as she sat up by the side of the bed she started having Ataxic movement (swinging movement of her body from side to side). Family had also noticed some slurring of speech during breakfast. She presented to ED as she could not get out of bed and her balance was off. In the ED she was hypertensive. She was also noted to have some hypoxia about 86% on room air. She was admitted for ataxia/ gait instability to be evaluated for TIA /stroke. Ataxia/ slurred speech will get MRI. Hh/o multiple strokes and TIAs Continue ASA and Statin PT Hypertension will continue coreg, add amlodipine if needed will allow permission hypertension till acute stroke ruled out Paroxysmal a flutter cont amiodarone, digoxin, coreg. Not on AC due to h/o GIB and falls. COPD symbicort,duoneb prn recently started on oxygen at home. REMIGIO not on CPAP pulse oximetry. Seizure disorder continue tegretal DM with neuropathy continue levemir and lispro FS Ac and HS. Lyrica Dementia on memantine at home Ecoli UTI on 12/31/20 finishing amoxycillin. Plan / VTE VTE Prophylaxis Ordered?: Yes DANYEL FUENTES MD Jan 13, 2021 19:38
[2021-01-13 19:45] LABS: RSV AMPLIFICATION NEGATIVE (NEGATIVE)
[2021-01-13 20:24] LABS: DIGOXIN LEVEL 1.8 NG/ML (0.5-2.0)
[2021-01-13] MEDS ORDERED: ACETAMINOPHEN 325 MG TAB PO SCH (21:00)
[2021-01-13] MEDS ORDERED: amLODIPine 5 MG TAB PO SCH (21:00)
[2021-01-13] MEDS ORDERED: HumaLOG INSULIN (NovoLOG) PER UNIT SC SCH (21:00)
[2021-01-13] MEDS: PREGABALIN 100 MG CAP (LYRICA) PO SCH (21:15)
[2021-01-13] MEDS: AMIODARONE 200 MG TAB (PACERONE) PO SCH (21:15)
[2021-01-13] MEDS: CARVedilol 12.5 MG TAB PO SCH (21:16)
[2021-01-13] MEDS: SYMBICORT 80/4.5MCG INHALER 6GM INH SCH (21:38)
[2021-01-13 22:15] VITALS: BP 188/79
[2021-01-13] MEDS: LEVEMIR (INSULIN DETEMIR) 1 UNITS/0.01ML SC SCH (22:37)
--- NOTE | 2021-01-13 22:47 | REPVR ---
PROCEDURE INFORMATION: Exam: MR Head Without Contrast Exam date and time: 01/13/2021 9:40 PM Age: 80 years old Clinical indication: Speech disturbance; Patient HX: Ataxia, slurring of speech TECHNIQUE: Imaging protocol: MR of the head without contrast. COMPARISON: CT Head without contrast 01/13/2021 2:08 PM FINDINGS: Brain: Nonspecific T2/FLAIR hyperintensities of the periventricular and deep subcortical white matter, most likely secondary to chronic small vessel ischemic change. No intracranial hemorrhage or extra-axial fluid collection. No evidence of mass effect or midline shift. No restricted diffusion to suggest acute infarct. Cerebral ventricles: Prominence of the ventricles and sulci, likely attributed to parenchymal volume loss. Bones/joints: Unremarkable. Paranasal sinuses: Normal as visualized. No acute sinusitis. Mastoid air cells: No mastoid effusion. Orbital cavity: Unremarkable. Soft tissues: Unremarkable. IMPRESSION: 1. No acute intracranial pathology. 2. Chronic findings, as above. Electronically signed by: Kapil Wright On 01/13/2021 22:47:12 PM
[2021-01-13] MEDS: NORTRIPTYLINE 25 MG CAP PO SCH (23:16)
[2021-01-13] MEDS: AMOXICILLIN 500 MG CAP PO SCH (23:16)
[2021-01-13] MEDS: carBAMazepine XR 200 MG TAB PO SCH (23:16)
[2021-01-14 06:00] VITALS: BP 133/59
[2021-01-14] MEDS: SYMBICORT 80/4.5MCG INHALER 6GM INH SCH (07:26)
[2021-01-14 08:00] VITALS: BP 162/72
[2021-01-14] MEDS: LEVEMIR (INSULIN DETEMIR) 1 UNITS/0.01ML SC SCH (08:11)
[2021-01-14] MEDS: HumaLOG INSULIN (NovoLOG) PER UNIT SC SCH ×2 (08:11→12:41)
[2021-01-14] MEDS: NORTRIPTYLINE 25 MG CAP PO SCH (08:12)
[2021-01-14] MEDS: carBAMazepine XR 200 MG TAB PO SCH (08:12)
[2021-01-14] MEDS: AMIODARONE 200 MG TAB (PACERONE) PO SCH (08:12)
[2021-01-14] MEDS: AMOXICILLIN 500 MG CAP PO SCH (08:12)
[2021-01-14] MEDS: PREGABALIN 100 MG CAP (LYRICA) PO SCH (08:12)
[2021-01-14] MEDS: CARVedilol 12.5 MG TAB PO SCH (08:14)
[2021-01-14] MEDS ORDERED: PANTOPRAZOLE 40MG TAB (PROTONIX) PO SCH (09:00)
[2021-01-14] MEDS ORDERED: ASPIRIN 81MG ENTERIC TABLET PO SCH (09:00)
[2021-01-14] MEDS ORDERED: MEMANTINE 5MG TABLET (NAMENDA) PO SCH (09:00)
[2021-01-14] MEDS ORDERED: DIGOXIN 0.125 MG TAB PO SCH (09:00)
[2021-01-14] MEDS ORDERED: ATORVASTATIN 20 MG TAB PO SCH (09:00)
[2021-01-14 09:09] LABS: BASO % 0.6 % (0.0-1.0); EOS # 0.1 10^3/uL (0.0-0.5); EOS % 2.4 % (0.0-3.0); HEMOGLOBIN 8.9 g/dl (12.0-15.5); LYMPH # 1.2 10^3/uL (1.5-5.0); LYMPH % 23.2 % (24.0-44.0); MEAN CORPUSCULAR HEMOGLOBIN 28.3 pg (27.0-33.0); MEAN CORPUSCULAR HGB CONC 30.7 g/dl (32.0-36.5); MEAN CORPUSCULAR VOLUME 92.4 fl (80.0-96.0); MONO # 0.5 10^3/uL (0.0-0.8); MONO % 10.6 % (2.0-8.0); NEUTROPHILS # 3.2 10^3/uL (1.5-8.5); NEUTROPHILS % 62.8 % (36.0-66.0); PLATELET COUNT, AUTOMATED 165 10^3/uL (150-450); RED BLOOD COUNT 3.14 10^6/uL (4.00-5.40); WHITE BLOOD COUNT 5.1 10^3/uL (4.0-10.0)
[2021-01-14 09:30] LABS: CALCIUM LEVEL 8.8 MG/DL (8.8-10.2); CREATININE FOR GFR 1.56 MG/DL (0.55-1.30); POTASSIUM SERUM 4.2 MEQ/L (3.5-5.1)
[2021-01-14 12:00] VITALS: BP 182/75
[2021-01-14] MEDS ORDERED: DIGO0.123 PO (12:18)
[2021-01-14] MEDS ORDERED: AMLO1TAB24 PO (12:18)
[2021-01-14] MEDS ORDERED: CARB20TAXR PO (12:26)
[2021-01-14] MEDS ORDERED: TEGR100T3 PO (12:26)
[2021-01-14 12:41] VITALS: BP 182/75
--- NOTE | 2021-01-14 12:55 | IPNPDOC ---
Subjective Date Seen The patient was seen on 01/14/21. Subjective Chief Complaint/HPI No complaints this morning. feels well, No further shaking or slurring of speech. Passed PT. Objective Physical Examination General Exam: Positive: Alert, Cooperative, No Acute Distress Eye Exam: Positive: PERRLA, Conjunctiva & lids normal, EOMI, Other Eye Symptoms (No nystagmus); Negative: Sclera icteric ENT Exam: Positive: Atraumatic, Mucous membr. moist/pink, Pharynx Normal Neck Exam: Positive: Supple; Negative: JVD, thyromegaly Chest Exam: Positive: Clear to auscultation, Normal air movement, Diminished (diminished air entry bilaterally, bilateral fibrotic crackles. ) Heart Exam: Positive: Rate Normal, Regular Rhythm, Normal S1, Normal S2, Murmurs (soft systolic murmur); Negative: Rubs Abdomen Exam: Positive: Normal bowel sounds, Soft; Negative: Tenderness, Hepatospenomegaly Extremity Exam: Negative: Clubbing, Cyanosis, Edema Neuro Exam: Positive: Normal Speech, Strength at 5/5 X4 ext, Normal Tone, Other (finger - nose test and heel call test normal, no disdiadocokinesis.) Psych Exam: Positive: Oriented x 3 Assessment /Plan Assessment 80 year old female with multiple medical problems including multiple lacunar infarcts, TIAs, a subacute stroke in the left cerebellum in December 2020, Paroxysmal a flutter, CKD, DM, HTN, HLD, CHF, Chronic iron def anemia, dementia, seizure disordered was in her usual state of health this morning when she woke up. Her sugar was over 400 before breakfast. She had her breakfast and went and sat in a chair in the living room wanting to read something. She suddenly felt herself shaking/ swinging from side to side in sitting position without any loss of consciousness. She could not stand up. 4 people helped her to stand up and got her into the WC and wheeled her to the bedroom and put her to bed. She felt that if she took some est she would be better. When she was laying down in bed nothing was wrong but then as soon as she sat up by the side of the bed she started having Ataxic movement (swinging movement of her body from side to side). Family had also noticed some slurring of speech during breakfast. She presented to ED as she could not get out of bed and her balance was off. In the ED she was hypertensive. She was also noted to have some hypoxia about 86% on room air. She was admitted for ataxia/ gait instability to be evaluated for TIA /stroke. Ataxia/ slurred speech due to high tegretal levels. Tegretal dosage reduced from 400 mg to 300 mg a day. ( 100+200) MRI negative for any acute stroke. h/o multiple strokes and TIAs in the past Most recent on 12/31/20 Continue ASA and Statin Follow up with Dr Fisher in 1 to 2 weeks Hypertension BP uncontrolled in the hospital. will continue coreg, added amlodipine Paroxysmal a flutter Now in sinus bradycardia. patient is bradycardic mostly in 50s with some values in high 40s during sleep cont amiodarone 200 mg bid , coreg 25 bid will reduce dose of digoxin from 125 mcg to 62.5 mcg daily. Not on AC due to h/o GIB and falls. COPD symbicort, duoneb prn recently started on oxygen at home. REMIGIO recently diagnosed by home sleep stugy recently started on oxygen Seizure disorder continue tegretal. Dose reduced. Levels elevated DM with neuropathy continue levemir and lispro FS Ac and HS. Lyrica and pamelor. Dementia on memantine Recent Ecoli UTI on 12/31/20 finishing amoxicillin. CHF with preserved EF of 60 to 65% grade 1 diastolic dysfunction compensated continue lasix CKD stage 3 stable continue lasix. GERD PPI Recent left hip fracture after a fall ORIF in November. Bilateral carotid artery disease s/p right carotid endarterectomy follow with vascular surgeon in [place]. GI bleed 2/2 bleeding AVMs in duodenum and jejunum s/p APC laser, gastritis Colonic tubular adenomas, Internal and external hemorrhoids.Colonic diverticulosis with colonic narrowing due to the diverticula and colonic spasms. Advised to take miralax daily , avoid constipation , PPI Dispo: Home , follow up with Neurology and cardiology and pmd. Plan/VTE VTE Prophylaxis Ordered?: Yes VS, I&O, 24H, Fishbone Vital Signs/I&O Vital Signs Date Time Temp Pulse Resp B/P (MAP) Pulse Ox O2 Delivery O2 Flow Rate FiO2 01/14/21 12:00 97.6 60 18 182/75 (110) 99 Room Air 01/14/21 08:00 2.0 I&O- Last 24 Hours up to 6 AM 01/14/21 06:00 Intake Total 480 ml Balance 480 ml Laboratory Data 24H LABS Laboratory Tests 2 01/13/21 14:49: Immature Granulocyte % (Auto) 0.8, Neutrophils (%) (Auto) 69.7H, Lymphocytes (%) (Auto) 17.7L, Monocytes (%) (Auto) 9.1H, Eosinophils (%) (Auto) 1.9, Basophils (%) (Auto) 0.8, Neutrophils # (Auto) 3.3, Lymphocytes # (Auto) 0.8L, Monocytes # (Auto) 0.4, Eosinophils # (Auto) 0.1, Basophils # (Auto) 0.0, Nucleated Red Blood Cells % (auto) 0.0, Anion Gap 8, Glomerular Filtration Rate 31.9L, Calcium Level 8.7L, Total Bilirubin 0.3, Direct Bilirubin 0.1, Aspartate Amino Transf (AST/SGOT) 15, Alanine Aminotransferase (ALT/SGPT) 14, Alkaline Phosphatase 125H, Total Creatine Kinase 67, Creatine Kinase MB 1.3, Creatine Kinase MB Relative Index 1.94, Troponin I 0.02, Total Protein 7.1, Albumin 3.0L, Albumin/Globulin Ratio 0.7L, Thyroid Stimulating Hormone (TSH) 6.220H, Digoxin Level 1.8, Carbamazepine (Tegretol) Level 12.0H 01/13/21 17:03: Urine Color YELLOW, Urine Appearance CLEAR, Urine pH 6.0, Urine Specific [place] 1.008, Urine Protein NEGATIVE, Urine Glucose (UA) 3+H, Urine Ketones NEGATIVE, Urine Blood 3+H, Urine Nitrite NEGATIVE, Urine Bilirubin NEGATIVE, Urine Urobilinogen 0.2, Urine Leukocyte Esterase NEGATIVE, Urine WBC (Auto) 2, Urine RBC (Auto) 2, Urine Hyaline Casts (Auto) 0, Urine Bacteria (Auto) NEGATIVE, Urine Squamous Epithelial Cells 0, Urine Sperm (Auto) 01/13/21 18:54: Coronavirus (COVID-19)(PCR) NEGATIVE, Influenza Type A (RT-PCR) NEGATIVE, Influenza Type B (RT-PCR) NEGATIVE, Respiratory Syncytial Virus (PCR) NEGATIVE 01/13/21 22:32: Bedside Glucose (Misc Panel) 366H 01/14/21 07:54: Bedside Glucose (Misc Panel) 208H 01/14/21 08:26: Immature Granulocyte % (Auto) 0.4, Neutrophils (%) (Auto) 62.8, Lymphocytes (%) (Auto) 23.2L, Monocytes (%) (Auto) 10.6H, Eosinophils (%) (Auto) 2.4, Basophils (%) (Auto) 0.6, Neutrophils # (Auto) 3.2, Lymphocytes # (Auto) 1.2L, Monocytes # (Auto) 0.5, Eosinophils # (Auto) 0.1, Basophils # (Auto) 0.0, Nucleated Red Blood Cells % (auto) 0.0, Anion Gap 6L, Glomerular Filtration Rate 34.0, Calcium Level 8.8 01/14/21 11:54: Bedside Glucose (Misc Panel) 306H CBC/BMP Laboratory Tests 01/13/21 14:49 01/14/21 08:26 DANYEL FUENTES MD Jan 14, 2021 12:55
[2021-01-14] MEDS ORDERED: amLODIPine 5 MG TAB PO ONE (13:00)
[2021-01-14 13:30] VITALS: BP 165/69
[2021-01-14 15:54] VITALS: BP 164/66
== END 2021-01-14 17:10 | disposition home health service (06) ==
LOC: M ED 12:37 → M ED INP 12:38 → ENRESERV 21:02 → M PCU 22:12
PROVIDERS: ADMIT Internal Medicine Nephrology; ATTEND Internal Medicine Nephrology
DX: R29.818 Other symptoms and signs involving the nervous system (principal); R27.0 Ataxia, unspecified; Z86.73 Personal history of transient ischemic attack (TIA), and cerebral infarction without residual deficits; E11.42 Type 2 diabetes mellitus with diabetic polyneuropathy; F03.90 Unspecified dementia, unspecified severity, without behavioral disturbance, psychotic disturbance, mood disturbance, and anxiety; I50.30 Unspecified diastolic (congestive) heart failure; N18.30 Chronic kidney disease, stage 3 unspecified; J44.9 Chronic obstructive pulmonary disease, unspecified; G47.33 Obstructive sleep apnea (adult) (pediatric); G40.909 Epilepsy, unspecified, not intractable, without status epilepticus; I48.92 Unspecified atrial flutter; D50.9 Iron deficiency anemia, unspecified; Z79.899 Other long term (current) drug therapy
CPT/HCPCS: 36415; 70450; 70551; 71045; 80048; 80076; 80156; 80162; 81001; 82550; 82553; 84443; 84484; 85025; 87631; 93005; 93041; 94640; 94760; 97161; 97530; 99285; G0378

== ENCOUNTER → 2021-01-22 | Outpatient (REF) | payer MEDICARE ==
[~2021-01-22] MED LIST changes: +ADME100I2 SC; +AMLO1TAB24 PO; +TEGR100T3 PO
[2021-01-22 18:21] LABS: CARBAMAZEPINE (TEGRETOL) LEVEL 10.3 UG/ML (4.0-10.0); DIGOXIN LEVEL 1.4 NG/ML (0.5-2.0)
== END ==
LOC: M LAB REF 16:54
PROVIDERS: ATTEND Physician Assistant
DX: I10 Essential (primary) hypertension (principal); G40.909 Epilepsy, unspecified, not intractable, without status epilepticus; I48.92 Unspecified atrial flutter

== ENCOUNTER → 2021-01-22 | Outpatient (REF) | payer MEDICARE ==
[2021-01-23 15:34] LABS: PERCENT SATURATION 10.1 % (13.2-45.0)
== END ==
LOC: M LAB REF 17:21
PROVIDERS: ATTEND Nurse Practitioner Family
DX: D64.9 Anemia, unspecified (principal); I10 Essential (primary) hypertension; G40.909 Epilepsy, unspecified, not intractable, without status epilepticus; I48.92 Unspecified atrial flutter

== ENCOUNTER 2021-01-23 13:17 | Outpatient (CLI) | payer MEDICARE ==
[~2021-01-23] VITALS: Ht 152.4 cm; Wt 79.0 kg
[2021-01-23] MEDS ORDERED: FUROSEMIDE 40MG/4ML VIAL (J1940) IV ONE (14:00)
[2021-01-23 14:30] VITALS: BP 139/58
[2021-01-23 14:45] VITALS: BP 139/58
[2021-01-23 15:15] VITALS: BP 167/74
[2021-01-23 16:00] VITALS: BP 170/90
[2021-01-23 16:20] VITALS: BP 165/94
== END 2021-01-23 16:40 | disposition home or self-care (01) ==
LOC: M INFU 13:17
PROVIDERS: ATTEND Internal Medicine Nephrology
DX: D50.9 Iron deficiency anemia, unspecified (principal); Z88.8 Allergy status to other drugs, medicaments and biological substances
CPT/HCPCS: 36430; 96374; J1940; P9016

== ENCOUNTER → 2021-01-24 | Outpatient (REF) | payer MEDICARE ==
[2021-01-24 15:41] LABS: HEMATOCRIT 29.9 % (36.0-47.0); HEMOGLOBIN 9.2 g/dl (12.0-15.5); MEAN CORPUSCULAR HEMOGLOBIN 28.5 pg (27.0-33.0); MEAN CORPUSCULAR HGB CONC 30.8 g/dl (32.0-36.5); MEAN CORPUSCULAR VOLUME 92.6 fl (80.0-96.0); PLATELET COUNT, AUTOMATED 197 10^3/uL (150-450); RED BLOOD COUNT 3.23 10^6/uL (4.00-5.40); WHITE BLOOD COUNT 5.4 10^3/uL (4.0-10.0)
== END ==
LOC: M SHH 14:57
PROVIDERS: ATTEND Physician Assistant
DX: D50.0 Iron deficiency anemia secondary to blood loss (chronic) (principal); G40.909 Epilepsy, unspecified, not intractable, without status epilepticus

== ENCOUNTER 2021-02-07 12:11 | Inpatient (IN) | payer MEDICARE ==
[2021-02-07] VITALS (10 sets, daily range): BP systolic 147–184; BP diastolic 53–79
[~2021-02-07] VITALS: Ht 160 cm; Wt 80.5 kg
[~2021-02-07 12:11] MED LIST changes: -ALBU1.25 INH; -ALBU83IN INH; -CARB100T PO; -INSU100I9 SC; -PROC1INJ5 SC; -SUCR1ORA PO; -VITMTA PO
[2021-02-07 14:08] LABS: BASO % 0.3 % (0.0-1.0); EOS % 1.1 % (0.0-3.0); LYMPH # 0.8 10^3/uL (1.5-5.0); LYMPH % 21.8 % (24.0-44.0); MEAN CORPUSCULAR HGB CONC 28.2 g/dl (32.0-36.5); MEAN CORPUSCULAR VOLUME 92.4 fl (80.0-96.0); MONO # 0.3 10^3/uL (0.0-0.8); MONO % 8.4 % (2.0-8.0); NEUTROPHILS # 2.4 10^3/uL (1.5-8.5); NEUTROPHILS % 68.1 % (36.0-66.0); PLATELET COUNT, AUTOMATED 152 10^3/uL (150-450); RED BLOOD COUNT 2.23 10^6/uL (4.00-5.40); WHITE BLOOD COUNT 3.6 10^3/uL (4.0-10.0)
[2021-02-07 14:17] LABS: HEMATOCRIT 20.6 % (36.0-47.0); HEMOGLOBIN 5.8 g/dl (12.0-15.5)
[2021-02-07 14:20] LABS: INR 1.06
[2021-02-07 14:33] LABS: ALBUMIN 3.1 GM/DL (3.2-5.2); BILIRUBIN,DIRECT 0.1 MG/DL (0.0-0.2); BILIRUBIN,TOTAL 0.3 MG/DL (0.2-1.0); CALCIUM LEVEL 8.4 MG/DL (8.8-10.2); CREATININE FOR GFR 2.08 MG/DL (0.55-1.30); GLOMERULAR FILTRATION RATE 24.4 (>32); POTASSIUM SERUM 4.6 MEQ/L (3.5-5.1); TOTAL PROTEIN 6.7 GM/DL (6.4-8.2)
[2021-02-07] MEDS ORDERED: PANTOPRAZOLE 40MG VIAL (C9113 PER 1) IV ONE (14:45)
[2021-02-07] MEDS ORDERED: ACETAMINOPHEN TAB 650MG DOSE (2X325MG) PO PRN (15:20)
[2021-02-07] MEDS ORDERED: NS 1,000 ML IV SCH ×2 (15:30→15:35)
[2021-02-07] MEDS ORDERED: ALBU83IN INH (15:37)
[2021-02-07] MEDS ORDERED: ALBU1.25 INH (15:37)
[2021-02-07] MEDS ORDERED: AMLO1TAB24 PO (15:39)
--- NOTE | 2021-02-07 15:49 | HPEPDOC ---
General Date of Admission Date of Service: Feb 07, 2021 Primary Care Physician: SHANTE GARLAND DO Attending Physician: SAMUEL CORRAL MD Chief Complaint The patient is a 80-year-old female admitted with a reason for visit of Abnormal Labs. Source: Patient Exam Limitations: No limitations Timing/Duration: Other (Unknown) History of Present Illness This is a 80 years old white female with past medical history of GI bleed, CKD hypertension, hyperlipidemia, peripheral neuropathy was referred from Dr. Kalani Garland's office with low hemoglobin and hematocrit. According to patient's daughter she noticed patient had a dark tarry colored stools since last 2 days. Patient denies any complaint of abdominal pain nausea vomiting or abdominal pain, Home Medications Scheduled Acetaminophen (Tylenol) 325 Mg Tablet, 975 MG PO QHS, (Reported) Amiodarone HCl (Amiodarone HCl) 200 Mg Tablet, 200 MG PO BID, (Reported) Amlodipine Besylate (Amlodipine Besylate) 5 Mg Tablet, 5 MG PO BID, (Reported) Aspirin (Aspirin EC) 81 Mg Tablet.dr, 162 MG PO DAILY, (Reported) Atorvastatin Calcium (Atorvastatin Calcium) 20 Mg Tab, 20 MG PO DAILY, (Reported) Carbamazepine (Carbamazepine ER) 100 Mg Tab.er.12h, 100 MG PO BID, (Reported) Carvedilol (Carvedilol) 25 Mg Tab, 25 MG PO BID, (Reported) Cholecalciferol (Vitamin D3) (Vitamin D3) 1,000 Unit Tablet, 5,000 UNITS PO DAILY, (Reported) Cyanocobalamin (Vitamin B-12) (Vitamin B-12) 1,000 Mcg Capsule, 1,000 MCG PO DAILY, (Reported) Digoxin (Digoxin) 125 Mcg Tablet, 62.5 MCG PO DAILY, (Reported) Epoetin Petey (Procrit) 10,000 Unit/1 Ml Vial, 10,000 UNIT SC QMONTH, (Reported) Furosemide (Furosemide) 40 Mg Tablet, 40 MG PO DAILY, (Reported) Insulin Glargine,Hum.rec.anlog (Alice Ochoa) 300 Unit/1 Ml Insuln.pen, 80 U NITS SC QHS, (Reported) Insulin Lispro (Insulin Lispro Kwikpen U-100) 100 Unit/1 Ml Insuln.pen, 1 DOSE SC AC, (Reported) PER SLIDING SCALE Memantine HCl (Namenda Xr) 28 Mg Cap.spr.24, 28 MG PO DAILY, (Reported) Multivitamins (Thera M Plus Tablet) 1 Each Tablet, 1 TAB PO DAILY, (Reported) Nitrofurantoin Monohyd/M-Cryst (Nitrofurantoin [place]-Mcr 100 mg) 100 Mg Capsule, 100 MG PO QHS, (Reported) Nortriptyline HCl (Nortriptyline HCl) 25 Mg Cap, 25 MG PO BID, (Reported) Pantoprazole Sodium (Pantoprazole Sodium) 40 Mg Tablet.dr, 40 MG PO DAILY, (Reported) Pregabalin (Lyrica) 100 Mg Capsule, 100 MG PO BID, (Reported) Ticagrelor Base (Brilinta) 90 Mg Tablet, 90 MG PO BID, (Reported) Scheduled PRN Albuterol Sulf (Albuterol Sulfate) 2.5 Mg/3 Ml Vial.neb, 3 ML INH Q4H PRN for SHORTNESS OF BREATH, (Reported) Albuterol Sulfate (Proair Hfa) 8.5 Gm Hfa.aer.ad, 2 PUFF INH Q4H PRN for SHORTNESS OF BREATH, (Reported) Tramadol HCl (Tramadol HCl) 50 Mg Tablet, 50 MG PO Q8H PRN for PAIN, (Reported) Allergies Coded Allergies: metformin (Verified Adverse Reaction, Mild, N/V, 12/20/20) clopidogrel (Verified Adverse Reaction, Unknown, unsure, 12/20/20) PT REPORTS SHE STILL HAS ITCHINESS SO SHE DOES NOT THINK SHE IS ALLERGIC TO PLAVIX WHICH IS WHY THEY STOPPED THE PLAVIX BEFORE FOR POSSIBLE ADVERSE REACTION OF FEELING ITCHY (10/22/20 VISIT) Past Medical History Medical History History of dementia, chronic left lacunar infarct, left thalamic infarct, CAD, status post RCA stent, hyperlipidemia, diabetes mellitus type 2, CKD stage III, bilateral carotid stenosis, right-sided CEA, COPD, history of smoking, osteoporosis, essential hypertension, proximal atrial fibrillation/flutter, first-degree AV block, aortic stenosis, 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, history of colonic tubular adenomas, seizure disorder, vitamin D deficiency, chronic osteoarthritis, RLS, REMIGIO, chronic diastolic heart failure, pulmonary hypertension, carpal tunnel release procedure, right hip replacement, left hip fracture, hysterectomy, bilateral lateral cataract surgery and left hip repair Surgical History As above Family History Mother had a history of diabetes mellitus type 2 and father had a lung problems including COPD Social History * Smoker: former Smoker Alcohol: Denies Drugs: denies A-FIB/CHADSVASC A-FIB History Current/History of A-Fib/PAF?: Yes Current PO Anticoag Therapy: Yes Review of Systems Constitutional: Denies: Chills, Fever, Malaise, Night Sweats, Weakness, Fatigue, Weight Loss, Lethargy, Other Eyes: Denies: Pain, Vision change, Conjunctivae inflammation, Eyelid inflamma tion, Redness, Other ENT: Denies: Head Aches, Ear Pain, Dysphagia, Sinus Congestion, Post Nasal Drip, Sore Throat, Epistaxis, Other Symptoms Skin: Denies: Rash, Lesions, Jaundice, Bruising, Itching, Dry, Breakdown, Nail Changes, Other Pulmonary: Denies: Dyspnea, Cough, Pleuritic Chest Pain, Other Symptoms Cardiovascular: Denies: Chest Pain, Palpitations, Orthopnea, Paroxysmal Noc. Dyspnea, Edema, Lt Headedness, Other Symptoms Gastrointestinal: Reports: Other Symptoms (Dark tarry colored stool) Hematologic: Denies: Bruising, Bleeding Excessively, Petecchia, Purpura, Enlarged Lymph Nodes, Other Hematologic Endocrine: Denies: Polydipsia, Polyphagia, Polyuria, Heat Intolerance, Cold Intolerance, Other Endocrine Sx Musculoskeletal: Denies: Neck Pain, Back Pain, Shoulder Pain, Arm Pain, Hand Pain, Leg Pain, Foot Pain, Joint Pain, Muscle Pain, Spasms, Other Symptoms Neurological: Denies: Weakness, Numbness, Incoordination, Change in speech, Confusion, Seizures, Other Symptoms Psych: Denies: Mood Normal, Anxiety, Depression, Memory Issues, Thoughts of Self Harm, Anger, Thoughts of Harming Other, Other Psych Physical Examination General Exam: Positive: Alert, Cooperative Eye Exam: Positive: PERRLA, Conjunctiva & lids normal ENT Exam: Positive: Atraumatic, Mucous membr. moist/pink Neck Exam: Positive: Supple, JVD Chest Exam: Positive: Clear to auscultation, Normal air movement Heart Exam: Positive: Rate Normal, Normal S1, Normal S2 Abdomen Exam: Positive: Normal bowel sounds, Soft Extremity Exam: Positive: Other (No clubbing cyanosis edema) Skin Exam: Positive: Nl turgor and temperature Neuro Exam: Positive: Other (No focal motor or sensory deficit) Psych Exam: Positive: Mood NL, Oriented x 3 Vital Signs Vital Signs Date Time Temp Pulse Resp B/P (MAP) Pulse Ox O2 Delivery O2 Flow Rate FiO2 02/07/21 12:12 97.9 66 16 173/73 (106) 97 Room Air Laboratory Data Labs 24H Laboratory Tests 2 02/07/21 13:45: Prothrombin Time 14.0, Prothromb Time International Ratio 1.06, Activated Partial Thromboplast Time 23.0L, Anion Gap 4L, Glomerular Filtration Rate 24.4L, Calcium Level 8.4L, Total Bilirubin 0.3, Direct Bilirubin 0.1, Aspartate Amino Transf (AST/SGOT) 15, Alanine Aminotransferase (ALT/SGPT) 16, Alkaline Phosphatase 92, Total Protein 6.7, Albumin 3.1L, Albumin/Globulin Ratio 0.9L, Lipase 272 02/07/21 13:46: Immature Granulocyte % (Auto) 0.3, Neutrophils (%) (Auto) 68.1H, Lymphocytes (%) (Auto) 21.8L, Monocytes (%) (Auto) 8.4H, Eosinophils (%) (Auto) 1.1, Basophils (%) (Auto) 0.3, Neutrophils # (Auto) 2.4, Lymphocytes # (Auto) 0.8L, Monocytes # (Auto) 0.3, Eosinophils # (Auto) 0.0, Basophils # (Auto) 0.0, Nucleated Red Blood Cells % (auto) 0.0 02/07/21 15:18: CBC/BMP Laboratory Tests 02/07/21 13:45 02/07/21 13:46 Problems (1) GI bleed Status: Acute (2) Acute blood loss anemia Status: Acute Plan / VTE VTE Prophylaxis Ordered?: Yes Plan Plan This is a 80 years old white female with past medical history of GI bleed, CKD hypertension, hyperlipidemia, peripheral neuropathy was referred from Dr. Kalani Garland's office with low hemoglobin and hematocrit. According to patient's daughter she noticed patient had a dark tarry colored stools since last 2 days. Patient denies any complaint of abdominal pain nausea vomiting or abdominal pain. #1 acute blood loss anemia #2 acute GI bleed #3 history of dementia #4 chronic left lacunar and left thalamic infarcts #5 chronic CAD s/p RCA stent #6 hyperlipidemia #7 diabetes mellitus type 2 #8 CKD stage III #9 bilateral carotid stenosis #10 hypertension #11 proximal atrial fibrillation/flutter #12 history of GI bleed secondary to AVMs [facility] since the she has a history of extensive cardiac disease Saline lock, normal saline at 50 cc/h Discussed with Dr. Sanford in ED he has already ordered Protonix 40 mg IV x1 and ordered to transfuse 2 units of PRBC CBC every 4 hours for 24 hours and transfuse as needed Protonix 40 mg IV every 12 hours Clear liquid diet Dr. Ku was called and discussed he will see patient in a.m. I will also put a consult for nephrology as she follows up with Dr. Kalani Garland DVT prophylaxis with antiembolic stockings Diet is clear liquid diet Regular review and renew patient's home medications once the med rec is complete Management discussed with patient at bedside while registrar from the admission department was also in the room and she agreed with the current management SAMUEL CORRAL MD Feb 07, 2021 15:49
[2021-02-07] MEDS ORDERED: CARB100T PO (15:55)
[2021-02-07] MEDS ORDERED: DIGO0.123 PO (15:55)
[2021-02-07] MEDS ORDERED: VITMTA PO (15:55)
[2021-02-07] MEDS ORDERED: INSU100I9 SC (15:55)
[2021-02-07] MEDS ORDERED: BRIL90TA PO (15:55)
[2021-02-07] MEDS ORDERED: PROC1INJ5 SC (15:55)
[2021-02-07] MEDS ORDERED: NITR100C2 PO (15:55)
[2021-02-07 16:08] LABS: RSV AMPLIFICATION NEGATIVE (NEGATIVE)
[2021-02-07] MEDS ORDERED: traMADol 50 MG TAB PO PRN (16:45)
[2021-02-07] MEDS ORDERED: DEXTROSE 50% 50 ML SYRINGE IV PRN (16:45)
[2021-02-07] MEDS ORDERED: GLUCOSE 4GM CHEW TABLET PO PRN (16:45)
[2021-02-07] MEDS ORDERED: GLUCAGON INJ 1MG VIAL SC PRN (16:45)
[2021-02-07] MEDS: CARVedilol 12.5 MG TAB PO SCH (18:04)
[2021-02-07] MEDS: amLODIPine 5 MG TAB PO SCH (18:04)
[2021-02-07] MEDS: HumaLOG INSULIN (NovoLOG) PER UNIT SC SCH (18:49)
[2021-02-07] MEDS: ALBUTEROL 90 MCG/ACT 8GM HFA INHALER INH PRN (19:26)
[2021-02-07] MEDS: NORTRIPTYLINE 25 MG CAP PO SCH (22:44)
[2021-02-07] MEDS: AMIODARONE 200 MG TAB (PACERONE) PO SCH (22:44)
[2021-02-07] MEDS: NITROFURANTOIN (MACROBID) 100 MG CAP PO SCH (22:44)
[2021-02-07] MEDS: carBAMazepine XR 100 MG TAB PO SCH (22:44)
[2021-02-08 00:25] VITALS: BP 163/58
[2021-02-08 01:30] VITALS: BP 148/52
[2021-02-08] MEDS: ALBUTEROL 90 MCG/ACT 8GM HFA INHALER INH PRN ×2 (01:34→09:10)
[2021-02-08 01:54] LABS: HEMATOCRIT 26.5 % (36.0-47.0); MEAN CORPUSCULAR HEMOGLOBIN 26.7 pg (27.0-33.0); MEAN CORPUSCULAR HGB CONC 30.2 g/dl (32.0-36.5); MEAN CORPUSCULAR VOLUME 88.3 fl (80.0-96.0); PLATELET COUNT, AUTOMATED 147 10^3/uL (150-450); WHITE BLOOD COUNT 4.9 10^3/uL (4.0-10.0)
[2021-02-08] MEDS: PANTOPRAZOLE 40MG VIAL (C9113 PER 1) IV SCH ×2 (03:29→15:33)
[2021-02-08 06:00] VITALS: BP 154/62
[2021-02-08 06:27] LABS: HEMATOCRIT 26.5 % (36.0-47.0); HEMOGLOBIN 7.9 g/dl (12.0-15.5); MEAN CORPUSCULAR HEMOGLOBIN 26.6 pg (27.0-33.0); MEAN CORPUSCULAR HGB CONC 29.8 g/dl (32.0-36.5); MEAN CORPUSCULAR VOLUME 89.2 fl (80.0-96.0); PLATELET COUNT, AUTOMATED 138 10^3/uL (150-450); RED BLOOD COUNT 2.97 10^6/uL (4.00-5.40); WHITE BLOOD COUNT 4.8 10^3/uL (4.0-10.0)
[2021-02-08 07:00] LABS: ALBUMIN 2.9 GM/DL (3.2-5.2); BILIRUBIN,TOTAL 0.5 MG/DL (0.2-1.0); CALCIUM LEVEL 8.3 MG/DL (8.8-10.2); CREATININE FOR GFR 1.6 MG/DL (0.55-1.30); MAGNESIUM LEVEL 2.3 MG/DL (1.8-2.4); TOTAL PROTEIN 6.2 GM/DL (6.4-8.2)
[2021-02-08] MEDS: carBAMazepine XR 100 MG TAB PO SCH ×2 (08:36→21:03)
[2021-02-08] MEDS: HumaLOG INSULIN (NovoLOG) PER UNIT SC SCH ×3 (08:36→17:50)
[2021-02-08] MEDS: ATORVASTATIN 20 MG TAB PO SCH (08:37)
[2021-02-08] MEDS: NORTRIPTYLINE 25 MG CAP PO SCH ×2 (08:38→21:02)
[2021-02-08] MEDS: AMIODARONE 200 MG TAB (PACERONE) PO SCH ×2 (08:38→21:03)
[2021-02-08] MEDS: amLODIPine 5 MG TAB PO SCH ×2 (08:46→21:02)
[2021-02-08] MEDS: CARVedilol 12.5 MG TAB PO SCH ×2 (08:46→21:03)
[2021-02-08] MEDS ORDERED: ALBUTEROL SULFATE 2.5 MG/0.5 ML INH NEB SOLN NEB PRN (09:00)
[2021-02-08] MEDS ORDERED: FUROSEMIDE 40MG/4ML VIAL (J1940) IV ONE ×2 (09:10)
[2021-02-08 09:42] LABS: HEMATOCRIT 25.5 % (36.0-47.0); HEMOGLOBIN 7.7 g/dl (12.0-15.5); MEAN CORPUSCULAR HEMOGLOBIN 27.2 pg (27.0-33.0); MEAN CORPUSCULAR HGB CONC 30.2 g/dl (32.0-36.5); MEAN CORPUSCULAR VOLUME 90.1 fl (80.0-96.0); PLATELET COUNT, AUTOMATED 134 10^3/uL (150-450); RED BLOOD COUNT 2.83 10^6/uL (4.00-5.40); WHITE BLOOD COUNT 4.9 10^3/uL (4.0-10.0)
[2021-02-08] MEDS: DIGOXIN 0.0625MG PER 1/2TABLET PO SCH (10:06)
--- NOTE | 2021-02-08 10:22 | REP ---
INDICATION: SOB. COMPARISON: Portable chest 01/13/2021, 12/31/2020; two view 11/12/2020 TECHNIQUE: AP portable upright FINDINGS: Lungs are well inflated. Appears to be some engorgement of upper lobe vessels which remain distinct suggesting some venous hypertension without zaida pulmonary edema the left CP angle is sharply defined. The right CP angle partially obscured which could be due to superimposed chest wall tissues, minor atelectatic change or small effusion. Heart size unchanged. It is not grossly enlarged. Calcified mildly tortuous aorta without aneurysm. Airway intact. No widening of the mediastinum. Some degenerative changes in the spine and shoulders with the bones demineralized. IMPRESSION: 1. Some mild pulmonary venous hypertension without zaida edema or definite consolidation. No gross cardiomegaly. There could be a small right effusion versus a atelectasis or superimposed chest wall tissues from body habitus considerations. 2. Calcifications in the aortic arch and descending aorta without aneurysm, unchanged. No widening of the mediastinum. 3. Degenerative changes of the spine and shoulders, stable. <Electronically signed by Johnson Ng > 02/08/21 [id number]
--- NOTE | 2021-02-08 11:20 | IPNPDOC ---
Subjective Date Seen The patient was seen on 02/08/21. Subjective Chief Complaint/HPI Patient is comfortable no distress offers no new complaints General: Denies: ROS Unobtainable, Chills, Night Sweats, Fatigue, Malaise, Normal Appetite, Other Symptoms Constitutional: Denies: Chills, Fever, Malaise, Night Sweats, Weakness, Fatigue, Weight Loss, Lethargy, Other Pulmonary: Denies: Dyspnea, Cough, Pleuritic Chest Pain, Other Symptoms Cardiovascular: Denies: Chest Pain, Palpitations, Orthopnea, Paroxysmal Noc. Dyspnea, Edema, Lt Headedness, Other Symptoms Gastrointestinal: Denies: Nausea, Vomiting, Abdominal Pain, Diarrhea, Constipation, Melena, Hematochezia, Other Symptoms Musculoskeletal: Denies: Neck Pain, Back Pain, Shoulder Pain, Arm Pain, Hand Pain, Leg Pain, Foot Pain, Joint Pain, Muscle Pain, Spasms, Other Symptoms Neurological: Denies: Weakness, Numbness, Incoordination, Change in speech, Confusion, Seizures, Other Symptoms Objective Physical Examination General Exam: Positive: Alert, Cooperative Chest Exam: Positive: Clear to auscultation, Normal air movement Heart Exam: Positive: Rate Normal, Normal S1, Normal S2 Abdomen Exam: Positive: Normal bowel sounds, Soft Extremity Exam: Positive: Other (No clubbing cyanosis edema) Skin Exam: Positive: Nl turgor and temperature Neuro Exam: Positive: Other (No focal motor or sensory deficit) Assessment /Plan Problems (1) GI bleed Status: Acute (2) Acute blood loss anemia Status: Acute Plan/VTE VTE Prophylaxis Ordered?: Yes Plan This is a 80 years old white female with past medical history of GI bleed, CKD hypertension, hyperlipidemia, peripheral neuropathy was referred from Dr. Kalani Garland's office with low hemoglobin and hematocrit. According to patient's daughter she noticed patient had a dark tarry colored stools since last 2 days. Patient denies any complaint of abdominal pain nausea vomiting or abdominal pain. #1 acute blood loss anemia #2 acute GI bleed #3 history of dementia #4 chronic left lacunar and left thalamic infarcts #5 chronic CAD s/p RCA stent #6 hyperlipidemia #7 diabetes mellitus type 2 #8 CKD stage III #9 bilateral carotid stenosis #10 hypertension #11 proximal atrial fibrillation/flutter #12 history of GI bleed secondary to AVMs Patient was admitted to [facility] floor Started on gentle hydration with 50 cc/h secondary to chronic kidney disease, nephrology consult has been requested to still pending Patient received 2 units of PRBC with hemoglobin 7.9 today Patient is on Protonix 40 mg IV every [address] Oden was called GI consult is still pending Continue clear liquid diet till further recommendations from GI Continue patient's home meds DVT prophylaxis nonpharmacological secondary to GI bleed VS, I&O, 24H, Fishbone Vital Signs/I&O Vital Signs Date Time Temp Pulse Resp B/P (MAP) Pulse Ox O2 Delivery O2 Flow Rate FiO2 02/08/21 10:06 64 02/08/21 09:00 2.0 02/08/21 08:46 132/60 02/08/21 06:00 97.6 16 93 Nasal Cannula l I&O- Last 24 Hours up to 6 AM 02/08/21 06:00 Intake Total 1540 ml Output Total 0 ml Balance 1540 ml Laboratory Data 24H LABS Laboratory Tests 2 02/07/21 13:45: Prothrombin Time 14.0, Prothromb Time International Ratio 1.06, Activated Partial Thromboplast Time 23.0L, Anion Gap 4L, Glomerular Filtration Rate 24.4L, Calcium Level 8.4L, Total Bilirubin 0.3, Direct Bilirubin 0.1, Aspartate Amino Transf (AST/SGOT) 15, Alanine Aminotransferase (ALT/SGPT) 16, Alkaline Phosphatase 92, Total Protein 6.7, Albumin 3.1L, Albumin/Globulin Ratio 0.9L, Lipase 272 02/07/21 13:46: Immature Granulocyte % (Auto) 0.3, Neutrophils (%) (Auto) 68.1H, Lymphocytes (%) (Auto) 21.8L, Monocytes (%) (Auto) 8.4H, Eosinophils (%) (Auto) 1.1, Basophils (%) (Auto) 0.3, Neutrophils # (Auto) 2.4, Lymphocytes # (Auto) 0.8L, Monocytes # (Auto) 0.3, Eosinophils # (Auto) 0.0, Basophils # (Auto) 0.0, Nucleated Red Blood Cells % (auto) 0.0 02/07/21 15:18: Coronavirus (COVID-19)(PCR) NEGATIVE, Influenza Type A (RT-PCR) NEGATIVE, Influenza Type B (RT-PCR) NEGATIVE, Respiratory Syncytial Virus (PCR) NEGATIVE 02/07/21 18:39: Bedside Glucose (Misc Panel) 332H 02/07/21 20:36: Bedside Glucose (Misc Panel) 276H 02/08/21 01:37: Nucleated Red Blood Cells % (auto) 0.0 02/08/21 06:00: Anion Gap 8, Glomerular Filtration Rate 33.0, Calcium Level 8.3L, Magnesium Level 2.3, Total Bilirubin 0.5#, Aspartate Amino Transf (AST/SGOT) 13, Alanine Aminotransferase (ALT/SGPT) 17, Alkaline Phosphatase 80, Total Protein 6.2L, A lbumin 2.9L, Albumin/Globulin Ratio 0.9L 02/08/21 06:01: Nucleated Red Blood Cells % (auto) 0.0 02/08/21 09:32: Nucleated Red Blood Cells % (auto) 0.4H CBC/BMP Laboratory Tests 02/07/21 13:45 02/07/21 13:46 02/08/21 01:37 02/08/21 06:00 02/08/21 06:01 02/08/21 09:32 SAMUEL CORRAL MD Feb 08, 2021 11:20
[2021-02-08 12:23] LABS: HEMOGLOBIN 7.7 g/dl (12.0-15.5); MEAN CORPUSCULAR HEMOGLOBIN 26.6 pg (27.0-33.0); MEAN CORPUSCULAR HGB CONC 29.6 g/dl (32.0-36.5); MEAN CORPUSCULAR VOLUME 89.7 fl (80.0-96.0); PLATELET COUNT, AUTOMATED 135 10^3/uL (150-450); WHITE BLOOD COUNT 4.9 10^3/uL (4.0-10.0)
[2021-02-08 14:00] VITALS: BP 148/60
[2021-02-08] MEDS: NITROFURANTOIN (MACROBID) 100 MG CAP PO SCH (21:02)
[2021-02-08 21:19] LABS: HEMATOCRIT 26.3 % (36.0-47.0); HEMOGLOBIN 7.9 g/dl (12.0-15.5); MEAN CORPUSCULAR VOLUME 89.8 fl (80.0-96.0); PLATELET COUNT, AUTOMATED 135 10^3/uL (150-450); RED BLOOD COUNT 2.93 10^6/uL (4.00-5.40); WHITE BLOOD COUNT 5.3 10^3/uL (4.0-10.0)
[2021-02-08 22:00] VITALS: BP 152/84
[2021-02-09] MEDS: PANTOPRAZOLE 40MG VIAL (C9113 PER 1) IV SCH (03:30)
[2021-02-09 06:00] VITALS: BP 158/76
[2021-02-09 06:45] LABS: BASO % 0.4 % (0.0-1.0); EOS # 0.1 10^3/uL (0.0-0.5); EOS % 1.8 % (0.0-3.0); HEMOGLOBIN 7.9 g/dl (12.0-15.5); LYMPH # 0.8 10^3/uL (1.5-5.0); MEAN CORPUSCULAR HEMOGLOBIN 26.5 pg (27.0-33.0); MEAN CORPUSCULAR HGB CONC 29.3 g/dl (32.0-36.5); MEAN CORPUSCULAR VOLUME 90.6 fl (80.0-96.0); MONO # 0.5 10^3/uL (0.0-0.8); MONO % 9.4 % (2.0-8.0); NEUTROPHILS # 4.1 10^3/uL (1.5-8.5); NEUTROPHILS % 73.2 % (36.0-66.0); PLATELET COUNT, AUTOMATED 136 10^3/uL (150-450); RED BLOOD COUNT 2.98 10^6/uL (4.00-5.40); WHITE BLOOD COUNT 5.5 10^3/uL (4.0-10.0)
[2021-02-09 07:08] LABS: ALBUMIN 3.1 GM/DL (3.2-5.2); BILIRUBIN,TOTAL 0.4 MG/DL (0.2-1.0); CALCIUM LEVEL 8.2 MG/DL (8.8-10.2); CREATININE FOR GFR 1.42 MG/DL (0.55-1.30); GLOMERULAR FILTRATION RATE 37.9 (>32); POTASSIUM SERUM 3.8 MEQ/L (3.5-5.1); TOTAL PROTEIN 6.5 GM/DL (6.4-8.2)
[2021-02-09] MEDS: amLODIPine 5 MG TAB PO SCH ×2 (07:57→21:01)
[2021-02-09] MEDS: carBAMazepine XR 100 MG TAB PO SCH ×2 (07:57→21:01)
[2021-02-09] MEDS: NORTRIPTYLINE 25 MG CAP PO SCH ×2 (07:57→21:01)
[2021-02-09] MEDS: CARVedilol 12.5 MG TAB PO SCH ×2 (07:57→21:00)
[2021-02-09] MEDS: DIGOXIN 0.0625MG PER 1/2TABLET PO SCH (07:57)
[2021-02-09] MEDS: AMIODARONE 200 MG TAB (PACERONE) PO SCH ×2 (07:57→21:01)
[2021-02-09] MEDS: ATORVASTATIN 20 MG TAB PO SCH (07:57)
[2021-02-09] MEDS: HumaLOG INSULIN (NovoLOG) PER UNIT SC SCH ×3 (07:58→16:51)
[2021-02-09 10:45] VITALS: BP 149/53
[2021-02-09 11:05] VITALS: BP 151/54
--- NOTE | 2021-02-09 11:22 | CR.PDOC ---
General Date of Consultation: Feb 08, 2021 Referring Provider: SAMUEL CORRAL MD Attending Physician: JAIME DAVENPORT MD Consultation Referring physician / PCP : Dr. Corral Reason for consult: Anemia HPI: 80 year old female patient with extensive medical and cardiac history on anticoagulation, prior h/o of GI bleed, was sent from nephrology clinic after noticing abnormal labs. Patient was admitted with symptomatic anemia and GI was consulted for the same. Patient denies having overt external bleeding but reports having intermittent dark stools which she attributes to oral iron pills. Pertinent negative GI symptoms: Patient denies nausea, vomiting, diarrhea, abdominal pain, loss of appetite, early satiety or unintentional weight loss, hematemesis, or hematochezia. Patient reports regular bowel movements. Review of Systems: GI: as stated above CVS: No chest pain, No palpitations, No leg swelling RS: No Shortness of breath, No Wheezing CHEF HEAD: No loss of consciousness, No focal motor weakness., Hematology: No easy bruising, No gum bleeding, Musculoskeletal: No joint pain, ambulating well. : No blood in urine, No burning sensation of the urine ENT: No ear discharge/ pain, No dysphagia. Eyes: No photophobia. Skin: No rash Home medications: reviewed. No Brilinta. Medical h/o: As above. Surgical h/o: None on abdomen. Social h/o: Denies Alcohol, smoking, IVDA/ drugs. Family h/o of GI cancers - None Prior GI evaluations and Prior Endoscopies: Initially used to follow with Dr. 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 Recommended follow up hemoglobin levels in 4-6 weeks. and repeat testing based on that. Exam: Vitals: reviewed General: Alert and oriented x 3, not in acute distress HEENT: No pallor, no icterus. Normal oropharynx, NO cervical lymphadenopathy. Chest: symmetric with bilateral air entry, CVS: S1, S2 heard, Abdomen: non-distended, soft, non-tender, no rigidity or guarding, no palpable masses, normal bowel sounds heard. Rectal exam: Patient refused. Extremities: pulses palpable, no pedal edema, CHEF HEAD: no focal motor or sensory deficits. Moves all extremities Skin: no rash. Labs: reviewed.. Imaging: none / reviewed. Impression: -- 80 year old female patient with prior recurrent anemia, with past multiple endoscopies and therapy of small bowel AVMs, now presenting with drop in hemoglobin levels with intermittent dark stools. DDx-- Small bowel AVM bleeding vs PUD vs less likely lower GI bleeding. Recommendations: -- Patient educated about the prior test results and all questions answered. -- Pantoprazole 40 mg twice daily for now. -- Monitor hemoglobin and hematocrit and transfuse as needed to keep hemoglobin levels around 9-10. -- Avoid NSAIDs. -- Discussed the risks and benefits of anti-thrombotic medications, and as per discussion, patient want to hold off on current medication ( brillinta). -- Will schedule for EGD tomorrow. Patient educated about the procedure(s), indications, risks (including but not limited to bleeding, infection, perforation, anesthesia risks, including ), benefits and all alternatives including conservative measures without intervention. Patient verbalized understanding and consented for the procedure(s). -- Please follow operative note for post procedure recommendations. -- Plan of care educated to patient and patient verbalized understanding and agreed. All questions answered. -- Recommendations communicated to primary team. Patient to follow with PCP upon discharge for routine medical care. Vital Signs/I&O Vital Signs Date Time Temp Pulse Resp B/P (MAP) Pulse Ox O2 Delivery O2 Flow Rate FiO2 02/09/21 07:57 73 02/09/21 07:57 150/54 02/09/21 06:00 97.2 20 95 Nasal Cannula 2.0 I&O- Last 24 Hours up to 6 AM 02/09/21 06:00 Intake Total 655 ml Balance 655 ml Laboratory Data Labs 24H Laboratory Tests 2 02/08/21 09:32: Nucleated Red Blood Cells % (auto) 0.4H 02/08/21 11:33: Nucleated Red Blood Cells % (auto) 0.0, Magnesium Level 2.3 02/08/21 11:34: Bedside Glucose (Misc Panel) 239H 02/08/21 17:44: Bedside Glucose (Misc Panel) 222H 02/08/21 20:33: Bedside Glucose (Misc Panel) 184H 02/08/21 21:01: Nucleated Red Blood Cells % (auto) 0.4H 02/09/21 06:16: Nucleated Red Blood Cells % (auto) 0.0, Immature Granulocyte % (Auto) 0.2, N eutrophils (%) (Auto) 73.2H, Lymphocytes (%) (Auto) 15.0L, Monocytes (%) (Auto) 9.4H, Eosinophils (%) (Auto) 1.8, Basophils (%) (Auto) 0.4, Neutrophils # (Auto) 4.1, Lymphocytes # (Auto) 0.8L, Monocytes # (Auto) 0.5, Eosinophils # (Auto) 0.1, Basophils # (Auto) 0.0, Anion Gap 4L, Glomerular Filtration Rate 37.9, Calcium Level 8.2L, Total Bilirubin 0.4, Aspartate Amino Transf (AST/SGOT) 18, Alanine Aminotransferase (ALT/SGPT) 18, Alkaline Phosphatase 80, Total Protein 6.5, Albumin 3.1L, Albumin/Globulin Ratio 0.9L CBC/BMP Laboratory Tests 02/08/21 09:32 02/08/21 11:33 02/08/21 21:01 02/09/21 06:16 Allergies Coded Allergies: metformin (Verified Adverse Reaction, Mild, N/V, 12/20/20) clopidogrel (Verified Adverse Reaction, Unknown, unsure, 12/20/20) PT REPORTS SHE STILL HAS ITCHINESS SO SHE DOES NOT THINK SHE IS ALLERGIC TO PLAVIX WHICH IS WHY THEY STOPPED THE PLAVIX BEFORE FOR POSSIBLE ADVERSE REACTION OF FEELING ITCHY (10/22/20 VISIT) Home Medications Scheduled Acetaminophen (Tylenol) 325 Mg Tablet, 975 MG PO QHS, (Reported) Amiodarone HCl (Amiodarone HCl) 200 Mg Tablet, 200 MG PO BID, (Reported) Amlodipine Besylate (Amlodipine Besylate) 5 Mg Tablet, 5 MG PO BID, (Reported) Aspirin (Aspirin EC) 81 Mg Tablet.dr, 162 MG PO DAILY, (Reported) Atorvastatin Calcium (Atorvastatin Calcium) 20 Mg Tab, 20 MG PO DAILY, (Reported) Carbamazepine (Carbamazepine ER) 100 Mg Tab.er.12h, 100 MG PO BID, (Reported) Carvedilol (Carvedilol) 25 Mg Tab, 25 MG PO BID, (Reported) Cholecalciferol (Vitamin D3) (Vitamin D3) 1,000 Unit Tablet, 5,000 UNITS PO DAILY, (Reported) Cyanocobalamin (Vitamin B-12) (Vitamin B-12) 1,000 Mcg Capsule, 1,000 MCG PO DAILY, (Reported) Digoxin (Digoxin) 125 Mcg Tablet, 62.5 MCG PO DAILY, (Reported) Epoetin Petey (Procrit) 10,000 Unit/1 Ml Vial, 10,000 UNIT SC QMONTH, (Reported) Furosemide (Furosemide) 40 Mg Tablet, 40 MG PO DAILY, (Reported) Insulin Glargine,Hum.rec.anlog (Toujeo Solostar) 300 Unit/1 Ml Insuln.pen, 80 UNITS SC QHS, (Reported) Insulin Lispro (Insulin Lispro Kwikpen U-100) 100 Unit/1 Ml Insuln.pen, 1 DOSE SC AC, (Reported) PER SLIDING SCALE Memantine HCl (Namenda Xr) 28 Mg Cap.spr.24, 28 MG PO DAILY, (Reported) Multivitamins (Thera M Plus Tablet) 1 Each Tablet, 1 TAB PO DAILY, (Reported) Nitrofurantoin Monohyd/M-Cryst (Nitrofurantoin [place]-Mcr 100 mg) 100 Mg Capsule, 100 MG PO QHS, (Reported) Nortriptyline HCl (Nortriptyline HCl) 25 Mg Cap, 25 MG PO BID, (Reported) Pantoprazole Sodium (Pantoprazole Sodium) 40 Mg Tablet.dr, 40 MG PO DAILY, (Re ported) Pregabalin (Lyrica) 100 Mg Capsule, 100 MG PO BID, (Reported) Ticagrelor Base (Brilinta) 90 Mg Tablet, 90 MG PO BID, (Reported) Scheduled PRN Albuterol Sulf (Albuterol Sulfate) 2.5 Mg/3 Ml Vial.neb, 3 ML INH Q4H PRN for SHORTNESS OF BREATH, (Reported) Albuterol Sulfate (Proair Hfa) 8.5 Gm Hfa.aer.ad, 2 PUFF INH Q4H PRN for SHORTNESS OF BREATH, (Reported) Tramadol HCl (Tramadol HCl) 50 Mg Tablet, 50 MG PO Q8H PRN for PAIN, (Reported) JAIME DAVENPORT MD Feb 09, 2021 11:19
[2021-02-09 11:52] VITALS: BP 158/57
[2021-02-09] MEDS ORDERED: propofoL 200 MG/20 ML VIAL As Ordered ONE ×2 (12:25→13:52)
[2021-02-09] MEDS ORDERED: LIDOCAINE 2% 100MG/5ML SDV (FOR ANES.) As Ordered ONE (12:25)
[2021-02-09] MEDS ORDERED: fentaNYL 100 MCG/2 ML INJECTION (J3010) As Ordered ONE (12:26)
[2021-02-09] MEDS ORDERED: GLUCAGON INJ 1MG VIAL As Ordered ONE (13:54)
--- NOTE | 2021-02-09 14:19 | ROOR ---
Patient Name: Chelita Acosta Procedure Date: 02/09/2021 12:25 PM Date of : 1940 Age: 80 Room: OR 1 Gender: Female Note Status: Finalized Procedure: Upper GI endoscopy Indications: Active gastrointestinal bleeding, Acute post hemorrhagic anemia Providers: Armaan Oden MD Referring MD: Emmanuel Sena Md Requesting Provider: Medicines: Monitored Anesthesia Care Complications: No immediate complications. Procedure: Pre-Anesthesia Assessment: - Prior to the procedure, a History and Physical was performed, and patient medications and allergies were reviewed. The patient is competent. The risks and benefits of the procedure and the sedation options and risks were discussed with the patient. All questions were answered and informed consent was obtained. Patient identification and proposed procedure were verified by the physician, the nurse and the anesthesiologist in the procedure room. Mental Status Examination: alert and oriented. Airway Examination: normal oropharyngeal airway and neck mobility. Respiratory Examination: clear to auscultation. CV Examination: normal. Prophylactic Antibiotics: The patient does not require prophylactic antibiotics. Prior Anticoagulants: The patient has taken no previous anticoagulant or antiplatelet agents. ASA Grade Assessment: II - A patient with mild systemic disease. After reviewing the risks and benefits, the patient was deemed in satisfactory condition to undergo the procedure. The anesthesia plan was to use monitored anesthesia care (MAC). Immediately prior to administration of medications, the patient was re-assessed for adequacy to receive sedatives. The heart rate, respiratory rate, oxygen saturations, blood pressure, adequacy of pulmonary ventilation, and response to care were monitored throughout the procedure. The physical status of the patient was re-assessed after the procedure. The Endoscope was introduced through the mouth, and advanced to the second part of duodenum. The upper GI endoscopy was accomplished without difficulty. The patient tolerated the procedure well. Findings: The examined esophagus was normal. Two medium angioectasias with stigmata of recent bleeding were found in the gastric antrum. Coagulation for hemostasis using argon plasma at 0.8 liters/minute and 20 felipe was successful. Estimated blood loss was minimal. Three small angioectasias with stigmata of recent bleeding were found in the second portion of the duodenum and in the third portion of the duodenum. Coagulation for hemostasis using argon plasma at 0.8 liters/minute and 20 felipe was successful. For hemostasis, two hemostatic clips were successfully placed. There was no bleeding at the end of the procedure. Three small angioectasias without bleeding were found in the jejunum. Coagulation for hemostasis using argon plasma at 0.8 liters/minute and 20 felipe was successful. Impression: - Normal esophagus. - Two recently bleeding angioectasias in the stomach. Treated with argon plasma coagulation (APC). - Three recently bleeding angioectasias in the duodenum. Treated with argon plasma coagulation (APC). Clips were placed. - Three non-bleeding angioectasias in the jejunum. Treated with argon plasma coagulation (APC). - No specimens collected. Recommendation: - Patient has a contact number available for emergencies. The signs and symptoms of potential delayed complications were discussed with the patient. Return to normal activities tomorrow. Written discharge instructions were provided to the patient. - Clear liquid diet for 1 day, then advance as tolerated to high fiber diet and low sodium diet. - Continue present medications. - Use Protonix (pantoprazole) 40 mg PO twice daily - to be taken in morning (1/2 hour before breakfast) and at bedtime ( atleast 3 hours after last meal) for 3 months. - Use sucralfate suspension 1 gram PO BID for 4 weeks. - Resume antiplatelet medication and your prior anticoagulant at prior doses in 2 days. Refer to primary physician for further adjustment of therapy. - Check CBC, serum iron , transferrin and ferritin levels (fasting labs) in 1 month. - Return to GI clinic in [facility] (address [address], [address], [place], [facility]) in 4 -- 6 weeks. Please call GI clinic @ [phone] for apppointment date and time. - Return to primary care physician. Procedure Code(s): --- Professional --- 99260, Esophagogastroduodenoscopy, flexible, transoral; with control of bleeding, any method Diagnosis Code(s): --- Professional --- K31.811, Angiodysplasia of stomach and duodenum with bleeding K55.20, Angiodysplasia of colon without hemorrhage K92.2, Gastrointestinal hemorrhage, unspecified D62, Acute posthemorrhagic anemia CPT copyright 2019 [employer]. All rights reserved. The codes documented in this report are preliminary and upon exhibit designer review may be revised to meet current compliance requirements. Armaan Oden MD Armaan Oden MD 02/09/2021 2:19:15 PM Electronically signed by Armaan Oden MD Number of Addenda: 0 Note Initiated On: 02/09/2021 12:25 PM Estimated Blood Loss: Estimated blood loss was minimal.
[2021-02-09] MEDS ORDERED: ONDANSETRON 4MG/2ML VIAL IV PRN (14:25)
[2021-02-09] MEDS ORDERED: LR 1,000 ML IV SCH (14:25)
[2021-02-09] MEDS ORDERED: FUROSEMIDE 20MG/2ML VIAL (J1940) IV STA (14:26)
[2021-02-09] MEDS ORDERED: ALBUTEROL SULFATE 2.5 MG/0.5 ML INH NEB SOLN INH ONE (14:30)
[2021-02-09] MEDS ORDERED: FUROSEMIDE 100MG/10ML VIAL (J1940) As Ordered ONE (14:31)
[2021-02-09] MEDS ORDERED: HumaLOG INSULIN (NovoLOG) PER UNIT SC ONE (14:45)
[2021-02-09 15:29] VITALS: BP 140/50
--- NOTE | 2021-02-09 15:30 | IPNPDOC ---
Text Note Date of Service The patient was seen on 02/09/21. NOTE SUBJECTIVE: Patient has no acute concerns today. She is NPO pending EGD with GI. PHYSICAL EXAMINATION: VITAL SIGNS: see below GENERAL APPEARANCE: Awake, alert, oriented x 3, obese, NAD HEENT: Atraumatic, normocephalic. Eyes are anicteric. Mucous membranes are pink and moist CARDIOVASCULAR: NSR, regular rhythm, no noted murmurs LUNGS: CTAB ABDOMEN: Normoactive sounds, soft, nondistended. No rebound tenderness or guarding. EXTREMITIES: No lower extremity edema, no apparent rashes/petechiae. NEUROLOGICAL: Awake, speech is clear, AOx3 LABORATORY STUDIES: See below RADIOLOGY STUDIES: No recent. Other studies: EGD report dictated: Impression: - Normal esophagus. - Two recently bleeding angioectasias in the stomach. Treated with argon plasma coagulation (APC). - Three recently bleeding angioectasias in the duodenum. Treated with argon plasma coagulation (APC). Clips were placed. - Three non-bleeding angioectasias in the jejunum. Treated with argon plasma coagulation (APC). ASSESSMENT: Ms. Acosta is an 80 year old female with UGIB recently taken to OR with GI for EGD. She has received 3U PRBCs since admission and has responded appropriately to each one. Will continue to monitor overnight following EGD. PLAN: # Acute blood loss anemia with history c/w UGIB s/p EGD with cautery of several areas of angioectasias in stomach and small bowel. Patient has responded appropriately to 3U PRBCs for acute blood loss anemia. Will continue to monitor overnight and will keep her on CLD overnight and advance diet in the AM as she had recent cautery of gastric angioectasias. Meds: Protonix 40mg BID to take for 3 months Carafate 1g PO BID for 1 month CLD to advance tomorrow F/u with GI as outpatient in 4-6 weeks F/u with PCM in 1 month for evaluation of iron studies Resume anticoagulation in 2 days # CAD with RCA stent: Will have patient hold her Brilinta in setting of EGD with cautery until 02/11/2021 # pAfib: Continuing Amiodarone and digoxin # HTN: Continuing Coreg and Amlodipine # HLD: Continuing atorvastatin # DM2: Patient is doing well with ISS. Will continue to hold Gabapentin as she has dementia and has tolerated without this medication. ISS in place with AC/HS FSBG # Mood disorder/Dementia: Continue Namenda, Nortriptyline and Carbamazepine # UTI prophy: Continue daily Macrobid # CKD III: Renally dose medications. Have restarted Lasix 40mg daily DISPOSITION: DIET: CLD will advance to high fiber diet tomorrow DVT PROPHY: Mechanical, will restart anticoagulation on 02/11 CONSULTS: GI, PT DISCHARGE: Anticipate d/c tomorrow pending stable H&H following EGD VS,Fishbone, I+O VS, Fishbone, I+O Laboratory Tests 02/08/21 21:01 02/09/21 06:16 Vital Signs Date Time Temp Pulse Resp B/P (MAP) Pulse Ox O2 Delivery O2 Flow Rate FiO2 02/09/21 14:55 61 20 142/65 (90) 95 Nasal Cannula 2.0 02/09/21 14:15 97.7 I&O- Last 24 Hours up to 6 AM 02/09/21 06:00 Intake Total 655 ml Balance 655 ml JOESPH STODDARD MD MPH Feb 09, 2021 15:30
[2021-02-09] MEDS ORDERED: FUROSEMIDE 40MG/4ML VIAL (J1940) IV ONE (17:00)
--- NOTE | 2021-02-09 18:07 | REP ---
INDICATION: increased sob. COMPARISON: 02/08/2021, 01/13/2021 TECHNIQUE: AP portable upright FINDINGS: Lungs remain well inflated diffuse coarsening of interstitial markings and underlying COPD. Some lateral pleural thickening at the right lateral base and new patchy subsegmental atelectasis or early infiltrate developing above the right diaphragm. Small effusion difficult to exclude. Coarsened interstitial markings and peribronchial thickening as before. Upper lobe vasculature slightly less prominent today. Heart size unchanged. Calcified aortic arch and descending aorta without gross aneurysm. Airway intact bones unchanged. No free air under the diaphragm IMPRESSION: 1. Interval development of some patchy atelectasis or early infiltrate above the right diaphragm at the right base with peripheral scar or pleural thickening at the right lateral base. No dense consolidation or air bronchograms visible. 2. COPD, fibrotic changes and hyperinflation as before. 3. Cardiomediastinal silhouette, aorta and airway unchanged. There is slightly less vascular engorgement in the upper lung zones. <Electronically signed by Johnson Ng > 02/09/21 [id number]
[2021-02-09] MEDS ORDERED: SUCRALFATE 1 GM TAB PO SCH (21:00)
[2021-02-09] MEDS: PANTOPRAZOLE 40MG TAB (PROTONIX) PO SCH (21:00)
[2021-02-09] MEDS: NITROFURANTOIN (MACROBID) 100 MG CAP PO SCH (21:01)
[2021-02-09 22:00] VITALS: BP 164/88
[2021-02-10 06:00] VITALS: BP 162/84
[2021-02-10 06:15] LABS: HEMOGLOBIN 8.7 g/dl (12.0-15.5); MEAN CORPUSCULAR HEMOGLOBIN 27.2 pg (27.0-33.0); MEAN CORPUSCULAR VOLUME 90.6 fl (80.0-96.0); PLATELET COUNT, AUTOMATED 121 10^3/uL (150-450); WHITE BLOOD COUNT 4.9 10^3/uL (4.0-10.0)
[2021-02-10 06:39] LABS: CREATININE FOR GFR 1.31 MG/DL (0.55-1.30)
[2021-02-10 06:40] LABS: CALCIUM LEVEL 8.1 MG/DL (8.8-10.2); GLOMERULAR FILTRATION RATE 41.6 (>32); POTASSIUM SERUM 3.7 MEQ/L (3.5-5.1)
--- NOTE | 2021-02-10 07:13 | IPNPDOC ---
Text Note Date of Service The patient was seen on 02/10/21. NOTE SUBJECTIVE: Patient was sitting up at side of bed in chair with no acute concerns. She has no pain, shortness of breath, or weakness. PHYSICAL EXAMINATION: VITAL SIGNS: see below GENERAL APPEARANCE: Awake, alert, oriented x 3, obese, NAD HEENT: Atraumatic, normocephalic. Eyes are anicteric. Mucous membranes are pink and moist CARDIOVASCULAR: NSR, regular rhythm, no noted murmurs LUNGS: CTAB ABDOMEN: Normoactive sounds, soft, nondistended. No rebound tenderness or guard ing. EXTREMITIES: No lower extremity edema, no apparent rashes/petechiae. NEUROLOGICAL: Awake, speech is clear, AOx3 LABORATORY STUDIES: See below RADIOLOGY STUDIES: CXR: IMPRESSION: 1. Interval development of some patchy atelectasis or early infiltrate above the right diaphragm at the right base with peripheral scar or pleural thickening at the right lateral base. No dense consolidation or air bronchograms visible. 2. COPD, fibrotic changes and hyperinflation as before. 3. Cardiomediastinal silhouette, aorta and airway unchanged. There is slightly less vascular engorgement in the upper lung zones. ASSESSMENT: Ms. Acosta is an 80 year old female with UGIB recently taken to OR with GI for EGD. She has received 3U PRBCs since admission and has responded appropriately to each one. Will continue to monitor overnight following EGD. PLAN: # Acute blood loss anemia with history c/w UGIB s/p EGD with cautery of several areas of angioectasias in stomach and small bowel. Patient continues to hold H&H following transfusion and cautery/clipping procedure yesterday. Advancing diet today to cardiac diet high in fiber. Meds: Protonix 40mg BID to take for 3 months Carafate 1g PO BID for 1 month F/u with GI as outpatient in 4-6 weeks F/u with PCM in 1 month for evaluation of iron studies Resume anticoagulation 02/11 # Following the procedure/sedation and 3U PRBCs, patient developed slight dyspnea and non productive cough with CXR showing patchy atelectasis or early infiltrate with decreased engorgement of the upper pulmonary vasculature. Have observed patient overnight for development of pneumonia stigmata however WBC remains WNL with no specific left shift, patient remains afebrile and normotensive with no appreciated tachycardia though she is currently on a beta reena. Will continue to encourage ambulation and incentive spirometry and have also administered additional doses of Lasix IV and resumed home dosing. Meds: Lasix 40mg PO daily Pulmonary toilet # CAD with RCA stent: Will have patient hold her Brilinta in setting of EGD with cautery until 02/11/2021 # pAfib: Continuing Amiodarone and digoxin # HTN: Continuing Coreg and Amlodipine # HLD: Continuing atorvastatin # DM2: Patient is doing well with ISS. Will continue to hold Gabapentin as she has dementia and has tolerated without this medication. ISS in place with AC/HS FSBG # Mood disorder/Dementia: Continue Namenda, Nortriptyline and Carbamazepine # UTI prophy: Continue daily Macrobid # CKD III: Renally dose medications. Have restarted Lasix 40mg daily. Renal function is back to baseline levels this morning. DISPOSITION: DIET: Cardiac with high fiber DVT PROPHY: Mechanical, will restart anticoagulation on 02/11 CONSULTS: GI, PT DISCHARGE: Anticipate d/c today VS,Fishbone, I+O VS, Fishbone, I+O Laboratory Tests 02/10/21 06:04 Vital Signs Date Time Temp Pulse Resp B/P (MAP) Pulse Ox O2 Delivery O2 Flow Rate FiO2 02/10/21 06:00 98.8 68 19 162/84 (110) 92 Nasal Cannula 2.0 I&O- Last 24 Hours up to 6 AM 02/10/21 06:00 Intake Total 980 ml Output Total 825 ml Balance 155 ml JOESPH STODDARD MD MPH Feb 10, 2021 07:13
[2021-02-10] MEDS: carBAMazepine XR 100 MG TAB PO SCH (08:50)
[2021-02-10] MEDS: DIGOXIN 0.0625MG PER 1/2TABLET PO SCH (08:51)
[2021-02-10] MEDS: CARVedilol 12.5 MG TAB PO SCH (08:54)
[2021-02-10] MEDS: ATORVASTATIN 20 MG TAB PO SCH (08:55)
[2021-02-10] MEDS: AMIODARONE 200 MG TAB (PACERONE) PO SCH (08:55)
[2021-02-10] MEDS: PANTOPRAZOLE 40MG TAB (PROTONIX) PO SCH (08:56)
[2021-02-10 08:58] VITALS: BP 158/62
[2021-02-10] MEDS: NORTRIPTYLINE 25 MG CAP PO SCH (08:58)
[2021-02-10] MEDS: amLODIPine 5 MG TAB PO SCH (08:58)
[2021-02-10] MEDS ORDERED: FUROSEMIDE 40 MG TAB PO SCH (09:00)
[2021-02-10] MEDS: HumaLOG INSULIN (NovoLOG) PER UNIT SC SCH ×2 (09:00→12:19)
--- NOTE | 2021-02-10 10:31 | REP ---
INDICATION: sob. COMPARISON: Comparison chest x-ray February 09, 2021. TECHNIQUE: Portable upright AP chest radiograph. FINDINGS: Cardiomegaly is observed. The aorta is calcific and tortuous. Pulmonary vasculature is cephalized. Interstitial markings are diffusely prominent. There is pleural thickening and slight blunting of the right lateral pleural angle.. A clothing artifact projects over the left heart border. Degenerative changes are seen in the shoulders and thoracic spine. IMPRESSION: CHF pattern with cardiomegaly, vascular cephalization, diffusely prominent interstitial markings and slight blunting of the right lateral pleural angle.. <Electronically signed by Clayton Richter > 02/10/21 [id number]
[2021-02-10] MEDS ORDERED: SUCR1ORA PO (12:21)
[2021-02-10] MEDS ORDERED: PANT40TA29 PO (12:21)
--- NOTE | 2021-02-10 12:32 | DS.PDOC ---
Discharge Summary General Date of Admission Feb 07, 2021 at 15:16 Date of Discharge 02/10/2021 Attending Physician: JOESPH STODDARD MD MPH Specialist/Consultants Involve: JAIME DAVENPORT MD Discharge Summary PROCEDURES PERFORMED DURING STAY: EGD ADMITTING DIAGNOSES: Acute on chronic anemia Recurrent GI bleed secondary to AVM CAD s/p RCA stent Chronic diastolic heart failure with pulmonary hypertension DM2 CKD III with mild DORINA DISCHARGE DIAGNOSES: Acute on chronic anemia improved s/p 3U PRBC transfusion Recurrent GI bleed secondary to AVM s/p cautery and clipping CAD s/p RCA stent Chronic diastolic heart failure with pulmonary hypertension DM2 CKD III with mild DORINA which is resolved COMPLICATIONS/CHIEF COMPLAINT: Acute Blood Loss Anemia. HISTORY OF PRESENT ILLNESS: This is a 80 years old white female with past medical history of GI bleed, CKD hypertension, hyperlipidemia, peripheral neuropathy was referred from Dr. Kalani Garland's office with low hemoglobin and hematocrit. According to patient's daughter she noticed patient had a dark tarry colored stools since last 2 days. Patient denies any complaint of abdominal pain nausea vomiting or abdominal pain. HOSPITAL COURSE: Ms. Acosta was admitted for blood products and EGD with GI and responded well to blood transfusion with transient fluid overload resulting in hypoxia due to anna stolic heart failure and CKD III with mild DORINA. Her shortness of breath and hypoxia resolved following administration of burst of Lasix and her DORINA resolved as well with blood products followed by diuresis. She was scoped with GI and multiple areas of recent bleeding were found through the stomach and small intestine (see below) and were cauterized and/or clipped. She tolerated advance in diet the following day and was discharged to home with medication change recommendations to include restarting anticoagulation/antiplatelet agents on 02/11/21 and starting Carafate and Protonix as per below. Patient was evaluated by PT and determined to have no new care needs and was discharged after having all questions asked and answered. DISCHARGE MEDICATIONS: Please see below. ALLERGIES: Please see below. PHYSICAL EXAMINATION ON DISCHARGE: VITAL SIGNS: Please see below. GENERAL APPEARANCE: Awake, alert, oriented x 3, obese, NAD HEENT: Atraumatic, normocephalic. Eyes are anicteric. Mucous membranes are pink and moist CARDIOVASCULAR: NSR, regular rhythm, no noted murmurs LUNGS: CTAB ABDOMEN: Normoactive sounds, soft, nondistended. No rebound tenderness or guarding. EXTREMITIES: No lower extremity edema, no apparent rashes/petechiae. NEUROLOGICAL: Awake, speech is clear, AOx3 LABORATORY DATA: Please see below. IMAGING: EGD: Impression: - Normal esophagus. - Two recently bleeding angioectasias in the stomach. Treated with argon plasma coagulation (APC). - Three recently bleeding angioectasias in the duodenum. Treated with argon plasma coagulation (APC). Clips were placed. - Three non-bleeding angioectasias in the jejunum. Treated with argon plasma coagulation (APC). - No specimens collected. CXR: IMPRESSION: CHF pattern with cardiomegaly, vascular cephalization, diffusely prominent interstitial markings and slight blunting of the right lateral pleural angle.. CXR:IMPRESSION: CHF pattern with cardiomegaly, vascular cephalization, diffusely prominent interstitial markings and slight blunting of the right lateral pleural angle.. PROGNOSIS: Good ACTIVITY: [As tolerated]. DIET: High fiber, low sodium diet DISCHARGE PLAN: Follow up with PCM in 5-7 days Follow up with GI in 4-6 weeks Restart Aspirin and Brilinta on 02/11/2021 Start taking Protonix 40mg twice daily with first dose evening of 02/10/2021 Start taking Carafate 1gm twice daily with first dose evening of 02/10/2021 DISPOSITION: to home ITEMS TO FOLLOWUP ON ON OUTPATIENT: Obtain CBC, serum iron, ferritin, and transferrin with PCM in 4 weeks. DISCHARGE CONDITION: [Stable]. TIME SPENT ON DISCHARGE: Greater than 33 minutes. Vital Signs/I&Os Vital Signs Date Time Temp Pulse Resp B/P (MAP) Pulse Ox O2 Delivery O2 Flow Rate FiO2 02/10/21 08:58 74 158/62 02/10/21 08:30 1.0 02/10/21 06:00 98.8 19 92 Nasal Cannula I&O- Last 24 Hours up to 6 AM 02/10/21 06:00 Intake Total 980 ml Output Total 825 ml Balance 155 ml Laboratory Data Labs 24H Laboratory Tests 2 02/09/21 14:26: Bedside Glucose (Misc Panel) 265H 02/09/21 16:30: Bedside Glucose (Misc Panel) 250H 02/09/21 19:57: Bedside Glucose (Misc Panel) 146H 02/10/21 06:04: Nucleated Red Blood Cells % (auto) 0.4H, Anion Gap 7L, Glomerular Filtration Rate 41.6, Calcium Level 8.1L 02/10/21 10:37: Lab Scanned Report Transfusion Record 02/10/21 11:29: Bedside Glucose (Misc Panel) 239H CBC/BMP Laboratory Tests 02/10/21 06:04 FSBS Laboratory Tests Test 02/09/21 14:26 02/09/21 16:30 02/09/21 19:57 02/10/21 11:29 Range/Units Bedside Glucose (Misc Panel) 265 250 146 239 83-110 MG/DL Discharge Medications Scheduled Acetaminophen (Tylenol) 325 Mg Tablet, 975 MG PO QHS, (Reported) Amiodarone HCl (Amiodarone HCl) 200 Mg Tablet, 200 MG PO BID, (Reported) Amlodipine Besylate (Amlodipine Besylate) 5 Mg Tablet, 5 MG PO BID, (Reported) Aspirin (Aspirin EC) 81 Mg Tablet.dr, 162 MG PO DAILY, (Reported) Atorvastatin Calcium (Atorvastatin Calcium) 20 Mg Tab, 20 MG PO DAILY, (Reported) Carbamazepine (Carbamazepine ER) 100 Mg Tab.er.12h, 100 MG PO BID, (Reported) Carvedilol (Carvedilol) 25 Mg Tab, 25 MG PO BID, (Reported) Cholecalciferol (Vitamin D3) (Vitamin D3) 1,000 Unit Tablet, 5,000 UNITS PO DAILY, (Reported) Cyanocobalamin (Vitamin B-12) (Vitamin B-12) 1,000 Mcg Capsule, 1,000 MCG PO DAILY, (Reported) Digoxin (Digoxin) 125 Mcg Tablet, 62.5 MCG PO DAILY, (Reported) Epoetin Petey (Procrit) 10,000 Unit/1 Ml Vial, 10,000 UNIT SC QMONTH, (Reported) Furosemide (Furosemide) 40 Mg Tablet, 40 MG PO DAILY, (Reported) Insulin Glargine,Hum.rec.anlog (Touveronica Solostar) 300 Unit/1 Ml Insuln.pen, 80 UNITS SC QHS, (Reported) Insulin Lispro (Insulin Lispro Kwikpen U-100) 100 Unit/1 Ml Insuln.pen, 1 DOSE SC AC, (Reported) PER SLIDING SCALE Memantine HCl (Namenda Xr) 28 Mg Cap.spr.24, 28 MG PO DAILY, (Reported) Multivitamins (Thera M Plus Tablet) 1 Each Tablet, 1 TAB PO DAILY, (Reported) Nitrofurantoin Monohyd/M-Cryst (Nitrofurantoin [place]-Mcr 100 mg) 100 Mg Capsule, 100 MG PO QHS, (Reported) Nortriptyline HCl (Nortriptyline HCl) 25 Mg Cap, 25 MG PO BID, (Reported) Pantoprazole Sodium (Pantoprazole Sodium) 40 Mg Tablet.dr, 40 MG PO DAILY, (Rep orted) Pantoprazole Sodium (Pantoprazole Sodium) 40 Mg Tablet.dr, 40 MG PO BID Pregabalin (Lyrica) 100 Mg Capsule, 100 MG PO BID, (Reported) Sucralfate (Sucralfate) 1 Gm/10 Ml Oral.susp, 1 GM PO BID Ticagrelor Base (Brilinta) 90 Mg Tablet, 90 MG PO BID, (Reported) Scheduled PRN Albuterol Sulf (Albuterol Sulfate) 2.5 Mg/3 Ml Vial.neb, 3 ML INH Q4H PRN for SHORTNESS OF BREATH, (Reported) Albuterol Sulfate (Proair Hfa) 8.5 Gm Hfa.aer.ad, 2 PUFF INH Q4H PRN for SHORTNESS OF BREATH, (Reported) Tramadol HCl (Tramadol HCl) 50 Mg Tablet, 50 MG PO Q8H PRN for PAIN, (Reported) Allergies Coded Allergies: metformin (Verified Adverse Reaction, Mild, N/V, 12/20/20) clopidogrel (Verified Adverse Reaction, Unknown, unsure, 12/20/20) PT REPORTS SHE STILL HAS ITCHINESS SO SHE DOES NOT THINK SHE IS ALLERGIC TO PLAVIX WHICH IS WHY THEY STOPPED THE PLAVIX BEFORE FOR POSSIBLE ADVERSE REACTION OF FEELING ITCHY (10/22/20 VISIT) JOESPH STODDARD MD MPH Feb 10, 2021 12:32
== END 2021-02-10 13:50 | disposition home or self-care (01) | DRG 811 ==
LOC: M ED 12:11 → M ED INP 15:16 → ENRESERV 16:25 → M MSPAV 17:32
PROVIDERS: ADMIT Internal Medicine; ATTEND General Practice
PROC: 30233N1 Transfusion of Nonautologous Red Blood Cells into Peripheral Vein, Percutaneous Approach (ICD-10-PCS; principal; 2021-02-07)
PROC: 0W3P8ZZ Control Bleeding in Gastrointestinal Tract, Via Natural or Artificial Opening Endoscopic (ICD-10-PCS; 2021-02-09)
DX: D62 Acute posthemorrhagic anemia (principal); K31.811 Angiodysplasia of stomach and duodenum with bleeding; I50.32 Chronic diastolic (congestive) heart failure; N17.9 Acute kidney failure, unspecified; I48.92 Unspecified atrial flutter; N39.0 Urinary tract infection, site not specified; K55.20 Angiodysplasia of colon without hemorrhage; I25.10 Atherosclerotic heart disease of native coronary artery without angina pectoris; Z95.2 Presence of prosthetic heart valve; E11.51 Type 2 diabetes mellitus with diabetic peripheral angiopathy without gangrene; I27.20 Pulmonary hypertension, unspecified; N18.30 Chronic kidney disease, stage 3 unspecified; E78.5 Hyperlipidemia, unspecified; Z79.82 Long term (current) use of aspirin; Z79.899 Other long term (current) drug therapy; Z88.8 Allergy status to other drugs, medicaments and biological substances; F03.90 Unspecified dementia, unspecified severity, without behavioral disturbance, psychotic disturbance, mood disturbance, and anxiety; Z86.73 Personal history of transient ischemic attack (TIA), and cerebral infarction without residual deficits; J44.9 Chronic obstructive pulmonary disease, unspecified; Z87.891 Personal history of nicotine dependence; M81.0 Age-related osteoporosis without current pathological fracture; I48.0 Paroxysmal atrial fibrillation; G40.909 Epilepsy, unspecified, not intractable, without status epilepticus; E55.9 Vitamin D deficiency, unspecified; M19.90 Unspecified osteoarthritis, unspecified site; G25.81 Restless legs syndrome; G47.33 Obstructive sleep apnea (adult) (pediatric); Z96.641 Presence of right artificial hip joint; Z98.41 Cataract extraction status, right eye; Z98.42 Cataract extraction status, left eye

== ENCOUNTER → 2021-02-07 | Outpatient (REF) | payer MEDICARE ==
[~2021-02-07] MED LIST changes: +ALBU1.25 INH; +ALBU83IN INH; +CARB100T PO; +INSU100I9 SC; +PROC1INJ5 SC; +SUCR1ORA PO; +VITMTA PO
== END ==
LOC: M LAB REF 17:33
PROVIDERS: ATTEND Nurse Practitioner Family
DX: E83.42 Hypomagnesemia (principal)

== ENCOUNTER 2021-02-24 15:51 | Inpatient (IN) | payer MEDICARE ==
[~2021-02-24] VITALS: Ht 157.5 cm; Wt 78.8 kg
[~2021-02-24 15:51] MED LIST changes: -AMIO200T3 PO; +AMIO200T49 PO; -D 50CAP3 PO; -MEMA28CA PO; +MEMA28CA12 PO; -MIRA1POW3 PO; +OMEP-173 PO; -OMEP-218 PO; -SUCR1SS PO
[2021-02-24 20:38] LABS: INR 0.97; PROTHROMBIN TIME 13.3 SECONDS (12.7-14.5)
[2021-02-24 20:39] LABS: PARTIAL THROMBOPLASTIN TIME 26.2 SECONDS (25.9-37.0)
[2021-02-24] MEDS ORDERED: PANTOPRAZOLE 40MG VIAL (C9113 PER 1) IV SCH (21:00)
[2021-02-24] MEDS: LEVEMIR (INSULIN DETEMIR) 1 UNITS/0.01ML SC SCH (21:00)
[2021-02-24] MEDS ORDERED: ACETAMINOPHEN TAB 650MG DOSE (2X325MG) PO PRN (21:55)
[2021-02-24] MEDS ORDERED: MOM 30ML SUSPENSION UDC PO PRN (21:55)
[2021-02-24] MEDS ORDERED: SUCR1SS PO (22:02)
[2021-02-24] MEDS ORDERED: MIRA1POW3 PO (22:02)
[2021-02-24] MEDS ORDERED: D 50CAP3 PO (22:02)
[2021-02-24] MEDS ORDERED: DEXTROSE 50% 50 ML SYRINGE IV PRN (22:05)
[2021-02-24] MEDS ORDERED: GLUCOSE 4GM CHEW TABLET PO PRN (22:05)
[2021-02-24] MEDS ORDERED: traMADol 50 MG TAB PO PRN (22:05)
[2021-02-24] MEDS ORDERED: HOME MED LIST COMPLETE! XX SCH (22:05)
[2021-02-24] MEDS ORDERED: GLUCAGON INJ 1MG VIAL SC PRN (22:05)
[2021-02-24 22:18] LABS: RSV AMPLIFICATION NEGATIVE (NEGATIVE)
[2021-02-24 23:07] VITALS: BP 143/58
[2021-02-24 23:22] VITALS: BP 159/72
[2021-02-24 23:52] VITALS: BP 143/72
[2021-02-25] VITALS (11 sets, daily range): BP systolic 127–198; BP diastolic 60–84
[2021-02-25] MEDS: PANTOPRAZOLE 40MG VIAL (C9113 PER 1) IV SCH ×3 (01:11→22:05)
[2021-02-25] MEDS: SUCRALFATE 1 GM TAB PO SCH ×4 (01:11→22:05)
[2021-02-25] MEDS: DOCUSATE SODIUM 100MG CAPSULE PO SCH ×3 (01:12→20:50)
[2021-02-25] MEDS: amLODIPine 5 MG TAB PO SCH ×3 (01:12→20:52)
[2021-02-25] MEDS: PREGABALIN 100 MG CAP (LYRICA) PO SCH ×3 (01:12→20:50)
[2021-02-25] MEDS: CARVedilol 12.5 MG TAB PO SCH ×3 (01:13→20:51)
[2021-02-25] MEDS: NORTRIPTYLINE 25 MG CAP PO SCH ×3 (02:38→20:51)
[2021-02-25] MEDS: carBAMazepine XR 100 MG TAB PO SCH ×3 (02:38→20:52)
[2021-02-25] MEDS: OCTREOTIDE ACETATE 1,200 MCG in NS 238.8 ML IV SCH (02:38)
[2021-02-25 05:40] LABS: HEMATOCRIT 28.4 % (36.0-47.0); HEMOGLOBIN 8.6 g/dl (12.0-15.5); MEAN CORPUSCULAR HEMOGLOBIN 27.9 pg (27.0-33.0); MEAN CORPUSCULAR HGB CONC 30.3 g/dl (32.0-36.5); MEAN CORPUSCULAR VOLUME 92.2 fl (80.0-96.0); PLATELET COUNT, AUTOMATED 179 10^3/uL (150-450); RED BLOOD COUNT 3.08 10^6/uL (4.00-5.40); WHITE BLOOD COUNT 6.4 10^3/uL (4.0-10.0)
[2021-02-25 06:04] LABS: ALBUMIN 2.8 GM/DL (3.2-5.2); BILIRUBIN,TOTAL 0.5 MG/DL (0.2-1.0); CALCIUM LEVEL 8.5 MG/DL (8.8-10.2); CREATININE FOR GFR 1.5 MG/DL (0.55-1.30); GLOMERULAR FILTRATION RATE 35.6 (>32); MAGNESIUM LEVEL 2.2 MG/DL (1.8-2.4); TOTAL PROTEIN 6.2 GM/DL (6.4-8.2)
[2021-02-25] MEDS: HumaLOG INSULIN (NovoLOG) PER UNIT SC SCH ×4 (07:30→20:52)
[2021-02-25] MEDS: MIRALAX *UNIT DOSE* 17GM PACKET PO SCH (08:19)
[2021-02-25] MEDS: MEMANTINE 5MG TABLET (NAMENDA) PO SCH (08:20)
[2021-02-25] MEDS: MULTIVITAMINS/MINERALS THERAP 1 TAB PO SCH (08:20)
[2021-02-25] MEDS: DIGOXIN 0.0625MG PER 1/2TABLET PO SCH (08:20)
[2021-02-25] MEDS: ATORVASTATIN 20 MG TAB PO SCH (08:21)
[2021-02-25] MEDS: FUROSEMIDE 40 MG TAB PO SCH (08:22)
[2021-02-25] MEDS: LEVEMIR (INSULIN DETEMIR) 1 UNITS/0.01ML SC SCH ×2 (08:22→20:52)
[2021-02-25 12:18] LABS: HEMATOCRIT 29.6 % (36.0-47.0)
[2021-02-25] MEDS ORDERED: NITROFURANTOIN (MACROBID) 100 MG CAP PO SCH (15:10)
[2021-02-25] MEDS: cefTRIAXone SOD 1 GM in D5W MINI-BAG PLUS 50 ML IV SCH (16:04)
[2021-02-25 18:27] LABS: HEMATOCRIT 29.4 % (36.0-47.0); HEMOGLOBIN 9.1 g/dl (12.0-15.5)
[2021-02-26] MEDS: OCTREOTIDE ACETATE 1,200 MCG in NS 238.8 ML IV SCH (00:21)
[2021-02-26 00:26] LABS: HEMATOCRIT 31.3 % (36.0-47.0); HEMOGLOBIN 9.5 g/dl (12.0-15.5)
[2021-02-26] MEDS: SUCRALFATE 1 GM TAB PO SCH ×3 (05:43→22:24)
[2021-02-26 06:30] VITALS: BP 146/62
[2021-02-26 06:51] LABS: HEMATOCRIT 30.2 % (36.0-47.0); HEMOGLOBIN 9.3 g/dl (12.0-15.5); MEAN CORPUSCULAR HEMOGLOBIN 28.4 pg (27.0-33.0); MEAN CORPUSCULAR HGB CONC 30.8 g/dl (32.0-36.5); MEAN CORPUSCULAR VOLUME 92.4 fl (80.0-96.0); PLATELET COUNT, AUTOMATED 224 10^3/uL (150-450); RED BLOOD COUNT 3.27 10^6/uL (4.00-5.40); WHITE BLOOD COUNT 12.4 10^3/uL (4.0-10.0)
[2021-02-26 07:02] LABS: CALCIUM LEVEL 8.2 MG/DL (8.8-10.2); CREATININE FOR GFR 1.4 MG/DL (0.55-1.30); GLOMERULAR FILTRATION RATE 38.5 (>32); POTASSIUM SERUM 3.7 MEQ/L (3.5-5.1)
[2021-02-26] MEDS: HumaLOG INSULIN (NovoLOG) PER UNIT SC SCH ×4 (07:18→21:00)
[2021-02-26] MEDS: MIRALAX *UNIT DOSE* 17GM PACKET PO SCH (08:37)
[2021-02-26] MEDS: carBAMazepine XR 100 MG TAB PO SCH ×2 (08:37→22:24)
[2021-02-26] MEDS: CARVedilol 12.5 MG TAB PO SCH ×2 (08:43→22:25)
[2021-02-26] MEDS: MULTIVITAMINS/MINERALS THERAP 1 TAB PO SCH (08:44)
[2021-02-26] MEDS: DIGOXIN 0.0625MG PER 1/2TABLET PO SCH (08:44)
[2021-02-26] MEDS: NORTRIPTYLINE 25 MG CAP PO SCH (08:44)
[2021-02-26] MEDS: DOCUSATE SODIUM 100MG CAPSULE PO SCH ×2 (08:44→22:24)
[2021-02-26] MEDS: FUROSEMIDE 40 MG TAB PO SCH (08:44)
[2021-02-26] MEDS: MEMANTINE 5MG TABLET (NAMENDA) PO SCH (08:44)
[2021-02-26] MEDS: ATORVASTATIN 20 MG TAB PO SCH (08:45)
[2021-02-26] MEDS: LEVEMIR (INSULIN DETEMIR) 1 UNITS/0.01ML SC SCH (08:45)
[2021-02-26] MEDS: amLODIPine 5 MG TAB PO SCH ×2 (08:45→22:25)
[2021-02-26] MEDS: PREGABALIN 100 MG CAP (LYRICA) PO SCH (08:45)
[2021-02-26] MEDS ORDERED: MACR100C43 PO (10:54)
[2021-02-26] MEDS: PANTOPRAZOLE 40MG VIAL (C9113 PER 1) IV SCH ×2 (11:56→22:24)
[2021-02-26 13:35] LABS: HEMATOCRIT 30.8 % (36.0-47.0); HEMOGLOBIN 9.2 g/dl (12.0-15.5)
[2021-02-26 14:00] VITALS: BP 130/50
[2021-02-26] MEDS: cefTRIAXone SOD 1 GM in D5W MINI-BAG PLUS 50 ML IV SCH (15:50)
[2021-02-26] MEDS ORDERED: LEVEMIR (INSULIN DETEMIR) 1 UNITS/0.01ML SC SCH (21:00)
[2021-02-26 22:15] VITALS: BP 157/50
[2021-02-27 05:06] VITALS: BP 155/51
[2021-02-27] MEDS: SUCRALFATE 1 GM TAB PO SCH (05:08)
[2021-02-27 05:17] LABS: HEMATOCRIT 28.9 % (36.0-47.0); HEMOGLOBIN 8.6 g/dl (12.0-15.5); MEAN CORPUSCULAR HEMOGLOBIN 27.8 pg (27.0-33.0); MEAN CORPUSCULAR HGB CONC 29.8 g/dl (32.0-36.5); MEAN CORPUSCULAR VOLUME 93.5 fl (80.0-96.0); PLATELET COUNT, AUTOMATED 179 10^3/uL (150-450); RED BLOOD COUNT 3.09 10^6/uL (4.00-5.40)
[2021-02-27 05:47] LABS: CALCIUM LEVEL 8.1 MG/DL (8.8-10.2); CREATININE FOR GFR 1.45 MG/DL (0.55-1.30)
[2021-02-27] MEDS: HumaLOG INSULIN (NovoLOG) PER UNIT SC SCH ×2 (07:55→11:23)
[2021-02-27] MEDS: MULTIVITAMINS/MINERALS THERAP 1 TAB PO SCH (07:55)
[2021-02-27] MEDS: MEMANTINE 5MG TABLET (NAMENDA) PO SCH (07:55)
[2021-02-27] MEDS: DIGOXIN 0.0625MG PER 1/2TABLET PO SCH (07:56)
[2021-02-27] MEDS: CARVedilol 12.5 MG TAB PO SCH (07:56)
[2021-02-27 07:57] VITALS: BP 155/51
[2021-02-27] MEDS: DOCUSATE SODIUM 100MG CAPSULE PO SCH (07:57)
[2021-02-27] MEDS: amLODIPine 5 MG TAB PO SCH (07:57)
[2021-02-27] MEDS: FUROSEMIDE 40 MG TAB PO SCH (07:57)
[2021-02-27] MEDS: ATORVASTATIN 20 MG TAB PO SCH (07:57)
[2021-02-27] MEDS: MIRALAX *UNIT DOSE* 17GM PACKET PO SCH ×2 (07:58→07:59)
[2021-02-27] MEDS: carBAMazepine XR 100 MG TAB PO SCH (07:58)
[2021-02-27] MEDS ORDERED: CIPROFLOXACIN 500MG TABLET PO SCH (10:00)
[2021-02-27] MEDS: PANTOPRAZOLE 40MG VIAL (C9113 PER 1) IV SCH (11:00)
[2021-02-27 12:48] LABS: HEMATOCRIT 30.7 % (36.0-47.0); HEMOGLOBIN 9.1 g/dl (12.0-15.5)
[2021-02-27 14:00] VITALS: BP 154/49
[2021-04-25] MEDS ORDERED: AMIO200T49 PO (09:52)
== END 2021-02-27 14:55 | disposition home health service (06) | DRG 811 ==
LOC: M ED 15:51 → M ED INP 15:52 → M PCU 02-25 00:55 → M MS5PR 02-25 16:20
PROVIDERS: ADMIT Family Medicine; ATTEND Internal Medicine
PROC: 30233N1 Transfusion of Nonautologous Red Blood Cells into Peripheral Vein, Percutaneous Approach (ICD-10-PCS; principal; 2021-02-24)
DX: D50.0 Iron deficiency anemia secondary to blood loss (chronic) (principal); K31.811 Angiodysplasia of stomach and duodenum with bleeding; I50.32 Chronic diastolic (congestive) heart failure; I13.0 Hypertensive heart and chronic kidney disease with heart failure and stage 1 through stage 4 chronic kidney disease, or unspecified chronic kidney disease; N18.9 Chronic kidney disease, unspecified; E11.42 Type 2 diabetes mellitus with diabetic polyneuropathy; E78.5 Hyperlipidemia, unspecified; E11.22 Type 2 diabetes mellitus with diabetic chronic kidney disease; I27.20 Pulmonary hypertension, unspecified; F03.90 Unspecified dementia, unspecified severity, without behavioral disturbance, psychotic disturbance, mood disturbance, and anxiety; I48.0 Paroxysmal atrial fibrillation; I35.0 Nonrheumatic aortic (valve) stenosis; G40.909 Epilepsy, unspecified, not intractable, without status epilepticus; G47.33 Obstructive sleep apnea (adult) (pediatric); G25.81 Restless legs syndrome; Z96.641 Presence of right artificial hip joint; Z98.41 Cataract extraction status, right eye; Z98.42 Cataract extraction status, left eye; M19.90 Unspecified osteoarthritis, unspecified site; Z87.891 Personal history of nicotine dependence; Z79.82 Long term (current) use of aspirin; Z79.4 Long term (current) use of insulin; Z79.899 Other long term (current) drug therapy; Z88.8 Allergy status to other drugs, medicaments and biological substances

== ENCOUNTER → 2021-02-24 | Outpatient (CLI) | payer MEDICARE ==
[~2021-02-24] MED LIST changes: +ALBU1.25 INH; +ALBU83IN INH; +CARB100T PO; +D 50CAP3 PO; +INSU100I9 SC; +MIRA1POW3 PO; +PROC1INJ5 SC; +SUCR1ORA PO; +SUCR1SS PO; +VITMTA PO
== END ==
LOC: M LAB 12:45
PROVIDERS: ATTEND Physician Assistant Medical
DX: R56.9 Unspecified convulsions (principal)

== ENCOUNTER → 2021-02-24 | Outpatient (CLI) | payer MEDICARE ==
[2021-02-24 13:52] LABS: HEMATOCRIT 22.5 % (36.0-47.0); MEAN CORPUSCULAR HEMOGLOBIN 28.8 pg (27.0-33.0); MEAN CORPUSCULAR HGB CONC 29.8 g/dl (32.0-36.5); MEAN CORPUSCULAR VOLUME 96.6 fl (80.0-96.0); PLATELET COUNT, AUTOMATED 194 10^3/uL (150-450); RED BLOOD COUNT 2.33 10^6/uL (4.00-5.40); WHITE BLOOD COUNT 6.4 10^3/uL (4.0-10.0)
[2021-02-24 14:12] LABS: HEMOGLOBIN 6.7 g/dl (12.0-15.5)
== END ==
LOC: M LAB 12:48
PROVIDERS: ATTEND Physician Assistant
DX: D50.0 Iron deficiency anemia secondary to blood loss (chronic) (principal)

== ENCOUNTER → 2021-03-06 | Outpatient (CLI) | payer MEDICARE ==
[~2021-03-06] MED LIST changes: +AMIO200T3 PO; -AMIO200T49 PO; +D 50CAP3 PO; +MACR100C43 PO; +MEMA28CA PO; -MEMA28CA12 PO; +MIRA1POW3 PO; -OMEP-173 PO; +OMEP-218 PO; +SUCR1SS PO
[2021-03-06 14:59] LABS: HEMATOCRIT 31.2 % (36.0-47.0); HEMOGLOBIN 9.3 g/dl (12.0-15.5); MEAN CORPUSCULAR HEMOGLOBIN 27.5 pg (27.0-33.0); MEAN CORPUSCULAR HGB CONC 29.8 g/dl (32.0-36.5); MEAN CORPUSCULAR VOLUME 92.3 fl (80.0-96.0); PLATELET COUNT, AUTOMATED 246 10^3/uL (150-450); RED BLOOD COUNT 3.38 10^6/uL (4.00-5.40); WHITE BLOOD COUNT 6.4 10^3/uL (4.0-10.0)
[2021-03-06 15:25] LABS: CALCIUM LEVEL 8.7 MG/DL (8.8-10.2); CREATININE FOR GFR 1.39 MG/DL (0.55-1.30); GLOMERULAR FILTRATION RATE 38.8 (>32); POTASSIUM SERUM 3.7 MEQ/L (3.5-5.1)
== END ==
LOC: M LAB 14:12
PROVIDERS: ATTEND Physician Assistant
DX: K92.2 Gastrointestinal hemorrhage, unspecified (principal)

== ENCOUNTER → 2021-03-20 | Outpatient (REF) | payer MEDICARE ==
[2021-03-20 18:14] LABS: HEMATOCRIT 24.9 % (36.0-47.0); HEMOGLOBIN 7.3 g/dl (12.0-15.5); MEAN CORPUSCULAR HEMOGLOBIN 26.4 pg (27.0-33.0); MEAN CORPUSCULAR HGB CONC 29.3 g/dl (32.0-36.5); MEAN CORPUSCULAR VOLUME 90.2 fl (80.0-96.0); PLATELET COUNT, AUTOMATED 191 10^3/uL (150-450); RED BLOOD COUNT 2.76 10^6/uL (4.00-5.40); WHITE BLOOD COUNT 5.1 10^3/uL (4.0-10.0)
[2021-03-20 18:33] LABS: ALBUMIN 2.7 GM/DL (3.2-5.2); BILIRUBIN,TOTAL 0.2 MG/DL (0.2-1.0); CALCIUM LEVEL 8.5 MG/DL (8.8-10.2); CREATININE FOR GFR 1.65 MG/DL (0.55-1.30); GLOMERULAR FILTRATION RATE 31.8 (>32); POTASSIUM SERUM 4.1 MEQ/L (3.5-5.1); TOTAL PROTEIN 6.4 GM/DL (6.4-8.2)
== END ==
LOC: M SFHCADAM 13:59
PROVIDERS: ATTEND Physician Assistant
DX: K31.811 Angiodysplasia of stomach and duodenum with bleeding (principal); I50.31 Acute diastolic (congestive) heart failure
CPT/HCPCS: 80053; 85027; G0463

== ENCOUNTER 2021-03-21 12:18 | Outpatient (CLI) | payer MEDICARE ==
[2021-03-21] VITALS (8 sets, daily range): BP systolic 140–173; BP diastolic 56–90
[~2021-03-21] VITALS: Ht 165.1 cm; Wt 78.6 kg
[2021-03-21] MEDS ORDERED: diphenhydrAMINE 25MG CAP PO ONE (13:00)
[2021-03-21] MEDS ORDERED: FUROSEMIDE 40MG/4ML VIAL (J1940) IV ONE (13:00)
[2021-03-21] MEDS ORDERED: ACETAMINOPHEN 325 MG TAB PO ONE (13:00)
== END 2021-03-21 17:30 | disposition home or self-care (01) ==
LOC: M INFU 12:18
PROVIDERS: ATTEND Physician Assistant
DX: D50.0 Iron deficiency anemia secondary to blood loss (chronic) (principal); Z88.8 Allergy status to other drugs, medicaments and biological substances
CPT/HCPCS: 36430; J1940; P9016

== ENCOUNTER → 2021-03-21 | Outpatient (CLI) | payer MEDICARE | LOC: M LAB 08:58 | PROVIDERS: ATTEND Physician Assistant | DX: D50.0 Iron deficiency anemia secondary to blood loss (chronic) (principal); Z88.8 Allergy status to other drugs, medicaments and biological substances | CPT/HCPCS: 36415; 36430; 86850; 86900; 86901; 86920; J1940; P9016 ==

== ENCOUNTER → 2021-03-27 | Outpatient (REF) | payer MEDICARE, MEDICAID ==
[2021-03-27 17:58] LABS: MAGNESIUM LEVEL 2.3 MG/DL (1.8-2.4); PERCENT SATURATION 13.8 % (13.2-45.0)
== END ==
LOC: M LAB REF 16:52
PROVIDERS: ATTEND Internal Medicine Nephrology
DX: D50.9 Iron deficiency anemia, unspecified (principal); E83.42 Hypomagnesemia

== ENCOUNTER → 2021-04-09 | Outpatient (CLI) | payer MEDICARE, MEDICAID ==
[2021-04-09 14:29] LABS: APPEARANCE, URINE CLOUDY (CLEAR); BACTERIA, URINE AUTO 1+ (NEGATIVE); BILIRUBIN, URINE AUTO NEGATIVE (NEGATIVE); BLOOD, URINE BLOOD NEGATIVE (NEGATIVE); COLOR, URINE YELLOW (YELLOW); GLUCOSE, URINE (UA) AUTO 3+ mg/dL (NEGATIVE); KETONE, URINE AUTO NEGATIVE (NEGATIVE); LEUKOCYTE ESTERASE, URINE AUTO 3+ (NEGATIVE); NITRITE, URINE AUTO NEGATIVE (NEGATIVE); PROTEIN, URINE AUTO NEGATIVE (NEGATIVE); RBC, URINE AUTO 2 /HPF (0-3); SPECIFIC GRAVITY URINE AUTO 1.006 (1.002-1.035); SQUAMOUS EPITHELIAL CELL UR AU 2 /HPF (0-6); UROBILINOGEN, URINE AUTO 0.2 mg/dL (0.0-2.0); WBC, URINE AUTO 51 /HPF (0-3)
== END ==
LOC: M LAB 13:59
PROVIDERS: ATTEND Internal Medicine Gastroenterology
DX: D50.9 Iron deficiency anemia, unspecified (principal)

== ENCOUNTER → 2021-04-23 | Outpatient (REF) | payer MEDICARE ==
[~2021-04-23] MED LIST changes: +CEPH500C PO; +FURO80TA2 PO; +GOOD8.6T2 PO
[2021-04-23 18:31] LABS: HEMATOCRIT 34.5 % (36.0-47.0); HEMOGLOBIN 10.6 g/dl (12.0-15.5); MEAN CORPUSCULAR HEMOGLOBIN 27.2 pg (27.0-33.0); MEAN CORPUSCULAR HGB CONC 30.7 g/dl (32.0-36.5); MEAN CORPUSCULAR VOLUME 88.5 fl (80.0-96.0); PLATELET COUNT, AUTOMATED 190 10^3/uL (150-450); WHITE BLOOD COUNT 5.4 10^3/uL (4.0-10.0)
[2021-04-23 18:52] LABS: HEMOGLOBIN A1c 8.3 %
== END ==
LOC: M SFHCADAM 14:14
PROVIDERS: ATTEND Physician Assistant
DX: E11.22 Type 2 diabetes mellitus with diabetic chronic kidney disease (principal); D50.0 Iron deficiency anemia secondary to blood loss (chronic)
CPT/HCPCS: 83036; 85027; 90682; G0008; G0463

== ENCOUNTER 2021-04-28 23:05 | Inpatient (IN) | payer MEDICARE, MEDICAID ==
[~2021-04-28] VITALS: Ht 157.5 cm; Wt 81.6 kg
[~2021-04-28 23:05] MED LIST changes: -CEPH500C PO; -FURO80TA2 PO; -GOOD8.6T2 PO; -MEMA28CA PO; +MEMA28CA12 PO
[2021-04-29] VITALS (16 sets, daily range): BP systolic 123–216; BP diastolic 59–161; PULSE 36
[2021-04-29 00:42] LABS: BASO % 0.3 % (0.0-1.0); EOS % 0.4 % (0.0-3.0); HEMATOCRIT 29.2 % (36.0-47.0); LYMPH % 11.3 % (24.0-44.0); MEAN CORPUSCULAR HEMOGLOBIN 26.9 pg (27.0-33.0); MEAN CORPUSCULAR HGB CONC 30.8 g/dl (32.0-36.5); MEAN CORPUSCULAR VOLUME 87.4 fl (80.0-96.0); MONO # 0.9 10^3/uL (0.0-0.8); NEUTROPHILS % 77.6 % (36.0-66.0); PLATELET COUNT, AUTOMATED 185 10^3/uL (150-450); RED BLOOD COUNT 3.34 10^6/uL (4.00-5.40)
[2021-04-29 01:19] LABS: BLOOD UREA NITROGEN 54 MG/DL (7-18); CALCIUM LEVEL 8.5 MG/DL (8.8-10.2); CARBON DIOXIDE LEVEL 26 MEQ/L (21-32); CHLORIDE LEVEL 95 MEQ/L (98-107); CK-MB VALUE MASS < 1.0 NG/ML (<3.6); CPK CREATINE PHOSPHOKINASE 86 U/L (26-192); CREATININE FOR GFR 3.37 MG/DL (0.55-1.30); DIGOXIN LEVEL 1.5 NG/ML (0.5-2.0); GLOMERULAR FILTRATION RATE 13.9 (>32); GLUCOSE, FASTING 384 MG/DL (70-100); MAGNESIUM LEVEL 2.5 MG/DL (1.8-2.4); MB/CK RELATIVE INDEX 1.16 (< OR =4); POTASSIUM SERUM 4.1 MEQ/L (3.5-5.1); SODIUM LEVEL 134 MEQ/L (136-145); TROPONIN I < 0.02 NG/ML (< 0.10)
[2021-04-29] MEDS ORDERED: IPRATROPIUM 0.5MG/ALBUTEROL 2.5MG INH SOL UD 3ML (DUONEB) NEB ONE (01:55)
[2021-04-29] MEDS ORDERED: IPRA0.00 NEB (02:26)
[2021-04-29] MEDS ORDERED: AMLO1TAB24 PO (02:26)
[2021-04-29] MEDS ORDERED: GOOD8.6T2 PO (02:26)
[2021-04-29] MEDS ORDERED: CEPH500C PO (02:26)
[2021-04-29] MEDS ORDERED: FURO80TA2 PO (02:26)
[2021-04-29] MEDS ORDERED: HOME MED LIST COMPLETE! XX SCH (02:30)
--- NOTE | 2021-04-29 02:42 | REPVR ---
PROCEDURE INFORMATION: Exam: XR Chest Exam date and time: 04/29/21 (12:30am) Age: 81 years old Clinical indication: SOB TECHNIQUE: Imaging protocol: Portable CXR Views: 1 view COMPARISON: Portable CXR of 02/10/21 FINDINGS: Comparison is made with a portable CXR done on 02/10/21. Stable cardiomegaly. No significant vascular congestion. No focal infiltrates. No pleural effusions. Aortic calcifications again seen. No pneumothorax. IMPRESSION: No acute findings. In general, a similar appearance was noted in on 02/10/21. Electronically signed by: Elicia Valenzuela On 04/29/2021 02:42:13 AM
[2021-04-29 03:09] LABS: NT-PRO BNP 2809 PG/ML (<450)
[2021-04-29] MEDS ORDERED: MAALOX 30 ML SUSP *UDC PO PRN (03:30)
[2021-04-29] MEDS ORDERED: ACETAMINOPHEN TAB 650MG DOSE (2X325MG) PO PRN (03:30)
[2021-04-29] MEDS ORDERED: MOM 30ML SUSPENSION UDC PO PRN (03:30)
[2021-04-29] MEDS ORDERED: IPRATROPIUM 0.5MG/ALBUTEROL 2.5MG INH SOL UD 3ML (DUONEB) NEB PRN (04:15)
--- NOTE | 2021-04-29 04:23 | HPEPDOC ---
[facility] Medical History & Physical Date of Admission Apr 29, 2021 Date of Service: Apr 29, 2021 History and Physical CHIEF COMPLAINT: shortness of breath, dizziness HISTORY OF PRESENT ILLNESS: 81 yo F with PMHx described below, presented to ER c/o SOB and generalized weakness for past several days. Found to have a HR of 35 on arrival to ER. Denies blurred vision, chest pain, n/v/d, fevers. Follows with Dr. Garcia. he was contacted from ER, recommended to hold amiodarone, digoxin and carvedilol. While in ER, rate improved to 40. She has been normotensive and alert. Patient will be admitted to ICU, with continuous cardiac monitoring. PAST MEDICAL HISTORY: Coronary artery disease with stenting GI bleeding secondary to AVM status post clipping and cautery, follows with Dr. Oden. Diabetes mellitus Chronic kidney disease Chronic diastolic heart failure with pulmonary hypertension History of dementia History of CVA Hyperlipidemia Paroxysmal atrial fibrillation/flutter on ASA. No AC due to frequent GIBs. Aortic stenosis Seizure disorder Chronic osteoarthritis Obstructive sleep apnea? On O2 at home. Restless leg syndrome Carpal tunnel release Right hip replacement Hysterectomy Bilateral cataract surgery Left hip repair SOCIAL HISTORY: Patient denies smoking Patient denies etoh use Patient denies illicit drug use FAMILY HISTORY: Reviewed family history with patient, no pertinent history provided. ALLERGIES: Please see below. REVIEW OF SYSTEMS: 10 point ROS conducted, relevant findings noted HOME MEDICATIONS: Please see below. PHYSICAL EXAMINATION: VITAL SIGNS: please see below General: NAD, comfortable HEENT: PERRLA, EOMI, sclerae clear Neck: supple, normal ROM, no JVD Respiratory: poor air entry b/l. no crackles appreciated, no rales, no wheeze CVS: Bradycardic regular, normal S1, S2, no murmurs Abdo: soft, no masses, no hepatosplenomegaly, BS+, no rebound tenderness Extremities: trace edema, no cyanosis MSK: no joint deformities, normal ROM Neuro: no focal neuro deficits, moving all 4 extremities, CN2-12 intact. Strength 5/5 in all 4 extremities. No nystagmus. Psych: calm, cooperative, AAO x 3 LABORATORY DATA: See below. IMAGING: CXR (04/29/21): FINDINGS: Comparison is made with a portable CXR done on 02/10/21. Stable cardiomegaly. No significant vascular congestion. No focal infiltrates. No pleural effusions. Aortic calcifications again seen. No pneumothorax. IMPRESSION: No acute findings. MICROBIOLOGY: Please see below. ASSESSMENT: 81-year-old female presented to the ER after 24 hours of feeling a hollow feeling in the chest shortness of breath weakness and lightheadedness. Patient finally bradycardic to the mid 30s. Patient was admitted for management some hypercarbia. ER discussed with Dr. Garcia advised to hold rate control agents and to discuss in the morning. . PLAN: #Symptomatic bradycardia: HR 30s. ER d/w Dr. Garcia. Hold amiodarone 200 mg BId, digoxin 125 mcg daily, and coreg 25 mg PO BID. Patient last took PM doses 04/28/21. Continue shelter monitor. Contact Dr. Garcia in AM to decide regarding med regimen. #Afib: on ASA. No AC given frequent GIBs due to AVMs. Takes ASA 162 mg daily. takes amiodarone, digoxin, coreg at home. Held. #Anemia: check iron panel. denies bleeding. hx of angioectasias in stomach and bowel. Hx EGD s/p cautery. Hgb stable from prior. Was seen in heme clinic 04/28/21, off iron tabs. Received IV iron. #REMIGIO/COPD?: on O2 at home, she is unsure of flow rate. C/w duonebs. Presently 4L PM. CXR shows not effusion, edema, consolidation. #DORINA on CKD: Cr 3.37. Baseline ~1.6. Hold furosemide (takes 80 mg BID) Check renal US. Bladder scan. Urine lytes. UA. Start gentle IVF 100 cc/hr, judicious use of IVF. #hx CHF with pulm HTN: takes lasix 80 mg BID PO. Appears dry. Cr elevated. Hold lasix. Give IVF. #CAD with RCA stent: c/w ASA, statin #HTN: BP trending high, resume amlodipine #DM2: ISS, FSBS AC and HS. Hypoglycemic precautions. Takes Toujeo 80 units qhs, lispro 24 units TID AC. #Dementia: takes memantine XR 28 mg daily. Use converted dosing at memantine imm release - 10 mg BID. #HLD: statin #Mood disorder: resume nortryptiline. Dispo: admission expected to last > 2 midnights. DVT ppx: SCDs. TEDs. Vital Signs Vital Signs Date Time Temp Pulse Resp B/P (MAP) Pulse Ox O2 Delivery O2 Flow Rate FiO2 04/29/21 02:16 22 04/29/21 01:46 40 168/70 (102) 92 Nasal Cannula 4.0 04/28/21 23:05 98.1 Laboratory Data Labs 24H Laboratory Tests 2 04/29/21 00:33: Immature Granulocyte % (Auto) 0.4, Neutrophils (%) (Auto) 77.6H, Lymphocytes (%) (Auto) 11.3L, Monocytes (%) (Auto) 10.0H, Eosinophils (%) (Auto) 0.4, Basophils (%) (Auto) 0.3, Neutrophils # (Auto) 7.0, Lymphocytes # (Auto) 1.0L, Monocytes # (Auto) 0.9H, Eosinophils # (Auto) 0.0, Basophils # (Auto) 0.0, Nucleated Red Blood Cells % (auto) 0.0, Anion Gap 13, Glomerular Filtration Rate 13.9L, Calcium Level 8.5L, Magnesium Level 2.5H, Total Creatine Kinase 86, Creatine Kinase MB < 1.0, Creatine Kinase MB Relative Index 1.16, Troponin I < 0.02, LY-Rqc-A-Type Natriuretic Peptide 2809H, Digoxin Level 1.5 CBC/BMP Laboratory Tests 04/29/21 00:33 Microbiology Microbiology 04/28/21 Respiratory Virus Panel (PCR) (DAYAN) - Final, Complete Home Medications Scheduled Amiodarone HCl (Amiodarone HCl) 200 Mg Tablet, 200 MG PO BID Amlodipine Besylate (Amlodipine Besylate) 5 Mg Tablet, 5 MG PO BID Aspirin (Aspirin EC) 81 Mg Tablet.dr, 162 MG PO DAILY Atorvastatin Calcium (Atorvastatin Calcium) 20 Mg Tab, 20 MG PO DAILY Carbamazepine (Carbamazepine ER) 100 Mg Tab.er.12h, 100 MG PO BID Carvedilol (Carvedilol) 25 Mg Tab, 25 MG PO BID Cephalexin (Cephalexin) 500 Mg Capsule, 500 MG PO BID started 04/23/21 x 10 days Cholecalciferol (Vitamin D3) (Vitamin D3) 125 Mcg Capsule, 125 MCG PO DAILY Cyanocobalamin (Vitamin B-12) (Vitamin B-12) 1,000 Mcg Capsule, 1,000 MCG PO DAILY Digoxin (Digoxin) 125 Mcg Tablet, 125 MCG PO DAILY Furosemide (Furosemide) 80 Mg Tablet, 80 MG PO BID Insulin Glargine,Hum.rec.anlog (Touveronica Solostar) 300 Unit/1 Ml Insuln.pen, 80 UNITS SC QHS Insulin Lispro (Insulin Lispro Kwikpen U-100) 100 Unit/1 Ml Insuln.pen, 24 UNITS SC TID PER SLIDING SCALE Memantine HCl (Namenda Xr) 28 Mg Cap.spr.24, 28 MG PO DAILY Multivitamins (Thera M Plus Tablet) 1 Each Tablet, 1 TAB PO DAILY Nortriptyline HCl (Nortriptyline HCl) 25 Mg Cap, 25 MG PO BID Pantoprazole Sodium (Pantoprazole Sodium) 40 Mg Tablet.dr, 40 MG PO BID Pregabalin (Lyrica) 100 Mg Capsule, 100 MG PO BID Sennosides/Docusate Sodium (Stimulant Laxative Plus Tablet) 1 Each Tablet, 1 TAB PO BID Scheduled PRN Ipratropium/Albuterol Sulfate (Iprat-Albut 0.5-3(2.5) mg/3 ml) 3 Ml Ampul.neb, 1 VIAL NEB Q6H PRN for SHORTNESS OF BREATH Allergies Coded Allergies: metformin (Verified Adverse Reaction, Mild, N/V, 04/25/21) clopidogrel (Verified Adverse Reaction, Unknown, unsure, 04/25/21) PT REPORTS SHE STILL HAS ITCHINESS SO SHE DOES NOT THINK SHE IS ALLERGIC TO PLAVIX WHICH IS WHY THEY STOPPED THE PLAVIX BEFORE FOR POSSIBLE ADVERSE REACTION OF FEELING ITCHY (10/22/20 VISIT) A-FIB/CHADSVASC A-FIB History Current/History of A-Fib/PAF?: Yes Current PO Anticoag Therapy: No MERCEDES GIANG MD Apr 29, 2021 04:23
[2021-04-29] MEDS ORDERED: NS 1,000 ML IV SCH (04:25)
[2021-04-29] MEDS ORDERED: GLUCOSE 4GM CHEW TABLET PO PRN (05:40)
[2021-04-29] MEDS ORDERED: DEXTROSE 50% 50 ML SYRINGE IV PRN (05:40)
[2021-04-29] MEDS ORDERED: GLUCAGON INJ 1MG VIAL SC PRN (05:40)
[2021-04-29 06:14] LABS: BASO % 0.1 % (0.0-1.0); EOS % 0.6 % (0.0-3.0); HEMATOCRIT 27.7 % (36.0-47.0); HEMOGLOBIN 8.6 g/dl (12.0-15.5); LYMPH # 1.4 10^3/uL (1.5-5.0); LYMPH % 20.3 % (24.0-44.0); MEAN CORPUSCULAR HEMOGLOBIN 27.1 pg (27.0-33.0); MEAN CORPUSCULAR VOLUME 87.4 fl (80.0-96.0); MONO # 0.8 10^3/uL (0.0-0.8); MONO % 11.3 % (2.0-8.0); NEUTROPHILS # 4.6 10^3/uL (1.5-8.5); NEUTROPHILS % 67.3 % (36.0-66.0); PLATELET COUNT, AUTOMATED 166 10^3/uL (150-450); RED BLOOD COUNT 3.17 10^6/uL (4.00-5.40); WHITE BLOOD COUNT 6.9 10^3/uL (4.0-10.0)
[2021-04-29 06:44] LABS: ALBUMIN 2.7 GM/DL (3.2-5.2); ALT/SGPT 31 U/L (12-78); BILIRUBIN,TOTAL 0.3 MG/DL (0.2-1.0); BLOOD UREA NITROGEN 56 MG/DL (7-18); CALCIUM LEVEL 8.5 MG/DL (8.8-10.2); CARBON DIOXIDE LEVEL 28 MEQ/L (21-32); CHLORIDE LEVEL 97 MEQ/L (98-107); CREATININE FOR GFR 3.31 MG/DL (0.55-1.30); GLOMERULAR FILTRATION RATE 14.2 (>32); GLUCOSE, FASTING 296 MG/DL (70-100); MAGNESIUM LEVEL 2.6 MG/DL (1.8-2.4); POTASSIUM SERUM 3.8 MEQ/L (3.5-5.1); SODIUM LEVEL 134 MEQ/L (136-145); TOTAL PROTEIN 6.7 GM/DL (6.4-8.2)
[2021-04-29] MEDS ORDERED: HumaLOG INSULIN (NovoLOG) PER UNIT SC SCH ×2 (07:30→21:00)
[2021-04-29] MEDS: MEMANTINE 5MG TABLET (NAMENDA) PO SCH ×2 (09:00→21:00)
[2021-04-29] MEDS ORDERED: PANTOPRAZOLE 40MG TAB (PROTONIX) PO SCH (09:00)
[2021-04-29] MEDS ORDERED: ASPIRIN 81MG ENTERIC TABLET PO SCH (09:00)
[2021-04-29] MEDS ORDERED: ATORVASTATIN 20 MG TAB PO SCH (09:00)
[2021-04-29] MEDS ORDERED: carBAMazepine XR 100 MG TAB PO SCH (09:00)
[2021-04-29] MEDS: NORTRIPTYLINE 25 MG CAP PO SCH ×2 (09:17→21:00)
[2021-04-29] MEDS: PREGABALIN 100 MG CAP (LYRICA) PO SCH ×2 (09:18→21:00)
[2021-04-29] MEDS: amLODIPine 5 MG TAB PO SCH ×2 (09:18→21:00)
--- NOTE | 2021-04-29 11:13 | REP ---
INDICATION: young COMPARISON: CT dated 10/03/2018 TECHNIQUE: Real time weinberg scale ultrasound examination using curved array transducer. FINDINGS: Atrophic appearance of the right kidney measuring 7.2 x 3.6 x 4.0 cm with increased central sinus fat and no evidence for hydronephrosis, nephrolithiasis or cystic/mass lesion. Left kidney measures 10.5 x 5.0 x 6.6 cm also demonstrating increased central sinus fat without hydronephrosis, nephrolithiasis, or cystic/mass lesion. Bladder is under distended and grossly normal in appearance. IMPRESSION: 1. Chronic age-related medical renal disease and asymmetric atrophy to the right kidney. <Electronically signed by Flo Ramon > 04/29/21 [id number]
[2021-04-29] MEDS: HumaLOG INSULIN (NovoLOG) PER UNIT SC SCH ×2 (12:44→17:19)
[2021-04-29] MEDS ORDERED: ALBUTEROL SULFATE 2.5 MG/0.5 ML INH NEB SOLN NEB PRN (13:45)
--- NOTE | 2021-04-29 16:52 | IPNPDOC ---
Subjective Date Seen The patient was seen on 04/29/21. Subjective Chief Complaint/HPI Mrs. Acosta is an 81-year-old female with paroxysmal atrial fibrillation/flutter and history of GI bleeding secondary to AVM who is here for symptomatic bradycardia. Patient was seen in the morning. This morning she denied any chest pain. She reported having fatigue and a little shortness of breath. I reached out to Dr. Garcia. Likely due to dig toxicity in the setting of amiodarone. Recommends holding digoxin, amiodarone, and Coreg. May take a few days to resolve. Objective Physical Examination General Exam: Positive: Alert, Cooperative Eye Exam: Negative: Sclera icteric ENT Exam: Positive: Atraumatic Neck Exam: Positive: Supple Chest Exam: Positive: Other (Bibasilar crackles) Heart Exam: Positive: Bradycardic, Regular Rhythm Abdomen Exam: Positive: Normal bowel sounds, Soft; Negative: Tenderness Extremity Exam: Positive: Edema (Mild pitting edema) Neuro Exam: Positive: Normal Speech Psych Exam: Positive: Mood NL Assessment /Plan Assessment Mrs. Acosta is an 81-year-old female with paroxysmal atrial fibrillation/flutter and history of GI bleeding secondary to AVM who is here for symptomatic bradycardia. I reached out to cardiology, Dr. Garcia. Likely dig toxicity in the setting of amiodarone. Recommended holding digoxin, amiodarone, and Coreg. May take a few days to resolve. We will monitor in the ICU on telemetry. I will order an echocardiogram. Plan/VTE VTE Prophylaxis Ordered?: Yes Plan 1. Symptomatic bradycardia Patient is fatigued Discussed case with cardiology, Dr. Garcia Hold amiodarone, digoxin, and Coreg (last dose on evening of 04/28/2021) Monitor in ICU on telemetry We will obtain echocardiogram 2. DORINA on CKD Creatinine on admission was 3.37. Baseline creatinine around 1.6 May have caused increase in digoxin Renal ultrasound negative for hydronephrosis Discontinued IV fluids due to hypoxia and crackles in the lung base Supportive care and avoid nephrotoxic agents 3. Atrial fibrillation Not on anticoagulation due to GI bleeds from AV malformations Continue aspirin Hold digoxin, amiodarone, and Coreg 4. Anemia Baseline hemoglobin around 10 We will start anemia work-up 5. COPD/REMIGIO/chronic hypoxic respiratory failure Patient is on oxygen at home Patient does not know how much oxygen she is on On admission, she was on 4 L. Since then it has increased to 6 L Held fluids 6. History of heart failure with pulmonary hypertension Appears dry Hold Lasix 7. CAD with recent RCA stent Continue aspirin and statin 8. Hypertension Continue amlodipine 9. Diabetes mellitus Continue sliding scale insulin Continue Levemir 10. Dementia Continue memantine 11. Hyperlipidemia Continue statin 12. Mood disorder Continue nortriptyline 13. DVT prophylaxis SCDs and teds Patient not on anticoagulation due to GI bleeds from AV malformations Disposition: Pending improvement in heart rate and renal function VS, I&O, 24H, [facility] Vital Signs/I&O Vital Signs Date Time Temp Pulse Resp B/P (MAP) Pulse Ox O2 Delivery O2 Flow Rate FiO2 04/29/21 12:00 97.2 34 20 149/67 (94) 95 Nasal Cannula 6.0 I&O- Last 24 Hours up to 6 AM 04/29/21 06:00 Intake Total 60 ml Output Total 465 ml Balance -405 ml Laboratory Data 24H LABS Laboratory Tests 2 04/29/21 00:33: Immature Granulocyte % (Auto) 0.4, Neutrophils (%) (Auto) 77.6H, Lymphocytes (%) (Auto) 11.3L, Monocytes (%) (Auto) 10.0H, Eosinophils (%) (Auto) 0.4, Basophils (%) (Auto) 0.3, Neutrophils # (Auto) 7.0, Lymphocytes # (Auto) 1.0L, Monocytes # (Auto) 0.9H, Eosinophils # (Auto) 0.0, Basophils # (Auto) 0.0, Nucleated Red Blood Cells % (auto) 0.0, Anion Gap 13, Glomerular Filtration Rate 13.9L, Ca lcium Level 8.5L, Magnesium Level 2.5H, Total Creatine Kinase 86, Creatine Kinase MB < 1.0, Creatine Kinase MB Relative Index 1.16, Troponin I < 0.02, CW-Ijc-Y-Type Natriuretic Peptide 2809H, Digoxin Level 1.5 04/29/21 06:04: Immature Granulocyte % (Auto) 0.4, Neutrophils (%) (Auto) 67.3H, Lymphocytes (%) (Auto) 20.3L, Monocytes (%) (Auto) 11.3H, Eosinophils (%) (Auto) 0.6, Basophils (%) (Auto) 0.1, Neutrophils # (Auto) 4.6, Lymphocytes # (Auto) 1.4L, Monocytes # (Auto) 0.8, Eosinophils # (Auto) 0.0, Basophils # (Auto) 0.0, Nucleated Red Blood Cells % (auto) 0.0 04/29/21 06:05: Anion Gap 9, Glomerular Filtration Rate 14.2L, Calcium Level 8.5L, Magnesium Level 2.6H, Total Bilirubin 0.3, Aspartate Amino Transf (AST/SGOT) 34, Alanine Aminotransferase (ALT/SGPT) 31, Alkaline Phosphatase 87, Total Protein 6.7, Albumin 2.7L, Albumin/Globulin Ratio 0.7L 04/29/21 06:35: Urine Color YELLOW, Urine Appearance HAZY, Urine pH 5.0, Urine Specific [place] 1.014, Urine Protein NEGATIVE, Urine Glucose (UA) 1+H, Urine Ketones NEGATIVE, Urine Blood NEGATIVE, Urine Nitrite NEGATIVE, Urine Bilirubin NEGATIVE, Urine Urobilinogen 0.2, Urine Leukocyte Esterase NEGATIVE, Urine WBC (Auto) 2, Urine RBC (Auto) 0, Urine Hyaline Casts (Auto) 8, Urine Bacteria (Auto) NEGATIVE, Urine Squamous Epithelial Cells 1, Urine Sperm (Auto) 04/29/21 10:28: Bedside Glucose (Misc Panel) 163H 04/29/21 12:37: Bedside Glucose (Misc Panel) 152H CBC/BMP Laboratory Tests 04/29/21 00:33 04/29/21 06:04 04/29/21 06:05 Microbiology Microbiology 04/28/21 Respiratory Virus Panel (PCR) (DAYAN) - Final, Complete MARIO BLAKE DO Apr 29, 2021 16:52
--- NOTE | 2021-04-29 17:00 | ECGEPIP ---
[facility] Test Date: 2021-04-29 Pat Name: JAVY RUIZ Department: Room: [place] [address] Gender: Female Case Supervisor: giovanna : 1940 Requested By: MARIO Elizondo Order Number: [id number] Reading MD: Gabo Mckee Measurements Intervals [place] Rate: 38 P: 62 HI: 254 QRS: -24 QRSD: 148 T: 140 QT: 500 QTc: 397 Interpretive Statements Critical Test Result: Low HR Marked sinus bradycardia with 1st degree AV block Left bundle branch block Decreased heart rate and no PVCs compared with 04/28/2021. Electronically Signed on 04-29-2021 17:00:06 EDT by Gabo Mckee
[2021-04-29] MEDS ORDERED: FUROSEMIDE 20MG/2ML VIAL (J1940) IV STA (18:03)
[2021-04-29 18:16] LABS: CALCIUM LEVEL 9.1 MG/DL (8.8-10.2); CREATININE FOR GFR 3.43 MG/DL (0.55-1.30); GLOMERULAR FILTRATION RATE 13.7 (>32); MAGNESIUM LEVEL 2.6 MG/DL (1.8-2.4)
[2021-04-29 18:51] LABS: ABG BASE EXCESS -0.8 (-2.0-2.0); ABG HCO3 24.4 MEQ/L (22.0-26.0); ABG O2 SATURATION 98.2 % (95.0-99.0); ABG PARTIAL PRESSURE CO2 42.6 mmHg (35.0-45.0); ABG PARTIAL PRESSURE O2 131.7 mmHg (75.0-100.0); ABG STANDARD HCO3 23.8 MEQ/L (22.0-26.0); ABG TOTAL CO2 25.7 MEQ/L (23.0-31.0); ABG pH (ARTERIAL) 7.376 UNITS (7.350-7.450)
--- NOTE | 2021-04-29 18:54 | REP ---
INDICATION: Increased SOB COMPARISON: None. TECHNIQUE: Portable AP view of the chest FINDINGS: The mediastinum and cardiac silhouette are stable and within normal limits for portable technique. The lung mata demonstrate diffuse chronic interstitial changes. Superimposed perihilar and right lower lobe atelectasis/early infiltrates cannot be excluded. No discrete focal consolidation or effusion. No pneumothorax. Skeletal structures are intact/stable. IMPRESSION: Diffuse chronic interstitial changes. Subtle superimposed perihilar and right lower lobe atelectasis/early infiltrate cannot be excluded. <Electronically signed by Flo Ramon > 04/29/21 [id number]
[2021-04-29] MEDS: hydrALAZINE 20MG/ML 1ML VIAL (J0360 PER 20MG) IV PRN (19:03)
[2021-04-29 19:26] LABS: CK-MB VALUE MASS < 1.0 NG/ML (<3.6); CPK CREATINE PHOSPHOKINASE 75 U/L (26-192); MB/CK RELATIVE INDEX 1.33 (< OR =4); TROPONIN I 0.02 NG/ML (< 0.10)
[2021-04-29] MEDS ORDERED: LORazepam 2 MG/ML VIAL IV STA (19:28)
[2021-04-29] MEDS ORDERED: FUROSEMIDE 40MG/4ML VIAL (J1940) IV ONE (19:30)
[2021-04-29] MEDS ORDERED: PANTOPRAZOLE 40MG VIAL (C9113 PER 1) IV SCH (21:00)
[2021-04-29] MEDS ORDERED: LEVEMIR (INSULIN DETEMIR) 1 UNITS/0.01ML SC SCH ×2 (21:00)
[2021-04-29] MEDS ORDERED: carBAMazepine 100MG 5ML SUSP ORAL SYRINGE *DRAW UP EXACT DOSE PO SCH (21:25)
--- NOTE | 2021-04-29 21:46 | ECHO ---
ECHOCARDIOGRAM DATE OF PROCEDURE: 04/29/2021 Age: Gender: Height: 62 inches Weight: 165 pounds REFERRING PHYSICIAN: Dr. Blanca INDICATION: Heart block. MEASUREMENTS: IVS 1.3 LV 3.9 LVPW 1.4 RV 2.7 LA 4.7 Aorta 3.5 IVC 2.4 FINDINGS: The study is of fair technical quality with difficult visualization. Patient is in probably asynchronous AV rhythm with no obvious relationship between atrial and ventricular systole and ventricular rate approximately 70 beats per minute. Left ventricle is of normal size. Overall hyperdynamic LV systolic function, estimated LVEF approximately 70%. No segmental wall motion abnormalities are seen. Right ventricle does not appear grossly dilated. The left atrium is severely enlarged. Right atrium is poorly seen. Aortic valve is sclerotic. There is no restriction of cusp mobility. There are very prominent degenerative abnormalities of mitral valve with heavy mitral annular calcifications and restriction of leaflet mobility. Tricuspid valve appears normal. Pulmonic valve was not well seen. No pericardial effusion is noted. Inferior vena cava is dilated, and there is limited collapse with inspiration, indicative of elevated central venous pressure. Aortic root is normal. Aortic arch and abdominal aorta were not well visualized. Doppler interrogation of aortic valve reveals no significant stenosis or insufficiency. There is severe mitral stenosis with peak gradient across the mitral valve approximately 40-43 mmHg and mean gradient approximately 15 mmHg. There is mild tricuspid insufficiency. Calculated pulmonary artery pressure is at minimum at mid 60s, corresponding to moderately severe pulmonary hypertension. Evaluation of diastolic function is inconclusive due to AV dyssynchrony. CONCLUSIONS: 1. Study is of fair technical quality. Underlying sinus rhythm with variable degree of AV block. 2. Normal LV size with hyperdynamic LV systolic function. Unable to estimate diastolic function. 3. Aortic sclerosis but without significant stenosis or insufficiency. 4. Severe mitral stenosis. 5. High central venous pressure and high pulmonary artery pressure. [facility]
[2021-04-30] VITALS (11 sets, daily range): BP systolic 135–188; BP diastolic 57–118
[2021-04-30] MEDS ORDERED: HEPARIN DRIP 25,000 UNITS in IV 1 EA IV SCH (03:35)
[2021-04-30] MEDS ORDERED: HEPARIN SOD (PORCINE) 5000UNITS/ML 1ML VIAL/SYRINGE IV PRN (03:35)
[2021-04-30] MEDS ORDERED: LORazepam 2 MG/ML VIAL IV STA (03:40)
[2021-04-30] MEDS: hydrALAZINE 20MG/ML 1ML VIAL (J0360 PER 20MG) IV PRN (03:58)
[2021-04-30 04:11] LABS: HEMOGLOBIN 9.1 g/dl (12.0-15.5); MEAN CORPUSCULAR HEMOGLOBIN 27.1 pg (27.0-33.0); MEAN CORPUSCULAR HGB CONC 31.4 g/dl (32.0-36.5); MEAN CORPUSCULAR VOLUME 86.3 fl (80.0-96.0); PLATELET COUNT, AUTOMATED 204 10^3/uL (150-450); RED BLOOD COUNT 3.36 10^6/uL (4.00-5.40)
[2021-04-30 04:45] LABS: CALCIUM LEVEL 9.2 MG/DL (8.8-10.2); CREATININE FOR GFR 3.67 MG/DL (0.55-1.30); GLOMERULAR FILTRATION RATE 12.6 (>32); MAGNESIUM LEVEL 2.5 MG/DL (1.8-2.4); POTASSIUM SERUM 4.3 MEQ/L (3.5-5.1)
--- NOTE | 2021-04-30 05:56 | REPVR ---
PROCEDURE INFORMATION: Exam: US Duplex Lower Extremity Veins, Bilateral Exam date and time: 04/30/2021 4:33 AM Age: 81 years old Clinical indication: Other: Dyspnea; Additional info: Dyspnea suspect pe / unable to get cta chest due to young TECHNIQUE: Imaging protocol: Real-time duplex ultrasound of the extremities with 2-D weinberg scale, color Doppler flow and spectral waveform analysis with image documentation. Complete exam focused on the bilateral lower extremity veins. COMPARISON: US Duplex, Ext,LOWER veins,unilat 12/31/2020 6:17 PM FINDINGS: Right deep veins: Unremarkable. The common femoral, femoral, proximal profunda femoral and popliteal veins as well as the proximal posterior tibial vein are patent without thrombus. Normal Doppler waveforms. Normal compressibility and/or augmentation response. Right superficial veins: Saphenofemoral junction is patent without thrombus. Left deep veins: Unremarkable. The common femoral, femoral, proximal profunda femoral and popliteal veins as well as the proximal posterior tibial vein are patent without thrombus. Normal Doppler waveforms. Normal compressibility and/or augmentation response. Left superficial veins: Saphenofemoral junction is patent without thrombus. Soft tissues: Unremarkable. IMPRESSION: No evidence of deep vein thrombosis. Electronically signed by: Song Philip On 04/30/2021 05:56:06 AM
--- NOTE | 2021-04-30 05:58 | REPVR ---
PROCEDURE INFORMATION: Exam: CT Head Without Contrast Exam date and time: 04/30/2021 3:40 AM Age: 81 years old Clinical indication: Other: Bradycardia; Additional info: Encephalopathy TECHNIQUE: Imaging protocol: Computed tomography of the head without contrast. Radiation optimization: All CT scans at this facility use at least one of these dose optimization techniques: automated exposure control; mA and/or kV adjustment per patient size (includes targeted exams where dose is matched to clinical indication); or iterative reconstruction. COMPARISON: MRI-Brain without Contrast 01/13/2021 9:33 PM FINDINGS: Brain: There is mild bilateral basal ganglia calcification. Cerebral ventricles: There is age-related cerebral atrophy with secondary ventricular dilatation. Paranasal sinuses: Visualized sinuses are unremarkable. No fluid levels. Mastoid air cells: Visualized mastoid air cells are well aerated. Orbital cavity: There is apparent bilateral exophthalmos. Bones/joints: Unremarkable. No acute fracture. Soft tissues: Unremarkable. IMPRESSION: 1. Limited exam due to patient motion. Within limitations of the exam no gross intracranial hemorrhage, mass effect or midline shift seen. 2. Apparent bilateral exophthalmos. Electronically signed by: Song Philip On 04/30/2021 05:57:40 AM
[2021-04-30] MEDS: HumaLOG INSULIN (NovoLOG) PER UNIT SC SCH (06:30)
[2021-04-30 08:29] LABS: THYROID STIMULATING HORMONE 2.5 uIU/ML (0.358-3.740)
--- NOTE | 2021-04-30 17:29 | ECGEPIP ---
[facility] - ED Test Date: 2021-04-28 Pat Name: JAVY RUIZ Department: Room: [place] [address] Gender: Female Orthodontic Treatment Coordinator: ed : 1940 Requested By: PATRICIA Estrada Order Number: [id number] Reading MD: Arielle Ivey Measurements Intervals [place] Rate: 54 P: 33 [place]: 184 QRS: -22 QRSD: 152 T: 141 QT: 514 QTc: 487 Interpretive Statements Sinus bradycardia with first degree av block with frequent premature ventricular complexes in a pattern of bigeminy Possible Left atrial enlargement prolonged qtc Left bundle branch block Electronically Signed on 04-30-2021 17:28:54 EDT by Arielle Ivey
--- NOTE | 2021-04-30 19:16 | DS.PDOC ---
Discharge Summary General Date of Admission Apr 29, 2021 at 03:30 Date of Discharge Apr 30, 2021 Discharge Summary PROCEDURES PERFORMED DURING STAY: None ADMITTING DIAGNOSES: 1. Symptomatic bradycardia 2. DORINA on CKD 3. Atrial fibrillation 4. Normocytic anemia 5. History of CHF with pulmonary hypertension 6. CAD s/p RCA stent 7. Hypertension 8. Diabetes mellitus type 2 9. Dementia 10. Hyperlipidemia 11. Mood disorder 12. Acute on chronic hypoxic respiratory failure DISCHARGE DIAGNOSES: 1. Symptomatic bradycardia 2. DORINA on CKD 3. Atrial fibrillation 4. Normocytic anemia 5. History of CHF with pulmonary hypertension 6. CAD s/p RCA stent 7. Hypertension 8. Diabetes mellitus type 2 9. Dementia 10. Hyperlipidemia 11. Mood disorder 12. Acute on chronic hypoxic respiratory failure COMPLICATIONS/CHIEF COMPLAINT: Bradycardia. HISTORY OF PRESENT ILLNESS: Copied from admitting attending's H&P " 81 yo F with PMHx described below, presented to ER c/o SOB and generalized weakness for past several days. Found to have a HR of 35 on arrival to ER. Denies blurred vision, chest pain, n/v/d, fevers. Follows with Dr. Garcia. he was contacted from ER, recommended to hold amiodarone, digoxin and carvedilol. While in ER, rate improved to 40. She has been normotensive and alert. Patient will be admitted to ICU, with continuous cardiac monitoring. " HOSPITAL COURSE: During hospitalization, I reached out to Dr. Garcia. Bradycardia was likely due to digoxin toxicity in the setting of amiodarone in acute renal failure. Recommends holding digoxin, amiodarone, and Coreg and it may take a few days to resolve. Around 6PM, patient had an acute change in status. Patient heart rate increased to the 50s, and she was hypertensive with SBP >200. Her oxygen requirements increased to ventimask at 100%. I called patient's health care proxy and discussed our choices. Health care proxy told me she would not to be resuscitated or intubated. Health care proxy was okay with CPAP/BIPAP. I had ordered a stat echocardiogram and 40mg IV furosemide. Later that evening, patient was given another 40mg IV furosemide and started on BIPAP. The echocardiogram returned demonstrating high central venous pressure and high pulmonary arterial pressure. There was a concern for PE and patient was started on a heparin drip. V-Q scan was ordered for the morning. Patient was able to maintain saturations until 8AM. At that time, patient started to rapidly decline. Nurse contacted me and told me her urine output was poor despite the IV Lasix given last night. Patient had gained 6kg and renal function worsened. Carlos sparks was not able to maintain saturation and started to yasmany down. I called family letting them know she is rapidly declining. Our options would be comfort measures or intubation. Family decided comfort measures and were on their way in. Unfortunately, patient had prior to family arriving. Patient on 04/30/21 at 8:35 AM Vital Signs/I&Os Vital Signs Date Time Temp Pulse Resp B/P (MAP) Pulse Ox O2 Delivery O2 Flow Rate FiO2 04/30/21 08:00 100 04/30/21 08:00 98.9 75 32 136/63 (87) 94 NIPPV (BIPAP/CPAP) 04/29/21 18:12 15.0 I&O- Last 24 Hours up to 6 AM 04/30/21 06:00 Intake Total 770 ml Output Total 420 ml Balance 350 ml Laboratory Data Labs 24H Laboratory Tests 2 04/29/21 21:06: Bedside Glucose (Misc Panel) 287H 04/30/21 04:01: Reticulocyte # (auto) 118.9H, Nucleated Red Blood Cells % (auto) 0.0, Percent Reticulocyte Count 3.5H, Reticulocyte Hemoglobin Equivalent 23.1L, Activated Partial Thromboplast Time 31.4, Anion Gap 10, Glomerular Filtration Rate 12.6L, Calcium Level 9.2, Magnesium Level 2.5H, Iron Level 17L, Total Iron Binding Capacity 420, Transferrin % Saturation 4.0L, Ferritin 23, Lactate Dehydrogenase 253H, Thyroid Stimulating Hormone (TSH) 2.500 04/30/21 08:06: Bedside Glucose (Misc Panel) 298H CBC/BMP Laboratory Tests 04/30/21 04:01 FSBS Laboratory Tests Test 04/29/21 21:06 04/30/21 08:06 Range/Units Bedside Glucose (Misc Panel) 287 298 83-110 MG/DL Microbiology Microbiology 04/28/21 Respiratory Virus Panel (PCR) (DAYAN) - Final, Complete Discharge Medications Scheduled Amiodarone HCl (Amiodarone HCl) 200 Mg Tablet, 200 MG PO BID, (Reported) Amlodipine Besylate (Amlodipine Besylate) 5 Mg Tablet, 5 MG PO BID, (Reported) Aspirin (Aspirin EC) 81 Mg Tablet.dr, 162 MG PO DAILY, (Reported) Atorvastatin Calcium (Atorvastatin Calcium) 20 Mg Tab, 20 MG PO DAILY, (Reported) Carbamazepine (Carbamazepine ER) 100 Mg Tab.er.12h, 100 MG PO BID, (Reported) Carvedilol (Carvedilol) 25 Mg Tab, 25 MG PO BID, (Reported) Cephalexin (Cephalexin) 500 Mg Capsule, 500 MG PO BID, (Reported) started 04/23/21 x 10 days Cholecalciferol (Vitamin D3) (Vitamin D3) 125 Mcg Capsule, 125 MCG PO DAILY, (Reported) Cyanocobalamin (Vitamin B-12) (Vitamin B-12) 1,000 Mcg Capsule, 1,000 MCG PO DAILY, (Reported) Digoxin (Digoxin) 125 Mcg Tablet, 125 MCG PO DAILY, (Reported) Furosemide (Furosemide) 80 Mg Tablet, 80 MG PO BID, (Reported) Insulin Glargine,Hum.rec.anlog (Touveronica Soldioni) 300 Unit/1 Ml Insuln.pen, 80 UNITS SC QHS, (Reported) Insulin Lispro (Insulin Lispro Kwikpen U-100) 100 Unit/1 Ml Insuln.pen, 24 UNITS SC TID, (Reported) PER SLIDING SCALE Memantine HCl (Namenda Xr) 28 Mg Cap.spr.24, 28 MG PO DAILY, (Reported) Multivitamins (Thera M Plus Tablet) 1 Each Tablet, 1 TAB PO DAILY, (Reported) Nortriptyline HCl (Nortriptyline HCl) 25 Mg Cap, 25 MG PO BID, (Reported) Pantoprazole Sodium (Pantoprazole Sodium) 40 Mg Tablet.dr, 40 MG PO BID, (Reported) Pregabalin (Lyrica) 100 Mg Capsule, 100 MG PO BID, (Reported) Sennosides/Docusate Sodium (Stimulant Laxative Plus Tablet) 1 Each Tablet, 1 TAB PO BID, (Reported) Scheduled PRN Ipratropium/Albuterol Sulfate (Iprat-Albut 0.5-3(2.5) mg/3 ml) 3 Ml Ampul.neb, 1 VIAL NEB Q6H PRN for SHORTNESS OF BREATH, (Reported) Allergies Coded Allergies: metformin (Verified Adverse Reaction, Mild, N/V, 04/25/21) clopidogrel (Verified Adverse Reaction, Unknown, unsure, 04/25/21) PT REPORTS SHE STILL HAS ITCHINESS SO SHE DOES NOT THINK SHE IS ALLERGIC TO PLAVIX WHICH IS WHY THEY STOPPED THE PLAVIX BEFORE FOR POSSIBLE ADVERSE REACTION OF FEELING ITCHY (10/22/20 VISIT) MARIO BLAKE DO Apr 30, 2021 19:16
== END 2021-04-30 11:00 | disposition expired | DRG 308 ==
LOC: M ED 23:05 → M ED INP 04-29 03:30 → ENRESERV 04-29 03:43 → M ICU 04-29 04:49
PROVIDERS: ADMIT Family Medicine; ATTEND Internal Medicine
DX: R00.1 Bradycardia, unspecified (principal); J96.21 Acute and chronic respiratory failure with hypoxia; I26.99 Other pulmonary embolism without acute cor pulmonale; N17.9 Acute kidney failure, unspecified; I50.32 Chronic diastolic (congestive) heart failure; I44.0 Atrioventricular block, first degree; I48.91 Unspecified atrial fibrillation; I27.20 Pulmonary hypertension, unspecified; F03.90 Unspecified dementia, unspecified severity, without behavioral disturbance, psychotic disturbance, mood disturbance, and anxiety; E11.9 Type 2 diabetes mellitus without complications; I11.0 Hypertensive heart disease with heart failure; I25.10 Atherosclerotic heart disease of native coronary artery without angina pectoris; Z95.2 Presence of prosthetic heart valve; Z79.899 Other long term (current) drug therapy; Z79.82 Long term (current) use of aspirin; Z88.8 Allergy status to other drugs, medicaments and biological substances; Z79.4 Long term (current) use of insulin